=== PATIENT | male | born 1960 | race Caucasian/White ===

== ENCOUNTER → 2020-04-03 | Outpatient (CLI) | payer MEDICAID, MEDICARE ==
[~2020-04-03] MED LIST: CATHETER FLUSH 10 ML SYR IV PRN; HOLD METFORMIN - RECEIVED CONTRAST 20 ML VIAL IV SCH; IOHEXOL 350 MG/ML 100 ML (OMNIPAQUE 350) VIAL IV ONE; NS 100 ML (IVPB) BAG IV ONE
[2020-04-03 12:06] LABS: POTASSIUM 4.3 MMOL/L (3.6-5.0)
[2020-04-03 12:07] LABS: BUN/CREATININE RATIO 5; CARBON DIOXIDE 20 MMOL/L (21-32); CHLORIDE 91 MMOL/L (98-107); CREATININE SERUM 0.56 MG/DL (0.60-1.30); GFR ESTIMATED > 60; GLUCOSE 89 MG/DL (70-105)
[2020-04-03 12:09] LABS: ALANINE AMINOTRANSFERASE 25 U/L (0-55); ALBUMIN 4.1 GM/DL (3.2-4.5); ALKALINE PHOSPHATASE 63 U/L (40-136); BILIRUBIN,TOTAL 0.5 MG/DL (0.1-1.0); TOTAL PROTEIN 6.9 GM/DL (6.4-8.2)
[2020-04-03 12:45] LABS: SODIUM 125 MMOL/L (135-145)
--- NOTE | 2020-04-03 12:52 | Diagnostic Imaging Report ---
EXAMINATION: CT Abdomen with and without intravenous contrast. TECHNIQUE: Precontrast acquisitions were acquired through the abdomen . Multiple contiguous axial images were obtained through the abdomen after the administration of intravenous contrast. All CT scans use one or more of the following dose optimizing techniques: automated exposure control, MA and/or KvP adjustment based on a patient size and exam type, or iterative reconstruction. HISTORY: Liver mass. COMPARISON: None available. FINDINGS: Limited views of the lower thorax show coronary artery calcifications. The liver is normal without focal lesion. There is no biliary ductal dilation. Gallbladder is normal. Pancreas is normal. Spleen is normal. Adrenal glands are normal. The kidneys are normal. There is no hydronephrosis. Visualized bowel is normal in caliber without obstruction or inflammation. No free fluid or air. No abdominal lymphadenopathy. Aorta is normal in caliber without aneurysm. There are no suspicious osseus lesions. IMPRESSION: 1. No liver mass is identified. Dictated by: Dictated on workstation # [id number]
== END ==
LOC: RAD FS 10:54
PROVIDERS: ATTEND Nurse Practitioner
DX: R74.8 Abnormal levels of other serum enzymes (principal)
CPT/HCPCS: 36415; 74170; 80053

== ENCOUNTER 2022-01-04 16:37 | Inpatient (IN) | payer MEDICARE ==
[~2022-01-04] VITALS: Ht 185.5 cm; Wt 84.9 kg
[2022-01-04] MEDS ORDERED: RT-ALBUTEROL/IPRATROPIUM 3 ML (DUONEB) VIAL ONE (16:42)
[2022-01-04 16:54] LABS: BASOPHILS % (AUTO) 0 % (0-10); EOSINOPHILS % (AUTO) 0 % (0-10); HEMATOCRIT 45 % (40-54); LYMPHOCYTES # (AUTO) 1.6 10^3/uL (1.0-4.0); LYMPHOCYTES % (AUTO) 11 % (12-44); MEAN CORPUSCULAR HEMOGLOBIN 33 pg (25-34); MEAN CORPUSCULAR HGB CONC 33 g/dL (32-36); MEAN CORPUSCULAR VOLUME 100 fL (80-99); MEAN PLATELET VOLUME 9.7 fL (9.0-12.2); MONOCYTES # (AUTO) 0.9 10^3/uL (0.0-1.0); MONOCYTES % (AUTO) 7 % (0-12); NEUTROPHILS # (AUTO) 11.3 10^3/uL (1.8-7.8); NEUTROPHILS % (AUTO) 81 % (42-75); PLATELET COUNT 222 10^3/uL (130-400); WHITE BLOOD COUNT 13.9 10^3/uL (4.3-11.0)
[2022-01-04] MEDS ORDERED: RT-ALBUTEROL/IPRATROPIUM 3 ML (DUONEB) VIAL INH ONE (17:00)
[2022-01-04] MEDS ORDERED: methylPREDNISolone 125 MG (Solu-MEDROL) VIAL IVP ONE (17:00)
[2022-01-04] MEDS ORDERED: methylPREDNISolone 125 MG (Solu-MEDROL) VIAL IM ONE (17:00)
--- NOTE | 2022-01-04 17:03 | Diagnostic Imaging Report ---
CHEST 1 VIEW AP/PA ONLY Indication: Shortness of air Comparison: None available. Findings: Heart is normal in size. Bilateral interstitial opacities are present. No pleural effusion or pneumothorax. Normal cardiomediastinal silhouette. Impression: 1. Basilar interstitial opacities raise the possibility of noncardiogenic pulmonary edema. Underlying interstitial lung disease could be present. Dictated by: Dictated on workstation # [id number]
[2022-01-04 17:19] LABS: CREATININE SERUM 0.74 MG/DL (0.60-1.30); POTASSIUM 4.5 MMOL/L (3.6-5.0)
[2022-01-04 17:20] LABS: BILIRUBIN,TOTAL 0.5 MG/DL (0.1-1.0); CALCIUM 8.9 MG/DL (8.5-10.1); TOTAL PROTEIN 7.4 GM/DL (6.4-8.2)
[2022-01-04 17:29] LABS: ABG BASE EXCESS -8.5 MMOL/L (-2.5-2.5); ABG OXYGEN SATURATION 99 % (94-100); ABG PCO2 36 MMHG (35-45); ABG PH 7.29 (7.37-7.43); ABG PO2 132 MMHG (79-93); ABG TCO2 18.4 MMOL/L (21.0-31.0)
[2022-01-04 17:30] LABS: ALLENS TEST YES-POS; INSPIRED O2 100% BIPAP; PATIENT TEMP 35.7; VENTILATOR NO
[2022-01-04] MEDS ORDERED: FUROSEMIDE 40 MG/4 ML INJ (LASIX) IVP ONE (17:45)
--- NOTE | 2022-01-04 18:03 | ED Respiratory ---
General Chief Complaint: Respiratory Problems Stated Complaint: COPD Nursing Triage Note: Patient and family report patient has COPD. Family states patient became short of breath overnight, also states patient had diarrhea overnight. Source: patient Exam Limitations: no limitations History of Present Illness Date Seen by Provider: January 04, 2022 Time Seen by Provider: 16:30 Initial Comments Patient is a 61-year-old male with history of COPD who presents to the ED with fever, cough, shortness of breath and increased work of breathing. Patient has also had diarrhea for the past day and a half. EMS was contacted patient was found to have moderate respiratory distress with O2 saturation in the upper 60s. Placed patient on 4 L and transition to BiPAP on EMS arrival. Denies chest pain, nausea vomiting or sweats abdominal pain. Reports chest tightness no chest pain. History limited by the patient's respiratory status Timing/Duration: just prior to arrival Severity: moderate Prior Episodes/Possible Cause: other Modifying Factors: Improves With Oxygen Associated Symptoms: other Allergies and Home Medications Allergies Coded Allergies: No Known Drug Allergies (Unverified , 01/04/22) Patient Home Medication List Home Medication List Reviewed: Yes Review of Systems Review of Systems Constitutional: see HPI EENTM: see HPI Respiratory: see HPI Cardiovascular: see HPI Gastrointestinal: see HPI Genitourinary: see HPI Psychiatric/Neurological: See HPI Hematologic/Lymphatic: See HPI Immunological/Allergic: see HPI Past Jrwiwqg-Ikqlpv-Ceujxf Hx Patient Social History Tobacco Use?: Yes Tobacco type used: Cigarettes Substance use?: No Alcohol Use?: No Pt feels they are or have been: No Immunizations Up To Date First/Initial COVID19 Vaccinat: 03/03/21 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 oz. kg; 21.00 BMI Method: General Appearance: mild distress Eyes: Bilateral Eye Normal Inspection, Bilateral Eye PERRL HEENT: PERRL/EOMI, pharynx normal Neck: non-tender, supple Respiratory: normal breath sounds, decreased breath sounds Cardiovascular: regular rate, rhythm, no edema Gastrointestinal: non tender, soft Extremities: normal range of motion, non-tender Neurologic/Psychiatric: youth career specialist II-XII nml as tested, no motor/sensory deficits, alert, oriented x 3 Lymphatic: no adenopathy Focused Exam Sepsis Stage: Ruled Out Progress/Results/Core Measures Suspected Sepsis SIRS Temperature: Pulse: 113 Respiratory Rate: 37 Laboratory Tests 01/04/22 16:46: White Blood Count 13.9H Blood Pressure 121 /92 Mean: 102 Laboratory Tests 01/04/22 16:46: Creatinine 0.74, Platelet Count 222, Total Bilirubin 0.5 Results/Orders Lab Results Laboratory Tests Test 01/04/22 16:46 01/04/22 17:05 01/04/22 17:10 Range/Units White Blood Count 13.9 H 4.3-11.0 10^3/uL Red Blood Count 4.52 4.30-5.52 10^6/uL Hemoglobin 15.0 13.3-17.7 g/dL Hematocrit 45 40-54 % Mean Corpuscular Volume 100 H 80-99 fL Mean Corpuscular Hemoglobin 33 25-34 pg Mean Corpuscular Hemoglobin Concent 33 32-36 g/dL Red Cell Distribution Width 13.8 10.0-14.5 % Platelet Count 222 130-400 10^3/uL Mean Platelet Volume 9.7 9.0-12.2 fL Immature Granulocyte % (Auto) 1 % Neutrophils (%) (Auto) 81 H 42-75 % Lymphocytes (%) (Auto) 11 L 12-44 % Monocytes (%) (Auto) 7 0-12 % Eosinophils (%) (Auto) 0 0-10 % Basophils (%) (Auto) 0 0-10 % Neutrophils # (Auto) 11.3 H 1.8-7.8 10^3/uL Lymphocytes # (Auto) 1.6 1.0-4.0 10^3/uL Monocytes # (Auto) 0.9 0.0-1.0 10^3/uL Eosinophils # (Auto) 0.0 0.0-0.3 10^3/uL Basophils # (Auto) 0.0 0.0-0.1 10^3/uL Immature Granulocyte # (Auto) 0.1 0.0-0.1 10^3/uL Sodium Level 135 135-145 MMOL/L Potassium Level 4.5 3.6-5.0 MMOL/L Chloride Level 97 L 98-107 MMOL/L Carbon Dioxide Level 17 L 21-32 MMOL/L Anion Gap 21 H 5-14 MMOL/L Blood Urea Nitrogen 9 7-18 MG/DL Creatinine 0.74 0.60-1.30 MG/DL Estimat Glomerular Filtration Rate 103 BUN/Creatinine Ratio 12 Glucose Level 201 H 70-105 MG/DL Calcium Level 8.9 8.5-10.1 MG/DL Corrected Calcium 8.9 8.5-10.1 MG/DL Total Bilirubin 0.5 0.1-1.0 MG/DL Aspartate Amino Transf (AST/SGOT) 39 H 5-34 U/L Alanine Aminotransferase (ALT/SGPT) 21 0-55 U/L Alkaline Phosphatase 87 40-136 U/L Troponin I 0.53 *H <0.30 NG/ML Pro-B-Type Natriuretic Peptide 8897.0 H <75.0 PG/ML Total Protein 7.4 6.4-8.2 GM/DL Albumin 4.0 3.2-4.5 GM/DL Blood Gas Puncture Site LT RADIAL Blood Gas Patient Temperature 35.7 Arterial Blood pH 7.29 *L 7.37-7.43 Arterial Blood Partial Pressure CO2 36 35-45 MMHG Arterial Blood Partial Pressure O2 132 H 79-93 MMHG Arterial Blood HCO3 17 *L 23-27 MMOL/L Arterial Blood Total CO2 18.4 L 21.0-31.0 MMOL/L Arterial Blood Oxygen Saturation 99 94-100 % Arterial Blood Base Excess -8.5 L -2.5-2.5 MMOL/L Jm Test YES-POS Blood Gas Ventilator Setting NO Blood Gas Inspired Oxygen 100% BIPAP My Orders Orders - ALMA JIM DO Albuterol/Ipra Inhalation Soln (Duoneb I (01/04/22 16:42) Cbc With Automated Diff (01/04/22 16:49) Comprehensive Metabolic Panel (01/04/22 16:49) Troponin I Fs (01/04/22 16:49) Chest 1 View Ap/Pa Only (01/04/22 16:49) Ekg Tracing (01/04/22 16:49) Probnp Fs (01/04/22 16:49) Methylprednisolone Sod Succ (Solu-Medrol (01/04/22 17:00) Albuterol/Ipra Inhalation Soln (Duoneb I (01/04/22 17:00) Svn Small Volume Nebulizer (01/04/22 16:49) Bipap (Bilevel) Set Up (01/04/22 16:49) Methylprednisolone Sod Succ (Solu-Medrol (01/04/22 17:00) Covid 19 Inhouse Test (01/04/22 17:08) Influenza A And B By Pcr (01/04/22 17:08) Isolation Central Supply Req (01/04/22 17:08) Arterial Blood Gas (01/04/22 17:22) Furosemide Injection (Lasix Injection) (01/04/22 17:45) Piperacillin Sodium/Tazobactam (Zosyn Vi (01/04/22 18:15) Lactic Acid Analyzer (01/04/22 18:07) Medications Given in ED Current Medications Medications Dose Ordered Sig/Estrella Route Start Time Stop Time Status Last Admin Dose Admin Albuterol/ Ipratropium 6 ml ONCE ONCE INH 01/04/22 17:00 01/04/22 17:01 DC 01/04/22 16:59 6 ML Furosemide 40 mg ONCE ONCE IVP 01/04/22 17:45 01/04/22 17:47 DC 01/04/22 18:09 40 MG Methylprednisolone Sodium Succinate 125 mg ONCE ONCE IVP 01/04/22 17:00 01/04/22 17:01 DC 01/04/22 17:01 125 MG Vital Signs/I&O 01/04/22 16:42 Temp 35.7 Pulse 113 Resp 37 B/P (MAP) 121/92 (102) Pulse Ox 100 O2 Delivery NIV Bilevel Capillary Refill : Less Than 3 Seconds Blood Pressure Mean: 102 Departure Communication (Admissions) Chest x-ray: Bibasilar opacities. EKG: Sinus tach, rate 129, no acute ST-T wave changes. Patient maintained on BiPAP given DuoNeb, Solu-Medrol and Lasix with decreased work of breathing and improved oxygen saturations. Dr. Sandoval to admt. Impression Primary Impression: Acute exacerbation of chronic obstructive pulmonary disease (COPD) Additional Impressions: Acute congestive heart failure Acute respiratory failure with hypoxia Disposition: ADMITTED INPATIENT Condition: Improved Admissions Decision to Admit/Date: January 04, 2022 Time/Decision to Admit Time: 18:32 Departure-Patient Inst. Referrals: AUGUST VO MD, (DDU) (PCP/Family) Primary Care Physician ALMA JIM DO January 04, 2022 18:03
[2022-01-04] MEDS ORDERED: PIPERACILLIN SODIUM/TAZOBACTAM 4.5 GM in NS (IVPB) 100 ML IV ONE (18:15)
[2022-01-04 20:10] VITALS: BP 154/88
[2022-01-04] MEDS ORDERED: polyethylene glycoL POWDER 17 GM (MIRALAX) PACK PO PRN (20:15)
[2022-01-04] MEDS ORDERED: diphenhydrAMINE 50 MG/ML INJ (BENADRYL) IVP PRN (20:15)
[2022-01-04] MEDS ORDERED: BISACODYL 10 MG SUPP (DULCOLAX) PR PRN (20:15)
[2022-01-04] MEDS ORDERED: ONDANSETRON 4 MG/2 ML (SDV) Z0FRAN IV PRN (20:15)
[2022-01-04] MEDS ORDERED: ALPRAZolam 0.25 MG (XANAX) TAB PO PRN (20:15)
[2022-01-04] MEDS ORDERED: ANTACID SUSP 30 ML UDC (MYLANTA) PO PRN (20:15)
[2022-01-04] MEDS ORDERED: morphine INJ 4 MG/ML 1 ML (VIAL/SYRINGE) IV PRN (20:15)
[2022-01-04] MEDS ORDERED: diphenhydrAMINE 25 MG TAB (BENADRYL) PO PRN (20:15)
[2022-01-04] MEDS ORDERED: LORazepam INJ 2 MG/ML (ATIVAN) VIAL IVP PRN (20:15)
[2022-01-04] MEDS ORDERED: ONDANSETRON 4 MG (ZOFRAN) ORAL DISSOLVE TAB PO PRN (20:15)
[2022-01-04] MEDS ORDERED: ACETAMINOPHEN 325 MG TABLET PO PRN (20:15)
[2022-01-04] MEDS ORDERED: MELATONIN 3 MG TABLET PO PRN (20:15)
[2022-01-04] MEDS ORDERED: NS IV 1000 ML 1,000 ML IV SCH (20:15)
[2022-01-04] MEDS: inSUlin ASPART (NovoLOG) 1 UNIT/0.01 ML (CHARGE PER UNIT) SC SCH (21:02)
--- NOTE | 2022-01-04 21:15 | Tele-ICU Progress Note ---
Progress Note 61M with COPD, CVA presented with fever, cough, SOB, increased WOB, diarrhea x 1.5 days. On arrival, SpO2 in upper 60s. Placed on BiPap on arrival. - COPD: with exacerbation. Solumedrol, nebs, bipap. - CHF: unclear if CHF component. Received lasix in ER without much output. Overall, appears dry with the exception of the BNP 8K. Agree with gentle fluids, close observation for evidence of evolving fluid overload. - sepsis: presumed pulmonary source. Cultures pending. Empiric abx initiated. - DM: glucose decreased from 200 to 170 despite being given steroids. Sliding scale ordered. Monitor for steroid induced hyperglycemia, but appears low risk at this time. Focused Exam Lactate Level 01/04/22 19:00: Lactic Acid Level 5.74*H 01/04/22 21:00: Height, Weight, BMI Height: '" Weight: lbs. oz. kg; 19.99 BMI Method: Lactic Acid Level Laboratory Tests Test 01/04/22 19:00 01/04/22 21:00 Lactic Acid Level 5.74 MMOL/L (0.50-2.00) *H ELÍAS MEYERS MD January 04, 2022 21:15
[2022-01-04 21:17] LABS: ABG BASE EXCESS -4.1 MMOL/L (-2.5-2.5); ABG OXYGEN SATURATION 79 % (94-100); ABG PCO2 32 MMHG (35-45); ABG PO2 40 MMHG (79-93); ABG TCO2 21.2 MMOL/L (21.0-31.0)
[2022-01-04 21:18] LABS: INSPIRED O2 21%; PATIENT TEMP 35.4; VENTILATOR NO
[2022-01-04] MEDS: DOCUSATE SODIUM 100 MG (COLACE) CAP PO SCH (21:51)
[2022-01-04] MEDS: AZITHROMYCIN INJECTION 500 MG in NS (IVPB) 250 ML IV SCH (21:51)
[2022-01-04] MEDS: NS IV 1000 ML 1,000 ML IV SCH (21:51)
[2022-01-04] MEDS: FAMOTIDINE 20MG/2ML IV (PEPCID) IVP SCH (22:05)
[2022-01-04] MEDS: ENOXAPARIN 80 MG/0.8 ML (LOVENOX) SYR SC SCH (22:05)
[2022-01-04 22:08] VITALS: BP 160/93
[2022-01-04] MEDS: RT-ALBUTEROL/IPRATROPIUM 3 ML (DUONEB) VIAL INH SCH (22:08)
[2022-01-04] MEDS: methylPREDNISolone 40 MG/ML (Solu-MEDROL) VIAL IV SCH (23:20)
[2022-01-04] MEDS: PIPERACILLIN SODIUM/TAZOBACTAM 4.5 GM in NS (IVPB) 100 ML IV SCH (23:20)
[2022-01-05] VITALS (16 sets, daily range): BP systolic 63–172; BP diastolic 47–124
[2022-01-05] MEDS: RT-ALBUTEROL/IPRATROPIUM 3 ML (DUONEB) VIAL INH SCH ×6 (02:20→22:45)
[2022-01-05 03:08] LABS: BASOPHILS % (AUTO) 0 % (0-10); EOSINOPHILS % (AUTO) 0 % (0-10); HEMATOCRIT 42 % (40-54); HEMOGLOBIN 14.6 g/dL (13.3-17.7); LYMPHOCYTES # (AUTO) 0.9 10^3/uL (1.0-4.0); LYMPHOCYTES % (AUTO) 10 % (12-44); MEAN CORPUSCULAR HEMOGLOBIN 33 pg (25-34); MEAN CORPUSCULAR HGB CONC 35 g/dL (32-36); MEAN CORPUSCULAR VOLUME 96 fL (80-99); MONOCYTES # (AUTO) 0.3 10^3/uL (0.0-1.0); MONOCYTES % (AUTO) 3 % (0-12); NEUTROPHILS # (AUTO) 7.8 10^3/uL (1.8-7.8); NEUTROPHILS % (AUTO) 86 % (42-75); PLATELET COUNT 181 10^3/uL (130-400)
[2022-01-05 03:19] LABS: ALBUMIN 3.6 GM/DL (3.2-4.5); POTASSIUM 4.1 MMOL/L (3.6-5.0)
[2022-01-05 03:20] LABS: CALCIUM 8.6 MG/DL (8.5-10.1)
[2022-01-05 03:21] LABS: TOTAL PROTEIN 6.9 GM/DL (6.4-8.2)
[2022-01-05 03:23] LABS: BILIRUBIN,TOTAL 0.7 MG/DL (0.1-1.0)
[2022-01-05 03:25] LABS: CREATININE SERUM 0.91 MG/DL (0.60-1.30); PHOSPHORUS 2.9 MG/DL (2.3-4.7)
[2022-01-05 03:28] LABS: MAGNESIUM 1.3 MG/DL (1.6-2.4)
[2022-01-05] MEDS ORDERED: MAGNESIUM 1 GM/100 ML IVPB 400 ML IV ONE (03:35)
[2022-01-05] MEDS: MAGNESIUM 1 GM/100 ML IVPB 100 ML IV SCH ×4 (03:38→06:39)
[2022-01-05] MEDS: methylPREDNISolone 40 MG/ML (Solu-MEDROL) VIAL IV SCH ×4 (05:19→23:13)
[2022-01-05] MEDS: NS IV 1000 ML 1,000 ML IV SCH (05:21)
[2022-01-05] MEDS: inSUlin ASPART (NovoLOG) 1 UNIT/0.01 ML (CHARGE PER UNIT) SC SCH ×4 (05:24→23:12)
[2022-01-05] MEDS ORDERED: KCL 20 MEQ TAB (K-DUR) PO SCH (06:00)
[2022-01-05] MEDS ORDERED: MAGNESIUM 1 GM/100 ML IVPB 100 ML IV SCH (06:00)
[2022-01-05] MEDS ORDERED: POTASSIUM CL 10MEQ/50ML IVPB 50 ML IV SCH (06:00)
--- NOTE | 2022-01-05 06:19 | History & Physical-Hospitalist ---
History of Present Illness HPI/Chief Complaint CC: SOB HPI: This is a 61 yr old WM with a history of stroke with right sided hemiparesis. In addition to COPD. Pt continues to smoke. He presented to the ER in [place] with SOB. He was found to have exacerbation of COPD and acute on chronic respiratory failure. At this current time pt has remained stable and will be transferred to the 4th floor. IV steroids reviewed and pt will remain on oxygen. Source: patient Exam Limitations: no limitations Date Seen 01/05/22 Time Seen by a Provider: 09:00 Attending Physician Logan Flores MD,(DDU) PCP Admitting Physician: Nydia Sandoval DO Attending Physician: Nydia Sandoval DO Referring Physician Date of Admission January 04, 2022 at 20:08 Home Medications & Allergies Home Medications Reviewed patient Home Medication Reconciliation performed by pharmacy medication reconciliations histology technician and/or nursing. Patients Allergies have been reviewed. Allergies Allergies Coded Allergies No Known Drug Allergies (Unverified01/04/22) Past Pytxxwl-Qebvti-Epircd Hx Patient Social History Marrital Status: Employed/Student: unemployed Tobacco Use?: Yes Tobacco type used: Cigarettes Smoking Status: Current Everyday Smoker Use of E-Cig and/or Vaping dev: No Substance use?: Yes Substance type: Marijuana Alcohol Use?: Yes Alcohol type: Beer Alcohol Frequency: Daily Pt feels they are or have been: No Immunizations Up To Date First/Initial COVID19 Vaccinat: 03/03/21 Second COVID19 Vaccination [place]: 03/03/21 Tetanus Booster (TDap): Unknown Hepatitis A: No Hepatitis B: No Current Status Advance Directives: No Communicates: Verbally Primary Language: French Preferred Spoken Language: French Is interpretation needed?: No Implanted or Applied Medical D: None Past Medical History Pneumonia, COPD High Cholesterol, Hypertension Stroke Review of Systems Constitutional: see HPI, malaise, weakness EENTM: no symptoms reported Respiratory: cough, dyspnea on exertion Cardiovascular: no symptoms reported Gastrointestinal: no symptoms reported Genitourinary: no symptoms reported Musculoskeletal: no symptoms reported Skin: no symptoms reported Psychiatric/Neurological: No Symptoms Reported All Other Systems Reviewed Negative Unless Noted: Yes Physical Exam Physical Exam Vital Signs Vital Signs - First Documented 01/04/22 01/04/22 01/04/22 16:42 20:08 20:10 Temp 35.7 Pulse 113 Resp 37 B/P (MAP) 121/92 (102) Pulse Ox 100 O2 Delivery NIV Bilevel O2 Flow Rate 21.00 FiO2 60 Capillary Refill : Less Than 3 Seconds Height, Weight, BMI Height: '" Weight: lbs. oz. kg; 20.40 BMI Method: General Appearance: Anxious, Chronically ill, Mild Distress, Thin Neck: Full Range of Motion, Normal Inspection, Non Tender Respiratory: No Accessory Muscle Use, No Respiratory Distress, Crackles, Whe ezing Cardiovascular: Regular Rate, Rhythm Extremity: Normal Capillary Refill, Normal Inspection, Normal Range of Motion, Non Tender, No Calf Tenderness, No Pedal Edema Neurologic/Psychiatric: Alert Results Results/Procedures Labs Laboratory Tests 01/04/22 16:46 01/05/22 03:00 01/05/22 18:35 01/06/22 04:22 Patient resulted labs reviewed. Assessment/Plan Admission Diagnosis Assessment: Acute on chronic respiratory failure Exacerbation of COPD Alcohol withdrawal? NSTEMI Congestive heart failure? Smoker Marijuana use Poor reserve History of CVA with right-sided weakness Plan: BiPAP as needed O2 supplement Antibiotics Steroids Cardiology Admission Status: Inpatient Order (span 2 midnights) Reason for Inpatient Admission: Respiratory failure Diagnosis/Problems Diagnosis/Problems (1) Acute exacerbation of chronic obstructive pulmonary disease (COPD) Status: Acute (2) History of cerebrovascular accident (3) Nonrheumatic aortic valve stenosis with regurgitation (4) Primary hypertension (5) Mixed hyperlipidemia NYDIA SANDOVAL DO January 05, 2022 06:19
[2022-01-05] MEDS: FAMOTIDINE 20MG/2ML IV (PEPCID) IVP SCH ×2 (08:57→20:16)
[2022-01-05] MEDS: DOCUSATE SODIUM 100 MG (COLACE) CAP PO SCH ×3 (08:57→20:11)
[2022-01-05] MEDS: ENOXAPARIN 80 MG/0.8 ML (LOVENOX) SYR SC SCH ×2 (08:57→20:17)
[2022-01-05] MEDS: PIPERACILLIN SODIUM/TAZOBACTAM 4.5 GM in NS (IVPB) 100 ML IV SCH ×3 (08:58→23:13)
[2022-01-05] MEDS ORDERED: ASPIRIN 81 MG CHEW (CHILDREN'S ASA) PO SCH (09:00)
--- NOTE | 2022-01-05 10:38 | Occupational Therapy Eval ---
OT Evaluation-General/PLF Medical Diagnosis Admission Date January 04, 2022 at 20:08 Medical Diagnosis: COPD, CHF Onset Date: January 04, 2022 Therapy Diagnosis Therapy Diagnosis: reduced adl status Precautions Precautions/Isolations: Fall Prevention, Standard Precautions Referral Referral Reason: Evaluation/Treatment Medical History Pertinent Medical History: COPD, CVA Current History Pt presents to hospital with fever, cough, increased SOB and diarrhea. SpO2 in upper 60's. Placed on supplemental oxygen. Per patient, he lives with his in a multilevel home. He does not use any AD for mobility but his is always close by. He requires assistance with dressing and bathing secondary to residual effects (limited RUE functional use) from old CVA. Pt reports he was able to f eed self and toilet. Reviewed History: Yes Social History Home: Multilevel Current Living Status: Spouse ADL-Prior Level of Function SCALE: Activities may be completed with or without assistive devices. 1-Piwnkuvoef-geicsyz completes the activity by him/herself with no assistance from a helper. 5-Set-up or Clean-up Assistance-helper sets up or cleans up; patient completes activity. [place] assists only prior to or following the activity. 4-Supervision or Touching Assistance-helper provides verbal cues and/or touching/steadying and/or contact guard assistance as patient completes activity. Assistance may be provided throughout the activity or intermittently. 3-Partial/Moderate Assistance-helper does LESS THAN HALF the effort. [place] lifts, holds or supports trunk or limbs, but provides less than half the effort. 2-Substantial/Maximal Assistance-helper does MORE THAN HALF the effort. [place] lifts or holds trunk or limbs and provides more than half the effort. 1-Entigtsaz-nmrxph does ALL the effort. Patient does none of the effort to complete the activity. Or, the assistance of 2 or more helpers is required for the patient to complete the activity. If activity was not attempted, code reason: 7-Patient Refused. 9-Not Applicable-not attempted and the patient did not perform the activity before the current illness, exacerbation or injury. 10-Not Attempted due to Environmental Limitations-(lack of equipment, weather restraints, etc.). 88-Not Attempted due to Medical Conditions or Safety Concerns. Self Care: Needed Some Help Functional Cognition: Needed Some Help DME/Equipment: Bath Chair, Tub/Shower Drive Self: No OT Current Status Subjective Pt denies pain, agreeable to eval. Appearance Pt left sitting in recliner, RN notified. All needs within reach. Mental Status/Objective Patient Orientation: Person, Place Attachments: IV, Oxygen, Telemetry Current Hearing Aids: No Hand Dominance: Right Upper Extremity ROM flexed synergy pattern: RUE. Limited shoulder ROM, ~1/4 AROM. Pt reports pain in anterior shoulder with PROM. Spastic elbow/hand/wrist. Tremors notable in BUE's. LUE: WFL Upper Extremity Strength LUE: 3+/5 throughout ADL-Treatment Eating (QC): 4 On/Off Footwear (QC): 4 Bilateral socks donned while long sitting in bed. Extra time required but good one handed technique notable. SBA to sit EOB, good sitting balance. Pt on 4L O2, desats to low 80's post bed mobility. Recovers quickly with rest and cues for PLB. HR increases from 108-135 bpm with activity. Sit<>stand: impulsive, CGA for safety. Ataxic like movements when ambulating short distance; ~5 feet, towards chair. Pt exhibits SOB after minimal activity. BP: 206/125. After ~1 minute of rest, BP: 200/106. RN notified. Education OT Patient Education: Correct positioning, Modified ADL techniques, Purpose of tx/functional activities, Safety issues Teaching Recipient: Patient Teaching Methods: Demonstration, Discussion Response to Teaching: Verbalize Understanding, Return Demonstration, Reinforcement Needed OT Salesperson Surgical Appliances Goals Salesperson Surgical Appliances Goals Time Frame: Jan 15, 2022 Eating (QC): 5 Oral Hygiene (QC): 5 Toileting Hygiene (QC): 4 Shower/Bathe Self (QC): 3 Upper Body Dressing (QC): 3 Lower Body Dressing (QC): 3 1=Demonstrate adherence to instructed precautions during ADL tasks. 2=Patient will verbalize/demonstrate understanding of assistive devices/modifications for ADL. 3=Patient will improve strength/tolerance for activity to enable patient to perform ADL's. OT Education/Plan Problem List/Assessment Assessment: Decreased Activ Tolerance, Decreased Safety Aware, Decreased UE Strength, Impaired Cognition, Impaired Coordination, Impaired Funct Balance, Impaired Self-Care Skills, Restricted Funct UE ROM Discharge Recommendations Plan/Recommendations: Continue POC Target Placement ongoing assessment, Home vs Home health pending progress Treatment Plan/Plan of Care Treatment,Training & Education: Yes Patient would benefit from OT for education, treatment and training to promote independence in ADL's, mobility, safety and/or upper extremity function for ADL's. Plan of Care: ADL Retraining, Caregiver Training, Functional Mobility, Group Exercise/Act as Ind, UE Funct Exercise/Act, UE Neuromus Re-Ed/Coord Treatment Duration: Jan 15, 2022 Frequency: 3 times per week (3-5x/week) Estimated Hrs Per Day: .25 hour per day Rehab Potential: Fair Time/GCodes Start Time: 10:04 Stop Time: 10:27 Total Time Billed (hr/min): 23 Billed Treatment Time 1 visit EVM (10 min) FA (13 min) Tiara Herrera OT January 05, 2022 10:38
--- NOTE | 2022-01-05 10:48 | Physical Therapy Evaluation ---
PT Evaluation-General Medical Diagnosis Admission Date January 04, 2022 at 20:08 Medical Diagnosis: COPD exacerbation Onset Date: January 04, 2022 Therapy Diagnosis Therapy Diagnosis: debility/weakness Precautions Precautions/Isolations: Fall Prevention, Standard Precautions Referral Physician: Lori Reason for Referral: Evaluation/Treatment Medical History Pertinent Medical History: COPD, CVA Current History ER secondary to SOA with decreased SAO2 Reviewed History: Yes Social History Home: [facility] Current Living Status: Spouse Prior Prior Level of Function SCALE: Activities may be completed with or without assistive devices. 7-Yglbcegtun-qilhglb completes the activity by him/herself with no assistance from a helper. 5-Set-up or Clean-up Assistance-helper sets up or cleans up; patient completes activity. [place] assists only prior to or following the activity. 4-Supervision or Touching Assistance-helper provides verbal cues and/or touching/steadying and/or contact guard assistance as patient completes activity. Assistance may be provided throughout the activity or intermittently. 3-Partial/Moderate Assistance-helper does LESS THAN HALF the effort. [place] lifts, holds or supports trunk or limbs, but provides less than half the effort. 2-Substantial/Maximal Assistance-helper does MORE THAN HALF the effort. [place] lifts or holds trunk or limbs and provides more than half the effort. 2-Rkxfmelys-trivop does ALL the effort. Patient does none of the effort to complete the activity. Or, the assistance of 2 or more helpers is required for the patient to complete the activity. If activity was not attempted, code reason: 7-Patient Refused. 9-Not Applicable-not attempted and the patient did not perform the activity before the current illness, exacerbation or injury. 10-Not Attempted due to Environmental Limitations-(lack of equipment, weather restraints, etc.). 88-Not Attempted due to Medical Conditions or Safety Concerns. Bed Mobility: 4 Transfers (B,C,W/C): 3 Gait: 3 Stairs: 3 Indoor Mobility (Ambulation): Needed Some Help Stairs: Needed Some Help Prior Devices Use: None (spouse assist) PT Evaluation-Current Subjective Patient reports spouse assists with all mobility and ADL's Pain Numeric Pain Scale: 0-No Pain Location: No Pain Reported Objective Patient Orientation: Normal For Age Attachments: Oxygen (4L NC), IV ROM/Strength ROM Lower Extremities bilateral LE WFL Strength Lower Extremities 3+/5 grossly bilateral LE Integumentary/Posture Integumentary refer to nursing notes Bowel Incontinence: No Bladder Incontinence: No Posture kyphotic Neuromuscular (Tone, Coordination, Reflexes) ataxic with all gross motor mobility Sensory Vision: Functional Hearing: Functional Transfers Lying to Sitting/Side of Bed(Q: 4 Sit to Stand (QC): 3 Chair/Ckw-bp-Tdilg Xfer(QC): 3 Gait Mode of Locomotion: Walk Anticipated Mode of Locomotion: Walk Walk 10 feet (QC): 3 Gait Assistive Device: None Comments/Gait Description PT assist with noted ataxia with all mobility Balance Sitting Static: Fair Sitting Dynamic: Fair Standing Static: Poor Standing Dynamic: Poor Assessment/Needs Noted elevated BP 206/125 with RN being notified. Patient BP after resting for ~2 minutes 200/106. Patient's ataxia causes increase in fall risk. Rehab Potential: Fair PT Usp Goals Cisco Network Architect Goals PT Usp Goals Time Frame: Jan 16, 2022 Roll Left & Right (QC): 4 Sit to Lying (QC): 4 Lying-Sitting on Side/Bed(QC): 4 Sit to Stand (QC): 3 Chair/Iap-oc-Jkudf Xfer(QC): 3 Toilet Transfer (QC): 3 Walk 10 feet (QC): 3 Walk 50ft with 2 Turns (QC): 3 Walk 150 ft (QC): 3 PT Plan Problem List Problem List: Activity Tolerance, Functional Strength, Safety, Balance, Gait, Transfer Treatment/Plan Treatment Plan: Continue Plan of Care Treatment Plan: Education, Functional Activity Kisha, Functional Strength, Gait, Safety, Therapeutic Exercise, Transfers Treatment Duration: Jan 16, 2022 Frequency: 6 times per week Estimated Hrs Per Day: .25 hour per day Patient and/or Family Agrees t: Yes Time/GCodes Time In: 1015 Time Out: 1028 Total Billed Treatment Time: 13 Total Billed Treatment 1 visit EVMod 13 min IVAN CARBALLO PT January 05, 2022 10:48
--- NOTE | 2022-01-05 15:39 | Consultation-Cardiology ---
HPI-Cardiology Cardiology Consultation: Date of Consultation 01/05/22 Date of Admission 01/04/22 Attending Physician Logan Flores MD,(DDU) Admitting Physician Admitting Physician: Nydia Sandoval DO Attending Physician: Nydia Sandoval DO Consulting Physician FAIZA DURAHM JR, MD HPI: Time Seen by a Provider: 16:55 Chief Complaint: REASON FOR CONSULTATION: Possible NSTEMI. Had the pleasure of seeing Case on the medical floor at [facility] in [place], [place] today. He was wearing a BiPAP and it was somewhat difficult to communicate with MD because of this. On 01/04 he presented to [facility] emergency room with increasing dyspnea of unknown duration. He also reports a cough of unknown duration. He was felt to be having an exacerbation of chronic obstructive pulmonary disease but was also found to have an elevated troponin level as well as a BNP level. He was subsequently transferred to our hospital for further treatment and evaluation. He does not feel as though his breathing has made any improvement since being transferred here yesterday. He denies chest discomfort, paroxysmal nocturnal dyspnea, orthopnea, palpitations, lightheadedness, syncope, or ankle edema. Because of the heart failure and possible NSTEMI, a cardiology consultation was requested. He denies any previous history of cardiac disease. He does report that he takes medication for hypertension and cholesterol at home but denies using any pulmonary medication. Certain portions of this document may have been dictated utilizing voice recognition technology. Inherent to this technology, typographical and grammatical errors may exist. As much as I am diligent to identify and correct these mistakes, some errors may remain in the document. Review of Systems-Cardiology Review of Systems Other comments Not obtainable due to the patient's clinical status. HPT-Ujnvke-Gobyjg Hx Patient Social History Smoking Status: Current Everyday Smoker Have you traveled recently?: No Alcohol Use?: Yes Substance type: Marijuana Pt feels they are or have been: No Tobacco type used: Cigarettes Past Medical History PMH As described under Assessment. Family Medical History Family Medical History: The patient does not know of any family history of premature coronary artery disease in first-degree relatives. Allergies and Home Medications Allergies Coded Allergies: No Known Drug Allergies (Unverified , 01/04/22) Patient Home Medication List Home Medication List Reviewed: Yes Exam Vital Signs Vital Signs Date Time Temp Pulse Resp B/P (MAP) Pulse Ox O2 Delivery O2 Flow Rate FiO2 01/05/22 15:27 37.2 118 34 137/86 (103) 94 NIV Bilevel 60.00 01/04/22 23:25 24 Physical Exam General: Alert. Moderate respiratory distress on BiPAP. He appears malnourished and older than his stated age. Eye: Extraocular movements are intact. Conjunctivae are clear. There are no xanthelasma. HENT: Normocephalic. Atraumatic. Carotid pulsations 2/2 without bruits. Neck: Jugular venous pressure does not appear elevated. No thyromegaly appreciated. Respiratory: Lungs have diffuse coarse breath sounds from the BiPAP. Respirations are non-labored. Breath sounds are equal. Symmetrical chest wall expansion. Cardiovascular: Normal rate. Regular rhythm. Distant S1 and S2. 2/6 systolic ejection murmur. No gallop. Point of maximal impulse is not appear displaced. Good pulses equal in all extremities. No edema. Gastrointestinal: Soft. Normal bowel sounds. Skin: Skin turgor is normal. There is no pallor. Musculoskeletal: No kyphosis or scoliosis appreciated. Neurologic: Alert and oriented to person, place, time. Cranial nerves 3-12 appear grossly intact. Right arm partial paresis with contractures of the hand and wrist. Psychiatric: Cooperative. Appropriate mood & affect. Labs Laboratory Tests Test 01/04/22 17:05 01/04/22 17:10 01/04/22 19:00 01/04/22 21:00 Range/Units Blood Gas Puncture Site LT RADIAL LEFT AC Blood Gas Patient Temperature 35.7 35.4 Arterial Blood pH 7.29 *L 7.40 7.37-7.43 Arterial Blood Partial Pressure CO2 36 32 L 35-45 MMHG Arterial Blood Partial Pressure O2 132 H 40 L 79-93 MMHG Arterial Blood HCO3 17 *L 20 L 23-27 MMOL/L Arterial Blood Total CO2 18.4 L 21.2 21.0-31.0 MMOL/L Arterial Blood Oxygen Saturation 99 79 L 94-100 % Arterial Blood Base Excess -8.5 L -4.1 L -2.5-2.5 MMOL/L Mj Test YES-POS NA Blood Gas Ventilator Setting NO NO Blood Gas Inspired Oxygen 100% BIPAP 21% Influenza Type A (RT-PCR) Not Detected Not Detecte Influenza Type B (RT-PCR) Not Detected Not Detecte SARS-CoV-2 RNA (RT-PCR) Not Detected Not Detecte Lactic Acid Level 5.74 *H 5.34 *H 0.50-2.00 MMOL/L Test 01/04/22 21:01 01/04/22 22:57 01/05/22 03:00 01/05/22 05:18 Range/Units Glucometer 178 H 231 H 70-110 MG/DL Lactic Acid Level 6.35 *H 4.08 *H 0.50-2.00 MMOL/L Troponin I 0.602 *H 0.590 *H <0.028 NG/ML White Blood Count 9.0 4.3-11.0 10^3/uL Red Blood Count 4.40 4.30-5.52 10^6/uL Hemoglobin 14.6 13.3-17.7 g/dL Hematocrit 42 40-54 % Mean Corpuscular Volume 96 80-99 fL Mean Corpuscular Hemoglobin 33 25-34 pg Mean Corpuscular Hemoglobin Concent 35 32-36 g/dL Red Cell Distribution Width 13.5 10.0-14.5 % Platelet Count 181 130-400 10^3/uL Mean Platelet Volume 10.0 9.0-12.2 fL Immature Granulocyte % (Auto) 0 % Neutrophils (%) (Auto) 86 H 42-75 % Lymphocytes (%) (Auto) 10 L 12-44 % Monocytes (%) (Auto) 3 0-12 % Eosinophils (%) (Auto) 0 0-10 % Basophils (%) (Auto) 0 0-10 % Neutrophils # (Auto) 7.8 1.8-7.8 10^3/uL Lymphocytes # (Auto) 0.9 L 1.0-4.0 10^3/uL Monocytes # (Auto) 0.3 0.0-1.0 10^3/uL Eosinophils # (Auto) 0.0 0.0-0.3 10^3/uL Basophils # (Auto) 0.0 0.0-0.1 10^3/uL Immature Granulocyte # (Auto) 0.0 0.0-0.1 10^3/uL Sodium Level 136 135-145 MMOL/L Potassium Level 4.1 3.6-5.0 MMOL/L Chloride Level 102 98-107 MMOL/L Carbon Dioxide Level 15 L 21-32 MMOL/L Anion Gap 19 H 5-14 MMOL/L Blood Urea Nitrogen 15 7-18 MG/DL Creatinine 0.91 0.60-1.30 MG/DL Estimat Glomerular Filtration Rate 96 BUN/Creatinine Ratio 16 Glucose Level 192 H 70-105 MG/DL Calcium Level 8.6 8.5-10.1 MG/DL Corrected Calcium 8.9 8.5-10.1 MG/DL Phosphorus Level 2.9 2.3-4.7 MG/DL Magnesium Level 1.3 L 1.6-2.4 MG/DL Total Bilirubin 0.7 0.1-1.0 MG/DL Aspartate Amino Transf (AST/SGOT) 32 5-34 U/L Alanine Aminotransferase (ALT/SGPT) 22 0-55 U/L Alkaline Phosphatase 63 40-136 U/L Total Protein 6.9 6.4-8.2 GM/DL Albumin 3.6 3.2-4.5 GM/DL Triglycerides Level 73 <150 MG/DL VLDL Cholesterol 15 5-40 MG/DL Test 01/05/22 11:14 01/05/22 15:34 Range/Units Glucometer 236 H 144 H 70-110 MG/DL Radiology ECHOCARDIOGRAM (01/05/2022): 1. This is a technically difficult study due to the patient's underlying lung disease with poor acoustic windows. 2. Left ventricle: The cavity size is normal. Wall thickness is normal. Systolic function is normal. The estimated ejection fraction is 55-60%. Regional wall motion abnormalities cannot be excluded due to poor endocardial definition. Features are consistent with a pseudonormal left ventricular filling pattern, with concomitant abnormal relaxation and increased filling pressure (grade 2 diastolic dysfunction). 3. Aortic valve: The aortic valve structure is not well visualized but the leaflets appear to be thickened and calcified with restricted leaflet mobility. There is moderate aortic stenosis with a mean gradient of 30 mmHg, a peak gradient of 58 mmHg, a peak velocity of 3.8 m/s and a calculated aortic valve area of 1.1 cm. There is moderate aortic regurgitation with a pressure half- time of 207 ms. 4. Mitral valve: There is mild mitral regurgitation. 5. Inferior vena cava: The vessel is dilated. The respirophasic diameter changes are in the normal range (greater than or equal to 50%). These findings are consistent with mildly elevated right atrial pressure (8 mmHg). 6. Pulmonary arteries: The estimated pulmonary artery systolic pressure is 33 mmHg assuming a right atrial pressure of 8 mmHg. ECG Impression ECG Comment Electrocardiogram from 01/04 shows sinus tachycardia at 129 bpm with 1 isolated premature ventricular complexes, poor R wave progression and nonspecific T wave changes. Diagnosis/Problems Diagnosis/Problems (1) Non-ST elevation myocardial infarction (NSTEMI), initial care episode Assessment & Plan: His troponin levels are elevated although flat. The troponin elevation raises a concern about a non-ST elevation myocardial infarction although the patient is not complaining of chest pain and there are no ischemic changes on his electrocardiogram. This could be a type II non-ST elevation myocardial infarction due to his acute respiratory failure. However, I cannot completely exclude a type I non-ST elevation myocardial infarction. I recommend he continue on aspirin which he was taking at home. I will resume statin medication which she was also taking at home. Due to his acute respiratory failure most likely due to chronic obstructive pulmonary disease, I will hold off on giving him a beta-tommy at this time since this could cause worsening bronchospasm. Assuming he recovers from the acute respiratory illness, he will ultimately need to be considered for an ischemic evaluation. However, in his present state, he has not an ideal candidate for noninvasive or an invasive coronary ischemic evaluation. (2) Acute heart failure with preserved ejection fraction (HFpEF) Assessment & Plan: He does have an elevated BNP level and he is short of breath. However, this is in the setting of an acute exacerbation of his chronic obstructive pulmonary disease with acute respiratory failure. Some of the BNP elevation may also be due to aortic stenosis. He received a dose of IV Lasix at the outside emergency room. I will give him another dose today. I have ordered a chest x-ray for the morning. (3) Nonrheumatic aortic valve stenosis with regurgitation Assessment & Plan: His echocardiogram is consistent with significant aortic stenosis as well as regurgitation. Assuming he recovers from the pulmonary condition, we may need to consider whether or not to evaluate him for any sort of aortic valve intervention. This could most likely be done electively. (4) Primary hypertension Assessment & Plan: I will restart his lisinopril. As above, I do not think he is good candidate for beta-tommy at this time due to his acute respiratory failure. (5) Mixed hyperlipidemia Assessment & Plan: I have ordered statin medication which she appears to be taking at home (6) Acute respiratory failure with hypoxia Status: Acute Assessment & Plan: Most likely due to chronic obstructive pulmonary disease. (7) History of cerebrovascular accident Assessment & Plan: Resume aspirin and statin medication. He has not had any recent neurologic complaints. (8) Cigarette smoker Assessment & Plan: He needs to quit smoking. He was counseled in this regard. FAIZA DURHAM JR, MD January 05, 2022 15:39
[2022-01-05] MEDS ORDERED: LORazepam INJ 2 MG/ML (ATIVAN) VIAL IVP PRN (16:30)
[2022-01-05] MEDS ORDERED: RT-ALBUTEROL/IPRATROPIUM 3 ML (DUONEB) VIAL ONE (16:52)
[2022-01-05 16:53] LABS: TRIGLYCERIDES 73 MG/DL (<150); VLDL CHOLESTEROL 15 MG/DL (5-40)
[2022-01-05 16:59] LABS: CHOLESTEROL 136 MG/DL (< 200); HDL CHOLESTEROL 52 MG/DL (40-60)
[2022-01-05] MEDS ORDERED: ONDANSETRON 4 MG (ZOFRAN) ORAL DISSOLVE TAB SL PRN (17:00)
[2022-01-05] MEDS ORDERED: ANTACID SUSP 30 ML UDC (MYLANTA) PO PRN (17:00)
[2022-01-05] MEDS ORDERED: SENNA W/DOCUSATE (SENOKOT S) TABLET PO PRN (17:00)
[2022-01-05] MEDS ORDERED: ONDANSETRON 4 MG/2 ML (SDV) Z0FRAN IV PRN (17:00)
[2022-01-05] MEDS ORDERED: D5 1/2 NS 1000 ML IV SOLUTION 1,000 ML IV PRN (17:00)
[2022-01-05] MEDS ORDERED: 1/2 NS IV SOLUTION 1,000 ML IV PRN (17:00)
[2022-01-05] MEDS ORDERED: LORazepam INJ 2 MG/ML (ATIVAN) VIAL IM/IV PRN (17:00)
[2022-01-05] MEDS ORDERED: lisINopril 10 MG (PRINIVIL) TABLET PO ONE (17:15)
[2022-01-05] MEDS ORDERED: FUROSEMIDE 40 MG/4 ML INJ (LASIX) IVP ONE (17:15)
[2022-01-05] MEDS ORDERED: morphine INJ 10 MG/ML 1ML (SYR OR VIAL) IVP STA (17:38)
[2022-01-05 17:44] LABS: ABG BASE EXCESS -5.3 MMOL/L (-2.5-2.5); ABG OXYGEN SATURATION 92 % (94-100); ABG PCO2 42 MMHG (35-45); ABG PO2 72 MMHG (79-93); ABG TCO2 21.3 MMOL/L (21.0-31.0)
--- NOTE | 2022-01-05 17:45 | Tele-ICU Progress Note ---
Subjective Date Seen by a Provider: January 05, 2022 Time Seen by a Provider: 17:44 Subjective/Events-last exam (Tele-ICU Physician , Progress Note ) Available chart/ vitals / labs / Images reviewed Video assessment done using teleICU camera, rest of exam as per RN Discussed with RN , EXAM PER RN Events overnight : sent to medical floor this am Afebrile FiO2 - I/O = Drips: Pressors: , hemodynamically stable Consultants: shirlene Hospital course: (01/04) 61y M with SOB, vever, cough and diarrhea. Reports chest tightness w/o pain. ADMIT DX: Acute COPD, Acute CHF, Axute resp failure with hypoxia, CXR shows opacities. on bipap 01/05 - to medical floor on [place] , then back to ICU in severe resp distress after getting to bathroom A/P Acute resp failure - needed bipap 01/04 with improvemnrnt 01/05 - to medical floor on [place] , then back to ICU in severe resp distress after getting to bathroom ( PE is less likely with full dose lovenox 0 possible acute pulm edema - will give lasix , check abg and cxr -cont tx AECOPD - placed on BIPAP 100% 07/12 , RR 40 - will add precedex and re-assess NSTEMI, HFpEF ( EF 55% grII dst dsfnc, PRVC 33 mmHg ) moderate /AR - as per cards - duresis , follow AECOPD - nebs , steroids IV , empiric abx h/o CVA- confused now , but moves and fighting RN - seems no acute neuro deficit by RM exam periph Lines : (Central Line Necessity Reviewed) Collins: + OG: Nutrition: Analgesia: Anxiety/ delirium VTE Prophylaxis: francis 70 bid Stress Ulcer Prophylaxis: Plans in collaboration with bedside consultants and IM MDs. Discussed with RN to reach out if any questions or concerns A total of 33 minutes of critical care time was devoted to this patient today, required to treat and/or prevent further deterioration of critical care condition ( as above) . Sepsis Event Evaluation Height, Weight, BMI Height: '" Weight: lbs. oz. kg; 20.40 BMI Method: Focused Exam Lactate Level 01/04/22 21:00: Lactic Acid Level 5.34*H 01/04/22 22:57: Lactic Acid Level 6.35*H 01/05/22 03:00: Lactic Acid Level 4.08*H Exam Exam Patient acknowledged, consented, and participated in this virtual visit which was conducted using real time audio/video Vital Signs Date Time Temp Pulse Resp B/P (MAP) Pulse Ox O2 Delivery O2 Flow Rate FiO2 01/05/22 17:19 136 01/05/22 17:00 95 NIV Bilevel 90 01/05/22 15:27 37.2 118 34 137/86 (103) 94 NIV Bilevel 60.00 01/05/22 14:58 120 29 95 60.00 01/05/22 13:03 122 33 97 50.00 01/05/22 11:36 37.5 116 24 172/90 90 Nasal Cannula 6.00 01/05/22 09:58 92 Nasal Cannula 4.00 01/05/22 09:00 110 23 164/99 91 Nasal Cannula 2.00 01/05/22 08:00 102 23 161/97 93 Nasal Cannula 2.00 01/05/22 08:00 91 Nasal Cannula 2.00 01/05/22 07:42 92 Nasal Cannula 3.50 01/05/22 07:00 96 25 163/83 92 Nasal Cannula 2.00 01/05/22 07:00 96 01/05/22 06:00 96 23 163/92 90 Nasal Cannula 2.00 01/05/22 05:16 96 31 166/88 93 Nasal Cannula 2.00 01/05/22 04:03 36.2 01/05/22 04:00 96 16 156/83 93 Nasal Cannula 2.00 01/05/22 03:15 94 Nasal Cannula 2.00 01/05/22 03:00 93 28 155/80 94 Nasal Cannula 2.00 01/05/22 02:51 Nasal Cannula 2.00 01/05/22 02:40 96 Room Air 01/05/22 02:39 Room Air 01/05/22 02:20 87 21 98 24.00 01/05/22 02:00 94 25 172/88 97 NIV Bilevel 24.00 01/05/22 01:00 89 21 154/88 97 NIV Bilevel 24.00 01/05/22 01:00 89 01/05/22 00:01 36.4 01/05/22 00:00 87 25 135/102 97 NIV Bilevel 24.00 01/04/22 23:25 98 NIV Bilevel 24 01/04/22 23:00 96 23 130/86 99 NIV Bilevel 24.00 01/04/22 22:30 92 28 129/83 98 NIV Bilevel 24.00 01/04/22 22:11 NIV Bilevel 24.00 01/04/22 22:08 91 24 98 24.00 01/04/22 22:00 99 20 160/93 98 NIV Bilevel 28.00 01/04/22 21:40 NIV Bilevel 28.00 01/04/22 21:30 82 28 134/85 91 NIV Bilevel 21.00 01/04/22 21:06 86 25 145/84 92 NIV Bilevel 21.00 01/04/22 20:45 87 25 133/78 91 NIV Bilevel 21.00 01/04/22 20:30 92 28 155/88 93 NIV Bilevel 21.00 01/04/22 20:19 NIV Bilevel 21.00 01/04/22 20:15 90 01/04/22 20:15 90 25 154/88 100 NIV Bilevel 60.00 01/04/22 20:12 35.4 126 27 156/86 100 NIV Bilevel 60.00 01/04/22 20:10 92 28 93 21.00 01/04/22 20:08 NIV Bilevel 60 01/04/22 19:29 85 22 148/79 100 NIV Bilevel I & O 01/05/22 07:00 Intake Total 2405 ml Output Total 1625 ml Balance 780 ml Height & Weight Height: '" Weight: lbs. oz. kg; 20.40 BMI Method: General Appearance: Severe Distress Capillary Refill: Less Than 3 Seconds Gastrointestinal: non tender, soft Results Lab Laboratory Tests 01/04/22 16:46 01/05/22 03:00 Assessment/Plan Assessment/Plan ` ELIZABETH PETERSON MD January 05, 2022 17:45
[2022-01-05 17:46] LABS: INSPIRED O2 60% BIPAP; PATIENT TEMP 37.2; VENTILATOR NO
[2022-01-05] MEDS: THIAMINE INJECTION 100 MG, FOLIC ACID INJECTION 1 MG, VITAMIN MULTI INJECTION 10 ML, MA... IV SCH ×5 (17:47)
--- NOTE | 2022-01-05 17:48 | Diagnostic Imaging Report ---
Indication: Increasing shortness of air. Time of Exam: 5:33 PM Correlation is made with prior study 1 day earlier. Heart size stable. Since the prior study, the patient has developed significant bilateral interstitial and airspace pulmonary infiltrates. This is greatest in the right lung. No effusion or pneumothorax is seen. IMPRESSION: Worsening appearance of the chest where the patient has developed significant bilateral pulmonary infiltrates since exam one day earlier. Dictated by: Dictated on workstation # [id number]
[2022-01-05] MEDS ORDERED: morphine INJ 4 MG/ML 1 ML (VIAL/SYRINGE) ONE (17:52)
[2022-01-05] MEDS ORDERED: MIDAZOLAM 2 MG/2 ML (VERSED) VIAL ONE (17:53)
[2022-01-05] MEDS ORDERED: MIDAZOLAM 2 MG/2 ML (VERSED) VIAL IVP ONE (18:00)
[2022-01-05] MEDS ORDERED: PROPOFOL DRIP (ICU) 100 ML IV ONE (18:03)
--- NOTE | 2022-01-05 18:35 | Diagnostic Imaging Report ---
CHEST 1 VIEW, AP/PA ONLY Indication: Intubation Comparison: Earlier same day at 5:33 PM Findings: ET tube has tip approximately 8 cm above the gilda. Enteric tube has tip and side port terminating in the proximal stomach. No change in diffuse bilateral pulmonary opacities. Stable cardiac silhouette. Impression: 1. ET tube has tip approximately 8 cm above the gilda. Consider advancement of 3 cm. 2. Well-positioned enteric tube. 3. No change in bilateral pulmonary consolidations. Dictated by: Dictated on workstation # [id number]
[2022-01-05 18:45] LABS: HEMATOCRIT 45 % (40-54); HEMOGLOBIN 15.3 g/dL (13.3-17.7); MEAN CORPUSCULAR HEMOGLOBIN 33 pg (25-34); MEAN CORPUSCULAR HGB CONC 34 g/dL (32-36); MEAN CORPUSCULAR VOLUME 98 fL (80-99); MEAN PLATELET VOLUME 9.8 fL (9.0-12.2); PLATELET COUNT 186 10^3/uL (130-400); WHITE BLOOD COUNT 21.2 10^3/uL (4.3-11.0)
[2022-01-05 18:59] LABS: POTASSIUM 4.1 MMOL/L (3.6-5.0)
[2022-01-05 19:00] LABS: CALCIUM 8.3 MG/DL (8.5-10.1)
[2022-01-05 19:05] LABS: CREATININE SERUM 0.8 MG/DL (0.60-1.30)
[2022-01-05] MEDS: PROPOFOL DRIP (ICU) 100 ML IV SCH (19:41)
[2022-01-05] MEDS: DexMEDEtomidine 250 ML DRIP 250 ML IV SCH (19:42)
[2022-01-05 19:51] LABS: ABG BASE EXCESS -3.5 MMOL/L (-2.5-2.5); ABG OXYGEN SATURATION 96 % (94-100); ABG PCO2 39 MMHG (35-45); ABG PH 7.35 (7.37-7.43); ABG PO2 86 MMHG (79-93); ABG TCO2 22.5 MMOL/L (21.0-31.0)
[2022-01-05 19:53] LABS: ALLENS TEST YES-POS; INSPIRED O2 60%; PATIENT TEMP 36.5; VENTILATOR YES
--- NOTE | 2022-01-05 19:56 | Procedure/Intervention Note ---
Procedures/Interventions Reason for Intubation: acute hypoxic respiratory faillure Date of ETT Placement: January 05, 2022 Time of ETT Placement: 1813 Intubation Method: orotracheal Tube Size: 7.50 Medications: Succinylcholine (ketamine) Positive End Tide CO2: Yes Breath Sounds after Intubation: bilateral-equal Intubation Complications: no complications Post Intubation Xray: Yes ET tube slightly high, will advance Patient tolerated the procedure well with no complications Care turned over to: ICU nurse DALTON VELEZ MD January 05, 2022 19:56
[2022-01-05] MEDS: AZITHROMYCIN INJECTION 500 MG in NS (IVPB) 250 ML IV SCH (20:17)
--- NOTE | 2022-01-05 20:49 | Diagnostic Imaging Report ---
CHEST 1 VIEW, AP/PA ONLY Indication: ET tube placement. Comparison: Earlier same day at 6:18 PM Findings: The ET tube now has tip approximately 7 cm above the gilda. No change in bilateral pulmonary opacities. Stable enteric tubes. Stable cardiac silhouette. No pneumothorax. Impression: 1. ET tube now has tip approximately 7 cm above the gilda. Dictated by: Dictated on workstation # [id number]
[2022-01-06] VITALS (31 sets, daily range): BP systolic 113–153; BP diastolic 68–86
[2022-01-06] MEDS: DexMEDEtomidine 250 ML DRIP 250 ML IV SCH ×3 (02:35→22:46)
[2022-01-06] MEDS: RT-ALBUTEROL/IPRATROPIUM 3 ML (DUONEB) VIAL INH SCH ×2 (02:48→07:09)
[2022-01-06 04:31] LABS: BASOPHILS % (AUTO) 0 % (0-10); EOSINOPHILS % (AUTO) 0 % (0-10); HEMATOCRIT 41 % (40-54); HEMOGLOBIN 14.1 g/dL (13.3-17.7); LYMPHOCYTES # (AUTO) 0.5 10^3/uL (1.0-4.0); LYMPHOCYTES % (AUTO) 3 % (12-44); MEAN CORPUSCULAR HEMOGLOBIN 33 pg (25-34); MEAN CORPUSCULAR HGB CONC 35 g/dL (32-36); MEAN CORPUSCULAR VOLUME 95 fL (80-99); MEAN PLATELET VOLUME 10.1 fL (9.0-12.2); MONOCYTES # (AUTO) 0.7 10^3/uL (0.0-1.0); MONOCYTES % (AUTO) 5 % (0-12); NEUTROPHILS # (AUTO) 14.1 10^3/uL (1.8-7.8); NEUTROPHILS % (AUTO) 92 % (42-75); PLATELET COUNT 152 10^3/uL (130-400); WHITE BLOOD COUNT 15.4 10^3/uL (4.3-11.0)
[2022-01-06 04:47] LABS: ALBUMIN 3.4 GM/DL (3.2-4.5); POTASSIUM 3.8 MMOL/L (3.6-5.0)
[2022-01-06 04:49] LABS: CALCIUM 8.1 MG/DL (8.5-10.1)
[2022-01-06 04:50] LABS: TOTAL PROTEIN 6.4 GM/DL (6.4-8.2)
[2022-01-06 04:51] LABS: BILIRUBIN,TOTAL 0.6 MG/DL (0.1-1.0)
[2022-01-06 04:53] LABS: ABG BASE EXCESS -1.1 MMOL/L (-2.5-2.5); ABG OXYGEN SATURATION 97 % (94-100); ABG PCO2 35 MMHG (35-45); ABG PH 7.43 (7.37-7.43); ABG PO2 82 MMHG (79-93); ABG TCO2 23.6 MMOL/L (21.0-31.0); ALLENS TEST YES-POS
[2022-01-06 04:53] LABS: CREATININE SERUM 0.81 MG/DL (0.60-1.30)
[2022-01-06 04:54] LABS: INSPIRED O2 35%; PATIENT TEMP 37.4; VENTILATOR YES
[2022-01-06 04:56] LABS: MAGNESIUM 2.4 MG/DL (1.6-2.4)
[2022-01-06] MEDS: methylPREDNISolone 40 MG/ML (Solu-MEDROL) VIAL IV SCH ×4 (05:12→23:05)
[2022-01-06] MEDS: inSUlin ASPART (NovoLOG) 1 UNIT/0.01 ML (CHARGE PER UNIT) SC SCH ×4 (05:12→23:06)
--- NOTE | 2022-01-06 06:41 | Progress Note - Hospitalist ---
Subjective HPI/CC On Admission Date Seen by Provider: Jan 06, 2022 Time Seen by Provider: 10:00 CC: SOB HPI: This is a 61 yr old WM with a history of stroke with right sided hemiparesis. In addition to COPD. Pt continues to smoke. He presented to the ER in [place] with SOB. He was found to have exacerbation of COPD and acute on chronic respiratory failure. At this current time pt has remained stable and will be transferred to the 4th floor. IV steroids reviewed and pt will remain on oxygen. Subjective/Events-last exam Pt required intubation after transferring up to the ICU Could not tolerate the sedation vacation since tachypneic and tachycardic episode occurred Vent settings are 450/20/5/35 ABG is 7.43/35/82 Focused Exam Lactate Level 01/04/22 21:00: Lactic Acid Level 5.34*H 01/04/22 22:57: Lactic Acid Level 6.35*H 01/05/22 03:00: Lactic Acid Level 4.08*H Objective Exam Vital Signs Vital Signs Date Time Temp Pulse Resp B/P (MAP) Pulse Ox O2 Delivery O2 Flow Rate FiO2 01/07/22 03:35 96 Mechanical Ventilator 30 01/07/22 03:35 37.6 30.00 01/07/22 03:04 101 01/07/22 03:00 24 Capillary Refill : Less Than 3 Seconds General Appearance: No Apparent Distress, WD/WN, Chronically ill, Thin, Other (Sedated and intubated) Respiratory: No Accessory Muscle Use, No Respiratory Distress, Decreased Breath Sounds Cardiovascular: Regular Rate, Rhythm Results/Procedures Lab Laboratory Tests 01/07/22 04:37 Patient resulted labs reviewed. Assessment/Plan Assessment and Plan Assess & Plan/Chief Complaint Assessment: Acute on chronic respiratory failure Exacerbation of COPD Alcohol withdrawal? NSTEMI Congestive heart failure? Smoker Marijuana use Poor reserve History of CVA with right-sided weakness Plan: BiPAP as needed O2 supplement Antibiotics Steroids Cardiology 01/06/2022: Appreciate vent management Supportive care May need [place] considering he has end stage COPD Diagnosis/Problems Diagnosis/Problems (1) Acute exacerbation of chronic obstructive pulmonary disease (COPD) Status: Acute (2) History of cerebrovascular accident (3) Nonrheumatic aortic valve stenosis with regurgitation (4) Primary hypertension (5) Mixed hyperlipidemia ROSA ELENA WILL DO Jan 06, 2022 06:41
--- NOTE | 2022-01-06 06:57 | Occ Therapy Progress Note ---
Therapy Progress Note Pt has been moved from 4th floor to ICU due to decline in medical status, physician sent new orders. OT orders received. Pt is currently intubated and OT will continue to monitor pt's status. Will initiate treatment when pt is medically stable and able to actively participate in skilled therapy. LUCAS REAVES Jan 06, 2022 06:57
[2022-01-06] MEDS ORDERED: ALPRAZolam 0.25 MG (XANAX) TAB PO PRN (07:15)
[2022-01-06] MEDS: PROPOFOL DRIP (ICU) 100 ML IV SCH ×2 (07:25→18:25)
[2022-01-06] MEDS ORDERED: BISACODYL 10 MG SUPP (DULCOLAX) PR PRN (07:30)
[2022-01-06] MEDS ORDERED: diphenhydrAMINE 25 MG TAB (BENADRYL) PO PRN (07:30)
[2022-01-06] MEDS ORDERED: MELATONIN 3 MG TABLET PO PRN (07:30)
[2022-01-06] MEDS ORDERED: diphenhydrAMINE 50 MG/ML INJ (BENADRYL) IV PRN (07:30)
[2022-01-06] MEDS ORDERED: polyethylene glycoL POWDER 17 GM (MIRALAX) PACK PO PRN (07:30)
[2022-01-06] MEDS ORDERED: morphine INJ 4 MG/ML 1 ML (VIAL/SYRINGE) IV PRN (07:30)
--- NOTE | 2022-01-06 07:52 | Diagnostic Imaging Report ---
INDICATION: Respiratory failure AP view of the chest is obtained with comparison made to the study of one day earlier. Endotracheal tube is in place with tip below the thoracic inlet and nasogastric tube passes below the diaphragm. Extensive bilateral airspace disease has a similar overall appearance with probable slight improvement in aeration of the lungs. IMPRESSION: Mild overall improvement in aeration of lungs with persistent bilateral pulmonary opacities which may be due to edema or pneumonia. Dictated by: Dictated on workstation # [id number]
[2022-01-06] MEDS: ASPIRIN 81 MG CHEW (CHILDREN'S ASA) PO SCH (08:38)
[2022-01-06] MEDS: PIPERACILLIN SODIUM/TAZOBACTAM 4.5 GM in NS (IVPB) 100 ML IV SCH ×3 (08:38→23:05)
[2022-01-06] MEDS: lisINopril 10 MG (PRINIVIL) TABLET PO SCH (08:38)
[2022-01-06] MEDS: FAMOTIDINE 20MG/2ML IV (PEPCID) IV SCH ×2 (08:38→20:19)
[2022-01-06] MEDS: DOCUSATE SODIUM 100 MG (COLACE) CAP PO SCH ×2 (08:39→20:19)
[2022-01-06] MEDS: ENOXAPARIN 80 MG/0.8 ML (LOVENOX) SYR SC SCH ×2 (08:39→20:19)
[2022-01-06] MEDS ORDERED: SUCCINYLCHOLINE INJ 100 MG/5 ML SYR/VIAL INJ ONE (08:58)
[2022-01-06] MEDS ORDERED: KETAMINE HCL 100 MG/ML 5 ML VIAL IJ ONE (08:58)
--- NOTE | 2022-01-06 09:36 | Cardiology Progress Note ---
Progress Note-Cardiology Events since last exam Date Seen by Provider: Jan 06, 2022 Time Seen by Provider: 09:35 Events since last exam I am following him due to heart failure and possible NSTEMI. On 01/05 he was intubated due to worsening respiratory failure. He is now in the intensive care unit intubated and sedated. He has not required any vasoactive agents. I cannot obtain any history from the patient due to the sedation. I did speak with his nurse. His family wants full medical care for the time being. Certain portions of this document may have been dictated utilizing voice recognition technology. Inherent to this technology, typographical and grammatical errors may exist. As much as I am diligent to identify and correct these mistakes, some errors may remain in the document. Vitals Last set of Vitals Signs Vital Signs 01/06/22 01/06/22 01/06/22 12:00 14:00 14:12 Temp 37.2 Pulse 110 Resp 32 B/P (MAP) 141/81 (101) Pulse Ox 98 O2 Delivery Mechanical Ventilator O2 Flow Rate 35.00 FiO2 35 Labs Labs Laboratory Tests 01/05/22 18:35 01/06/22 04:22 Exam Vital Signs Vital Signs Date Time Temp Pulse Resp B/P (MAP) Pulse Ox O2 Delivery O2 Flow Rate FiO2 01/06/22 14:12 110 32 98 35 01/06/22 14:00 141/81 (101) Mechanical Ventilator 35.00 01/06/22 12:00 37.2 Physical Exam General: Intubated and sedated. He appears chronically ill and malnourished. Eye: Conjunctivae are clear. There are no xanthelasma. HENT: Normocephalic. Atraumatic. Carotid pulsations 2/2 without bruits. Neck: Jugular venous pressure does not appear elevated. No thyromegaly appreciated. Respiratory: Symmetrical expansion bilaterally. Coarse breath sounds due to the ventilator. Cardiovascular: Normal rate. Regular rhythm. Distant S1/S2. 3/6 systolic ejection murmur. No gallop. Point of maximal impulse is not appear displaced. Good pulses equal in all extremities. No edema. Gastrointestinal: Soft. Normal bowel sounds. Skin: Skin turgor is normal. There is no pallor. Musculoskeletal: No obvious deformities. Neurologic: Intubated and sedated. Psychiatric: Not obtainable due to clinical status. Labs Laboratory Tests Test 01/05/22 15:34 01/05/22 17:30 01/05/22 18:35 01/05/22 19:46 Range/Units Glucometer 144 H 70-110 MG/DL Blood Gas Puncture Site UNK LT RADIAL Blood Gas Patient Temperature 37.2 36.5 Arterial Blood pH 7.30 *L 7.35 L 7.37-7.43 Arterial Blood Partial Pressure CO2 42 39 35-45 MMHG Arterial Blood Partial Pressure O2 72 L 86 79-93 MMHG Arterial Blood HCO3 20 L 21 L 23-27 MMOL/L Arterial Blood Total CO2 21.3 22.5 21.0-31.0 MMOL/L Arterial Blood Oxygen Saturation 92 L 96 94-100 % Arterial Blood Base Excess -5.3 L -3.5 L -2.5-2.5 MMOL/L Jm Test UNK YES-POS Blood Gas Ventilator Setting NO YES Blood Gas Inspired Oxygen 60% BIPAP 60% White Blood Count 21.2 H 4.3-11.0 10^3/uL Red Blood Count 4.58 4.30-5.52 10^6/uL Hemoglobin 15.3 13.3-17.7 g/dL Hematocrit 45 40-54 % Mean Corpuscular Volume 98 80-99 fL Mean Corpuscular Hemoglobin 33 25-34 pg Mean Corpuscular Hemoglobin Concent 34 32-36 g/dL Red Cell Distribution Width 13.8 10.0-14.5 % Platelet Count 186 130-400 10^3/uL Mean Platelet Volume 9.8 9.0-12.2 fL Sodium Level 134 L 135-145 MMOL/L Potassium Level 4.1 3.6-5.0 MMOL/L Chloride Level 101 98-107 MMOL/L Carbon Dioxide Level 18 L 21-32 MMOL/L Anion Gap 15 H 5-14 MMOL/L Blood Urea Nitrogen 13 7-18 MG/DL Creatinine 0.80 0.60-1.30 MG/DL Estimat Glomerular Filtration Rate 101 BUN/Creatinine Ratio 16 Glucose Level 163 H 70-105 MG/DL Calcium Level 8.3 L 8.5-10.1 MG/DL Troponin I 0.380 *H <0.028 NG/ML B-Type Natriuretic Peptide 3233.8 H <100.0 PG/ML Test 01/05/22 23:06 01/06/22 04:22 01/06/22 04:46 01/06/22 05:06 Range/Units Glucometer 209 H 183 H 70-110 MG/DL White Blood Count 15.4 H 4.3-11.0 10^3/uL Red Blood Count 4.27 L 4.30-5.52 10^6/uL Hemoglobin 14.1 13.3-17.7 g/dL Hematocrit 41 40-54 % Mean Corpuscular Volume 95 80-99 fL Mean Corpuscular Hemoglobin 33 25-34 pg Mean Corpuscular Hemoglobin Concent 35 32-36 g/dL Red Cell Distribution Width 13.6 10.0-14.5 % Platelet Count 152 130-400 10^3/uL Mean Platelet Volume 10.1 9.0-12.2 fL Immature Granulocyte % (Auto) 1 % Neutrophils (%) (Auto) 92 H 42-75 % Lymphocytes (%) (Auto) 3 L 12-44 % Monocytes (%) (Auto) 5 0-12 % Eosinophils (%) (Auto) 0 0-10 % Basophils (%) (Auto) 0 0-10 % Neutrophils # (Auto) 14.1 H 1.8-7.8 10^3/uL Lymphocytes # (Auto) 0.5 L 1.0-4.0 10^3/uL Monocytes # (Auto) 0.7 0.0-1.0 10^3/uL Eosinophils # (Auto) 0.0 0.0-0.3 10^3/uL Basophils # (Auto) 0.0 0.0-0.1 10^3/uL Immature Granulocyte # (Auto) 0.1 0.0-0.1 10^3/uL Sodium Level 135 135-145 MMOL/L Potassium Level 3.8 3.6-5.0 MMOL/L Chloride Level 101 98-107 MMOL/L Carbon Dioxide Level 18 L 21-32 MMOL/L Anion Gap 16 H 5-14 MMOL/L Blood Urea Nitrogen 12 7-18 MG/DL Creatinine 0.81 0.60-1.30 MG/DL Estimat Glomerular Filtration Rate 100 BUN/Creatinine Ratio 15 Glucose Level 200 H 70-105 MG/DL Calcium Level 8.1 L 8.5-10.1 MG/DL Corrected Calcium 8.6 8.5-10.1 MG/DL Magnesium Level 2.4 1.6-2.4 MG/DL Total Bilirubin 0.6 0.1-1.0 MG/DL Aspartate Amino Transf (AST/SGOT) 34 5-34 U/L Alanine Aminotransferase (ALT/SGPT) 20 0-55 U/L Alkaline Phosphatase 53 40-136 U/L Total Protein 6.4 6.4-8.2 GM/DL Albumin 3.4 3.2-4.5 GM/DL Blood Gas Puncture Site LEFT RADIAL Blood Gas Patient Temperature 37.4 Arterial Blood pH 7.43 7.37-7.43 Arterial Blood Partial Pressure CO2 35 35-45 MMHG Arterial Blood Partial Pressure O2 82 79-93 MMHG Arterial Blood HCO3 23 23-27 MMOL/L Arterial Blood Total CO2 23.6 21.0-31.0 MMOL/L Arterial Blood Oxygen Saturation 97 94-100 % Arterial Blood Base Excess -1.1 -2.5-2.5 MMOL/L Jm Test YES-POS Blood Gas Ventilator Setting YES Blood Gas Inspired Oxygen 35% Test 01/06/22 11:51 Range/Units Glucometer 234 H 70-110 MG/DL Diagnosis/Problems Diagnosis/Problems (1) Non-ST elevation myocardial infarction (NSTEMI), initial care episode Assessment & Plan: His troponin levels are elevated although flat. The troponin elevation raises a concern about a non-ST elevation myocardial infarction although the patient was not complaining of chest pain and there are no ischemic changes on his electrocardiogram. This could be a type II non-ST elevation myocardial infarction due to his acute respiratory failure. However, I cannot completely exclude a type I non-ST elevation myocardial infarction. I recommend he continue on aspirin which he was taking at home. I ordered statin medication which she was also taking at home. Due to his acute respiratory failure most likely due to chronic obstructive pulmonary disease, I will hold off on giving him a beta-tommy at this time since this could cause worsening bronchospasm. Assuming he recovers from the acute respiratory illness, he will ultimately need to be considered for an ischemic evaluation. However, in his present state, he has not an ideal candidate for noninvasive or an invasive coronary ischemic evaluation. (2) Acute heart failure with preserved ejection fraction (HFpEF) Assessment & Plan: He does have an elevated BNP level and he is short of breath. However, this is in the setting of an acute exacerbation of his chronic obstructive pulmonary disease with acute respiratory failure. Some of the BNP elevation may also be due to aortic stenosis. He received a dose of IV Lasix at the outside emergency room. I gave him another dose of intravenous furosemide on 01/05. (3) Nonrheumatic aortic valve stenosis with regurgitation Assessment & Plan: His echocardiogram is consistent with significant aortic stenosis as well as regurgitation. Assuming he recovers from the pulmonary condition, we may need to consider whether or not to evaluate him for any sort of aortic valve intervention. This could most likely be done electively. (4) Primary hypertension Assessment & Plan: I restarted his lisinopril. As above, I do not think he is good candidate for beta-tommy at this time due to his acute respiratory failure likely due to his underlying pulmonary disease. (5) Mixed hyperlipidemia Assessment & Plan: I have ordered statin medication which she appears to be taking at home (6) Acute respiratory failure with hypoxia Status: Acute Assessment & Plan: Most likely due to chronic obstructive pulmonary disease with perhaps some degree of heart failure as noted above. The hospitalist and eICU are managing the ventilator (7) History of cerebrovascular accident Assessment & Plan: He has a remote history of a stroke. He should continue aspirin and statin medication. He has not had any recent neurologic complaints. (8) Cigarette smoker Assessment & Plan: He needs to quit smoking. He was previously counseled in this regard. FAIZA DURHAM JR, MD Jan 06, 2022 09:36
[2022-01-06] MEDS: THIAMINE INJECTION 100 MG, FOLIC ACID INJECTION 1 MG, VITAMIN MULTI INJECTION 10 ML, MA... IV SCH ×5 (09:42)
--- NOTE | 2022-01-06 10:16 | Physical Therapy Progress Note ---
Therapy Progress Note Patient was transferred to ICU and intubated. Will discharge from PT services at this time. Will need new orders for PT evaluation when appropriate and patient can participate in skilled PT intervention. MICHI HE PT Jan 06, 2022 10:16
[2022-01-06] MEDS: RT-ALBUTEROL/IPRATROPIUM 3 ML (DUONEB) VIAL IH SCH ×4 (10:32→22:36)
--- NOTE | 2022-01-06 12:02 | Tele-ICU Progress Note ---
Subjective Date Seen by a Provider: Jan 06, 2022 Time Seen by a Provider: 12:01 Subjective/Events-last exam (Tele-ICU Physician , Progress Note ) Available chart/ vitals / labs / Images reviewed Video assessment done using teleICU camera, rest of exam as per RN Discussed with RN , EXAM PER RN Events overnight : sent to medical floor this am Afebrile FiO2 - 35% I/O = Drips: Sedation gtt: propf 20 , precedex 1.5 ( RASS ) VENT SETTINGS and ABG reviewed Not candidate for SBT today REVIEWED Cardiovascular Stability / Sedation Score / FI02/PEEP / ABG / CXR Pressors: , hemodynamically stable Consultants: shirlene Hospital course: (01/04) 61y M with SOB, vever, cough and diarrhea. Reports chest tightness w/o pain. ADMIT DX: Acute COPD, Acute CHF, Axute resp failure with hypoxia, CXR shows opacities. on bipap 01/05 - to medical floor on [place] , then back to ICU in severe resp distress after getting to bathroom , faled BIPAP , INTUBATED A/P Acute resp failure- - 01/04 bipap with improvement 12/08-1 - to medical floor on [place] , then back to ICU in severe resp distress, faled BIPAP , INTUBATED with flush pulm edema - lasix given , ABX to cont 01/06 fio2 35 % , decrease rr to 16 - follow NSTEMI, HFpEF ( EF 55% grII dst dsfnc, PRVC 33 mmHg ) moderate /AR - as per cards - follow AECOPD - nebs , steroids IV , empiric abx ? ETOH - thiamine , folate h/o CVA periph Lines : (Central Line Necessity Reviewed) Collins: + OG: Nutrition: start TF Analgesia: Anxiety/ delirium VTE Prophylaxis: francis 70 bid Stress Ulcer Prophylaxis: ppi Plans in collaboration with bedside consultants and IM MDs. Discussed with RN to reach out if any questions or concerns A total of 33 minutes of critical care time was devoted to this patient today, required to treat and/or prevent further deterioration of critical care condition ( as above) . Sepsis Event Evaluation Height, Weight, BMI Height: '" Weight: lbs. oz. kg; 23.91 BMI Method: Focused Exam Lactate Level 01/04/22 21:00: Lactic Acid Level 5.34*H 01/04/22 22:57: Lactic Acid Level 6.35*H 01/05/22 03:00: Lactic Acid Level 4.08*H Exam Exam Patient acknowledged, consented, and participated in this virtual visit which was conducted using real time audio/video Vital Signs Date Time Temp Pulse Resp B/P (MAP) Pulse Ox O2 Delivery O2 Flow Rate FiO2 01/06/22 12:00 37.2 01/06/22 11:59 35 01/06/22 11:00 112 24 133/68 (89) 95 Mechanical Ventilator 35.00 01/06/22 10:32 105 30 99 35 01/06/22 10:00 107 23 144/79 (100) 98 Mechanical Ventilator 35.00 01/06/22 09:00 108 23 143/81 (101) 98 Mechanical Ventilator 35.00 01/06/22 08:00 96 Mechanical Ventilator 35 01/06/22 08:00 111 28 142/80 (100) 98 Mechanical Ventilator 35.00 01/06/22 08:00 37.1 01/06/22 07:25 105 138/76 01/06/22 07:10 105 22 98 35 01/06/22 07:00 104 01/06/22 07:00 35 01/06/22 07:00 105 24 138/76 (96) 98 Mechanical Ventilator 35.00 01/06/22 06:00 105 25 133/76 (95) 97 Mechanical Ventilator 35.00 01/06/22 05:00 101 25 127/79 (95) 98 Mechanical Ventilator 35.00 01/06/22 04:00 104 26 131/74 (93) 98 Mechanical Ventilator 35.00 01/06/22 03:30 96 Mechanical Ventilator 35 01/06/22 03:30 35 01/06/22 03:30 37.4 105 27 122/69 (86) 96 Mechanical Ventilator 35.00 01/06/22 03:00 100 25 122/69 (86) 95 Mechanical Ventilator 35.00 01/06/22 02:52 Mechanical Ventilator 35.00 01/06/22 02:49 98 30 94 35 01/06/22 02:35 98 124/80 01/06/22 02:00 99 24 122/78 (93) 98 Mechanical Ventilator 50.00 01/06/22 01:00 98 23 121/71 (88) 98 Mechanical Ventilator 50.00 01/06/22 01:00 98 01/06/22 00:00 97 25 113/74 (87) 97 Mechanical Ventilator 50.00 01/05/22 23:25 97 Mechanical Ventilator 50 01/05/22 23:05 50 01/05/22 23:05 37.1 93 20 111/73 (86) 97 Mechanical Ventilator 50.00 01/05/22 23:00 92 25 113/73 (86) 97 Mechanical Ventilator 50.00 01/05/22 22:45 89 25 97 50 01/05/22 22:45 37.2 01/05/22 22:00 Mechanical Ventilator 50.00 01/05/22 22:00 89 23 98/72 (81) 97 Mechanical Ventilator 50.00 01/05/22 21:00 92 22 100/71 (81) 97 Mechanical Ventilator 60.00 01/05/22 20:18 50 01/05/22 20:18 Mechanical Ventilator 60.00 01/05/22 20:00 90 24 102/71 (81) 97 Mechanical Ventilator 60.00 01/05/22 19:59 37.2 01/05/22 19:42 83 80/59 01/05/22 19:41 83 80/59 01/05/22 19:40 Mechanical Ventilator 60.00 01/05/22 19:30 60 01/05/22 19:27 83 25 95 60 01/05/22 19:15 95 Mechanical Ventilator 80 01/05/22 19:00 84 01/05/22 19:00 84 20 63/47 (52) 97 Mechanical Ventilator 80.00 01/05/22 18:30 92 17 81/57 (65) 94 Mechanical Ventilator 01/05/22 18:15 116 15 01/05/22 18:00 133 30 136/96 (109) 91 01/05/22 17:45 149 30 134/124 (127) 99 01/05/22 17:30 152 32 148/118 (128) 01/05/22 17:19 136 01/05/22 17:00 95 NIV Bilevel 90 01/05/22 15:27 37.2 118 34 137/86 (103) 94 NIV Bilevel 60.00 01/05/22 14:58 120 29 95 60.00 01/05/22 13:03 122 33 97 50.00 I & O 01/06/22 07:00 Intake Total 2410.2 ml Output Total 1100 ml Balance 1310.2 ml Height & Weight Height: '" Weight: lbs. oz. kg; 23.91 BMI Method: General Appearance: Anxious, Chronically ill, Mild Distress, Thin Neck: Full Range of Motion, Normal Inspection, Non Tender Respiratory: No Accessory Muscle Use, No Respiratory Distress, Crackles, Wheezing Cardiovascular: Regular Rate, Rhythm Capillary Refill: Less Than 3 Seconds Gastrointestinal: non tender, soft Extremity: Normal Capillary Refill, Normal Inspection, Normal Range of Motion, Non Tender, No Calf Tenderness, No Pedal Edema Neurologic/Psychiatric: Alert Results Lab Laboratory Tests 01/04/22 16:46 01/05/22 03:00 01/05/22 18:35 01/06/22 04:22 Assessment/Plan Assessment/Plan 1 ELIZABETH PETERSON MD Jan 06, 2022 12:02
[2022-01-06] MEDS: AZITHROMYCIN 500 MG/NS 250 ML IVPB IV SCH ×2 (20:19)
[2022-01-07] VITALS (30 sets, daily range): BP systolic 108–149; BP diastolic 67–87
[2022-01-07] MEDS: LORazepam INJ 2 MG/ML (ATIVAN) VIAL IV PRN (00:30)
[2022-01-07] MEDS: RT-ALBUTEROL/IPRATROPIUM 3 ML (DUONEB) VIAL IH SCH ×6 (02:53→22:26)
[2022-01-07] MEDS: PROPOFOL DRIP (ICU) 100 ML IV SCH ×4 (03:04→23:56)
[2022-01-07 04:52] LABS: BASOPHILS % (AUTO) 0 % (0-10); EOSINOPHILS % (AUTO) 0 % (0-10); HEMATOCRIT 39 % (40-54); HEMOGLOBIN 13.6 g/dL (13.3-17.7); LYMPHOCYTES # (AUTO) 0.6 10^3/uL (1.0-4.0); LYMPHOCYTES % (AUTO) 4 % (12-44); MEAN CORPUSCULAR HEMOGLOBIN 33 pg (25-34); MEAN CORPUSCULAR HGB CONC 35 g/dL (32-36); MEAN CORPUSCULAR VOLUME 96 fL (80-99); MEAN PLATELET VOLUME 10.3 fL (9.0-12.2); MONOCYTES # (AUTO) 0.6 10^3/uL (0.0-1.0); MONOCYTES % (AUTO) 4 % (0-12); NEUTROPHILS # (AUTO) 12.5 10^3/uL (1.8-7.8); NEUTROPHILS % (AUTO) 91 % (42-75); PLATELET COUNT 128 10^3/uL (130-400); WHITE BLOOD COUNT 13.7 10^3/uL (4.3-11.0)
[2022-01-07 04:52] LABS: ABG OXYGEN SATURATION 96 % (94-100); ABG PCO2 31 MMHG (35-45); ABG PH 7.45 (7.37-7.43); ABG PO2 76 MMHG (79-93); ABG TCO2 22.3 MMOL/L (21.0-31.0)
[2022-01-07 04:58] LABS: ALLENS TEST YES-POS; PATIENT TEMP 37.5; VENTILATOR YES
[2022-01-07 05:00] LABS: INSPIRED O2 30%
[2022-01-07 05:07] LABS: ALBUMIN 3.1 GM/DL (3.2-4.5); POTASSIUM 3.7 MMOL/L (3.6-5.0)
[2022-01-07 05:08] LABS: CALCIUM 7.9 MG/DL (8.5-10.1)
[2022-01-07 05:09] LABS: TOTAL PROTEIN 5.9 GM/DL (6.4-8.2)
[2022-01-07] MEDS: POTASSIUM CL 10MEQ/50ML IVPB 50 ML IV SCH (05:09)
[2022-01-07] MEDS: inSUlin ASPART (NovoLOG) 1 UNIT/0.01 ML (CHARGE PER UNIT) SC SCH ×3 (05:10→18:09)
[2022-01-07] MEDS: KCL 20 MEQ TAB (K-DUR) PO SCH (05:10)
[2022-01-07 05:11] LABS: BILIRUBIN,TOTAL 0.8 MG/DL (0.1-1.0)
[2022-01-07 05:13] LABS: CREATININE SERUM 0.71 MG/DL (0.60-1.30)
[2022-01-07 05:16] LABS: MAGNESIUM 2.3 MG/DL (1.6-2.4)
[2022-01-07 05:17] LABS: BAND NEUTROPHILS 0 %; BASOPHILS % (MANUAL) 0 %; EOSINOPHILS % (MANUAL) 0 %; LYMPHOCYTES % (MANUAL) 11 %; MONOCYTES % (MANUAL) 3 %; NEUTROPHILS % (MANUAL) 86 %; RBC MORPH NORMAL
[2022-01-07] MEDS: MAGNESIUM 1 GM/100 ML IVPB 100 ML IV SCH (05:17)
[2022-01-07] MEDS: methylPREDNISolone 40 MG/ML (Solu-MEDROL) VIAL IV SCH ×3 (05:26→17:50)
--- NOTE | 2022-01-07 06:34 | Progress Note - Hospitalist ---
Subjective HPI/CC On Admission Date Seen by Provider: Jan 07, 2022 Time Seen by Provider: 11:00 CC: SOB HPI: This is a 61 yr old WM with a history of stroke with right sided hemiparesis. In addition to COPD. Pt continues to smoke. He presented to the ER in [place] with SOB. He was found to have exacerbation of COPD and acute on chronic respiratory failure. At this current time pt has remained stable and will be transferred to the 4th floor. IV steroids reviewed and pt will remain on oxygen. Subjective/Events-last exam Pt is still intubated Vent settings are 450/16/5/30% Can not tolerate sedation vacation May be alcohol withdraw CT shows no stroke Focused Exam Lactate Level Objective Exam Vital Signs Vital Signs Date Time Temp Pulse Resp B/P (MAP) Pulse Ox O2 Delivery O2 Flow Rate FiO2 01/08/22 05:13 105 138/77 01/08/22 05:00 24 100 Mechanical Ventilator 30.00 01/08/22 04:00 30 01/08/22 01:53 37.7 Capillary Refill : Less Than 3 Seconds General Appearance: No Apparent Distress, WD/WN, Chronically ill, Thin, Other (Sedated and intubated) Respiratory: Lungs Clear, Normal Breath Sounds Results/Procedures Lab Laboratory Tests 01/08/22 05:10 Patient resulted labs reviewed. Assessment/Plan Assessment and Plan Assess & Plan/Chief Complaint Assessment: Acute on chronic respiratory failure Exacerbation of COPD Alcohol withdrawal? NSTEMI Congestive heart failure? Smoker Marijuana use Poor reserve History of CVA with right-sided weakness Plan: BiPAP as needed O2 supplement Antibiotics Steroids Cardiology 01/06/2022: Appreciate vent management Supportive care May need [employer] [place] considering he has end stage COPD 01/07/22: Supportive care Ventilator management appreciated Diagnosis/Problems Diagnosis/Problems (1) Acute exacerbation of chronic obstructive pulmonary disease (COPD) Status: Acute (2) History of cerebrovascular accident (3) Nonrheumatic aortic valve stenosis with regurgitation (4) Primary hypertension (5) Mixed hyperlipidemia ROSA ELENA WILL DO Jan 07, 2022 06:34
--- NOTE | 2022-01-07 06:59 | Occ Therapy Progress Note ---
Therapy Progress Note Pt is currently intubated and OT will continue to monitor pt's status. Will initiate treatment when pt is medically stable and able to actively participate in skilled therapy. LUCAS REAVES Jan 07, 2022 06:59
--- NOTE | 2022-01-07 09:08 | Cardiology Progress Note ---
Progress Note-Cardiology Events since last exam Date Seen by Provider: Jan 07, 2022 Time Seen by Provider: 09:06 Events since last exam I am following him due to heart failure and NSTEMI. He remains in the intensive care unit intubated and sedated. His oxygenation has improved. This morning the nurse had him on a sedation holiday but he became tachypneic and tachycardic. He was not following commands. He was placed back on full sedation. Yesterday, he had been following commands when sedation was weaned. Last evening he had a questionable seizure and was given 1 dose of Ativan. He is not on any vasoactive agents. I could not obtain any history from the patient due to his sedation. Certain portions of this document may have been dictated utilizing voice recognition technology. Inherent to this technology, typographical and grammatical errors may exist. As much as I am diligent to identify and correct these mistakes, some errors may remain in the document. Vitals Last set of Vitals Signs Vital Signs 01/07/22 01/07/22 01/07/22 01/07/22 07:33 10:27 11:00 11:17 Temp 36.0 Pulse 109 Resp 20 B/P (MAP) 141/83 Pulse Ox 98 O2 Delivery Mechanical Ventilator O2 Flow Rate 30.00 FiO2 30 Labs Labs Laboratory Tests 01/07/22 04:37 Exam Vital Signs Vital Signs Date Time Temp Pulse Resp B/P (MAP) Pulse Ox O2 Delivery O2 Flow Rate FiO2 01/07/22 11:17 109 141/83 01/07/22 11:00 20 98 Mechanical Ventilator 30.00 01/07/22 10:27 30 01/07/22 07:33 36.0 Physical Exam General: Intubated and sedated. He appears malnourished and older than his stated age. Eye: Conjunctivae are clear. There are no xanthelasma. HENT: Normocephalic. Atraumatic. Carotid pulsations 2/2 without bruits. Neck: Jugular venous pressure does not appear elevated. No thyromegaly appreciated. Respiratory: Symmetrical expansion bilaterally. Coarse breath sounds due to the ventilator. Cardiovascular: Normal rate. Regular rhythm. Distant S1/S2. 2/6 systolic ejection murmur. No gallop. Point of maximal impulse is not appear displaced. Good pulses equal in all extremities. No edema. Gastrointestinal: Soft. Normal bowel sounds. Skin: Skin turgor is normal. There is no pallor. Musculoskeletal: No obvious deformities. Neurologic: Intubated and sedated. Psychiatric: Not obtainable due to clinical status. Labs Laboratory Tests Test 01/06/22 11:51 01/06/22 17:51 01/06/22 22:53 01/07/22 04:37 Range/Units Glucometer 234 H 189 H 157 H 70-110 MG/DL White Blood Count 13.7 H 4.3-11.0 10^3/uL Red Blood Count 4.08 L 4.30-5.52 10^6/uL Hemoglobin 13.6 13.3-17.7 g/dL Hematocrit 39 L 40-54 % Mean Corpuscular Volume 96 80-99 fL Mean Corpuscular Hemoglobin 33 25-34 pg Mean Corpuscular Hemoglobin Concent 35 32-36 g/dL Red Cell Distribution Width 13.8 10.0-14.5 % Platelet Count 128 L 130-400 10^3/uL Mean Platelet Volume 10.3 9.0-12.2 fL Immature Granulocyte % (Auto) 0 % Neutrophils (%) (Auto) 91 H 42-75 % Lymphocytes (%) (Auto) 4 L 12-44 % Monocytes (%) (Auto) 4 0-12 % Eosinophils (%) (Auto) 0 0-10 % Basophils (%) (Auto) 0 0-10 % Neutrophils # (Auto) 12.5 H 1.8-7.8 10^3/uL Lymphocytes # (Auto) 0.6 L 1.0-4.0 10^3/uL Monocytes # (Auto) 0.6 0.0-1.0 10^3/uL Eosinophils # (Auto) 0.0 0.0-0.3 10^3/uL Basophils # (Auto) 0.0 0.0-0.1 10^3/uL Immature Granulocyte # (Auto) 0.1 0.0-0.1 10^3/uL Neutrophils % (Manual) 86 % Lymphocytes % (Manual) 11 % Monocytes % (Manual) 3 % Eosinophils % (Manual) 0 % Basophils % (Manual) 0 % Band Neutrophils 0 % Blood Morphology Comment NORMAL Sodium Level 134 L 135-145 MMOL/L Potassium Level 3.7 3.6-5.0 MMOL/L Chloride Level 101 98-107 MMOL/L Carbon Dioxide Level 19 L 21-32 MMOL/L Anion Gap 14 5-14 MMOL/L Blood Urea Nitrogen 11 7-18 MG/DL Creatinine 0.71 0.60-1.30 MG/DL Estimat Glomerular Filtration Rate 104 BUN/Creatinine Ratio 15 Glucose Level 175 H 70-105 MG/DL Calcium Level 7.9 L 8.5-10.1 MG/DL Corrected Calcium 8.6 8.5-10.1 MG/DL Magnesium Level 2.3 1.6-2.4 MG/DL Total Bilirubin 0.8 0.1-1.0 MG/DL Aspartate Amino Transf (AST/SGOT) 22 5-34 U/L Alanine Aminotransferase (ALT/SGPT) 22 0-55 U/L Alkaline Phosphatase 49 40-136 U/L Total Protein 5.9 L 6.4-8.2 GM/DL Albumin 3.1 L 3.2-4.5 GM/DL Test 01/07/22 04:39 Range/Units Blood Gas Puncture Site RRAD Blood Gas Patient Temperature 37.5 Arterial Blood pH 7.45 H 7.37-7.43 Arterial Blood Partial Pressure CO2 31 L 35-45 MMHG Arterial Blood Partial Pressure O2 76 L 79-93 MMHG Arterial Blood HCO3 21 L 23-27 MMOL/L Arterial Blood Total CO2 22.3 21.0-31.0 MMOL/L Arterial Blood Oxygen Saturation 96 94-100 % Arterial Blood Base Excess -2.0 -2.5-2.5 MMOL/L Jm Test YES-POS Blood Gas Ventilator Setting YES Blood Gas Inspired Oxygen 30% Diagnosis/Problems Diagnosis/Problems (1) Non-ST elevation myocardial infarction (NSTEMI), initial care episode Assessment & Plan: His troponin levels were elevated although flat. The troponin elevation raises a concern about a non-ST elevation myocardial infarction although the patient was not complaining of chest pain and there are no ischemic changes on his electrocardiogram. This could be a type II non-ST elevation myocardial infarction due to his acute respiratory failure. However, I cannot completely exclude a type I non-ST elevation myocardial infarction. I recommend he continue on aspirin which he was taking at home. I ordered statin medication which he was also taking at home. Since his pulmonary status now seems to be improving, low-dose beta-tommy. However, if this causes bronchospasm or increased oxygen requirements, we will need to stop this. He is also receiving therapeutic dosing of enoxaparin. Assuming he recovers from the acute respiratory illness, he will ultimately need to be considered for an ischemic evaluation. However, in his present state, he has not an ideal candidate for noninvasive or an invasive coronary ischemic evaluation. (2) Acute heart failure with preserved ejection fraction (HFpEF) Assessment & Plan: He does have an elevated BNP level and he was short of breat h. However, this is in the setting of an acute exacerbation of his chronic obstructive pulmonary disease with acute respiratory failure. Some of the BNP elevation may also be due to aortic stenosis. He underwent an echocardiogram during this admission that shows a normal ejection fraction. He received a dose of IV Lasix at the outside emergency room. I gave him another dose of intravenous furosemide on 01/05. (3) Nonrheumatic aortic valve stenosis with regurgitation Assessment & Plan: His echocardiogram is consistent with significant aortic stenosis as well as regurgitation. Assuming he recovers from the pulmonary condition, we may need to consider whether or not to evaluate him for any sort of aortic valve intervention. This could most likely be done electively. (4) Primary hypertension Assessment & Plan: I restarted his lisinopril. I will try him on low-dose beta-tommy due to the possible myocardial infarction. (5) Mixed hyperlipidemia Assessment & Plan: I have ordered statin medication which he appears to be taking at home (6) Tonic clonic convulsion Assessment & Plan: He does not have a history of seizures. He did have a baseline tremor prior to being intubated. This could be a sign of an underlying acute neurologic event. I recommend a head CT stroke protocol. (7) Acute respiratory failure with hypoxia Status: Acute Assessment & Plan: Most likely due to chronic obstructive pulmonary disease with perhaps some degree of heart failure as noted above. The hospitalist and eICU are managing the ventilator (8) History of cerebrovascular accident Assessment & Plan: He has a remote history of a stroke. He should continue aspirin and statin medication. He has not had any recent neurologic complaints but as above, given the possible tonic-clonic activity, I recommend a head CT. (9) Cigarette smoker Assessment & Plan: He needs to quit smoking. He was previously counseled in this regard. FAIZA DURHAM JR, MD Jan 07, 2022 09:08
[2022-01-07] MEDS: ASPIRIN 81 MG CHEW (CHILDREN'S ASA) PO SCH (09:26)
[2022-01-07] MEDS: ENOXAPARIN 80 MG/0.8 ML (LOVENOX) SYR SC SCH ×2 (09:26→21:50)
[2022-01-07] MEDS: FAMOTIDINE 20MG/2ML IV (PEPCID) IV SCH ×2 (09:26→21:50)
[2022-01-07] MEDS: lisINopril 10 MG (PRINIVIL) TABLET PO SCH (09:26)
[2022-01-07] MEDS: PIPERACILLIN SODIUM/TAZOBACTAM 4.5 GM in NS (IVPB) 100 ML IV SCH ×2 (09:27→16:06)
[2022-01-07] MEDS: DexMEDEtomidine 250 ML DRIP 250 ML IV SCH ×2 (09:29→17:50)
[2022-01-07] MEDS: THIAMINE INJECTION 100 MG, FOLIC ACID INJECTION 1 MG, VITAMIN MULTI INJECTION 10 ML, MA... IV SCH ×5 (09:30)
[2022-01-07] MEDS: DOCUSATE SODIUM 100 MG (COLACE) CAP PO SCH ×2 (09:41→22:29)
[2022-01-07] MEDS ORDERED: meTOprolol TARTRATE 25 MG (LOPRESSOR) TABLET PO ONE (09:45)
--- NOTE | 2022-01-07 10:11 | Tele-ICU Progress Note ---
Subjective Date Seen by a Provider: Jan 07, 2022 Time Seen by a Provider: 10:11 Subjective/Events-last exam (Tele-ICU Physician , Progress Note ) Available chart/ vitals / labs / Images reviewed Video assessment done using teleICU camera, rest of exam as per RN Discussed with RN , EXAM PER RN Events overnight : sent to medical floor this am Afebrile FiO2 - 35% I/O = Drips: Sedation gtt: propf 20 , precedex 1.5 ( RASS ) VENT SETTINGS and ABG reviewed Not candidate for SBT today REVIEWED Cardiovascular Stability / Sedation Score / FI02/PEEP / ABG / CXR Pressors: , hemodynamically stable Consultants: shirlene Hospital course: (01/04) 61y M with SOB, vever, cough and diarrhea. Reports chest tightness w/o pain. ADMIT DX: Acute COPD, Acute CHF, Axute resp failure with hypoxia, CXR shows opacities. on bipap 01/05 - to medical floor on CO , then back to ICU in severe resp distress after getting to bathroom , faled BIPAP , INTUBATED 01/07 AC 16-450-30 + 5 A/P Acute resp failure- - 01/04 bipap with improvement 01/05 - to medical floor on CO , then back to ICU in severe resp distress, faled BIPAP , INTUBATED with flush pulm edema - lasix given , CXR STILL WITH INFI LTRATES R>L - CONT ABX 01/06 - fio2 35 % , decrease rr to 16 ASTTEMPTS TO WEAN OFF SEDATION - VERY AGITATED , NOT FOLLOW COMMANDS - WILL TRUY ADD PRN FEMTANYL AND FOLLOW NSTEMI, HFpEF ( EF 55% grII dst dsfnc, PRVC 33 mmHg ) moderate /AR - as per cards - follow AECOPD - nebs , steroids IV , - empiric abx to cont - sputum cx - ususal duran Encephalopathy / agitation -= CT head 01/07 ? ETOH - thiamine , folate h/o CVA Lines : periph (Central Line Necessity Reviewed) Collins: + OG: Nutrition: start TF Analgesia: Anxiety/ delirium VTE Prophylaxis: francis 70 bid Stress Ulcer Prophylaxis: ppi Plans in collaboration with bedside consultants and IM MDs. Discussed with RN to reach out if any questions or concerns A total of 33 minutes of critical care time was devoted to this patient today, required to treat and/or prevent further deterioration of critical care condition ( as above) . Sepsis Event Evaluation Height, Weight, BMI Height: '" Weight: lbs. oz. kg; 24.46 BMI Method: Focused Exam Lactate Level 01/04/22 21:00: Lactic Acid Level 5.34*H 01/04/22 22:57: Lactic Acid Level 6.35*H 01/05/22 03:00: Lactic Acid Level 4.08*H Exam Exam Patient acknowledged, consented, and participated in this virtual visit which was conducted using real time audio/video Vital Signs Date Time Temp Pulse Resp B/P (MAP) Pulse Ox O2 Delivery O2 Flow Rate FiO2 01/07/22 09:29 107 143/79 01/07/22 09:00 108 18 144/83 (103) 98 Mechanical Ventilator 30.00 01/07/22 08:00 110 17 149/83 (105) 98 Mechanical Ventilator 30.00 01/07/22 07:40 25 01/07/22 07:33 36.0 01/07/22 07:13 107 23 99 30 01/07/22 07:00 107 24 145/82 (103) 98 Mechanical Ventilator 30.00 01/07/22 07:00 107 01/07/22 06:00 110 23 141/82 (101) 97 Mechanical Ventilator 30.00 01/07/22 05:00 112 20 149/86 (107) 96 Mechanical Ventilator 30.00 01/07/22 04:00 114 27 148/84 (105) 95 Mechanical Ventilator 30.00 01/07/22 03:35 96 Mechanical Ventilator 30 01/07/22 03:35 37.6 Mechanical Ventilator 30.00 01/07/22 03:04 101 138/78 01/07/22 03:00 105 24 146/81 (102) 96 Mechanical Ventilator 30.00 01/07/22 03:00 30 01/07/22 02:53 101 18 94 30 01/07/22 02:00 101 18 137/80 (99) 94 Mechanical Ventilator 30.00 01/07/22 01:00 102 01/07/22 01:00 102 16 137/79 (98) 93 Mechanical Ventilator 30.00 01/07/22 00:00 108 27 144/80 (101) 95 Mechanical Ventilator 30.00 01/06/22 23:10 94 Mechanical Ventilator 30 01/06/22 23:05 30 01/06/22 23:00 108 24 147/82 (103) 95 Mechanical Ventilator 30.00 01/06/22 23:00 36.3 Mechanical Ventilator 30.00 01/06/22 22:46 101 143/80 01/06/22 22:36 101 23 94 30 01/06/22 22:30 Mechanical Ventilator 30.00 01/06/22 22:00 101 22 143/81 (101) 93 Mechanical Ventilator 25.00 01/06/22 21:00 101 17 124/83 (97) 95 Mechanical Ventilator 25.00 01/06/22 20:00 104 18 153/85 (107) 94 Mechanical Ventilator 25.00 01/06/22 19:05 94 Mechanical Ventilator 25 01/06/22 19:00 37.0 107 24 141/86 (104) 96 Mechanical Ventilator 25.00 01/06/22 19:00 108 01/06/22 19:00 25 01/06/22 18:49 101 19 95 25 01/06/22 18:25 104 146/82 01/06/22 18:00 102 17 146/82 (103) 96 Mechanical Ventilator 25.00 01/06/22 17:00 104 18 148/83 (104) 96 Mechanical Ventilator 25.00 01/06/22 16:00 107 18 144/81 (102) Mechanical Ventilator 25.00 01/06/22 16:00 37.9 01/06/22 16:00 96 Mechanical Ventilator 25 01/06/22 15:40 Mechanical Ventilator 25.00 01/06/22 15:39 25 01/06/22 15:00 112 24 142/82 (102) 95 Mechanical Ventilator 35.00 01/06/22 14:12 110 32 98 35 01/06/22 14:00 112 33 141/81 (101) 96 Mechanical Ventilator 35.00 01/06/22 13:00 109 01/06/22 13:00 108 22 134/75 (94) 95 Mechanical Ventilator 35.00 01/06/22 12:41 107 135/77 01/06/22 12:00 96 Mechanical Ventilator 35 01/06/22 12:00 37.2 01/06/22 12:00 108 18 141/72 (95) 95 Mechanical Ventilator 35.00 01/06/22 11:59 35 01/06/22 11:00 112 24 133/68 (89) 95 Mechanical Ventilator 35.00 01/06/22 10:32 105 30 99 35 I & O 01/07/22 07:00 Intake Total 1660 ml Output Total 1100 ml Balance 560 ml Height & Weight Height: '" Weight: lbs. oz. kg; 24.46 BMI Method: General Appearance: No Apparent Distress, WD/WN, Chronically ill, Thin, Other (Sedated and intubated) Neck: Full Range of Motion, Normal Inspection, Non Tender Respiratory: No Accessory Muscle Use, No Respiratory Distress, Decreased Breath Sounds Cardiovascular: Regular Rate, Rhythm Capillary Refill: Less Than 3 Seconds Gastrointestinal: non tender, soft Extremity: Normal Capillary Refill, Normal Inspection, Normal Range of Motion, Non Tender, No Calf Tenderness, No Pedal Edema Neurologic/Psychiatric: Alert Results Lab Laboratory Tests 01/05/22 18:35 01/06/22 04:22 01/07/22 04:37 Assessment/Plan Assessment/Plan ` ELIZABETH PETESRON MD Jan 07, 2022 10:11
[2022-01-07] MEDS ORDERED: meTOprolol TARTRATE 25 MG (LOPRESSOR) TABLET PO NR (12:00)
--- NOTE | 2022-01-07 12:19 | Diagnostic Imaging Report ---
CLINICAL INDICATION: Patient with seizure-like activity. Patient on vent. Rule out stroke. EXAM: Axial CT scan of the brain without IV contrast with coronal and sagittal reformatted images. Auto Exposure Controls were utilized during the CT exam to meet ALARA standards for radiation dose reduction. COMPARISON: None FINDINGS: There is no evidence of acute cerebral infarct, intracranial hemorrhage, or gross mass effect. There is no dense vessel sign. There is moderate-sized chronic cerebral infarct involving left cerebral hemisphere in the left MCA distribution which involves the left frontal and parietal lobe regions. There is chronic infarct changes involving left basal ganglia region. There is ex-vacuo dilation of the left lateral ventricle. There are subtle patchy areas of low density involving white matter of both cerebral hemispheres, likely representing chronic small vessel ischemic disease. The brain parenchymal volume appears appropriate for patient's age. There is normal perry-white matter distinction. There is no significant midline shift or herniation. There is no evidence of hydrocephalus. The basal cisterns are unremarkable. The skull, extracranial soft tissue, and orbits are unremarkable. There is mild mucosal thickening involving the ethmoid sinus and left maxillary sinus. Temporal bones show no significant abnormality. IMPRESSION: 1: There is no definite evidence of acute intracranial process. There is no dense vessel sign. 2: There is chronic cerebral infarct involving the left cerebral hemisphere in the left MCA distribution. 3: Chronic small vessel ischemic disease. Results of this report were discussed with Dr. Nydia Sandoval via the telephone on 01/07/2022 at 1208 hours. Dictated by: Dictated on workstation # [id number]
[2022-01-07] MEDS: meTOprolol TARTRATE 25 MG (LOPRESSOR) TABLET PO SCH (21:50)
[2022-01-07] MEDS: AZITHROMYCIN 500 MG/NS 250 ML IVPB IV SCH ×2 (21:50)
[2022-01-08] VITALS (30 sets, daily range): BP systolic 111–141; BP diastolic 62–82
[2022-01-08] MEDS: methylPREDNISolone 40 MG/ML (Solu-MEDROL) VIAL IV SCH ×2 (00:36→06:37)
[2022-01-08] MEDS: PIPERACILLIN SODIUM/TAZOBACTAM 4.5 GM in NS (IVPB) 100 ML IV SCH ×3 (00:36→17:00)
[2022-01-08] MEDS: inSUlin ASPART (NovoLOG) 1 UNIT/0.01 ML (CHARGE PER UNIT) SC SCH ×4 (00:43→18:00)
[2022-01-08] MEDS: fentaNYL INJ 100 MCG/2 ML AMP IVP PRN ×3 (01:51→17:49)
[2022-01-08] MEDS: DexMEDEtomidine 250 ML DRIP 250 ML IV SCH ×3 (01:54→17:36)
[2022-01-08] MEDS: RT-ALBUTEROL/IPRATROPIUM 3 ML (DUONEB) VIAL IH SCH ×6 (02:41→21:01)
[2022-01-08] MEDS: PROPOFOL DRIP (ICU) 100 ML IV SCH ×2 (05:13→10:50)
[2022-01-08 05:46] LABS: BASOPHILS % (AUTO) 0 % (0-10); EOSINOPHILS % (AUTO) 0 % (0-10); HEMATOCRIT 32 % (40-54); HEMOGLOBIN 12.1 g/dL (13.3-17.7); LYMPHOCYTES # (AUTO) 0.5 10^3/uL (1.0-4.0); LYMPHOCYTES % (AUTO) 5 % (12-44); MEAN CORPUSCULAR HEMOGLOBIN 38 pg (25-34); MEAN CORPUSCULAR HGB CONC 38 g/dL (32-36); MEAN CORPUSCULAR VOLUME 99 fL (80-99); MEAN PLATELET VOLUME 12.4 fL (9.0-12.2); MONOCYTES # (AUTO) 0.3 10^3/uL (0.0-1.0); MONOCYTES % (AUTO) 4 % (0-12); NEUTROPHILS # (AUTO) 8.4 10^3/uL (1.8-7.8); NEUTROPHILS % (AUTO) 90 % (42-75); PLATELET COUNT 132 10^3/uL (130-400); WHITE BLOOD COUNT 9.3 10^3/uL (4.3-11.0)
[2022-01-08] MEDS: POTASSIUM CL 10MEQ/50ML IVPB 50 ML IV SCH (06:00)
[2022-01-08] MEDS: MAGNESIUM 1 GM/100 ML IVPB 100 ML IV SCH (06:00)
[2022-01-08] MEDS: KCL 20 MEQ TAB (K-DUR) PO SCH (06:00)
[2022-01-08 06:01] LABS: ABG BASE EXCESS -3.4 MMOL/L (-2.5-2.5); ABG OXYGEN SATURATION 96 % (94-100); ABG PCO2 29 MMHG (35-45); ABG PH 7.45 (7.37-7.43); ABG PO2 72 MMHG (79-93); ABG TCO2 20.8 MMOL/L (21.0-31.0)
[2022-01-08 06:02] LABS: ALLENS TEST POSITIVE
[2022-01-08 06:03] LABS: INSPIRED O2 30%; PATIENT TEMP 37.3; VENTILATOR YES
--- NOTE | 2022-01-08 06:17 | Progress Note - Hospitalist ---
Subjective HPI/CC On Admission Date Seen by Provider: Jan 08, 2022 Time Seen by Provider: 10:30 CC: SOB HPI: This is a 61 yr old WM with a history of stroke with right sided hemiparesis. In addition to COPD. Pt continues to smoke. He presented to the ER in [place] with SOB. He was found to have exacerbation of COPD and acute on chronic respiratory failure. At this current time pt has remained stable and will be transferred to the 4th floor. IV steroids reviewed and pt will remain on oxygen. Subjective/Events-last exam Pt is still intubated Vent setting are 450/21/12/29 Updated family in depth about TRACH and PEG Objective Exam Vital Signs Vital Signs Date Time Temp Pulse Resp B/P (MAP) Pulse Ox O2 Delivery O2 Flow Rate FiO2 01/08/22 19:56 36.5 01/08/22 19:39 30 01/08/22 19:27 97 20 97 01/08/22 18:00 134/66 (88) Mechanical Ventilator 30.00 Capillary Refill : Less Than 3 Seconds General Appearance: Chronically ill, Thin, Other (sedated) Respiratory: No Accessory Muscle Use, No Respiratory Distress, Decreased Breath Sounds Cardiovascular: Regular Rate, Rhythm Results/Procedures Lab Laboratory Tests 01/08/22 05:10 01/08/22 06:30 Patient resulted labs reviewed. Assessment/Plan Assessment and Plan Assess & Plan/Chief Complaint Assessment: Acute on chronic respiratory failure Exacerbation of COPD Alcohol withdrawal? NSTEMI Congestive heart failure? Smoker Marijuana use Poor reserve History of CVA with right-sided weakness Plan: BiPAP as needed O2 supplement Antibiotics Steroids Cardiology 01/06/2022: Appreciate vent management Supportive care May need [place] considering he has end stage COPD 01/07/22: Supportive care Ventilator management appreciated 01/08/22: Updated family on trach and PEG in order to get approval for [place] Diagnosis/Problems Diagnosis/Problems (1) Acute exacerbation of chronic obstructive pulmonary disease (COPD) Status: Acute (2) History of cerebrovascular accident (3) Nonrheumatic aortic valve stenosis with regurgitation (4) Primary hypertension (5) Mixed hyperlipidemia ROSA ELENA WILL DO Jan 08, 2022 06:17
--- NOTE | 2022-01-08 06:35 | Occ Therapy Progress Note ---
Therapy Progress Note Pt is currently intubated and OT will continue to monitor pt's status. Will initiate treatment when pt is medically stable and able to actively participate in skilled therapy. LUCAS REAVES Jan 08, 2022 06:35
[2022-01-08 06:46] LABS: ALBUMIN 3.1 GM/DL (3.2-4.5)
[2022-01-08 06:48] LABS: CALCIUM 7.7 MG/DL (8.5-10.1)
[2022-01-08 06:49] LABS: TOTAL PROTEIN 5.7 GM/DL (6.4-8.2)
[2022-01-08 06:51] LABS: BILIRUBIN,TOTAL 0.8 MG/DL (0.1-1.0)
[2022-01-08 06:53] LABS: CREATININE SERUM 0.83 MG/DL (0.60-1.30)
[2022-01-08 06:55] LABS: MAGNESIUM 2.5 MG/DL (1.6-2.4)
--- NOTE | 2022-01-08 07:44 | Diagnostic Imaging Report ---
INDICATION: Intubated, dyspnea COMPARISON: 01/06/2022. TECHNIQUE: Single radiograph of the chest dated 01/07/2022. FINDINGS: Endotracheal tube and enteric catheter are again identified. The cardiac silhouette is stable. Extensive mixed interstitial and airspace opacities are again identified, right greater than left. This has slightly improved within the left lung though is relatively stable on the right. No large volume pleural effusions. No pneumothorax. No acute osseous abnormality. IMPRESSION: Persistent right greater than left pulmonary opacities are again identified, minimally improved on the left. Unchanged lines and tubes. Dictated by: Dictated on workstation # [id number]
--- NOTE | 2022-01-08 08:05 | Diagnostic Imaging Report ---
INDICATION: Intubated, ICU care. COMPARISON: 01/07/2022. TECHNIQUE: Single radiograph of the chest dated 01/08/2022. FINDINGS: Endotracheal tube and enteric catheter are again identified. The cardiac silhouette is stable. Significant mixed interstitial and airspace opacities are again identified, right greater than left. These opacities have slightly improved since the prior examination. Low lung volumes. No large-volume layering pleural effusion. No pneumothorax. Osseous structures appear stable. IMPRESSION: Slightly improved though significant persisting right greater than left pulmonary opacities with associated low lung volumes. Unchanged lines and tubes. Dictated by: Dictated on workstation # [id number]
--- NOTE | 2022-01-08 08:34 | Cardiology Progress Note ---
Progress Note-Cardiology Events since last exam Date Seen by Provider: Jan 08, 2022 Time Seen by Provider: 08:32 Events since last exam I am following him due to heart failure and NSTEMI. He remains in the intensive care unit intubated and sedated. The nurses had to increase his propofol due to some agitation when they turned him. I cannot obtain any history from the patient due to his sedation and intubated status. Certain portions of this document may have been dictated utilizing voice recognition technology. Inherent to this technology, typographical and grammatical errors may exist. As much as I am diligent to identify and correct these mistakes, some errors may remain in the document. Vitals Last set of Vitals Signs Vital Signs 01/08/22 01/08/22 01/08/22 10:51 11:00 11:27 Temp 38.3 Pulse 101 Resp 22 B/P (MAP) 124/68 (86) Pulse Ox 100 O2 Delivery Mechanical Ventilator O2 Flow Rate 30.00 FiO2 30 Labs Labs Laboratory Tests 01/08/22 05:10 01/08/22 06:30 Exam Vital Signs Vital Signs Date Time Temp Pulse Resp B/P (MAP) Pulse Ox O2 Delivery O2 Flow Rate FiO2 01/08/22 11:27 38.3 01/08/22 11:00 101 22 124/68 (86) 100 Mechanical Ventilator 30.00 01/08/22 10:51 30 Physical Exam General: Intubated and sedated. Well nourished and appears stated age. Eye: Conjunctivae are clear. There are no xanthelasma. HENT: Normocephalic. Atraumatic. Carotid pulsations 2/2 without bruits. Neck: Jugular venous pressure does not appear elevated. No thyromegaly appreciated. Respiratory: Symmetrical expansion bilaterally. Coarse breath sounds due to the ventilator. Cardiovascular: Normal rate. Regular rhythm. No murmur. No gallop. Point of maximal impulse is not appear displaced. Good pulses equal in all extremities. No edema. Gastrointestinal: Soft. Normal bowel sounds. Skin: Skin turgor is normal. There is no pallor. Musculoskeletal: No obvious deformities. Neurologic: Intubated and sedated. Psychiatric: Not obtainable due to clinical status. Labs Laboratory Tests Test 01/07/22 12:13 01/07/22 15:12 01/07/22 18:01 01/08/22 00:43 Range/Units Glucometer 171 H 202 H 223 H 173 H 70-110 MG/DL Test 01/08/22 05:10 01/08/22 05:55 01/08/22 06:30 01/08/22 11:21 Range/Units White Blood Count 9.3 4.3-11.0 10^3/uL Red Blood Count 3.18 L 4.30-5.52 10^6/uL Hemoglobin 12.1 L 13.3-17.7 g/dL Hematocrit 32 L 40-54 % Mean Corpuscular Volume 99 80-99 fL Mean Corpuscular Hemoglobin 38 H 25-34 pg Mean Corpuscular Hemoglobin Concent 38 H 32-36 g/dL Red Cell Distribution Width 14.0 10.0-14.5 % Platelet Count 132 130-400 10^3/uL Mean Platelet Volume 12.4 H 9.0-12.2 fL Immature Granulocyte % (Auto) 0 % Neutrophils (%) (Auto) 90 H 42-75 % Lymphocytes (%) (Auto) 5 L 12-44 % Monocytes (%) (Auto) 4 0-12 % Eosinophils (%) (Auto) 0 0-10 % Basophils (%) (Auto) 0 0-10 % Neutrophils # (Auto) 8.4 H 1.8-7.8 10^3/uL Lymphocytes # (Auto) 0.5 L 1.0-4.0 10^3/uL Monocytes # (Auto) 0.3 0.0-1.0 10^3/uL Eosinophils # (Auto) 0.0 0.0-0.3 10^3/uL Basophils # (Auto) 0.0 0.0-0.1 10^3/uL Immature Granulocyte # (Auto) 0.0 0.0-0.1 10^3/uL Blood Gas Puncture Site LEFT RADIAL Blood Gas Patient Temperature 37.3 Arterial Blood pH 7.45 H 7.37-7.43 Arterial Blood Partial Pressure CO2 29 L 35-45 MMHG Arterial Blood Partial Pressure O2 72 L 79-93 MMHG Arterial Blood HCO3 20 L 23-27 MMOL/L Arterial Blood Total CO2 20.8 L 21.0-31.0 MMOL/L Arterial Blood Oxygen Saturation 96 94-100 % Arterial Blood Base Excess -3.4 L -2.5-2.5 MMOL/L Jm Test POSITIVE Blood Gas Ventilator Setting YES Blood Gas Inspired Oxygen 30% Sodium Level 134 L 135-145 MMOL/L Potassium Level 4.0 3.6-5.0 MMOL/L Chloride Level 102 98-107 MMOL/L Carbon Dioxide Level 21 21-32 MMOL/L Anion Gap 11 5-14 MMOL/L Blood Urea Nitrogen 15 7-18 MG/DL Creatinine 0.83 0.60-1.30 MG/DL Estimat Glomerular Filtration Rate 100 BUN/Creatinine Ratio 18 Glucose Level 190 H 70-105 MG/DL Calcium Level 7.7 L 8.5-10.1 MG/DL Corrected Calcium 8.4 L 8.5-10.1 MG/DL Magnesium Level 2.5 H 1.6-2.4 MG/DL Total Bilirubin 0.8 0.1-1.0 MG/DL Aspartate Amino Transf (AST/SGOT) 22 5-34 U/L Alanine Aminotransferase (ALT/SGPT) 26 0-55 U/L Alkaline Phosphatase 37 L 40-136 U/L Total Protein 5.7 L 6.4-8.2 GM/DL Albumin 3.1 L 3.2-4.5 GM/DL Triglycerides Level 109 <150 MG/DL Glucometer 174 H 70-110 MG/DL Radiology Electrocardiogram continues to show sinus tachycardia with diffuse ST-T wave changes, concerning for global ischemia or possibly an intracerebral event. Diagnosis/Problems Diagnosis/Problems (1) Non-ST elevation myocardial infarction (NSTEMI), initial care episode Assessment & Plan: His troponin levels were elevated although flat. The troponin elevation raises a concern about a non-ST elevation myocardial infarction although the patient was not complaining of chest pain at the time of admission. Now his electrocardiogram shows diffuse ST-T wave changes which could be consistent with coronary ischemia although sometimes we see this abnormality with significant intracerebral processes. The troponin elevation could be a type II non-ST elevation myocardial infarction due to his acute respiratory failure. However, I cannot completely exclude a type I non-ST elevation myocardial infarction. I recommend he continue on aspirin which he was taking at home. I ordered statin medication which he was also taking at home. Since his pulmonary status now seems to be improving, I ordered low-dose beta-tommy. However, if this causes bronchospasm or increased oxygen requirements, we will need to stop this. He is also receiving therapeutic dosing of enoxaparin. This can be changed over to prophylactic dosing of enoxaparin on 01/09. This would mean he will have received 5 days of therapeutic dosing of enoxaparin. Assuming he recovers from the acute respiratory illness, he will ultimately need to be considered for an ischemic evaluation. However, in his present state, he is not an ideal candidate for noninvasive or an invasive coronary ischemic evaluation. (2) Acute heart failure with preserved ejection fraction (HFpEF) Assessment & Plan: He does have an elevated BNP level and he was short of breath. However, this is in the setting of an acute exacerbation of his chronic obstructive pulmonary disease with acute respiratory failure. Some of the BNP elevation may also be due to aortic stenosis. He underwent an echocardiogram during this admission that shows a normal ejection fraction. He received a dose of IV Lasix at the outside emergency room. I gave him another dose of intravenous furosemide on 01/05. He still has some persistent infiltrates on his chest x-ray from 01/08 which could be atypical pulmonary edema. I will give him another dose of intravenous furosemide today. (3) Nonrheumatic aortic valve stenosis with regurgitation Assessment & Plan: His echocardiogram is consistent with significant aortic stenosis as well as regurgitation. Assuming he recovers from the pulmonary condition, we may need to consider whether or not to evaluate him for any sort of aortic valve intervention. This could most likely be done electively. (4) Primary hypertension Assessment & Plan: Continue lisinopril and metoprolol. (5) Mixed hyperlipidemia Assessment & Plan: I have ordered statin medication which he appears to be taking at home (6) Tonic clonic convulsion Assessment & Plan: He does not have a history of seizures. He did have a b aseline tremor prior to being intubated. This could be a sign of an underlying acute neurologic event. He underwent head CT on 01/07 that showed his old stroke but no new findings. (7) Acute respiratory failure with hypoxia Status: Acute Assessment & Plan: Most likely due to chronic obstructive pulmonary disease with perhaps some degree of heart failure as noted above. The hospitalist and eICU are managing the ventilator (8) History of cerebrovascular accident Assessment & Plan: He has a remote history of a stroke. He should continue aspirin and statin medication. He has not had any recent neurologic complaints. (9) Cigarette smoker Assessment & Plan: He needs to quit smoking. He was previously counseled in this regard. FAIZA DURHAM JR, MD Jun 3, 2022 08:34
[2022-01-08] MEDS ORDERED: FUROSEMIDE 40 MG/4 ML INJ (LASIX) IVP ONE (09:00)
[2022-01-08] MEDS: ASPIRIN 81 MG CHEW (CHILDREN'S ASA) PO SCH (09:19)
[2022-01-08] MEDS: FAMOTIDINE 20MG/2ML IV (PEPCID) IV SCH ×2 (09:19→22:05)
[2022-01-08] MEDS: meTOprolol TARTRATE 25 MG (LOPRESSOR) TABLET PO SCH ×2 (09:19→22:06)
[2022-01-08] MEDS: ENOXAPARIN 80 MG/0.8 ML (LOVENOX) SYR SC SCH ×2 (09:19→22:06)
[2022-01-08] MEDS: lisINopril 10 MG (PRINIVIL) TABLET PO SCH (09:19)
[2022-01-08] MEDS: DOCUSATE SODIUM 100 MG (COLACE) CAP PO SCH ×2 (09:22→22:06)
--- NOTE | 2022-01-08 09:52 | Tele-ICU Progress Note ---
Subjective Date Seen by a Provider: Jan 08, 2022 Time Seen by a Provider: 09:52 Subjective/Events-last exam (Tele-ICU Physician , Progress Note ) Available chart/ vitals / labs / Images reviewed Video assessment done using teleICU camera, rest of exam as per RN Discussed with RN , EXAM PER RN Events overnight : sent to medical floor this am Afebrile FiO2 - 35% I/O = Drips: BANANA BAG Sedation gtt: propf 35 , precedex 1.5 ( RASS -2 ) VENT SETTINGS and ABG reviewed Not candidate for SBT today REVIEWED Cardiovascular Stability / Sedation Score / FI02/PEEP / ABG / CXR Pressors: , hemodynamically stable Consultants: shirlene Hospital course: (01/04) 61y M with SOB, vever, cough and diarrhea. Reports chest tightness w/o pain. ADMIT DX: Acute COPD, Acute CHF, Axute resp failure with hypoxia, CXR shows opacities. on bipap 01/05 - to medical floor on [place] , then back to ICU in severe resp distress after getting to bathroom , faled BIPAP , INTUBATED 01/07 AC 16-450-30 + 5 A/P Acute resp failure- - 01/04 bipap with improvement 01/05 - to medical floor on [place] , then back to ICU in severe resp distress, faled BIPAP , INTUBATED with flush pulm edema - lasix given , CXR STILL WITH INFILTRATES R>L - CONT ABX 01/06 - fio2 35 % , decrease rr to 16 ASTTEMPTS TO WEAN OFF SEDATION - VERY AGITATED , NOT FOLLOW COMMANDS - WILL TRY PRN FENTANYL AND ATIVAN AND FOLLOW NSTEMI, HFpEF ( EF 55% grII dst dsfnc, PRVC 33 mmHg ) moderate /AR - as per cards - follow AECOPD - nebs , steroids IV - DECREASE DOSE - empiric abx to cont - sputum cx - ususal duran sUSPECTEED pna - CXR STILL WITH INFILTRATES R>L - CONT ABX Encephalopathy / agitation -= CT head 01/07 ? ETOH - thiamine , folate h/o CVA Lines : periph (Central Line Necessity Reviewed) Collins: + OG: Nutrition: TF - TOLERATES Analgesia: Anxiety/ delirium VTE Prophylaxis: francis 70 bid Stress Ulcer Prophylaxis: ppi Plans in collaboration with bedside consultants and IM MDs. Discussed with RN to reach out if any questions or concerns A total of 33 minutes of critical care time was devoted to this patient today, required to treat and/or prevent further deterioration of critical care condition ( as above) . Sepsis Event Evaluation Height, Weight, BMI Height: '" Weight: lbs. oz. kg; 24.46 BMI Method: Exam Exam Patient acknowledged, consented, and participated in this virtual visit which was conducted using real time audio/video Vital Signs Date Time Temp Pulse Resp B/P (MAP) Pulse Ox O2 Delivery O2 Flow Rate FiO2 01/08/22 09:00 100 24 129/76 (93) 100 Mechanical Ventilator 30.00 01/08/22 08:00 101 23 125/82 (96) 100 Mechanical Ventilator 30.00 01/08/22 07:39 30 01/08/22 07:15 101 22 100 30 01/08/22 07:00 102 26 123/78 (93) 100 Mechanical Ventilator 30.00 01/08/22 07:00 101 01/08/22 06:00 103 24 129/72 (91) 100 Mechanical Ventilator 30.00 01/08/22 05:13 105 138/77 01/08/22 05:00 104 24 131/76 (94) 100 Mechanical Ventilator 30.00 01/08/22 04:00 96 Mechanical Ventilator 30 01/08/22 04:00 105 24 138/77 (97) 100 Mechanical Ventilator 30.00 01/08/22 03:39 30 01/08/22 03:00 106 22 135/78 (97) 100 Mechanical Ventilator 30.00 01/08/22 02:41 107 26 100 30 01/08/22 02:00 106 26 131/75 (100) 100 Mechanical Ventilator 30.00 01/08/22 01:54 103 125/74 01/08/22 01:53 37.7 01/08/22 01:00 105 01/08/22 01:00 105 26 127/72 (102) 100 Mechanical Ventilator 30.00 01/08/22 00:00 37.3 01/08/22 00:00 103 26 125/74 (91) 99 Mechanical Ventilator 30.00 01/07/22 23:59 97 Mechanical Ventilator 30 01/07/22 23:56 100 108/72 01/07/22 23:39 30 01/07/22 23:00 100 26 108/72 (84) 100 Mechanical Ventilator 30.00 01/07/22 22:26 99 24 95 30 01/07/22 22:00 102 18 118/74 (86) 99 Mechanical Ventilator 30.00 01/07/22 21:00 104 17 135/76 (99) 97 Mechanical Ventilator 30.00 01/07/22 20:12 37.0 01/07/22 20:00 97 Mechanical Ventilator 30 01/07/22 20:00 105 19 137/67 (102) 98 Mechanical Ventilator 30.00 01/07/22 19:39 30 01/07/22 19:27 101 23 98 30 01/07/22 19:00 101 17 131/78 (98) 97 Mechanical Ventilator 30.00 01/07/22 19:00 101 01/07/22 18:00 101 24 131/76 (94) 97 Mechanical Ventilator 30.00 01/07/22 17:50 101 137/74 01/07/22 17:49 101 137/74 01/07/22 17:00 101 22 135/79 (97) 98 Mechanical Ventilator 30.00 01/07/22 16:00 98 Mechanical Ventilator 30 01/07/22 16:00 104 24 137/79 (98) 98 Mechanical Ventilator 30.00 01/07/22 15:32 25 01/07/22 15:24 37.2 01/07/22 15:21 98 22 98 30 01/07/22 15:00 99 22 132/78 (96) 98 Mechanical Ventilator 30.00 01/07/22 14:00 101 23 135/81 (99) 99 Mechanical Ventilator 30.00 01/07/22 13:00 101 22 136/75 (95) 98 Mechanical Ventilator 30.00 01/07/22 13:00 102 01/07/22 12:00 99 Mechanical Ventilator 30 01/07/22 12:00 36.2 01/07/22 12:00 105 20 142/79 (100) 98 Mechanical Ventilator 30.00 01/07/22 11:40 25 01/07/22 11:17 109 141/83 01/07/22 11:00 108 20 138/87 (104) 98 Mechanical Ventilator 30.00 01/07/22 10:27 105 20 98 30 01/07/22 10:00 105 17 146/80 (102) 98 Mechanical Ventilator 30.00 I & O 01/08/22 07:00 Intake Total 2160 ml Output Total 1075 ml Balance 1085 ml Height & Weight Height: '" Weight: lbs. oz. kg; 24.46 BMI Method: General Appearance: No Apparent Distress, WD/WN, Chronically ill, Thin, Other (Sedated and intubated) Neck: Full Range of Motion, Normal Inspection, Non Tender Respiratory: Lungs Clear, Normal Breath Sounds Cardiovascular: Regular Rate, Rhythm Capillary Refill: Less Than 3 Seconds Gastrointestinal: non tender, soft Extremity: Normal Capillary Refill, Normal Inspection, Normal Range of Motion, Non Tender, No Calf Tenderness, No Pedal Edema Neurologic/Psychiatric: Alert Results Lab Laboratory Tests 01/07/22 04:37 01/08/22 05:10 01/08/22 06:30 Assessment/Plan Assessment/Plan ` ELIZABETH PETERSON MD Jan 08, 2022 09:52
[2022-01-08] MEDS: LORazepam INJ 2 MG/ML (ATIVAN) VIAL IVP PRN ×3 (10:13→20:23)
[2022-01-08] MEDS: ACETAMINOPHEN 325 MG TABLET PO PRN (11:27)
[2022-01-08] MEDS: methylPREDNISolone 125 MG (Solu-MEDROL) VIAL IV SCH ×2 (14:16→22:05)
[2022-01-08] MEDS ORDERED: IOHEXOL 350 MG/ML 100 ML (OMNIPAQUE 350) VIAL IV ONE (19:45)
[2022-01-08] MEDS ORDERED: NS 100 ML (IVPB) BAG IV ONE (19:45)
--- NOTE | 2022-01-08 21:07 | Diagnostic Imaging Report ---
PROCEDURE: CT head without contrast. TECHNIQUE: Multiple contiguous axial images were obtained through the brain without the use of intravenous contrast. Auto Exposure Controls were utilized during the CT exam to meet ALARA standards for radiation dose reduction. INDICATION: Altered mental status. FINDINGS: There is encephalomalacic change in the left cerebral hemisphere consistent with old vascular injury. There are no masses or hemorrhages. There are no extra-axial fluid collections. There is no lacunar infarct in the left caudate nucleus. IMPRESSION: Old ischemic changes in left cerebral hemisphere. No acute abnormality is seen. Dictated by: Dictated on workstation # [id number]
[2022-01-08] MEDS: AZITHROMYCIN 500 MG/NS 250 ML IVPB IV SCH ×2 (22:05)
[2022-01-09] VITALS (23 sets, daily range): BP systolic 113–141; BP diastolic 26–79
[2022-01-09] MEDS: PIPERACILLIN SODIUM/TAZOBACTAM 4.5 GM in NS (IVPB) 100 ML IV SCH ×3 (00:13→16:16)
[2022-01-09] MEDS: inSUlin ASPART (NovoLOG) 1 UNIT/0.01 ML (CHARGE PER UNIT) SC SCH ×4 (00:15→18:00)
[2022-01-09] MEDS: PROPOFOL DRIP (ICU) 100 ML IV SCH ×2 (01:10→14:25)
[2022-01-09] MEDS: RT-ALBUTEROL/IPRATROPIUM 3 ML (DUONEB) VIAL IH SCH ×5 (03:03→19:36)
[2022-01-09] MEDS: DexMEDEtomidine 250 ML DRIP 250 ML IV SCH ×2 (03:23→14:25)
[2022-01-09 04:06] LABS: EOSINOPHILS % (AUTO) 0 % (0-10); MEAN PLATELET VOLUME 10.7 fL (9.0-12.2)
[2022-01-09 04:09] LABS: BASOPHILS % (AUTO) 0 % (0-10); HEMATOCRIT 42 % (40-54); HEMOGLOBIN 14.3 g/dL (13.3-17.7); LYMPHOCYTES # (AUTO) 0.5 10^3/uL (1.0-4.0); LYMPHOCYTES % (AUTO) 5 % (12-44); MEAN CORPUSCULAR HEMOGLOBIN 33 pg (25-34); MEAN CORPUSCULAR HGB CONC 34 g/dL (32-36); MEAN CORPUSCULAR VOLUME 96 fL (80-99); MONOCYTES # (AUTO) 0.7 10^3/uL (0.0-1.0); MONOCYTES % (AUTO) 7 % (0-12); NEUTROPHILS # (AUTO) 8.5 10^3/uL (1.8-7.8); NEUTROPHILS % (AUTO) 87 % (42-75); PLATELET COUNT 128 10^3/uL (130-400); WHITE BLOOD COUNT 9.8 10^3/uL (4.3-11.0)
[2022-01-09 04:25] LABS: ALBUMIN 3.1 GM/DL (3.2-4.5)
[2022-01-09 04:26] LABS: POTASSIUM 3.1 MMOL/L (3.6-5.0)
[2022-01-09 04:27] LABS: CALCIUM 7.3 MG/DL (8.5-10.1)
[2022-01-09 04:28] LABS: TOTAL PROTEIN 5.6 GM/DL (6.4-8.2)
[2022-01-09 04:30] LABS: BILIRUBIN,TOTAL 0.9 MG/DL (0.1-1.0)
[2022-01-09 04:32] LABS: CREATININE SERUM 0.69 MG/DL (0.60-1.30)
[2022-01-09 04:34] LABS: MAGNESIUM 2.2 MG/DL (1.6-2.4)
[2022-01-09] MEDS: POTASSIUM CL 10MEQ/50ML IVPB 50 ML IV SCH ×5 (04:44→07:46)
[2022-01-09] MEDS: MAGNESIUM 1 GM/100 ML IVPB 100 ML IV SCH (04:44)
[2022-01-09] MEDS: KCL 20 MEQ TAB (K-DUR) PO SCH (04:45)
[2022-01-09] MEDS: methylPREDNISolone 125 MG (Solu-MEDROL) VIAL IV SCH ×2 (05:46→20:15)
[2022-01-09] MEDS: NS IV 500 ML 500 ML IV SCH ×4 (05:46→20:14)
[2022-01-09] MEDS: THIAMINE 100 MG (VITAMIN B-1) TAB PO SCH (05:47)
[2022-01-09 06:27] LABS: ABG BASE EXCESS 2.3 MMOL/L (-2.5-2.5); ABG OXYGEN SATURATION 71 % (94-100); ABG PCO2 36 MMHG (35-45); ABG PH 7.47 (7.37-7.43); ABG TCO2 27.1 MMOL/L (21.0-31.0)
[2022-01-09 06:30] LABS: ALLENS TEST POSITIVE
[2022-01-09 06:31] LABS: INSPIRED O2 25%; PATIENT TEMP 36; VENTILATOR YES
--- NOTE | 2022-01-09 07:35 | Diagnostic Imaging Report ---
EXAMINATION: Chest 1 view HISTORY: Respiratory failure COMPARISON: 01/08/2022 FINDINGS: Endotracheal tube tip terminates 5 cm above the gilda. Gastric tube tip is in the body the stomach. Bilateral airspace opacities have improved compared to prior exam. No pneumothorax. No pleural effusion. Heart size is normal. IMPRESSION: 1. Improved now mild bilateral airspace opacities. Dictated by: Dictated on workstation # [id number]
--- NOTE | 2022-01-09 08:36 | Progress Note - Hospitalist ---
Subjective HPI/CC On Admission Date Seen by Provider: Jan 09, 2022 Time Seen by Provider: 07:00 CC: SOB HPI: This is a 61 yr old WM with a history of stroke with right sided hemiparesis. In addition to COPD. Pt continues to smoke. He presented to the ER in [place] with SOB. He was found to have exacerbation of COPD and acute on chronic respiratory failure. At this current time pt has remained stable and will be transferred to the 4th floor. IV steroids reviewed and pt will remain on oxygen. Subjective/Events-last exam Patient sedated on vent attempts at decreasing propofol led to agitation and bucking per nurse yesterday. Patient appears to be in no acute distress currently not assisting the vent but appearing chronically ill with diffuse sarcopenia. Objective Exam Vital Signs Vital Signs Date Time Temp Pulse Resp B/P (MAP) Pulse Ox O2 Delivery O2 Flow Rate FiO2 01/09/22 07:40 Mechanical Ventilator 30.00 01/09/22 07:39 30 01/09/22 07:17 89 21 100 01/09/22 07:00 127/72 (90) 01/09/22 00:39 35.9 Capillary Refill : Less Than 3 Seconds General Appearance: No Apparent Distress Respiratory: Other (Coarse bilateral breath sounds without wheezing currently ventilating easily) Cardiovascular: Regular Rate, Rhythm, No Gallop, Other ( 2/6 systolic ejection murmur) Gastrointestinal: Other ( bowel sounds hypoactive but no distention no reaction to palpation abdomen soft no bruits noted no organomegaly appreciated) Extremity: Other ( trace edema of upper and lower extremities without cyanosis or clubbing) Results/Procedures Lab Laboratory Tests 01/09/22 03:51 Patient resulted labs reviewed. Assessment/Plan Assessment and Plan Assess & Plan/Chief Complaint (1) Acute exacerbation of chronic obstructive pulmonary disease (COPD) Status: AcuteWith patchy infiltrates suspicious for pneumonia continue current broad-spectrum antibiotics since cultures are negative of blood in sputum thus far. As there is minimal wheezing will decrease Solu-Medrol. Patient known alcoholic severe sarcopenia and evidence for malnutrition as this is the first time that I have seen this patient I am going to defer today to eICU in regards to sedation and steps toward Ventilator weaning. There is also the potential for alcohol withdrawal complicating management overall very poor prognosis. (2) History of cerebrovascular accident (3) Nonrheumatic aortic valve stenosis with regurgitation (4) Primary hypertension (5) Mixed hyperlipidemia Critical Care Ventilator Management JESSICA RUIZ MD Jan 09, 2022 08:36
[2022-01-09] MEDS: DOCUSATE SODIUM 100 MG (COLACE) CAP PO SCH ×2 (09:03→20:15)
[2022-01-09] MEDS: lisINopril 10 MG (PRINIVIL) TABLET PO SCH (09:28)
[2022-01-09] MEDS: FAMOTIDINE 20MG/2ML IV (PEPCID) IV SCH ×2 (09:28→20:15)
[2022-01-09] MEDS: ASPIRIN 81 MG CHEW (CHILDREN'S ASA) PO SCH (09:28)
[2022-01-09] MEDS: meTOprolol TARTRATE 25 MG (LOPRESSOR) TABLET PO SCH ×2 (09:28→20:15)
[2022-01-09] MEDS: ENOXAPARIN 80 MG/0.8 ML (LOVENOX) SYR SC SCH ×2 (09:29→20:16)
--- NOTE | 2022-01-09 10:04 | Tele-ICU Progress Note ---
Subjective Date Seen by a Provider: Jan 09, 2022 Time Seen by a Provider: 08:05 Subjective/Events-last exam This virtual visit was conducted using real time audio/video. Thank you for asking us to see this patient for respiratory insufficiency due to AECOPD, CHF, NSTEMI. Intubated 01/05/22. Recent events: Agitated w decreased sedation. PRN sedatives added. PE: VSS. O2 sat 100% on AC 16/450/35%/+5. HEENT: No obvious masses, adenopathy or JVD. Chest: clear to auscultation. Diminished. CV: RRR S1 S2 No murmur or added sounds. Abd: Non-tender. Bowel sounds Y. : Unremarkable. Collins Y. [employer]/psychiatric: Grossly intact. No obvious focal findings. Extremities: No edema. Capillary refill < 3 seconds. Skin: unremarkable. Results: Elevated BG 170. Decreased K 3.1. B.47/36/72. CXR: Hyperinflated, RLL infilt. Available chart/ vitals / labs / images reviewed. Video assessment done using teleICU camera, rest of exam as per RN. A/P: Respiratory insufficiency: Continue present management with vent., prop., prec., duonebs, medrol. Wean sedation as elier. Minute ventilation decreased. ABG in 2-3 hours. Monitor for increasing oxygenation needs. Critical Care: critically ill patient. Cont. ASA, statin, Bbl., francis., abx, pepcid, lisin., SSI. Replace K. Discussed with RN Angela and RT. Asked RN to reach out to eICU if any questions or concerns later. Time spent with patient/coordination of care with other health professionals (mins): 25. Sepsis Event Evaluation Height, Weight, BMI Height: '" Weight: lbs. oz. kg; 24.46 BMI Method: Exam Exam Patient acknowledged, consented, and participated in this virtual visit which was conducted using real time audio/video Vital Signs Date Time Temp Pulse Resp B/P (MAP) Pulse Ox O2 Delivery O2 Flow Rate FiO2 01/09/22 09:00 93 20 99 Mechanical Ventilator 30.00 01/09/22 08:00 100 Mechanical Ventilator 30 01/09/22 08:00 77 21 127/67 (87) 97 Mechanical Ventilator 30.00 01/09/22 07:40 Mechanical Ventilator 30.00 01/09/22 07:39 30 01/09/22 07:17 89 21 100 25 01/09/22 07:00 88 20 127/72 (90) 99 Mechanical Ventilator 25.00 01/09/22 07:00 88 01/09/22 06:00 87 18 99 Mechanical Ventilator 25.00 01/09/22 05:00 90 19 96 Mechanical Ventilator 25.00 01/09/22 04:00 100 Mechanical Ventilator 25 01/09/22 04:00 91 16 97 Mechanical Ventilator 25.00 01/09/22 03:39 25 01/09/22 03:23 92 141/79 01/09/22 03:00 89 20 98 Mechanical Ventilator 25.00 01/09/22 02:00 89 18 141/79 (99) 100 Mechanical Ventilator 25.00 01/09/22 01:10 92 129/76 01/09/22 01:00 90 01/09/22 00:39 35.9 92 20 129/76 (93) 100 Mechanical Ventilator 25.00 01/09/22 00:00 90 21 137/77 (97) 100 Mechanical Ventilator 30.00 01/08/22 23:49 100 Mechanical Ventilator 25 01/08/22 23:39 25 01/08/22 23:00 91 19 121/71 (88) 100 Mechanical Ventilator 30.00 01/08/22 22:00 90 20 125/63 (83) 100 Mechanical Ventilator 30.00 01/08/22 21:01 89 16 97 25 01/08/22 21:00 96 14 122/65 (84) 100 Mechanical Ventilator 30.00 01/08/22 20:00 100 Mechanical Ventilator 25 01/08/22 20:00 98 20 128/72 (90) 98 Mechanical Ventilator 30.00 01/08/22 19:56 36.5 01/08/22 19:39 30 01/08/22 19:27 97 20 97 25 01/08/22 19:00 97 24 123/68 (86) 96 Mechanical Ventilator 30.00 01/08/22 19:00 100 01/08/22 18:00 97 19 134/66 (88) 100 Mechanical Ventilator 30.00 01/08/22 17:36 99 120/61 01/08/22 17:00 100 21 131/64 (86) 100 Mechanical Ventilator 30.00 01/08/22 16:00 100 22 138/72 (94) 100 Mechanical Ventilator 30.00 01/08/22 16:00 100 Mechanical Ventilator 25 01/08/22 15:39 30 01/08/22 15:00 101 27 129/74 (92) 100 Mechanical Ventilator 30.00 01/08/22 14:53 96 21 100 30 01/08/22 14:00 99 20 139/64 (89) 100 Mechanical Ventilator 30.00 01/08/22 13:00 101 21 129/67 (87) 100 Mechanical Ventilator 30.00 01/08/22 12:34 102 01/08/22 12:00 38.2 01/08/22 12:00 102 23 111/62 (78) 100 Mechanical Ventilator 30.00 01/08/22 12:00 100 Mechanical Ventilator 30 01/08/22 11:57 37.7 01/08/22 11:39 30 01/08/22 11:27 38.3 01/08/22 11:00 101 22 124/68 (86) 100 Mechanical Ventilator 30.00 01/08/22 10:51 98 26 100 30 01/08/22 10:50 98 126/72 01/08/22 10:00 99 22 130/74 (92) 100 Mechanical Ventilator 30.00 I & O 01/09/22 06:59 Intake Total 790 ml Output Total 4125 ml Balance -3335 ml Height & Weight Height: '" Weight: lbs. oz. kg; 24.46 BMI Method: General Appearance: No Apparent Distress Neck: Full Range of Motion, Normal Inspection, Non Tender Respiratory: Other (Coarse bilateral breath sounds without wheezing currently ventilating easily) Cardiovascular: Regular Rate, Rhythm, No Gallop, Other ( 2/6 systolic ejection murmur) Capillary Refill: Less Than 3 Seconds Gastrointestinal: non tender, soft Extremity: Other ( trace edema of upper and lower extremities without cyanosis or clubbing) Neurologic/Psychiatric: Alert Results Lab Laboratory Tests 01/08/22 05:10 01/08/22 06:30 01/09/22 03:51 Assessment/Plan Assessment/Plan See free text. Critical Care: Ventilator Management RIKY PARIS MD Jan 09, 2022 10:04
--- NOTE | 2022-01-09 10:29 | Cardiology Progress Note ---
Subjective Date Seen by Provider: Jan 09, 2022 Time Seen by Provider: 10:24 Subjective/Events-last exam Patient is intubated and sedated. Unable to provide any history Review of Systems General: Other (Unable to provide review of system) Objective-Cardiology Exam Last Set of Vital Signs Vital Signs 01/09/22 01/09/22 01/09/22 00:39 08:00 10:00 Temp 35.9 Pulse 92 Resp 22 B/P (MAP) 127/67 (87) Pulse Ox 100 O2 Delivery Mechanical Ventilator O2 Flow Rate 30.00 FiO2 30 I&O Intake and Output 01/09/22 00:00 Intake Total 1090 ml Output Total 3950 ml Balance -2860 ml IV Total 450 ml Other 640 ml Output Urine Total 3950 ml General: Other (Sedated and intubated) HEENT: Atraumatic Neck: Supple Lungs: Normal Air Movement, Other (Bilateral rhonchi) Heart: Regular Rate, Normal S1, Normal S2 Abdomen: Normal Bowel Sounds Extremities: No Clubbing Skin: No Rashes, No Breakdown Neuro: Other (Sedated and intubated) Psych/Mental Status: Other (Sedated and intubated) Results Lab Laboratory Tests 01/09/22 03:51 A/P-Cardiology Admission Diagnosis Acute respiratory failure Acute exacerbation of COPD Non-ST elevation myocardial infarction, type II NM Aortic valve stenosis Assessment/Plan Acute respiratory failure, ventilator dependent. Acute exacerbation of COPD with pneumonia. Receiving antibiotics. Managed by medical team. Coronary artery disease, non-ST elevation myocardial infarction, probably type II myocardial infarction secondary to severe hypoxemia and respiratory failure. Underlying coronary artery disease cannot be entirely excluded. We will continue monitoring and proceed with conservative management for now. Congestive heart failure, acute left ventricular diastolic dysfunction, preserved systolic function. Continue to monitor Aortic valve stenosis, aortic regurgitation. 2D echo was reported by Dr. Clark as ejection fraction 55%, grade 2 diastolic dysfunction, moderate aortic valve stenosis with peak gradient 58 mmHg, mean gradient 30 mmHg, valve area 1.1 cm, moderate aortic regurgitation, moderate tricuspid regurgitation, estimated pulmonary artery pressure around 40 mmHg. Hypertension, continue to monitor blood pressure Hyperlipidemia, monitor lipids. History of CVA with right hemiparesis. Has been maintained on aspirin as an outpatient Tobaccoism, still an active smoker. GISELE GRIMM MD Jan 09, 2022 10:29
[2022-01-09 11:58] LABS: ABG BASE EXCESS 1.3 MMOL/L (-2.5-2.5); ABG OXYGEN SATURATION 96 % (94-100); ABG PCO2 35 MMHG (35-45); ABG PH 7.47 (7.37-7.43); ABG PO2 69 MMHG (79-93); ABG TCO2 25.9 MMOL/L (21.0-31.0)
[2022-01-09 12:00] LABS: ALLENS TEST YES-POS
[2022-01-09 12:01] LABS: INSPIRED O2 30%; PATIENT TEMP 36.3; VENTILATOR YES
[2022-01-09] MEDS: LORazepam INJ 2 MG/ML (ATIVAN) VIAL IVP PRN (18:27)
[2022-01-10] VITALS (26 sets, daily range): BP systolic 102–139; BP diastolic 56–94
[2022-01-10] MEDS: PROPOFOL DRIP (ICU) 100 ML IV SCH ×2 (00:09→09:07)
[2022-01-10] MEDS: PIPERACILLIN SODIUM/TAZOBACTAM 4.5 GM in NS (IVPB) 100 ML IV SCH ×3 (00:12→16:37)
[2022-01-10] MEDS: inSUlin ASPART (NovoLOG) 1 UNIT/0.01 ML (CHARGE PER UNIT) SC SCH ×4 (00:21→20:33)
[2022-01-10] MEDS: RT-ALBUTEROL/IPRATROPIUM 3 ML (DUONEB) VIAL IH SCH ×7 (00:43→23:03)
[2022-01-10] MEDS: NS IV 500 ML 500 ML IV SCH ×5 (01:10→20:54)
[2022-01-10] MEDS: DexMEDEtomidine 250 ML DRIP 250 ML IV SCH ×2 (01:45→12:24)
[2022-01-10 04:58] LABS: POTASSIUM 3.6 MMOL/L (3.6-5.0)
[2022-01-10 04:59] LABS: CALCIUM 7.4 MG/DL (8.5-10.1)
[2022-01-10 05:00] LABS: TOTAL PROTEIN 5.4 GM/DL (6.4-8.2)
[2022-01-10 05:02] LABS: BASOPHILS % (AUTO) 0 % (0-10); BILIRUBIN,TOTAL 0.7 MG/DL (0.1-1.0); EOSINOPHILS % (AUTO) 0 % (0-10); HEMATOCRIT 40 % (40-54)
[2022-01-10 05:04] LABS: CREATININE SERUM 0.65 MG/DL (0.60-1.30)
[2022-01-10 05:05] LABS: HEMOGLOBIN 13.5 g/dL (13.3-17.7); LYMPHOCYTES # (AUTO) 0.4 10^3/uL (1.0-4.0); LYMPHOCYTES % (AUTO) 4 % (12-44); MEAN CORPUSCULAR HEMOGLOBIN 33 pg (25-34); MEAN CORPUSCULAR HGB CONC 34 g/dL (32-36); MEAN CORPUSCULAR VOLUME 98 fL (80-99); MONOCYTES # (AUTO) 0.7 10^3/uL (0.0-1.0); MONOCYTES % (AUTO) 7 % (0-12); NEUTROPHILS # (AUTO) 8.5 10^3/uL (1.8-7.8); NEUTROPHILS % (AUTO) 89 % (42-75); PLATELET COUNT 134 10^3/uL (130-400); WHITE BLOOD COUNT 9.6 10^3/uL (4.3-11.0)
[2022-01-10 05:07] LABS: MAGNESIUM 2.5 MG/DL (1.6-2.4)
[2022-01-10] MEDS: POTASSIUM CL 10MEQ/50ML IVPB 50 ML IV SCH ×3 (05:11→06:20)
[2022-01-10] MEDS: MAGNESIUM 1 GM/100 ML IVPB 100 ML IV SCH (05:12)
[2022-01-10] MEDS: KCL 20 MEQ TAB (K-DUR) PO SCH (05:12)
[2022-01-10 05:25] LABS: ABG BASE EXCESS 1.6 MMOL/L (-2.5-2.5); ABG OXYGEN SATURATION 96 % (94-100); ABG PCO2 38 MMHG (35-45); ABG PH 7.44 (7.37-7.43); ABG PO2 74 MMHG (79-93); ABG TCO2 26.6 MMOL/L (21.0-31.0)
[2022-01-10] MEDS: THIAMINE 100 MG (VITAMIN B-1) TAB PO SCH (05:44)
[2022-01-10 05:46] LABS: ALLENS TEST POSITIVE; INSPIRED O2 60%; PATIENT TEMP 36.9; VENTILATOR YES
--- NOTE | 2022-01-10 08:02 | Diagnostic Imaging Report ---
EXAMINATION: Chest 1 view HISTORY: Respiratory failure COMPARISON: 01/09/2022 FINDINGS: Endotracheal tube tip terminates 4 cm above the gilda. Gastric tube tip terminates below the field of view. There is increasing opacification in the right lung base. No pneumothorax. Heart size normal. IMPRESSION: 1. Increasing opacification of the right lung base may represent worsening atelectasis or pneumonia. Dictated by: Dictated on workstation # [id number]
--- NOTE | 2022-01-10 09:42 | Tele-ICU Progress Note ---
Progress Note video rounds completed 61 y/o with severe COPD and vent dependent Plan for trach and PEG this week Onsedation with propfol and precedex and intermittent ativan Vent: 12/450/30%/5 Focused Exam Height, Weight, BMI Height: '" Weight: lbs. oz. kg; 24.46 BMI Method: Laboratory Tests 01/10/22 00:43 Results Results/Procedures Labs Laboratory Tests 01/09/22 03:51 01/10/22 00:43 Patient resulted labs reviewed. Results Labs Labs Laboratory Tests 01/09/22 11:50: Blood Gas Puncture Site LT RAD, Blood Gas Patient Temperature 36.3, Arterial Blood pH 7.47H, Arterial Blood Partial Pressure CO2 35, Arterial Blood Partial Pressure O2 69L, Arterial Blood HCO3 25, Arterial Blood Total CO2 25.9, Arterial Blood Oxygen Saturation 96, Arterial Blood Base Excess 1.3, Jm Test YES-POS, Blood Gas Ventilator Setting YES, Blood Gas Inspired Oxygen 30% 01/09/22 11:56: Glucometer 158H 01/09/22 17:58: Glucometer 148H 01/10/22 00:20: Glucometer 177H 01/10/22 00:43: White Blood Count 9.6, Red Blood Count 4.09L, Hemoglobin 13.5, Hematocrit 40, Mean Corpuscular Volume 98, Mean Corpuscular Hemoglobin 33, Mean Corpuscular Hemoglobin Concent 34, Red Cell Distribution Width 14.0, Platelet Count 134, Mean Platelet Volume 11.0, Immature Granulocyte % (Auto) 1, Neutrophils (%) (Auto) 89H, Lymphocytes (%) (Auto) 4L, Monocytes (%) (Auto) 7, Eosinophils (%) (Auto) 0, Basophils (%) (Auto) 0, Neutrophils # (Auto) 8.5H, Lymphocytes # (Auto) 0.4L, Monocytes # (Auto) 0.7, Eosinophils # (Auto) 0.0, Basophils # (Auto) 0.0, Immature Granulocyte # (Auto) 0.1, Percent Immature Platelet Fr action 6.5, Sodium Level 141, Potassium Level 3.6, Chloride Level 106, Carbon Dioxide Level 22, Anion Gap 13, Blood Urea Nitrogen 18, Creatinine 0.65, Estimat Glomerular Filtration Rate 107, BUN/Creatinine Ratio 28, Glucose Level 172H, Calcium Level 7.4L, Corrected Calcium 8.2L, Magnesium Level 2.5H, Total Bilirubi n 0.7, Aspartate Amino Transf (AST/SGOT) 28, Alanine Aminotransferase (ALT/SGPT) 43, Alkaline Phosphatase 38L, Total Protein 5.4L, Albumin 3.0L 01/10/22 05:00: Blood Gas Puncture Site RIGHT WRIST, Blood Gas Patient Temperature 36.9, Arterial Blood pH 7.44H, Arterial Blood Partial Pressure CO2 38, Arterial Blood Partial Pressure O2 74L, Arterial Blood HCO3 25, Arterial Blood Total CO2 26.6, Arterial Blood Oxygen Saturation 96, Arterial Blood Base Excess 1.6, Jm Test POSITIVE, Blood Gas Ventilator Setting YES, Blood Gas Inspired Oxygen 60% Microbiology 01/05/22 Gram Stain - Final, Complete 01/05/22 Sputum Culture - Final, Complete Usual upper respiratory duran 01/04/22 Blood Culture - Preliminary, Resulted No growth MICKEY DURANT MD Jan 10, 2022 09:42
[2022-01-10] MEDS: methylPREDNISolone 125 MG (Solu-MEDROL) VIAL IV SCH ×2 (09:48→20:33)
[2022-01-10] MEDS: ENOXAPARIN 80 MG/0.8 ML (LOVENOX) SYR SC SCH ×2 (09:48→20:33)
[2022-01-10] MEDS: ASPIRIN 81 MG CHEW (CHILDREN'S ASA) PO SCH (09:48)
[2022-01-10] MEDS: meTOprolol TARTRATE 25 MG (LOPRESSOR) TABLET PO SCH ×2 (09:48→22:59)
[2022-01-10] MEDS: FAMOTIDINE 20MG/2ML IV (PEPCID) IV SCH ×2 (09:48→20:33)
[2022-01-10] MEDS: lisINopril 10 MG (PRINIVIL) TABLET PO SCH (09:48)
[2022-01-10] MEDS: DOCUSATE SODIUM 100 MG (COLACE) CAP PO SCH ×2 (09:48→20:54)
--- NOTE | 2022-01-10 10:08 | Progress Note - Hospitalist ---
Subjective HPI/CC On Admission Date Seen by Provider: Jan 10, 2022 Time Seen by Provider: 08:00 CC: SOB HPI: This is a 61 yr old WM with a history of stroke with right sided hemiparesis. In addition to COPD. Pt continues to smoke. He presented to the ER in [employer] with SOB. He was found to have exacerbation of COPD and acute on chronic respiratory failure. At this current time pt has remained stable and will be transferred to the 4th floor. IV steroids reviewed and pt will remain on oxygen. Subjective/Events-last exam Patient sedated on ventilation no reported problems with care. When they do lessen propofol he opens his eyes does tend to want a bite the tube but no attempts at actually trying to pull the tube out per staff report. No problems with care otherwise. Objective Exam Vital Signs Vital Signs Date Time Temp Pulse Resp B/P (MAP) Pulse Ox O2 Delivery O2 Flow Rate FiO2 01/10/22 09:07 81 129/72 01/10/22 09:00 14 100 Mechanical Ventilator 30.00 01/10/22 08:00 35.8 01/10/22 08:00 30 Capillary Refill : Less Than 3 Seconds General Appearance: No Apparent Distress Cardiovascular: Regular Rate, Rhythm, No Edema, No Gallop, No JVD, Normal Peripheral Pulses, Systolic Murmur (2/6 heard best at second intercostal space.) Gastrointestinal: Non Tender, Soft, Other ( Bowel sounds present but hypoactive unchanged from yesterday no mass noted.) Results/Procedures Lab Laboratory Tests 01/10/22 00:43 Patient resulted labs reviewed. Assessment/Plan Assessment and Plan Assess & Plan/Chief Complaint (1) Acute exacerbation of chronic obstructive pulmonary disease (COPD) Status: Likely due to right lower lobe pneumonia. While chest x-ray shows littl e more consolidation in the right lower lobe the patient is clinically responding he is afebrile white count is normalized and he is not wheezing today with dose reduction of Solu-Medrol yesterday from 60 every 8 to 60 every 12. We will give a dose of fentanyl decrease propofol and initiate pressure support trial today. If the patient tolerates this well there may be consideration for extubation later today. Patient is BUN to creatinine is increasing only getting about 1200 cc of fluid IV we will give another 1200 in the form of lactated Ringer's 50 cc/h. (3) Nonrheumatic aortic valve stenosis with regurgitation (4) Primary hypertension (5) Mixed hyperlipidemia Critical Care Ventilator Management JESSICA RUIZ MD Jan 10, 2022 10:08
[2022-01-10] MEDS ORDERED: fentaNYL INJ 100 MCG/2 ML AMP IVP ONE (10:30)
[2022-01-10 11:42] LABS: ABG BASE EXCESS 0.9 MMOL/L (-2.5-2.5); ABG OXYGEN SATURATION 98 % (94-100); ABG PCO2 37 MMHG (35-45); ABG PH 7.44 (7.37-7.43); ABG PO2 90 MMHG (79-93); ABG TCO2 25.9 MMOL/L (21.0-31.0)
[2022-01-10 11:45] LABS: ALLENS TEST YES-POS; INSPIRED O2 40%; PATIENT TEMP 36.5; VENTILATOR YES
[2022-01-10] MEDS: LACTATED RINGERS 1,000 ML IV SCH (12:24)
--- NOTE | 2022-01-10 12:51 | Cardiology Progress Note ---
Subjective Date Seen by Provider: Jan 10, 2022 Time Seen by Provider: 10:00 Subjective/Events-last exam Patient was seen and evaluated this morning He was off sedation and being weaned off the ventilator Review of Systems General: Other (Unable to provide review of system) Objective-Cardiology Exam Last Set of Vital Signs Vital Signs 01/10/22 01/10/22 01/10/22 01/10/22 01/10/22 01/10/22 08:00 11:11 12:00 12:23 12:24 12:49 Temp 35.8 Pulse 91 Resp 18 B/P (MAP) 123/61 Pulse Ox 100 O2 Delivery Nasal Cannula O2 Flow Rate 5.00 FiO2 30 I&O Intake and Output 01/10/22 00:00 Intake Total 880 ml Output Total 1225 ml Balance -345 ml IV Total 400 ml Other 480 ml Output Urine Total 1225 ml # Bowel Movements 1 General: Other (Sedated and intubated) HEENT: Atraumatic Neck: Supple Lungs: Normal Air Movement, Other (Bilateral rhonchi) Heart: Regular Rate, Normal S1, Normal S2 Abdomen: Normal Bowel Sounds Extremities: No Clubbing Skin: No Rashes, No Breakdown Neuro: Other (Sedated and intubated) Psych/Mental Status: Other (Sedated and intubated) Results Lab Laboratory Tests 01/10/22 00:43 A/P-Cardiology Admission Diagnosis Acute respiratory failure Acute exacerbation of COPD Non-ST elevation myocardial infarction, type II [place] Aortic valve stenosis Assessment/Plan Acute respiratory failure, ventilator dependent. Acute exacerbation of COPD with pneumonia. Receiving antibiotics. Being weaned off the ventilator, managed by medical team Coronary artery disease, non-ST elevation myocardial infarction, probably type II myocardial infarction secondary to severe hypoxemia and respiratory failure. Underlying coronary artery disease cannot be entirely excluded. We will continue monitoring and proceed with conservative management for now. Managed by Dr. Clark Congestive heart failure, acute left ventricular diastolic dysfunction, preserved systolic function. Continue to monitor Aortic valve stenosis, aortic regurgitation. 2D echo was reported by Dr. Clark as ejection fraction 55%, grade 2 diastolic dysfunction, moderate aortic valve stenosis with peak gradient 58 mmHg, mean gr adient 30 mmHg, valve area 1.1 cm, moderate aortic regurgitation, moderate tricuspid regurgitation, estimated pulmonary artery pressure around 40 mmHg. Hypertension, continue to monitor blood pressure Hyperlipidemia, monitor lipids. History of CVA with right hemiparesis. Has been maintained on aspirin as an outpatient Tobaccoism, still an active smoker. GISELE GRIMM MD Jan 10, 2022 12:51
[2022-01-10 18:52] LABS: ABG PO2 36 MMHG (79-93)
[2022-01-11] VITALS (25 sets, daily range): BP systolic 106–161; BP diastolic 60–111
[2022-01-11] MEDS: inSUlin ASPART (NovoLOG) 1 UNIT/0.01 ML (CHARGE PER UNIT) SC SCH ×5 (00:53→22:13)
[2022-01-11] MEDS: LACTATED RINGERS 1,000 ML IV SCH ×3 (00:59→18:24)
[2022-01-11] MEDS: PIPERACILLIN SODIUM/TAZOBACTAM 4.5 GM in NS (IVPB) 100 ML IV SCH (00:59)
[2022-01-11] MEDS: NS IV 500 ML 500 ML IV SCH (01:03)
[2022-01-11] MEDS: RT-ALBUTEROL/IPRATROPIUM 3 ML (DUONEB) VIAL IH SCH ×4 (01:37→20:57)
[2022-01-11 04:56] LABS: BASOPHILS % (AUTO) 0 % (0-10); EOSINOPHILS % (AUTO) 0 % (0-10); HEMATOCRIT 41 % (40-54); HEMOGLOBIN 13.7 g/dL (13.3-17.7); LYMPHOCYTES # (AUTO) 0.7 10^3/uL (1.0-4.0); LYMPHOCYTES % (AUTO) 7 % (12-44); MEAN CORPUSCULAR HEMOGLOBIN 33 pg (25-34); MEAN CORPUSCULAR HGB CONC 33 g/dL (32-36); MEAN CORPUSCULAR VOLUME 99 fL (80-99); MEAN PLATELET VOLUME 10.9 fL (9.0-12.2); MONOCYTES # (AUTO) 0.7 10^3/uL (0.0-1.0); MONOCYTES % (AUTO) 7 % (0-12); NEUTROPHILS % (AUTO) 86 % (42-75); PLATELET COUNT 149 10^3/uL (130-400); WHITE BLOOD COUNT 10.5 10^3/uL (4.3-11.0)
[2022-01-11 05:13] LABS: POTASSIUM 4.4 MMOL/L (3.6-5.0)
[2022-01-11 05:14] LABS: CALCIUM 7.6 MG/DL (8.5-10.1)
[2022-01-11 05:15] LABS: TOTAL PROTEIN 5.4 GM/DL (6.4-8.2)
[2022-01-11 05:17] LABS: BILIRUBIN,TOTAL 0.9 MG/DL (0.1-1.0)
[2022-01-11 05:19] LABS: CREATININE SERUM 0.59 MG/DL (0.60-1.30)
[2022-01-11 05:21] LABS: MAGNESIUM 2.4 MG/DL (1.6-2.4)
[2022-01-11] MEDS: POTASSIUM CL 10MEQ/50ML IVPB 50 ML IV SCH (05:23)
[2022-01-11] MEDS: KCL 20 MEQ TAB (K-DUR) PO SCH (05:23)
[2022-01-11] MEDS: MAGNESIUM 1 GM/100 ML IVPB 100 ML IV SCH (05:23)
--- NOTE | 2022-01-11 06:06 | Diagnostic Imaging Report ---
INDICATION: Respiratory failure. AP view of the chest is obtained with comparison made study one day earlier. Pulmonary venous congestion with mixed interstitial and alveolar densities, greater on the right are not appreciably changed. There may also be mild right pleural fluid. Endotracheal tube has been discontinued without evidence of pneumothorax. IMPRESSION: Persistent bilateral pulmonary opacity which may be due to pulmonary edema or pneumonitis. May be small amount right pleural fluid, however no other change is seen post extubation. Dictated by: Dictated on workstation # [id number]
[2022-01-11] MEDS: THIAMINE 100 MG (VITAMIN B-1) TAB PO SCH (06:13)
[2022-01-11] MEDS ORDERED: RT-ALBUTEROL SULF 2.5 MG/3 ML PRE-MIX VIAL INH PRN (06:45)
--- NOTE | 2022-01-11 09:11 | Tele-ICU Progress Note ---
Subjective Date Seen by a Provider: Jan 11, 2022 Subjective/Events-last exam (Tele-ICU Physician , Progress Note ) Available chart/ vitals / labs / Images reviewed Video assessment done using teleICU camera, rest of exam as per RN Discussed with RN , EXAM PER RN Events overnight : Afebrile FiO2 - 3 l I/O = Drips: LR 100 , PRECEDEX Consultants: shirlene Hospital course: (01/04) 61y M with SOB, vever, cough and diarrhea. Reports chest tightness w/o pain. ADMIT DX: Acute COPD, Acute CHF, Axute resp failure with hypoxia, CXR shows opacities. on bipap 01/05 - to medical floor on NC , then back to ICU in severe resp distress after getting to bathroom , faled BIPAP , INTUBATED 01/07 AC 16-450-30 + 5 01/10 - EXTUBATED A/P Acute resp failure- - 01/04 bipap with improvement 01/05- INTUBATED , 01/10 - EXTUBATED , on 3 L NSTEMI, HFpEF ( EF 55% grII dst dsfnc, PRVC 33 mmHg ) moderate /AR - as per cards - follow AECOPD - nebs , steroids IV - DECREASE DOSE today - empiric abx complited - sputum cx - ususal duran sUSPECTEED pna - CXR STILL WITH INFILTRATES R>L - complited abx ABX Encephalopathy / agitation - RESOLVED , AAO x2 - still on Precedex , try to wean -= CT head 01/07 = ETOH - thiamine , folate h/o CVA Lines : periph (Central Line Necessity Reviewed) Collins: + OG: Nutrition: start PO today id can swallow Analgesia: Anxiety/ delirium VTE Prophylaxis: francis 70 bid Stress Ulcer Prophylaxis: ppi Plans in collaboration with bedside consultants and IM MDs. Discussed with RN to reach out if any questions or concerns A total of 33 minutes of critical care time was devoted to this patient today, required to treat and/or prevent further deterioration of critical care c ondition ( as above) . Sepsis Event Evaluation Height, Weight, BMI Height: '" Weight: lbs. oz. kg; 24.46 BMI Method: Exam Exam Patient acknowledged, consented, and participated in this virtual visit which was conducted using real time audio/video Vital Signs Date Time Temp Pulse Resp B/P (MAP) Pulse Ox O2 Delivery O2 Flow Rate FiO2 01/11/22 08:03 100 Nasal Cannula 1.00 01/11/22 08:02 100 Nasal Cannula 2.00 01/11/22 08:00 74 19 133/70 (91) 100 Nasal Cannula 2.00 01/11/22 07:58 74 01/11/22 07:00 73 18 129/70 (89) 100 Nasal Cannula 2.00 01/11/22 06:33 36.3 73 100 01/11/22 06:00 73 20 127/69 (88) 100 Nasal Cannula 2.00 01/11/22 05:00 75 19 132/73 (92) 100 Nasal Cannula 2.00 01/11/22 04:00 100 Nasal Cannula 2.00 01/11/22 04:00 75 19 131/72 (90) 100 Nasal Cannula 2.00 01/11/22 03:00 80 18 138/74 (88) 100 Nasal Cannula 2.00 01/11/22 02:00 78 19 135/69 (81) 100 Nasal Cannula 2.00 01/11/22 01:38 100 Nasal Cannula 2.00 01/11/22 01:36 36.3 01/11/22 01:00 76 20 139/72 (94) 100 Nasal Cannula 2.00 01/11/22 01:00 76 01/11/22 00:00 100 Nasal Cannula 2.00 01/11/22 00:00 80 19 142/69 (93) 100 Nasal Cannula 2.00 01/10/22 23:04 100 Nasal Cannula 2.00 01/10/22 23:00 78 18 137/74 (95) 100 Nasal Cannula 2.00 01/10/22 22:00 83 22 139/72 (99) 100 Nasal Cannula 5.00 01/10/22 21:00 86 21 133/83 (108) 100 Nasal Cannula 5.00 01/10/22 20:00 92 17 130/94 (101) 100 Nasal Cannula 5.00 01/10/22 20:00 100 Nasal Cannula 3.00 01/10/22 20:00 35.9 01/10/22 19:30 100 Nasal Cannula 5.00 01/10/22 19:00 90 01/10/22 19:00 90 24 128/72 (81) 100 Nasal Cannula 5.00 01/10/22 18:00 90 18 117/65 (82) 100 Nasal Cannula 5.00 01/10/22 17:00 92 24 129/68 (88) 100 Nasal Cannula 5.00 01/10/22 16:00 37.2 01/10/22 16:00 93 15 130/68 (88) 100 Nasal Cannula 5.00 01/10/22 16:00 100 Nasal Cannula 5.00 01/10/22 15:12 100 Nasal Cannula 5.00 01/10/22 14:00 90 18 127/76 (93) 100 Nasal Cannula 5.00 01/10/22 13:00 89 21 124/61 (82) 100 Nasal Cannula 5.00 01/10/22 12:49 91 01/10/22 12:24 91 123/61 01/10/22 12:23 Nasal Cannula 5.00 01/10/22 12:00 91 18 123/67 (85) 100 Mechanical Ventilator 30.00 01/10/22 12:00 100 Nasal Cannula 5.00 01/10/22 11:11 98 19 100 30 01/10/22 11:00 93 16 102/56 (71) 96 Mechanical Ventilator 30.00 01/10/22 10:00 88 19 116/71 (86) 100 Mechanical Ventilator 30.00 I & O 01/11/22 07:00 Intake Total 1985 ml Output Total 875 ml Balance 1110 ml Height & Weight Height: '" Weight: lbs. oz. kg; 24.46 BMI Method: General Appearance: No Apparent Distress Neck: Full Range of Motion, Normal Inspection, Non Tender Respiratory: Other (Coarse bilateral breath sounds without wheezing currently ventilating easily) Cardiovascular: Regular Rate, Rhythm, No Edema, No Gallop, No JVD, Normal Peripheral Pulses, Systolic Murmur (2/6 heard best at second intercostal space.) Capillary Refill: Less Than 3 Seconds Gastrointestinal: non tender, soft Extremity: Other ( trace edema of upper and lower extremities without cyanosis or clubbing) Neurologic/Psychiatric: Alert Results Lab Laboratory Tests 01/10/22 00:43 01/11/22 04:45 Assessment/Plan Assessment/Plan ELIZABETH OBANDO MD Jan 11, 2022 09:11
[2022-01-11] MEDS: ASPIRIN 81 MG CHEW (CHILDREN'S ASA) PO SCH (09:30)
[2022-01-11] MEDS: DOCUSATE SODIUM 100 MG (COLACE) CAP PO SCH ×2 (09:30→21:54)
[2022-01-11] MEDS: lisINopril 10 MG (PRINIVIL) TABLET PO SCH ×2 (09:30→13:46)
[2022-01-11] MEDS: meTOprolol TARTRATE 25 MG (LOPRESSOR) TABLET PO SCH ×3 (09:30→21:41)
[2022-01-11] MEDS: ENOXAPARIN 80 MG/0.8 ML (LOVENOX) SYR SC SCH ×2 (09:30→21:42)
[2022-01-11] MEDS ORDERED: VERAPAMIL 5 MG/2 ML (CALAN) VIAL IV ONE (09:38)
[2022-01-11] MEDS ORDERED: MIDAZOLAM 5 MG/5 ML (VERSED) VIAL ONE (09:38)
[2022-01-11] MEDS ORDERED: fentaNYL INJ 100 MCG/2 ML AMP ONE (09:38)
[2022-01-11] MEDS ORDERED: NS IV 1000 ML 1,000 ML ONE (09:39)
[2022-01-11] MEDS ORDERED: HEParin (CATH LAB) 1,000 ML IV ONE (09:39)
[2022-01-11] MEDS ORDERED: LIDOCAINE 1% INJ 20 ML VIAL ONE (09:39)
[2022-01-11] MEDS ORDERED: NITRO DRIP 25000 MCG/D5W 0 ML IV ONE (09:39)
[2022-01-11] MEDS ORDERED: HEParin 1000 UNIT/ML (10ML VIAL) FOR BOLUS ONE (09:39)
[2022-01-11] MEDS: methylPREDNISolone 125 MG (Solu-MEDROL) VIAL IV SCH ×2 (09:50→21:42)
[2022-01-11] MEDS: FAMOTIDINE 20MG/2ML IV (PEPCID) IV SCH ×2 (09:51→21:42)
--- NOTE | 2022-01-11 09:53 | Cardiology Progress Note ---
Subjective Date Seen by Provider: Jan 11, 2022 Time Seen by Provider: 09:51 Subjective/Events-last exam Patient was seen at bedside, laying down comfortably Denied any chest pain or shortness of breath. Still slightly confused, answering questions by yes or no Review of Systems General: No Chills, No Night Sweats; Fatigue, Malaise; No Appetite, No Other HEENT: No Head Aches, No Visual Changes, No Eye Pain, No Ear Pain, No Dysphasia, No Sinus Congestion, No Post Nasal Drip, No Sore Throat, No Other Pulmonary: No Dyspnea, No Cough, No Pleuritic Chest Pain, No Other Cardiovascular: No: Chest Pain, Palpitations, Orthopnea, Paroxysmal Noc. Dyspnea, Edema, Lt Headedness, Other Objective-Cardiology Exam Last Set of Vital Signs Vital Signs 01/10/22 01/11/22 01/11/22 01/11/22 11:11 06:33 09:00 10:40 Temp 36.3 Pulse 79 Resp 17 B/P (MAP) 124/67 (86) Pulse Ox 99 O2 Delivery Nasal Cannula O2 Flow Rate 1.00 FiO2 30 I&O Intake and Output 01/11/22 00:00 Intake Total 860 ml Output Total 900 ml Balance -40 ml Intake Oral 260 ml IV Total 400 ml Other 200 ml Output Urine Total 900 ml # Bowel Movements 3 General: Alert, Cooperative, No Acute Distress HEENT: Atraumatic Neck: Supple Lungs: Clear to Auscultation, Normal Air Movement Heart: Regular Rate, Normal S1, Normal S2 Abdomen: Normal Bowel Sounds Extremities: No Clubbing Skin: No Rashes, No Breakdown Neuro: Normal Speech, Sensation Intact Psych/Mental Status: Mood NL Results Lab Laboratory Tests 01/11/22 04:45 A/P-Cardiology Admission Diagnosis Acute respiratory failure Acute exacerbation of COPD Non-ST elevation myocardial infarction, type II [place] Aortic valve stenosis Assessment/Plan Status post acute respiratory failure, ventilator dependent. Acute exacerbation of COPD with pneumonia. Extubated on January 10, 2022. Feeling better and reporting improvement. Coronary artery disease, non-ST elevation myocardial infarction, probably type II myocardial infarction secondary to severe hypoxemia and respiratory failure. Underlying coronary artery disease cannot be entirely excluded. There is a history of coronary artery disease and stenting in the remote past. I will proceed with cardiac catheterization today. Discussed with the patient and we obtained a consent from his daughter who is a nurse Congestive heart failure, acute left ventricular diastolic dysfunction, pre served systolic function. Continue to monitor Aortic valve stenosis, aortic regurgitation. 2D echo was reported by Dr. Clark as ejection fraction 55%, grade 2 diastolic dysfunction, moderate aortic valve stenosis with peak gradient 58 mmHg, mean gradient 30 mmHg, valve area 1.1 cm, moderate aortic regurgitation, moderate tricuspid regurgitation, estimated pulmonary artery pressure around 40 mmHg. Hypertension, continue to monitor blood pressure Hyperlipidemia, monitor lipids. History of CVA with right hemiparesis. Has been maintained on aspirin as an outpatient Tobaccoism, still an active smoker. GISELE GRIMM MD Jan 11, 2022 09:53
--- NOTE | 2022-01-11 09:53 | Conscious Sedation/ASA ---
Conscious Sedation Pre-Proced Time 09:53 ASA Score 3 For ASA 3 and 4: Consider anesthesia and medical clearance. Also, for patients with a history of failed moderate sedation consider anesthesia. Airway Lungs Heart ASA score ASA 1: a normal healthy patient ASA 2: a patient with a mild systemic disease (mid diabetes, controlled hypertension, obesity x ASA 3: a patient with a severe systemic disease that limits activity (angina, COPD, prior Myocardial infarction) ASA 4: a patient with an incapacitating disease that is a constant threat to life (CHF, renal failure) ASA 5: a moribund patient not expected to survive 24 hrs. (ruptured aneurysm) ASA 6: a declared brain- patient whose organs are being harvested. For emergent operations, add the letter E after the classification Mallampati Classification Grade 3 Sedation Plan Analgesia, Amnesia, Plan communicated to team members, Discussed options with patient/fam, Discussed risks with patient/fam The patient is an appropriate candidate to undergo the planned procedure, sedation, and anesthesia. The patient immediately re-assessed prior to indication. GISELE GRIMM MD Jan 11, 2022 09:53
[2022-01-11] MEDS ORDERED: CLOPIDOGREL 300 MG (PLAVIX) TABLET PO ONE (10:59)
[2022-01-11] MEDS ORDERED: ASPIRIN 325 MG (5 GR) TABLET ONE (10:59)
--- NOTE | 2022-01-11 10:59 | Cardiac Cath Report ---
Cardiac Cath Report Physician (s)/Saw Filer (s) Physician GISELE GRIMM MD Pre-Procedure Diagnosis Pre-Procedure Diagnosis: Non-ST elevation myocardial infarction Post-Procedure Note Procedure Start Date: Jan 11, 2022 Name of Procedure: Coronary angiogram Stenting to the LAD Findings/Procedure Note PROCEDURE NOTE: 61-year-old gentleman with history of CVA, coronary artery disease, admitted with acute respiratory failure, had EKG changes and elevation in troponin level. Intubated on January 10, 2022, I visited with him and we discussed proceeding with cardiac catheterization. After explaining the procedure to the patient, all pros and cons were explained, all questions were answered. The patient signed the consent and then he was placed on the cardiac catheterization laboratory. Groin was prepped SL fashion local anesthesia was used. Sheath placed in the right femoral artery. Nighat right and left catheter were used to access the coronary system. Pigtail was used in an attempt to cross the aortic valve to the left ventricular cavity without success. Patient has severe stenosis, 80% lesion in the mid LAD heavily calcified lesion. He was given 5000 units of heparin, EBU 4 guide was advanced and selectively engaged the left anterior descending artery, BMW wire was advanced and parked distally. I proceeded with predilatation with 3 x 20 balloon then I deployed kathya point stent 3 x 23 mm under 15 jono up to 3.1 mm with excellent results. At the end of the procedure the sheath was removed. Closure device was used FINDINGS: Hemodynamics LV was not measured, did not cross the aortic valve Aorta 127/51 mean of 80 ANATOMY: Left Main is almost absent, separate ostium to the LAD and circumflex artery Left Anterior Descending ostial calcification with mild disease, mid LAD has 80% calcified stenosis with successful balloon angioplasty then stenting using kathya point stent 3 x 23 mm expanded to 3.1 mm. Left Circumflex is calcified artery with mild disease nonobstructive disease Right Coronary Artery is calcified artery, dominant artery with mild disease nonobstructive disease CONCLUSION: 1. Heavily calcified coronary system with 80% stenosis in the mid LAD successful balloon angioplasty then deployment of kathya point stent 3 x 23 mm expanded to 3.1 mm with excellent results 2. Separate ostium of the LAD and circumflex artery, calcification at the ostium with mild to moderate disease nonobstructive disease 3. Calcified coronary system with mild disease in the mid circumflex artery and the dominant right coronary artery, nonobstructive disease DISCUSSION AND RECOMMENDATION: Patient was loaded with aspirin and Plavix. We will continue maximizing medical therapy Anesthesia Type: Conscious Sedation Estimated blood loss (mL): 25 ml Contrast Amount: 94 ml Total Radiation Dose: 984 mGy Post-Procedure Diagnosis Post-operative diagnosis: Non-ST elevation myocardial infarction Coronary artery disease Hypertension Aortic valve stenosis GISELE GRIMM MD Jan 11, 2022 10:59
[2022-01-11] MEDS ORDERED: PATIENT MAY USE OWN MEDS, ALL PO SCH (11:00)
--- NOTE | 2022-01-11 11:30 | Occ Therapy Progress Note ---
Therapy Progress Note OT attempted to see patient for evaluation. Pt currently out of room for cardiac catheterization. Pt will be on bed rest post procedure. OT to try again 01/12/22 if pt is medically appropriate. Tiara Herrera OT Jan 11, 2022 11:30
[2022-01-11] MEDS: ACETAMINOPHEN 325 MG TABLET PO PRN (13:19)
[2022-01-11] MEDS: LORazepam INJ 2 MG/ML (ATIVAN) VIAL IV PRN (13:19)
[2022-01-11] MEDS: NS IV 1000 ML 1,000 ML IV SCH ×2 (13:45→22:13)
[2022-01-11] MEDS: LORazepam 1 MG (ATIVAN) TAB PO PRN (16:39)
--- NOTE | 2022-01-11 22:31 | Progress Note ---
Subjective Subjective/Events-last exam Patient feeling much better this AM. He is nervous about going to the test lab technician this AM. Denies any pain at this time. NPO for procedure Review of Systems General: Fatigue Pulmonary: Dyspnea Neurological: Weakness, Incoordination Objective Exam Last Set of Vital Signs Vital Signs Date Time Temp Pulse Resp B/P (MAP) Pulse Ox O2 Delivery O2 Flow Rate FiO2 01/11/22 20:57 100 Nasal Cannula 2.00 01/11/22 19:36 36.8 01/11/22 18:00 92 7 140/72 (94) 01/10/22 11:11 30 Capillary Refill : Greater Than 3 Seconds I&O Intake and Output 01/10/22 23:59 Intake Total 860 ml Output Total 900 ml Balance -40 ml Intake Oral 260 ml IV Total 400 ml Other 200 ml Output Urine Total 900 ml # Bowel Movements 3 General: Alert, Oriented X3, No Acute Distress Lungs: Clear to Auscultation, Normal Air Movement Heart: Regular Rate, Other (systolic murmur present) Abdomen: Normal Bowel Sounds, Soft, No Tenderness, No Masses Extremities: No Tenderness/Swelling Neuro: Normal Speech Results/Procedures Lab Laboratory Tests 01/11/22 01:31: Glucometer 141H 01/11/22 04:30: Glucometer 120H 01/11/22 04:45: White Blood Count 10.5, Red Blood Count 4.18L, Hemoglobin 13.7, Hematocrit 41, Mean Corpuscular Volume 99, Mean Corpuscular Hemoglobin 33, Mean Corpuscular Hemoglobin Concent 33, Red Cell Distribution Width 13.8, Platelet Count 149, Mean Platelet Volume 10.9, Immature Granulocyte % (Auto) 1, Neutrophils (%) (Auto) 86H, Lymphocytes (%) (Auto) 7L, Monocytes (%) (Auto) 7, Eosinophils (%) (Auto) 0, Basophils (%) (Auto) 0, Neutrophils # (Auto) 9.0H, Lymphocytes # (Auto) 0.7L, Monocytes # (Auto) 0.7, Eosinophils # (Auto) 0.0, Basophils # (Auto) 0.0, Immature Granulocyte # (Auto) 0.1, Sodium Level 139, Potassium Level 4.4, Chloride Level 108H, Carbon Dioxide Level 21, Anion Gap 10, Blood Urea Nitrogen 16, Creatinine 0.59L, Estimat Glomerular Filtration Rate 110, BUN/Creatinine Ratio 27, Glucose Level 125H, Calcium Level 7.6L, Corrected Calcium 8.4L, Magnesium Level 2.4, Total Bilirubin 0.9, Aspartate Amino Transf (AST/SGOT) 28, Alanine Aminotransferase (ALT/SGPT) 45, Alkaline Phosphatase 33L, Total Protein 5.4L, Albumin 3.0L 01/11/22 11:49: Glucometer 99 01/11/22 16:18: Glucometer 128H 01/11/22 22:00: Glucometer 130H Microbiology 01/05/22 Gram Stain - Final, Complete 01/05/22 Sputum Culture - Final, Complete Usual upper respiratory duran 01/04/22 Blood Culture - Final, Complete No growth Assessment/Plan Assessment/Plan (1) Acute respiratory failure with hypoxia Status: Acute Assessment & Plan: 01/11: Extubated over the weekend, doing well on NC, MAT protocol (2) Acute exacerbation of chronic obstructive pulmonary disease (COPD) Status: Acute (3) Non-ST elevation myocardial infarction (NSTEMI), initial care episode Status: Acute Assessment & Plan: 01/11: Patient to test lab technician today by Dr Catherine (4) Mixed hyperlipidemia Status: Chronic (5) Primary hypertension Status: Chronic (6) History of cerebrovascular accident Status: Chronic Assessment & Plan: - With Right hemiparesis (7) Nonrheumatic aortic valve stenosis with regurgitation Status: Chronic CRISTHIAN BOYD MD Jan 11, 2022 22:31
[2022-01-12] VITALS (14 sets, daily range): BP systolic 115–162; BP diastolic 60–113
[2022-01-12] MEDS: LORazepam 1 MG (ATIVAN) TAB PO PRN (02:06)
[2022-01-12] MEDS: RT-ALBUTEROL/IPRATROPIUM 3 ML (DUONEB) VIAL IH SCH ×4 (03:03→21:08)
[2022-01-12] MEDS: LACTATED RINGERS 1,000 ML IV SCH (04:50)
[2022-01-12 04:54] LABS: ABG BASE EXCESS 0.5 MMOL/L (-2.5-2.5); ABG OXYGEN SATURATION 94 % (94-100); ABG PCO2 34 MMHG (35-45); ABG PH 7.46 (7.37-7.43); ABG PO2 68 MMHG (79-93)
[2022-01-12 04:56] LABS: INSPIRED O2 2L NC; PATIENT TEMP 36.9; VENTILATOR NO
[2022-01-12 05:20] LABS: BASOPHILS % (AUTO) 0 % (0-10); EOSINOPHILS % (AUTO) 0 % (0-10); HEMATOCRIT 40 % (40-54); HEMOGLOBIN 13.6 g/dL (13.3-17.7); LYMPHOCYTES # (AUTO) 0.7 10^3/uL (1.0-4.0); LYMPHOCYTES % (AUTO) 5 % (12-44); MEAN CORPUSCULAR HEMOGLOBIN 33 pg (25-34); MEAN CORPUSCULAR HGB CONC 34 g/dL (32-36); MEAN CORPUSCULAR VOLUME 98 fL (80-99); MEAN PLATELET VOLUME 10.7 fL (9.0-12.2); MONOCYTES # (AUTO) 1.1 10^3/uL (0.0-1.0); MONOCYTES % (AUTO) 8 % (0-12); NEUTROPHILS % (AUTO) 85 % (42-75); PLATELET COUNT 185 10^3/uL (130-400); WHITE BLOOD COUNT 14.1 10^3/uL (4.3-11.0)
[2022-01-12 05:30] LABS: POTASSIUM 3.9 MMOL/L (3.6-5.0)
[2022-01-12 05:31] LABS: CALCIUM 7.9 MG/DL (8.5-10.1)
[2022-01-12 05:32] LABS: TOTAL PROTEIN 5.3 GM/DL (6.4-8.2)
[2022-01-12 05:34] LABS: BILIRUBIN,TOTAL 0.9 MG/DL (0.1-1.0)
[2022-01-12 05:36] LABS: CREATININE SERUM 0.55 MG/DL (0.60-1.30)
[2022-01-12 05:39] LABS: MAGNESIUM 2.1 MG/DL (1.6-2.4)
[2022-01-12] MEDS: inSUlin ASPART (NovoLOG) 1 UNIT/0.01 ML (CHARGE PER UNIT) SC SCH ×4 (06:04→20:25)
[2022-01-12] MEDS: POTASSIUM CL 10MEQ/50ML IVPB 50 ML IV SCH (06:04)
[2022-01-12] MEDS: MAGNESIUM 1 GM/100 ML IVPB 100 ML IV SCH (06:04)
[2022-01-12] MEDS: KCL 20 MEQ TAB (K-DUR) PO SCH (06:04)
[2022-01-12] MEDS: NS IV 1000 ML 1,000 ML IV SCH ×2 (06:05→17:39)
[2022-01-12] MEDS: THIAMINE 100 MG (VITAMIN B-1) TAB PO SCH (06:39)
[2022-01-12] MEDS: ASPIRIN 81 MG CHEW (CHILDREN'S ASA) PO SCH (07:55)
[2022-01-12] MEDS: meTOproloL SUCCINATE 50 MG (TOPROL XL) TAB PO SCH (07:55)
[2022-01-12] MEDS: CLOPIDOGREL 75 MG (PLAVIX) TABLET PO SCH (07:55)
[2022-01-12] MEDS: DOCUSATE SODIUM 100 MG (COLACE) CAP PO SCH ×2 (07:55→20:28)
[2022-01-12] MEDS: lisINopril 10 MG (PRINIVIL) TABLET PO SCH (07:56)
[2022-01-12] MEDS: FAMOTIDINE 20MG/2ML IV (PEPCID) IV SCH (07:56)
[2022-01-12] MEDS: ENOXAPARIN 80 MG/0.8 ML (LOVENOX) SYR SC SCH ×2 (07:56→20:28)
[2022-01-12] MEDS: methylPREDNISolone 125 MG (Solu-MEDROL) VIAL IV SCH ×2 (07:56→20:28)
--- NOTE | 2022-01-12 08:28 | Cardiology Progress Note ---
Subjective Date Seen by Provider: Jan 12, 2022 Time Seen by Provider: 08:27 Subjective/Events-last exam Patient was seen at bedside, laying down comfortably, complaining of pain in his left thigh. No chest pain. Review of Systems General: No Chills, No Night Sweats; Fatigue; No Malaise, No Appetite, No Other HEENT: No Head Aches, No Visual Changes, No Eye Pain, No Ear Pain, No Dysphasia, No Sinus Congestion, No Post Nasal Drip, No Sore Throat, No Other Pulmonary: No Dyspnea, No Cough, No Pleuritic Chest Pain, No Other Cardiovascular: No: Chest Pain, Palpitations, Orthopnea, Paroxysmal Noc. Dyspnea, Edema, Lt Headedness, Other Objective-Cardiology Exam Last Set of Vital Signs Vital Signs 01/10/22 01/12/22 01/12/22 11:11 03:52 08:14 Temp 36.9 Pulse Ox 97 O2 Delivery Nasal Cannula O2 Flow Rate 2.00 FiO2 30 I&O Intake and Output 01/12/22 00:00 Intake Total 2400 ml Output Total 1625 ml Balance 775 ml Intake Oral 1300 ml IV Total 1100 ml Output Urine Total 1625 ml General: Alert, Oriented X3, No Acute Distress HEENT: Atraumatic Neck: Supple Lungs: Clear to Auscultation, Normal Air Movement Heart: Regular Rate, Other (systolic murmur present) Abdomen: Normal Bowel Sounds, Soft, No Tenderness, No Masses Extremities: No Tenderness/Swelling Skin: No Rashes, No Breakdown Neuro: Normal Speech Psych/Mental Status: Mental Status NL, Mood NL Results Lab Laboratory Tests 01/12/22 05:00 A/P-Cardiology Admission Diagnosis Acute respiratory failure Acute exacerbation of COPD Non-ST elevation myocardial infarction, type II [place] Aortic valve stenosis Assessment/Plan Status post acute respiratory failure, ventilator dependent. Acute exacerbation of COPD with pneumonia. Extubated on January 10, 2022. Feeling better and reporting improvement. Coronary artery disease, non-ST elevation myocardial infarction, probably type II myocardial infarction secondary to severe hypoxemia and respiratory failure. Underlying coronary artery disease cannot be entirely excluded. Cardiac catheterization was done on January 12, 2022, calcified coronary system with severe stenosis in the mid LAD, status post stenting using kathya point stent 3 x 23 mm expanded to 3.1 mm with excellent results, started on aspirin and Plavix. Left thigh pain, has been complaining of left leg pain, appears to have diminished pulse on the left leg. No cyanosis was noted, I will evaluate a rterial Doppler study Congestive heart failure, acute left ventricular diastolic dysfunction, prese rved systolic function. Continue to monitor Aortic valve stenosis, aortic regurgitation. 2D echo was reported by Dr. Clark as ejection fraction 55%, grade 2 diastolic dysfunction, moderate aortic valve stenosis with peak gradient 58 mmHg, mean gradient 30 mmHg, valve area 1.1 cm, moderate aortic regurgitation, moderate tricuspid regurgitation, estimated pulmonary artery pressure around 40 mmHg. Hypertension, continue to monitor blood pressure Hyperlipidemia, monitor lipids. History of CVA with right hemiparesis. Has been maintained on aspirin as an outpatient Tobaccoism, still an active smoker. GISELE GRIMM MD Jan 12, 2022 08:28
[2022-01-12] MEDS ORDERED: ASPIRIN E.C. 81 MG (ECOTRIN) TAB PO SCH (09:00)
--- NOTE | 2022-01-12 10:37 | Diagnostic Imaging Report ---
PROCEDURE: US Bilateral lower extremity arterial. TECHNIQUE: Multiple real-time grayscale images are obtained through both lower extremity arterial systems with color Doppler imaging and color Doppler spectral analysis. INDICATION: Bilateral leg pain with diminished pulsatility. Right leg: There is mildly diminished resistance with a biphasic waveform throughout the right lower extremity femoropopliteal system. There was however abrupt velocity acceleration and deceleration at the level of the mid to distal right popliteal artery. The velocities transition from 88 up to 251 cm/s and then down to 71 cm/s in the proximal anterior tibial. This is associated with a decreased resistance in a monophasic waveform throughout the remaining right lower extremity arterial system through the dorsalis pedis and posterior tibials. Left leg: Calcified plaque results in hemodynamic significant stenosis in the left common femoral artery where there is a resultant monophasic waveform, turbulent blood flow and abrupt velocity acceleration and deceleration which transition from 320 cm/s down to 48 cm/s at the proximal SFA and profunda. This is presumed greater than 70% stenosis and hemo-dynamically significant. Beyond that level there is no focal velocity acceleration or deceleration within the femoral vein in the thigh. The popliteal or the major calf arteries. No segmental occlusion. A monophasic waveform beyond that level persisted with diffusely slow velocities. Impression: Findings suggest bilateral hemodynamic significant stenoses on the left at the level of the common femoral and on the right at the level of the popliteal artery. No segmental occlusion. Dictated by: Dictated on workstation # [id number]
--- NOTE | 2022-01-12 10:53 | Occupational Therapy Eval ---
OT Evaluation-General/PLF Medical Diagnosis Admission Date January 04, 2022 at 20:08 Medical Diagnosis: COPD exacerbation Onset Date: January 04, 2022 Therapy Diagnosis Therapy Diagnosis: reduced adl status Precautions Precautions/Isolations: Seizure, Fall Prevention, Standard Precautions, Pressure Ulcer Referral Physician: Lori Bray Reason: Evaluation/Treatment Medical History Pertinent Medical History: COPD, CVA Current History Pt presents to hospital with fever, cough, increased SOB and diarrhea. SpO2 in upper 60's. Placed on supplemental oxygen. Per patient, he lives with his in a multilevel home. He does not use any AD for mobility but his is always close by. He requires assistance with dressing and bathing secondary to residual effects (RUE contractures and hemiparesis) from old CVA. Pt reports he was able to feed self and toilet. OT Re-evaluation after decline in medical status and transfer up to ICU. Reviewed History: Yes Social History Home: Multilevel Current Living Status: Spouse ADL-Prior Level of Function SCALE: Activities may be completed with or without assistive devices. 3-Hshqhpmlct-fwjtppo completes the activity by him/herself with no assistance from a helper. 5-Set-up or Clean-up Assistance-helper sets up or cleans up; patient completes a ctivity. [place] assists only prior to or following the activity. 4-Supervision or Touching Assistance-helper provides verbal cues and/or touching/steadying and/or contact guard assistance as patient completes activity. Assistance may be provided throughout the activity or intermittently. 3-Partial/Moderate Assistance-helper does LESS THAN HALF the effort. [place] lifts, holds or supports trunk or limbs, but provides less than half the effort. 2-Substantial/Maximal Assistance-helper does MORE THAN HALF the effort. [place] lifts or holds trunk or limbs and provides more than half the effort. 7-Vfuwggler-evkgwa does ALL the effort. Patient does none of the effort to complete the activity. Or, the assistance of 2 or more helpers is required for the patient to complete the activity. If activity was not attempted, code reason: 7-Patient Refused. 9-Not Applicable-not attempted and the patient did not perform the activity before the current illness, exacerbation or injury. 10-Not Attempted due to Environmental Limitations-(lack of equipment, weather restraints, etc.). 88-Not Attempted due to Medical Conditions or Safety Concerns. Self Care: Needed Some Help Functional Cognition: Needed Some Help DME/Equipment: Bath Chair, Tub/Shower Drive Self: No OT Current Status Subjective Limited conversation. Appears more confused than when evaluated on 01/05 Appearance Pt returned to supine in bed, all needs within reach, RN notified Mental Status/Objective Patient Orientation: Person, Confused Attachments: Collins Catheter, IV, Oxygen, Telemetry Current Hearing Aids: No Hand Dominance: Right Upper Extremity ROM R shoulder: AAROM ~120 degrees, Full elbow extension/flexion with extra time, increased tone notable with elbow extension. Contracted hand/wrist. Tremors notable in BUE's. Pt had full range with LUE on 01/05. Currently, pt only able to actively flex shoulder to ~60 degrees. Upper Extremity Strength debilitated, LUE: 2/ ADL-Treatment On/Off Footwear (QC): 1 Toileting Hygiene (QC): 1 Significant decline notable from last eval on 01/05/22. Max a to sit EOB as pt required assist with transitioning feet off side of bed and elevating torso. Initially, pt needs mod a to maintain sitting balance, improves to SBA with time and cues. Pt's skin damp/moist, asymptomatic. RN notified to check vitals/tem perature. Max a to lift and scoot hips towards HOB. At this time, pt would be dependent to don bilateral socks secondary to poor dynamic sitting balance. Mod a to return to supine. Dependent x2 to supine scoot towards HOB. While supine, OT opened and washed R hand due to flexed contracture and foul smell coming from hand. OT placed dry rolled towel in hand. Pt could benefit from resting hand splint. Education OT Patient Education: Correct positioning, Purpose of tx/functional activities, Safety issues, Transfer techniques Teaching Recipient: Patient Teaching Methods: Demonstration, Discussion Response to Teaching: Reinforcement Needed OT Skilled Nursing Goals Skilled Nursing Goals Time Frame: Jan 15, 2022 Eating (QC): 5 Oral Hygiene (QC): 5 Toileting Hygiene (QC): 3 Shower/Bathe Self (QC): 3 Upper Body Dressing (QC): 2 Lower Body Dressing (QC): 3 On/Off Footwear (QC): 4 1=Demonstrate adherence to instructed precautions during ADL tasks. 2=Patient will verbalize/demonstrate understanding of assistive devices/modifications for ADL. 3=Patient will improve strength/tolerance for activity to enable patient to perform ADL's. OT Education/Plan Problem List/Assessment Assessment: Decreased Activ Tolerance, Decreased Safety Aware, Decreased UE Strength, Dependent Transfers, Edema (BUE's, Left worse than Right), Impaired Bed Mobility, Impaired Cognition, Impaired Coordination, Impaired Funct Balance, Impaired Self-Care Skills, Restricted Funct UE ROM Discharge Recommendations Plan/Recommendations: Continue POC Therapy Discharge Recommendati: Post Acute OT Treatment Plan/Plan of Care Treatment,Training & Education: Yes Patient would benefit from OT for education, treatment and training to promote independence in ADL's, mobility, safety and/or upper extremity function for ADL's. Plan of Care: ADL Retraining, Caregiver Training, Functional Mobility, Group Exercise/Act as Ind, UE Funct Exercise/Act, UE Neuromus Re-Ed/Coord Treatment Duration: Feb 02, 2022 Frequency: 3 times per week (3-5x/week) Estimated Hrs Per Day: .25 hour per day Rehab Potential: Poor Time/GCodes Start Time: 10:10 Stop Time: 10:36 Total Time Billed (hr/min): 26 Billed Treatment Time 1 visit EVH (10 min) FA (16 min) Tiara Herrera OT Jan 12, 2022 10:53
[2022-01-12] MEDS: PANTOPRAZOLE 40 MG (PROTONIX) TAB PO SCH (12:10)
[2022-01-12] MEDS: ACETAMINOPHEN 325 MG TABLET PO PRN (12:11)
--- NOTE | 2022-01-12 16:51 | Progress Note ---
Subjective Subjective/Events-last exam Patient states that he is feeling better this AM. Denies any chest pain or shortness of breath. Tolerating PO diet. Review of Systems Pulmonary: No Dyspnea, No Cough Cardiovascular: Edema; No: Chest Pain, Palpitations Neurological: Weakness, Incoordination Objective Exam Last Set of Vital Signs Vital Signs Date Time Temp Pulse Resp B/P (MAP) Pulse Ox O2 Delivery O2 Flow Rate FiO2 01/12/22 15:37 36.2 94 20 159/84 (109) 96 Nasal Cannula 3.00 01/10/22 11:11 30 Capillary Refill : Greater Than 3 Seconds I&O Intake and Output 01/12/22 00:00 Intake Total 2400 ml Output Total 1625 ml Balance 775 ml Intake Oral 1300 ml IV Total 1100 ml Output Urine Total 1625 ml General: Alert, Oriented X3, No Acute Distress Lungs: Clear to Auscultation, Normal Air Movement Heart: Regular Rate, No Murmurs Abdomen: Normal Bowel Sounds, Soft, No Tenderness, No Masses Extremities: Other (2+ pitting edema equal bilaterally) Neuro: Normal Speech, Other (Right hemiparesis) Results/Procedures Lab Laboratory Tests 01/11/22 22:00: Glucometer 130H 01/12/22 04:43: Blood Gas Puncture Site LEFT RADIAL, Blood Gas Patient Temperature 36.9, Arterial Blood pH 7.46H, Arterial Blood Partial Pressure CO2 34L, Arterial Blood Partial Pressure O2 68L, Arterial Blood HCO3 24, Arterial Blood Total CO2 25.0, Arterial Blood Oxygen Saturation 94, Arterial Blood Base Excess 0.5, Jm Test UNKNOWN, Blood Gas Ventilator Setting NO, Blood Gas Inspired Oxygen 2L NC 01/12/22 05:00: White Blood Count 14.1H, Red Blood Count 4.10L, Hemoglobin 13.6, Hematocrit 40, Mean Corpuscular Volume 98, Mean Corpuscular Hemoglobin 33, Mean Corpuscular Hemoglobin Concent 34, Red Cell Distribution Width 13.3, Platelet Count 185, Mean Platelet Volume 10.7, Immature Granulocyte % (Auto) 1, Neutrophils (%) (Auto) 85H, Lymphocytes (%) (Auto) 5L, Monocytes (%) (Auto) 8, Eosinophils (%) (Auto) 0, Basophils (%) (Auto) 0, Neutrophils # (Auto) 12.0H, Lymphocytes # (Auto) 0.7L, Monocytes # (Auto) 1.1H, Eosinophils # (Auto) 0.0, Basophils # (Auto) 0.0, Immature Granulocyte # (Auto) 0.2H, Sodium Level 140, Potassium Level 3.9, Chloride Level 109H, Carbon Dioxide Level 21, Anion Gap 10, Blood Urea Nitrogen 15, Creatinine 0.55L, Estimat Glomerular Filtration Rate 113, BUN/Creatinine Ratio 27, Glucose Level 109H, Calcium Level 7.9L, Corrected Calcium 8.7, Magnesium Level 2.1, Total Bilirubin 0.9, Aspartate Amino Transf (AST/SGOT) 28, Alanine Aminotransferase (ALT/SGPT) 39, Alkaline Phosphatase 37L, Total Protein 5.3L, Albumin 3.0L 01/12/22 10:07: Glucometer 108 01/12/22 16:06: Glucometer 110 Microbiology 01/05/22 Gram Stain - Final, Complete 01/05/22 Sputum Culture - Final, Complete Usual upper respiratory duran 01/04/22 Blood Culture - Final, Complete No growth Assessment/Plan Assessment/Plan (1) Acute respiratory failure with hypoxia Status: Acute Assessment & Plan: 01/11: Extubated over the weekend, doing well on NC, MAT protocol 01/12: NC 1-2, will continue to titrate as tolerated, no home oxygen requirement prior to admission (2) Acute exacerbation of chronic obstructive pulmonary disease (COPD) Status: Acute (3) Non-ST elevation myocardial infarction (NSTEMI), initial care episode Status: Acute Assessment & Plan: 01/11: Patient to labor/excavator today by Dr Catherine 01/12: S/p 2 stents, DAP therapy (4) Mixed hyperlipidemia Status: Chronic (5) Primary hypertension Status: Chronic (6) History of cerebrovascular accident Status: Chronic Assessment & Plan: - With Right hemiparesis (7) Nonrheumatic aortic valve stenosis with regurgitation Status: Chronic (8) Physical debility Status: Acute Assessment & Plan: 01/12: PT/IRF CRISTHIAN Mccartney MD Jan 12, 2022 16:51
[2022-01-13] MEDS: RT-ALBUTEROL/IPRATROPIUM 3 ML (DUONEB) VIAL IH SCH ×4 (01:56→21:41)
[2022-01-13] MEDS: NS IV 1000 ML 1,000 ML IV SCH ×3 (03:39→23:03)
[2022-01-13 03:59] VITALS: BP 139/71
[2022-01-13 06:06] LABS: BASOPHILS % (AUTO) 0 % (0-10); EOSINOPHILS % (AUTO) 0 % (0-10); HEMATOCRIT 38 % (40-54); HEMOGLOBIN 12.7 g/dL (13.3-17.7); LYMPHOCYTES # (AUTO) 1.1 10^3/uL (1.0-4.0); LYMPHOCYTES % (AUTO) 8 % (12-44); MEAN CORPUSCULAR HEMOGLOBIN 33 pg (25-34); MEAN CORPUSCULAR HGB CONC 34 g/dL (32-36); MEAN CORPUSCULAR VOLUME 97 fL (80-99); MEAN PLATELET VOLUME 10.8 fL (9.0-12.2); MONOCYTES # (AUTO) 1.3 10^3/uL (0.0-1.0); MONOCYTES % (AUTO) 9 % (0-12); NEUTROPHILS # (AUTO) 10.8 10^3/uL (1.8-7.8); NEUTROPHILS % (AUTO) 81 % (42-75); PLATELET COUNT 183 10^3/uL (130-400); WHITE BLOOD COUNT 13.3 10^3/uL (4.3-11.0)
[2022-01-13] MEDS: inSUlin ASPART (NovoLOG) 1 UNIT/0.01 ML (CHARGE PER UNIT) SC SCH ×4 (06:11→20:17)
[2022-01-13 06:15] LABS: POTASSIUM 3.5 MMOL/L (3.6-5.0)
[2022-01-13 06:16] LABS: CALCIUM 7.7 MG/DL (8.5-10.1)
[2022-01-13 06:18] LABS: TOTAL PROTEIN 5.2 GM/DL (6.4-8.2)
[2022-01-13 06:19] LABS: BILIRUBIN,TOTAL 0.9 MG/DL (0.1-1.0)
[2022-01-13 06:21] LABS: CREATININE SERUM 0.6 MG/DL (0.60-1.30)
[2022-01-13] MEDS: MAGNESIUM 1 GM/100 ML IVPB 100 ML IV SCH (06:35)
[2022-01-13] MEDS: THIAMINE 100 MG (VITAMIN B-1) TAB PO SCH (06:40)
[2022-01-13 07:34] VITALS: BP 167/77
[2022-01-13] MEDS: ENOXAPARIN 80 MG/0.8 ML (LOVENOX) SYR SC SCH (09:28)
[2022-01-13] MEDS: PANTOPRAZOLE 40 MG (PROTONIX) TAB PO SCH (09:28)
[2022-01-13] MEDS: CLOPIDOGREL 75 MG (PLAVIX) TABLET PO SCH (09:28)
[2022-01-13] MEDS: ASPIRIN 81 MG CHEW (CHILDREN'S ASA) PO SCH (09:29)
[2022-01-13] MEDS: meTOproloL SUCCINATE 50 MG (TOPROL XL) TAB PO SCH (09:29)
[2022-01-13] MEDS: lisINopril 10 MG (PRINIVIL) TABLET PO SCH (09:29)
[2022-01-13] MEDS: DOCUSATE SODIUM 100 MG (COLACE) CAP PO SCH ×2 (09:29→20:31)
[2022-01-13] MEDS: methylPREDNISolone 125 MG (Solu-MEDROL) VIAL IV SCH ×2 (09:29→20:31)
--- NOTE | 2022-01-13 09:39 | Cardiology Progress Note ---
Subjective Date Seen by Provider: Jan 13, 2022 Time Seen by Provider: 08:50 Subjective/Events-last exam Patient sitting up in bed, denies any chest pain. Denies leg pain Objective-Cardiology Exam Last Set of Vital Signs Vital Signs 01/10/22 01/13/22 01/13/22 11:11 14:45 16:08 Temp 36.8 Pulse 83 Resp 16 B/P (MAP) 153/81 (105) Pulse Ox 96 O2 Delivery Room Air O2 Flow Rate 2.00 FiO2 30 I&O Intake and Output 01/13/22 00:00 Intake Total 1900 ml Output Total 1650 ml Balance 250 ml Intake Oral 900 ml IV Total 1000 ml Output Urine Total 1650 ml # Bowel Movements 1 General: Alert, Oriented X3, No Acute Distress HEENT: Atraumatic Neck: Supple Lungs: Clear to Auscultation, Normal Air Movement Heart: Regular Rate, No Murmurs Abdomen: Normal Bowel Sounds, Soft, No Tenderness, No Masses Extremities: Other (2+ pitting edema equal bilaterally) Skin: No Rashes, No Breakdown Neuro: Normal Speech, Other (Right hemiparesis) Psych/Mental Status: Mental Status NL, Mood NL Results Lab Laboratory Tests 01/13/22 05:00 01/13/22 05:50 A/P-Cardiology Admission Diagnosis Acute respiratory failure Acute exacerbation of COPD Non-ST elevation myocardial infarction, type II [place] Aortic valve stenosis Assessment/Plan Status post acute respiratory failure, ventilator dependent. Acute exacerbation of COPD with pneumonia. Extubated on January 10, 2022. Feeling better and reporting improvement. Coronary artery disease, non-ST elevation myocardial infarction, probably type II myocardial infarction secondary to severe hypoxemia and respiratory failure. Underlying coronary artery disease cannot be entirely excluded. Cardiac catheterization was done on January 11, 2022, calcified coronary system with severe stenosis in the mid LAD, status post stenting using kathya point stent 3 x 23 mm expanded to 3.1 mm with excellent results, started on aspirin and Plavix. Left thigh pain, has been complaining of left leg pain. BLE arterial duplex done 01/12/22 showing bilateral hemodynamic significant stenoses on the left at the level of the common femoral and on the right at the level of the popliteal artery. Has +1 DP to left leg, denies any pain at this time. Will c ontinue with ASA and Plavix and continue to monitor. Congestive heart failure, acute left ventricular diastolic dysfunction, preserved systolic function. Continue to monitor Aortic valve stenosis, aortic regurgitation. 2D echo was reported by Dr. Clark as ejection fraction 55%, grade 2 diastolic dysfunction, moderate aortic valve stenosis with peak gradient 58 mmHg, mean gradient 30 mmHg, valve area 1.1 cm, moderate aortic regurgitation, moderate tricuspid regurgitation, estimated pulmonary artery pressure around 40 mmHg. Hypertension, continue to monitor blood pressure Hyperlipidemia, monitor lipids. History of CVA with right hemiparesis. Has been maintained on aspirin as an outpatient Tobaccoism, still an active smoker. Supervisory-Addendum Brief Supervisory Addendum Participated in pt care: history, MDM, physical Personally performed: exam, history, MDM Care discussed with: CRESCENCIO Results interpretation: Verified all documentation Notes: Patient was seen and evaluated with Aminata, examination performed, management plan was discussed, agree with the current scribed note, I made few changes to the note using Italic font Patient was seen at bedside, feeling better His leg pain is better. He had palpable dorsalis pedis pulse, stronger on the right Ultrasound of the lower extremities was discussed Patient will need angiogram and possible intervention in the future on the lower extremities AMINATA AROAR Jan 13, 2022 09:39 GISELE GRIMM MD Jan 13, 2022 16:56
--- NOTE | 2022-01-13 10:26 | Occupational Ther Daily Note ---
OT Current Status-Daily Note Subjective Pt denies pain, very slow processing speed. Appearance Pt left sitting upright in bed, all needs within reach, RN notified at end of treatment. Mental Status/Objective Patient Orientation: Person Attachments: Collins Catheter, IV, Telemetry ADL-Treatment Therapy Code Descriptions/Definitions Functional [place] Measure: 0=Not Assessed/NA 4=Minimal Assistance 1=Total Assistance 5=Supervision or Setup 2=Maximal Assistance 6=Modified [place] 3=Moderate Assistance 7=Complete IndependenceSCALE: Activities may be completed with or without assistive devices. 1-Jrwrsgyizf-tvakxxl completes the activity by him/herself with no assistance from a helper. 5-Set-up or Clean-up Assistance-helper sets up or cleans up; patient completes activity. [place] assists only prior to or following the activity. 4-Supervision or Touching Assistance-helper provides verbal cues and/or touching /steadying and/or contact guard assistance as patient completes activity. Assistance may be provided throughout the activity or intermittently. 3-Partial/Moderate Assistance-helper does LESS THAN HALF the effort. [place] lifts, holds or supports trunk or limbs, but provides less than half the effort. 2-Substantial/Maximal Assistance-helper does MORE THAN HALF the effort. [place] lifts or holds trunk or limbs and provides more than half the effort. 0-Mprowzwxc-vprbth does ALL the effort. Patient does none of the effort to complete the activity. Or, the assistance of 2 or more helpers is required for the patient to complete the activity. If activity was not attempted, code reason: 7-Patient Refused. 9-Not Applicable-not attempted and the patient did not perform the activity before the current illness, exacerbation or injury. 10-Not Attempted due to Environmental Limitations-(lack of equipment, weather restraints, etc.). 88-Not Attempted due to Medical Conditions or Safety Concerns. Other Treatment Pt sitting upright in bed, continues to have rolled washcloth in R hand that OT left previous date. Very slow processing speed, appears to be confused. Requires simplification with commands. UE A/AAROM exercises performed at bed level. R shoulder AAROM ~120 degrees, full elbow extension/flexion with extra time, increased tone notable with elbow extension. Contracted hand/wrist, PROM within available range. Tremors notable in L wrist extension only this date. L shoulder: AAROM ~100 degrees. AROM L elbow-distally. 1 set, 10 reps all joints. Less swelling notable in BUE's this date. Education to position on pillows. Education OT Patient Education: Correct positioning, Exercise program, Purpose of tx/functional activities, Safety issues Teaching Recipient: Patient Teaching Methods: Demonstration, Discussion Response to Teaching: Return Demonstration, Reinforcement Needed OT Alf Goals Alf Goals Time Frame: Jan 15, 2022 Eating (QC): 5 Oral Hygiene (QC): 5 Toileting Hygiene (QC): 3 Shower/Bathe Self (QC): 3 Upper Body Dressing (QC): 2 Lower Body Dressing (QC): 3 On/Off Footwear (QC): 4 1=Demonstrate adherence to instructed precautions during ADL tasks. 2=Patient will verbalize/demonstrate understanding of assistive devices/modifications for ADL. 3=Patient will improve strength/tolerance for activity to enable patient to perform ADL's. OT Education/Plan Problem List/Assessment Assessment: Decreased Activ Tolerance, Decreased Safety Aware, Decreased UE Strength, Dependent Transfers, Edema, Impaired Cognition, Impaired Coordination, Impaired Funct Balance, Impaired Self-Care Skills, Restricted Funct UE ROM Discharge Recommendations Plan/Recommendations: Continue POC Therapy Discharge Recommendati: Post Acute OT (long distance billing operator care ) Treatment Plan/Plan of Care Treatment,Training & Education: Yes Patient would benefit from OT for education, treatment and training to promote independence in ADL's, mobility, safety and/or upper extremity function for ADL's. Plan of Care: ADL Retraining, Caregiver Training, Functional Mobility, Group Exercise/Act as Ind, UE Funct Exercise/Act, UE Neuromus Re-Ed/Coord Treatment Duration: Feb 02, 2022 Frequency: 3 times per week (3-5x/week) Estimated Hrs Per Day: .25 hour per day Rehab Potential: Poor Time/GCodes Start Time: 09:48 Stop Time: 09:58 Total Time Billed (hr/min): 10 Billed Treatment Time 1 visit EX Tiara Herrera OT Jan 13, 2022 10:26
--- NOTE | 2022-01-13 11:33 | Physical Therapy Evaluation ---
PT Evaluation-General Medical Diagnosis Admission Date January 04, 2022 at 20:08 Medical Diagnosis: acute resp failure with hypoxia Onset Date: January 04, 2022 Therapy Diagnosis Therapy Diagnosis: impaired mobility Precautions Precautions/Isolations: Seizure, Fall Prevention, Standard Precautions, Pressure Ulcer Referral Physician: Deana Reason for Referral: Evaluation/Treatment Medical History Pertinent Medical History: COPD, CVA Additional Medical History Past Medical History Pneumonia, COPD High Cholesterol, Hypertension Stroke Reviewed History: Yes Social History Home: [facility] Current Living Status: Spouse patient states he has several stairs to enter his home with a handrail Prior Prior Level of Function SCALE: Activities may be completed with or without assistive devices. 1-Qipmkltejx-oruhsnj completes the activity by him/herself with no assistance from a helper. 5-Set-up or Clean-up Assistance-helper sets up or cleans up; patient completes activity. [place] assists only prior to or following the activity. 4-Supervision or Touching Assistance-helper provides verbal cues and/or touching/steadying and/or contact guard assistance as patient completes activity. Assistance may be provided throughout the activity or intermittently. 3-Partial/Moderate Assistance-helper does LESS THAN HALF the effort. [place] lifts, holds or supports trunk or limbs, but provides less than half the effort. 2-Substantial/Maximal Assistance-helper does MORE THAN HALF the effort. [place] lifts or holds trunk or limbs and provides more than half the effort. 0-Szhvoauci-zmlrsl does ALL the effort. Patient does none of the effort to compl ete the activity. Or, the assistance of 2 or more helpers is required for the patient to complete the activity. If activity was not attempted, code reason: 7-Patient Refused. 9-Not Applicable-not attempted and the patient did not perform the activity before the current illness, exacerbation or injury. 10-Not Attempted due to Environmental Limitations-(lack of equipment, weather restraints, etc.). 88-Not Attempted due to Medical Conditions or Safety Concerns. Bed Mobility: 4 Transfers (B,C,W/C): 3 Gait: 3 Stairs: 3 Indoor Mobility (Ambulation): Needed Some Help Stairs: Needed Some Help Prior Devices Use: None (spouse assist) PT Evaluation-Current Subjective Patient in bed pre tx, agrees to PT, has no complaints of pain. Pt/Family Goals none stated Objective Patient Orientation: Person (slow processing), Place Attachments: Oxygen, IV ROM/Strength ROM Lower Extremities WNL Strength Lower Extremities grossly 3/5 BLE Integumentary/Posture Bowel Incontinence: No Bladder Incontinence: No Sensory Vision: Functional Hearing: Functional Hand Dominance: Right Transfers Roll Left to Right (QC): 2 Lying to Sitting/Side of Bed(Q: 2 Sit to Stand (QC): 2 Chair/Mbi-lx-Wnebs Xfer(QC): 2 Max assist for supine to sit and sit to stand, patient can assist a little with transfer to recliner. Tried to use a walker and assist patient with the right side (due to right arm impairments from CVA) but patient was too retropulsive and was unable to take any steps and eventually had to sit back down. Balance Sitting Static: Poor Sitting Dynamic: Poor Standing Static: Poor Standing Dynamic: Poor Treatment BLE seated exercises x20 (AP, LAQ) Assessment/Needs Patient in recliner post tx with nurse call, phone, tray, all needs met. Patient instructed to call nurse if he needs to get back to bed. Patient has declined in functional mobility since PT was seeing him last. Rehab Potential: Fair PT Banquet Steward Goals Banquet Steward Goals PT Banquet Steward Goals Time Frame: Jan 20, 2022 Roll Left & Right (QC): 4 Sit to Lying (QC): 3 (Wil) Lying-Sitting on Side/Bed(QC): 3 (Wil) Sit to Stand (QC): 3 (Wil) Chair/Qav-xz-Laupv Xfer(QC): 3 (Wil) Walk 10 feet (QC): 3 (Wil) PT Plan Problem List Problem List: Activity Tolerance, Functional Strength, Safety, Balance, Gait, Transfer, Bed Mobility, ROM Treatment/Plan Treatment Plan: Continue Plan of Care Treatment Plan: Bed Mobility, Education, Functional Activity Kisha, Functional Strength, Gait, Safety, Therapeutic Exercise, Transfers Treatment Duration: Jan 20, 2022 Frequency: 6 times per week Estimated Hrs Per Day: .25 hour per day Patient and/or Family Agrees t: Yes Safety Risks/Education Patient Education: Transfer Techniques, Correct Positioning, Safety Issues Teaching Recipient: Patient Teaching Methods: Demonstration, Discussion Response to Teaching: Reinforcement Needed Discharge Recommendations Plan Patient will perform bed mobility and transfer training, balance and endurance training, functional strengthening, stair training, gait training, and education, to improve functional mobility and independence at home. Therapy Discharge Recommendati: 24 Hour Supervision, Post Acute PT Time/GCodes Time In: 1043 Time Out: 1104 Total Billed Treatment Time: 21 Total Billed Treatment 1 visit YG 21' MICHI HE PT Jan 13, 2022 11:33
[2022-01-13 11:43] VITALS: BP 165/77
[2022-01-13 16:08] VITALS: BP 153/81
[2022-01-13 19:22] VITALS: BP 138/76
--- NOTE | 2022-01-13 21:08 | Progress Note ---
Subjective Subjective/Events-last exam Patient w/o complaints this AM. Tolerating PO diet. PT to work with him today. Review of Systems Pulmonary: Cough Genitourinary: Incontinence Neurological: Weakness, Incoordination, Confusion Objective Exam Last Set of Vital Signs Vital Signs Date Time Temp Pulse Resp B/P (MAP) Pulse Ox O2 Delivery O2 Flow Rate FiO2 01/13/22 19:22 36.2 88 18 138/76 (96) 96 Room Air 01/13/22 14:45 2.00 01/10/22 11:11 30 Capillary Refill : Greater Than 3 Seconds I&O Intake and Output 01/13/22 00:00 Intake Total 1900 ml Output Total 1650 ml Balance 250 ml Intake Oral 900 ml IV Total 1000 ml Output Urine Total 1650 ml # Bowel Movements 1 General: Alert, Oriented X3, No Acute Distress Lungs: Clear to Auscultation, Normal Air Movement Heart: Regular Rate, No Murmurs Abdomen: Normal Bowel Sounds, Soft, No Tenderness Extremities: Other (R hemiparasis) Neuro: Normal Speech Results/Procedures Lab Laboratory Tests 01/13/22 05:00: Sodium Level 138, Potassium Level 3.5L, Chloride Level 107, Carbon Dioxide Level 21, Anion Gap 10, Blood Urea Nitrogen 13, Creatinine 0.60, Estimat Glomerular Filtration Rate 110, BUN/Creatinine Ratio 22, Glucose Level 99, Calcium Level 7.7L, Corrected Calcium 8.5, Magnesium Level 2.0, Total Bilirubin 0.9, Aspartate Amino Transf (AST/SGOT) 33, Alanine Aminotransferase (ALT/SGPT) 44, Alkaline Phosphatase 37L, Total Protein 5.2L, Albumin 3.0L 01/13/22 05:43: Glucometer 95 01/13/22 05:50: White Blood Count 13.3H, Red Blood Count 3.86L, Hemoglobin 12.7L, Hematocrit 38L , Mean Corpuscular Volume 97, Mean Corpuscular Hemoglobin 33, Mean Corpuscular Hemoglobin Concent 34, Red Cell Distribution Width 13.2, Platelet Count 183, Mean Platelet Volume 10.8, Immature Granulocyte % (Auto) 1, Neutrophils (%) (Auto) 81H, Lymphocytes (%) (Auto) 8L, Monocytes (%) (Auto) 9, Eosinophils (%) (Auto) 0, Basophils (%) (Auto) 0, Neutrophils # (Auto) 10.8H, Lymphocytes # (Auto) 1.1, Monocytes # (Auto) 1.3H, Eosinophils # (Auto) 0.0, Basophils # (Au to) 0.0, Immature Granulocyte # (Auto) 0.2H 01/13/22 11:28: Glucometer 98 01/13/22 16:11: Glucometer 93 01/13/22 20:10: Glucometer 131H Microbiology 01/05/22 Gram Stain - Final, Complete 01/05/22 Sputum Culture - Final, Complete Usual upper respiratory duran 01/04/22 Blood Culture - Final, Complete No growth Assessment/Plan Assessment/Plan (1) Acute respiratory failure with hypoxia Status: Acute Assessment & Plan: 01/11: Extubated over the weekend, doing well on NC, MAT protocol 01/12: NC 1-2, will continue to titrate as tolerated, no home oxygen requirement prior to admission 01/13: Much improved today, 1-2 NC (2) Acute exacerbation of chronic obstructive pulmonary disease (COPD) Status: Acute (3) Non-ST elevation myocardial infarction (NSTEMI), initial care episode Status: Acute Assessment & Plan: 01/11: Patient to geoscience laboratory technician today by Dr Catherine 01/12: S/p 2 stents, DAP therapy (4) Mixed hyperlipidemia Status: Chronic (5) Primary hypertension Status: Chronic (6) History of cerebrovascular accident Status: Chronic Assessment & Plan: - With Right hemiparesis (7) Nonrheumatic aortic valve stenosis with regurgitation Status: Chronic (8) Physical debility Status: Acute Assessment & Plan: 01/12: PT/IRF eval ordered 01/13: patient will need SNF or IRF at discharge CRISTHIAN BOYD MD Jan 13, 2022 21:08
[2022-01-14] VITALS (8 sets, daily range): BP systolic 144–196; BP diastolic 72–87
[2022-01-14] MEDS ORDERED: lisINopril 10 MG (PRINIVIL) TABLET PO ONE
[2022-01-14] MEDS: NS IV 1000 ML 1,000 ML IV SCH ×2 (00:22→21:44)
[2022-01-14] MEDS: RT-ALBUTEROL/IPRATROPIUM 3 ML (DUONEB) VIAL IH SCH ×3 (02:50→21:41)
[2022-01-14] MEDS: inSUlin ASPART (NovoLOG) 1 UNIT/0.01 ML (CHARGE PER UNIT) SC SCH ×4 (05:34→22:46)
[2022-01-14] MEDS: predniSONE 20 MG TAB PO SCH (06:06)
[2022-01-14] MEDS: THIAMINE 100 MG (VITAMIN B-1) TAB PO SCH (06:06)
[2022-01-14 06:23] LABS: BASOPHILS % (AUTO) 0 % (0-10); EOSINOPHILS % (AUTO) 0 % (0-10); HEMATOCRIT 39 % (40-54); HEMOGLOBIN 13.2 g/dL (13.3-17.7); LYMPHOCYTES # (AUTO) 1.1 10^3/uL (1.0-4.0); LYMPHOCYTES % (AUTO) 8 % (12-44); MEAN CORPUSCULAR HEMOGLOBIN 33 pg (25-34); MEAN CORPUSCULAR HGB CONC 34 g/dL (32-36); MEAN CORPUSCULAR VOLUME 98 fL (80-99); MEAN PLATELET VOLUME 10.7 fL (9.0-12.2); MONOCYTES # (AUTO) 1.3 10^3/uL (0.0-1.0); MONOCYTES % (AUTO) 9 % (0-12); NEUTROPHILS # (AUTO) 11.7 10^3/uL (1.8-7.8); NEUTROPHILS % (AUTO) 82 % (42-75); PLATELET COUNT 182 10^3/uL (130-400); WHITE BLOOD COUNT 14.2 10^3/uL (4.3-11.0)
[2022-01-14 06:36] LABS: ALBUMIN 2.8 GM/DL (3.2-4.5); POTASSIUM 3.6 MMOL/L (3.6-5.0)
[2022-01-14 06:37] LABS: CALCIUM 7.7 MG/DL (8.5-10.1)
[2022-01-14 06:38] LABS: TOTAL PROTEIN 5.2 GM/DL (6.4-8.2)
[2022-01-14 06:40] LABS: BILIRUBIN,TOTAL 0.6 MG/DL (0.1-1.0)
[2022-01-14 06:42] LABS: CREATININE SERUM 0.58 MG/DL (0.60-1.30)
[2022-01-14 06:48] LABS: LYMPHOCYTES % (MANUAL) 6 %; MONOCYTES % (MANUAL) 11 %; NEUTROPHILS % (MANUAL) 83 %; RBC MORPH NORMAL
--- NOTE | 2022-01-14 09:15 | Cardiology Progress Note ---
Subjective Date Seen by Provider: Jan 14, 2022 Time Seen by Provider: 09:13 Subjective/Events-last exam Patient was seen at bedside, laying down comfortably Feeling better. No chest pain, no neck pain. Review of Systems General: No Chills, No Night Sweats; Fatigue; No Malaise, No Appetite, No Other HEENT: No Head Aches, No Visual Changes, No Eye Pain, No Ear Pain, No Dysphasia, No Sinus Congestion, No Post Nasal Drip, No Sore Throat, No Other Pulmonary: No Dyspnea, No Cough, No Pleuritic Chest Pain, No Other Cardiovascular: No: Chest Pain, Palpitations, Orthopnea, Paroxysmal Noc. Dyspnea, Edema, Lt Headedness, Other Objective-Cardiology Exam Last Set of Vital Signs Vital Signs 01/10/22 01/13/22 01/14/22 11:11 20:00 08:08 Temp 36.7 Pulse 90 Resp 18 B/P (MAP) 181/84 (116) Pulse Ox 98 O2 Delivery Room Air O2 Flow Rate 3.00 FiO2 30 I&O Intake and Output 01/14/22 00:00 Intake Total 1400 ml Output Total 1600 ml Balance -200 ml Intake Oral 1400 ml Output Urine Total 1600 ml General: Alert, Oriented X3, No Acute Distress HEENT: Atraumatic Neck: Supple Lungs: Clear to Auscultation, Normal Air Movement Heart: Regular Rate, Normal S1, Normal S2, No Murmurs Abdomen: Normal Bowel Sounds, Soft, No Tenderness Extremities: Other (R hemiparasis) Skin: No Rashes, No Breakdown Neuro: Normal Speech Psych/Mental Status: Mental Status NL, Mood NL Results Lab Laboratory Tests 01/14/22 06:15 A/P-Cardiology Admission Diagnosis Acute respiratory failure Acute exacerbation of COPD Non-ST elevation myocardial infarction, type II [place] Aortic valve stenosis Assessment/Plan Status post acute respiratory failure, ventilator dependent. Acute exacerbation of COPD with pneumonia. Extubated on January 10, 2022. Feeling better and reporting improvement. Coronary artery disease, non-ST elevation myocardial infarction, probably type II myocardial infarction secondary to severe hypoxemia and respiratory failure. Cardiac catheterization was done on January 11, 2022, calcified coronary system with severe stenosis in the mid LAD, status post stenting using kathya point stent 3 x 23 mm expanded to 3.1 mm with excellent results, Patient was started on aspirin and Plavix. Continue on dual antiplatelet therapy Left thigh pain, has been complaining of left leg pain. Reporting improvement at this time, no active pain was reported. BLE arterial duplex done 01/12/22 showing bilateral hemodynamic significant stenoses on the left at the level of the common femoral and on the right at the level of the popliteal artery. Has +1 DP to left leg, denies any pain at this time. Will continue with ASA and Plavix and continue to monitor. Will consider peripheral intervention if patient starts to have symptoms Congestive heart failure, acute left ventricular diastolic dysfunction, preserved systolic function. Continue to monitor Aortic valve stenosis, aortic regurgitation. 2D echo was reported by Dr. Clark as ejection fraction 55%, grade 2 diastolic dysfunction, moderate aortic valve stenosis with peak gradient 58 mmHg, mean gradient 30 mmHg, valve area 1.1 cm, moderate aortic regurgitation, moderate tricuspid regurgitation, estimated pulmonary artery pressure around 40 mmHg. Hypertension, poor control, I added amlodipine 5 mg daily and will evaluate t olerance and response Hyperlipidemia, monitor lipids. History of CVA with right hemiparesis. Has been maintained on aspirin as an outpatient Tobaccoism, still an active smoker. GISELE GRIMM MD Jan 14, 2022 09:15
--- NOTE | 2022-01-14 09:43 | Physical Therapy Daily Note ---
PT Daily Note-Current Subjective Patient is in bed. Agrees to PT. Mental Status Patient Orientation: Confused Attachments: IV Transfers SCALE: Activities may be completed with or without assistive devices. 0-Pbilktcrnx-zcdvyzt completes the activity by him/herself with no assistance from a helper. 5-Set-up or Clean-up Assistance-helper sets up or cleans up; patient completes activity. [place] assists only prior to or following the activity. 4-Supervision or Touching Assistance-helper provides verbal cues and/or touching/steadying and/or contact guard assistance as patient completes activity. Assistance may be provided throughout the activity or intermittently. 3-Partial/Moderate Assistance-helper does LESS THAN HALF the effort. [place] lifts, holds or supports trunk or limbs, but provides less than half the effort. 2-Substantial/Maximal Assistance-helper does MORE THAN HALF the effort. [place] lifts or holds trunk or limbs and provides more than half the effort. 9-Jezilpaep-nlrlbb does ALL the effort. Patient does none of the effort to complete the activity. Or, the assistance of 2 or more helpers is required for the patient to complete the activity. If activity was not attempted, code reason: 7-Patient Refused. 9-Not Applicable-not attempted and the patient did not perform the activity before the current illness, exacerbation or injury. 10-Not Attempted due to Environmental Limitations-(lack of equipment, weather restraints, etc.). 88-Not Attempted due to Medical Conditions or Safety Concerns. Lying to Sitting/Side of Bed(Q: 2 Sit to Stand (QC): 2 (severely retropulsive) Chair/Mfv-pe-Ytxed Xfer(QC): 2 (severely retropulsive) very ataxic with all mobility Exercises Seated Therapy Exercises: Ankle pumps, Long arc quads, Hip flexion Seated Reps: 10 (3 sets) Assessment Patient remains up in recliner with OT present. Patient continues to be retropulsive with all mobility requiring max assist. Unable to safely take multiple steps due to this. Increase activity as tolerated by patient. PT Longterm Goals Longterm Goals PT Stock Controller Goals Time Frame: Jan 20, 2022 Roll Left & Right (QC): 4 Sit to Lying (QC): 3 (Wil) Lying-Sitting on Side/Bed(QC): 3 (Wil) Sit to Stand (QC): 3 (Wil) Chair/Tyq-nl-Iswqr Xfer(QC): 3 (Wil) Walk 10 feet (QC): 3 (Wil) PT Plan Treatment/Plan Treatment Plan: Continue Plan of Care Treatment Plan: Bed Mobility, Education, Functional Activity Kisha, Functional Strength, Gait, Safety, Therapeutic Exercise, Transfers Treatment Duration: Jan 20, 2022 Frequency: 6 times per week Estimated Hrs Per Day: .25 hour per day Patient and/or Family Agrees t: Yes Time/GCodes Time In: 916 Time Out: 926 Total Billed Treatment Time: 10 Total Billed Treatment 1 visit EX 10 min IVAN CARBALLO PT Jan 14, 2022 09:43
[2022-01-14] MEDS: DOCUSATE SODIUM 100 MG (COLACE) CAP PO SCH ×2 (09:50→20:14)
[2022-01-14] MEDS: ASPIRIN 81 MG CHEW (CHILDREN'S ASA) PO SCH (09:50)
[2022-01-14] MEDS: amLODIPine 5 MG (NORVASC) TAB PO SCH (09:50)
[2022-01-14] MEDS: CLOPIDOGREL 75 MG (PLAVIX) TABLET PO SCH (09:50)
[2022-01-14] MEDS: ENOXAPARIN 40 MG/0.4 ML (LOVENOX) SYR SC SCH (09:50)
[2022-01-14] MEDS: PANTOPRAZOLE 40 MG (PROTONIX) TAB PO SCH (09:50)
[2022-01-14] MEDS: meTOproloL SUCCINATE 50 MG (TOPROL XL) TAB PO SCH (09:50)
[2022-01-14] MEDS: lisINopril 20 MG (PRINIVIL) TABLET PO SCH (09:50)
--- NOTE | 2022-01-14 10:02 | Occupational Ther Daily Note ---
OT Current Status-Daily Note Subjective Pt with very garbled speech this date, difficult to understand. Appearance Pt left sitting in recliner, all needs within reach. Mental Status/Objective Patient Orientation: Person, Confused Attachments: IV, Telemetry ADL-Treatment Therapy Code Descriptions/Definitions Functional [place] Measure: 0=Not Assessed/NA 4=Minimal Assistance 1=Total Assistance 5=Supervision or Setup 2=Maximal Assistance 6=Modified [place] 3=Moderate Assistance 7=Complete IndependenceSCALE: Activities may be completed with or without assistive devices. 8-Baipapbmmk-amoohpd completes the activity by him/herself with no assistance from a helper. 5-Set-up or Clean-up Assistance-helper sets up or cleans up; patient completes activity. [place] assists only prior to or following the activity. 4-Supervision or Touching Assistance-helper provides verbal cues and/or touching/steadying and/or contact guard assistance as patient completes activity. Assistance may be provided throughout the activity or intermittently. 3-Partial/Moderate Assistance-helper does LESS THAN HALF the effort. [place] lifts, holds or supports trunk or limbs, but provides less than half the effort. 2-Substantial/Maximal Assistance-helper does MORE THAN HALF the effort. [place] lifts or holds trunk or limbs and provides more than half the effort. 3-Ulbhhbflf-nfpisa does ALL the effort. Patient does none of the effort to co mplete the activity. Or, the assistance of 2 or more helpers is required for the patient to complete the activity. If activity was not attempted, code reason: 7-Patient Refused. 9-Not Applicable-not attempted and the patient did not perform the activity before the current illness, exacerbation or injury. 10-Not Attempted due to Environmental Limitations-(lack of equipment, weather restraints, etc.). 88-Not Attempted due to Medical Conditions or Safety Concerns. Shower/Bathe Self (QC): 1 Supine>sit: Max a, poor motor planning observed, difficulty following directions. Initial min a needed for sitting balance, improves to SBA post cues. Stand pivot from bed to chair: dependent. Pt is very retropulsive and is unable to adjust posture with cues or physical assistance. Sponge bath (with wet wipes) performed seated in chair. With visual cues, Pt was able to wash chest, upper thighs, front mary area, down to ankles and, under R arm with LUE. Assist needed to wash LUE and feet. Buttocks not performed, however pt would require assist x2 to complete task as he would need max a to stand/maintain balance as second pers on washed buttocks. New gown donned. After placement of shower cap, assist needed to comb hair secondary to multiple tangles. Education OT Patient Education: Correct positioning, Modified ADL techniques, Progress toward Goal/Update tx plan, Purpose of tx/functional activities, Reviewed precautions, Rehab process, Safety issues, Transfer techniques Teaching Recipient: Patient Teaching Methods: Demonstration, Discussion Response to Teaching: Return Demonstration, Reinforcement Needed OT [place] Automatic Goals Fdc Goals Time Frame: Jan 15, 2022 Eating (QC): 5 Oral Hygiene (QC): 5 Toileting Hygiene (QC): 3 Shower/Bathe Self (QC): 3 Upper Body Dressing (QC): 2 Lower Body Dressing (QC): 3 On/Off Footwear (QC): 4 1=Demonstrate adherence to instructed precautions during ADL tasks. 2=Patient will verbalize/demonstrate understanding of assistive devic es/modifications for ADL. 3=Patient will improve strength/tolerance for activity to enable patient to perform ADL's. OT Education/Plan Problem List/Assessment Assessment: Decreased Activ Tolerance, Decreased Safety Aware, Decreased UE Strength, Dependent Transfers, Impaired Bed Mobility, Impaired Cognition, Impaired Coordination, Impaired Funct Balance, Impaired I ADL's, Impaired Self- Care Skills, Restricted Funct UE ROM Discharge Recommendations Plan/Recommendations: Continue POC Therapy Discharge Recommendati: Post Acute OT Treatment Plan/Plan of Care Treatment,Training & Education: Yes Patient would benefit from OT for education, treatment and training to promote independence in ADL's, mobility, safety and/or upper extremity function for ADL's. Plan of Care: ADL Retraining, Caregiver Training, Functional Mobility, Group Exercise/Act as Ind, UE Funct Exercise/Act, UE Neuromus Re-Ed/Coord Treatment Duration: Feb 02, 2022 Frequency: 3 times per week (3-5x/week) Estimated Hrs Per Day: .25 hour per day Rehab Potential: Fair Time/GCodes Start Time: 09:13 Stop Time: 09:36 Total Time Billed (hr/min): 23 Billed Treatment Time 1 visit ADL x2 Tiara Herrera OT Jan 14, 2022 10:02
--- NOTE | 2022-01-14 18:55 | Progress Note ---
Subjective Subjective/Events-last exam Patient doing well this AM. Sitting in chair this AM. Tolerating PO diet. Working with PT. Review of Systems General: Fatigue Pulmonary: Dyspnea Neurological: Weakness, Numbness, Incoordination Objective Exam Last Set of Vital Signs Vital Signs Date Time Temp Pulse Resp B/P (MAP) Pulse Ox O2 Delivery O2 Flow Rate FiO2 01/14/22 16:35 37.6 88 20 145/83 (103) 97 Room Air 01/14/22 10:09 21 01/14/22 10:06 0.00 Capillary Refill : Greater Than 3 Seconds I&O Intake and Output 01/14/22 00:00 Intake Total 1400 ml Output Total 1600 ml Balance -200 ml Intake Oral 1400 ml Output Urine Total 1600 ml General: Alert, No Acute Distress Lungs: Clear to Auscultation, Normal Air Movement Heart: Regular Rate, No Murmurs Abdomen: Soft, No Tenderness, No Masses Extremities: Other (mild swelling in arm with hemiparesis) Skin: No Rashes Neuro: Normal Speech Results/Procedures Lab Laboratory Tests 01/13/22 20:10: Glucometer 131H 01/14/22 05:25: Glucometer 132H 01/14/22 06:15: White Blood Count 14.2H, Red Blood Count 3.96L, Hemoglobin 13.2L, Hematocrit 39L , Mean Corpuscular Volume 98, Mean Corpuscular Hemoglobin 33, Mean Corpuscular Hemoglobin Concent 34, Red Cell Distribution Width 12.8, Platelet Count 182, Mean Platelet Volume 10.7, Immature Granulocyte % (Auto) 1, Neutrophils (%) (Auto) 82H, Lymphocytes (%) (Auto) 8L, Monocytes (%) (Auto) 9, Eosinophils (%) (Auto) 0, Basophils (%) (Auto) 0, Neutrophils # (Auto) 11.7H, Lymphocytes # (Auto) 1.1, Monocytes # (Auto) 1.3H, Eosinophils # (Auto) 0.0, Basophils # (Auto) 0.0, Immature Granulocyte # (Auto) 0.1, Neutrophils % (Manual) 83, Lymphocytes % (Manual) 6, Monocytes % (Manual) 11, Blood Morphology Comment NORMAL, Sodium Level 138, Potassium Level 3.6, Chloride Level 108H, Carbon Dioxide Level 19L, Anion Gap 11, Blood Urea Nitrogen 14, Creatinine 0.58L, Estimat Glomerular Filtration Rate 111, BUN/Creatinine Ratio 24, Glucose Level 113H, Calcium Level 7.7L, Corrected Calcium 8.7, Magnesium Level 2.0, Total Bilirubin 0.6, Aspartate Amino Transf (AST/SGOT) 37H, Alanine Aminotransferase (ALT/SGPT) 44, Alkaline Phosphatase 38L, Total Protein 5.2L, Albumin 2.8L 01/14/22 10:40: Glucometer 114H 01/14/22 16:35: Glucometer 116H Microbiology 01/05/22 Gram Stain - Final, Complete 01/05/22 Sputum Culture - Final, Complete Usual upper respiratory duran 01/04/22 Blood Culture - Final, Complete No growth Assessment/Plan Assessment/Plan (1) Acute respiratory failure with hypoxia Status: Resolved Assessment & Plan: 01/11: Extubated over the weekend, doing well on NC, MAT protocol 01/12: NC 1-2, will continue to titrate as tolerated, no home oxygen requirement prior to admission 01/13: Much improved today, 1-2 NC 01/14: Plan to go to SNF tomorrow, accepted in [facility] (2) Acute exacerbation of chronic obstructive pulmonary disease (COPD) Status: Acute (3) Non-ST elevation myocardial infarction (NSTEMI), initial care episode Status: Acute Assessment & Plan: 01/11: 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
--- NOTE | 2022-01-14 21:37 | Discharge Summary ---
Discharge Summary Reconcile Patient Problems Problems Reviewed?: Yes Hospital Course Hospital Course Date of Admission: January 04, 2022 at 20:08 Admission Diagnosis : Family Physician/Provider: Logan Flores MD,(DDU) Date of Discharge: 01/15/22 Discharge Diagnosis: Acute Respiratory Failure with hypoxia AECOPD NSTEMI HTN HLD H/o CVA Debility Labs and Pending Lab Test: Laboratory Tests 01/14/22 05:25: Glucometer 132H 01/14/22 06:15: White Blood Count 14.2H, Red Blood Count 3.96L, Hemoglobin 13.2L, Hematocrit 39L , Mean Corpuscular Volume 98, Mean Corpuscular Hemoglobin 33, Mean Corpuscular Hemoglobin Concent 34, Red Cell Distribution Width 12.8, Platelet Count 182, Arielle n Platelet Volume 10.7, Immature Granulocyte % (Auto) 1, Neutrophils (%) (Auto) 82H, Lymphocytes (%) (Auto) 8L, Monocytes (%) (Auto) 9, Eosinophils (%) (Auto) 0, Basophils (%) (Auto) 0, Neutrophils # (Auto) 11.7H, Lymphocytes # (Auto) 1.1, Monocytes # (Auto) 1.3H, Eosinophils # (Auto) 0.0, Basophils # (Auto) 0.0, Immature Granulocyte # (Auto) 0.1, Neutrophils % (Manual) 83, Lymphocytes % (Manual) 6, Monocytes % (Manual) 11, Blood Morphology Comment NORMAL, Sodium Level 138, Potassium Level 3.6, Chloride Level 108H, Carbon Dioxide Level 19L, Anion Gap 11, Blood Urea Nitrogen 14, Creatinine 0.58L, Estimat Glomerular Filtration Rate 111, BUN/Creatinine Ratio 24, Glucose Level 113H, Calcium Level 7.7L, Corrected Calcium 8.7, Magnesium Level 2.0, Total Bilirubin 0.6, Aspartate Amino Transf (AST/SGOT) 37H, Alanine Aminotransferase (ALT/SGPT) 44, Alkaline Phosphatase 38L, Total Protein 5.2L, Albumin 2.8L 01/14/22 10:40: Glucometer 114H 01/14/22 16:35: Glucometer 116H 01/14/22 20:22: Glucometer 93 Microbiology 01/05/22 Gram Stain - Final, Complete 01/05/22 Sputum Culture - Final, Complete Usual upper respiratory duran 01/04/22 Blood Culture - Final, Complete No growth Skilled NF Admit to: Certification (SNF) I certify that SNF services are required to be given on an inpatient basis because of the above named patient's need for long-term care on a continuing basis for the conditions(s) for which he/she was receiving inpatient hospital services prior to his/her transfer to the SNF. Longterm Facility Order: Nursing Services, Pharmacist Per Diem-Evaluate & Treat, Physical Therapy-Evaluate & Treat, Speech Language-Evaluate & Treat Oxygen Delivery Method: Room Air Discharge Diet: Cardiac Diet Daily Activity as Tolerated: Yes Resuscitation Status: Full Code Cristhian Leblanc Jan 14, 2022 21:31 Discharge Physical Exam General: Alert, No Acute Distress Lungs: Clear to Auscultation, Normal Air Movement Heart: Regular Rate Abdomen: Normal Bowel Sounds, Soft, No Tenderness, No Masses Extremities: No Edema Neuro: Normal Speech Psych/Mental Status: Mental Status NL, Mood NL CRISTHIAN LEBLANC MD Jan 14, 2022 21:37
[2022-01-15 04:06] VITALS: BP 173/80
[2022-01-15] MEDS: inSUlin ASPART (NovoLOG) 1 UNIT/0.01 ML (CHARGE PER UNIT) SC SCH (06:28)
[2022-01-15] MEDS: NS IV 1000 ML 1,000 ML IV SCH (06:37)
[2022-01-15] MEDS: predniSONE 20 MG TAB PO SCH (06:37)
[2022-01-15] MEDS: THIAMINE 100 MG (VITAMIN B-1) TAB PO SCH (06:37)
[2022-01-15 07:11] LABS: BASOPHILS % (AUTO) 0 % (0-10); EOSINOPHILS % (AUTO) 0 % (0-10); HEMATOCRIT 42 % (40-54); HEMOGLOBIN 14.2 g/dL (13.3-17.7); LYMPHOCYTES % (AUTO) 11 % (12-44); MEAN CORPUSCULAR HEMOGLOBIN 33 pg (25-34); MEAN CORPUSCULAR HGB CONC 34 g/dL (32-36); MEAN CORPUSCULAR VOLUME 98 fL (80-99); MEAN PLATELET VOLUME 10.4 fL (9.0-12.2); MONOCYTES # (AUTO) 1.5 10^3/uL (0.0-1.0); MONOCYTES % (AUTO) 8 % (0-12); NEUTROPHILS # (AUTO) 14.2 10^3/uL (1.8-7.8); NEUTROPHILS % (AUTO) 80 % (42-75); PLATELET COUNT 213 10^3/uL (130-400); WHITE BLOOD COUNT 17.9 10^3/uL (4.3-11.0)
[2022-01-15 07:25] LABS: ALBUMIN 3.2 GM/DL (3.2-4.5)
[2022-01-15 07:26] LABS: POTASSIUM 3.4 MMOL/L (3.6-5.0)
[2022-01-15 07:28] LABS: TOTAL PROTEIN 5.6 GM/DL (6.4-8.2)
[2022-01-15] MEDS: RT-ALBUTEROL/IPRATROPIUM 3 ML (DUONEB) VIAL IH SCH (07:28)
[2022-01-15 07:30] LABS: BILIRUBIN,TOTAL 0.8 MG/DL (0.1-1.0)
[2022-01-15 07:32] LABS: CREATININE SERUM 0.66 MG/DL (0.60-1.30)
[2022-01-15 07:34] LABS: MAGNESIUM 1.7 MG/DL (1.6-2.4)
[2022-01-15 08:15] VITALS: BP 151/74
[2022-01-15] MEDS: DOCUSATE SODIUM 100 MG (COLACE) CAP PO SCH (09:13)
[2022-01-15] MEDS: ENOXAPARIN 40 MG/0.4 ML (LOVENOX) SYR SC SCH (09:13)
[2022-01-15] MEDS: CLOPIDOGREL 75 MG (PLAVIX) TABLET PO SCH (09:13)
[2022-01-15] MEDS: meTOproloL SUCCINATE 50 MG (TOPROL XL) TAB PO SCH (09:13)
[2022-01-15] MEDS: PANTOPRAZOLE 40 MG (PROTONIX) TAB PO SCH (09:13)
[2022-01-15] MEDS: lisINopril 20 MG (PRINIVIL) TABLET PO SCH (09:13)
[2022-01-15] MEDS: ASPIRIN 81 MG CHEW (CHILDREN'S ASA) PO SCH (09:13)
[2022-01-15] MEDS: amLODIPine 5 MG (NORVASC) TAB PO SCH (09:13)
[2022-01-15] MEDS ORDERED: LISI20TA26 PO (09:17)
[2022-01-15] MEDS ORDERED: ASPI81TA64 PO (09:17)
[2022-01-15] MEDS ORDERED: ATOR20TA66 PO (09:17)
[2022-01-15] MEDS ORDERED: THIA100T80 PO (09:17)
[2022-01-15] MEDS ORDERED: IPRA3AMP31 IH (09:17)
[2022-01-15] MEDS ORDERED: METO50TA7 PO (09:17)
[2022-01-15] MEDS ORDERED: AMLO-250 PO (09:17)
[2022-01-15] MEDS ORDERED: PRD20T PO (09:17)
[2022-01-15] MEDS ORDERED: CLOP75TA28 PO (09:17)
[2022-01-15] MEDS ORDERED: PANT40TA52 PO (09:17)
--- NOTE | 2022-01-15 09:34 | Occupational Ther Daily Note ---
OT Current Status-Daily Note Subjective Pt Denies pain. Mostly smiles, limited communication, can respond to simple questions. Appearance Pt left sitting in recliner, all needs within reach Mental Status/Objective Patient Orientation: Person Attachments: IV, Telemetry ADL-Treatment Therapy Code Descriptions/Definitions Functional [place] Measure: 0=Not Assessed/NA 4=Minimal Assistance 1=Total Assistance 5=Supervision or Setup 2=Maximal Assistance 6=Modified [place] 3=Moderate Assistance 7=Complete IndependenceSCALE: Activities may be completed with or without assistive devices. 2-Lpahgvaxbn-bbthkwm completes the activity by him/herself with no assistance from a helper. 5-Set-up or Clean-up Assistance-helper sets up or cleans up; patient completes activity. [place] assists only prior to or following the activity. 4-Supervision or Touching Assistance-helper provides verbal cues and/or touching/steadying and/or contact guard assistance as patient completes activity. Assistance may be provided throughout the activity or intermittently. 3-Partial/Moderate Assistance-helper does LESS THAN HALF the effort. [place] lifts, holds or supports trunk or limbs, but provides less than half the effort. 2-Substantial/Maximal Assistance-helper does MORE THAN HALF the effort. [place] lifts or holds trunk or limbs and provides more than half the effort. 4-Pphgftaqn-vgofkj does ALL the effort. Patient does none of the effort to complete the activity. Or, the assistance of 2 or more helpers is required for the patient to complete the activity. If activity was not attempted, code reason: 7-Patient Refused. 9-Not Applicable-not attempted and the patient did not perform the activity before the current illness, exacerbation or injury. 10-Not Attempted due to Environmental Limitations-(lack of equipment, weather restraints, etc.). 88-Not Attempted due to Medical Conditions or Safety Concerns. Other Treatment UE A/AAROM exercises performed seated in recliner. R shoulder AAROM ~100 degrees, full elbow extension/flexion with extra time, tone kicks in with elbow extension. Contracted hand/wrist, PROM within available range. Tremors notable in L wrist extension only. L shoulder: AAROM ~120 degrees. AROM L elbow- distally. 1 set, 10 reps all joints. Fatigues quickly at bilateral shoulders, needing AAROM after ~6 reps. Education on continuing exercises post discharge. Unsure of pt's comprehension to education. Education OT Patient Education: Correct positioning, Exercise program, Purpose of tx/func tional activities, Reviewed precautions, Rehab process, Safety issues Teaching Recipient: Patient Teaching Methods: Demonstration, Discussion Response to Teaching: Return Demonstration, Reinforcement Needed OT Consumer Marketing Analyst Goals Consumer Marketing Analyst Goals Time Frame: Jan 15, 2022 Eating (QC): 5 Oral Hygiene (QC): 5 Toileting Hygiene (QC): 3 Shower/Bathe Self (QC): 3 Upper Body Dressing (QC): 2 Lower Body Dressing (QC): 3 On/Off Footwear (QC): 4 1=Demonstrate adherence to instructed precautions during ADL tasks. 2=Patient will verbalize/demonstrate understanding of assistive devices/modifications for ADL. 3=Patient will improve strength/tolerance for activity to enable patient to perform ADL's. OT Education/Plan Problem List/Assessment Assessment: Decreased Activ Tolerance, Decreased Safety Aware, Decreased UE Strength, Dependent Transfers, Impaired Cognition, Impaired Coordination, Impaired Funct Balance, Impaired Self-Care Skills, Restricted Funct UE ROM Discharge Recommendations Plan/Recommendations: Continue POC Therapy Discharge Recommendati: Post Acute OT Treatment Plan/Plan of Care Treatment,Training & Education: Yes Patient would benefit from OT for education, treatment and training to promote independence in ADL's, mobility, safety and/or upper extremity function for ADL's. Plan of Care: ADL Retraining, Caregiver Training, Functional Mobility, Group Ex ercise/Act as Ind, UE Funct Exercise/Act, UE Neuromus Re-Ed/Coord Treatment Duration: Feb 02, 2022 Frequency: 3 times per week (3-5x/week) Estimated Hrs Per Day: .25 hour per day Agreement: Yes Rehab Potential: Fair Time/GCodes Start Time: 09:16 Stop Time: 09:26 Total Time Billed (hr/min): 10 Billed Treatment Time 1 visit Ex Tiara Herrera OT Jan 15, 2022 09:34
--- NOTE | 2022-01-15 10:30 | Progress Note - Cardiology ---
Cardiology SOAP Progress Note Subjective: Sitting up in recliner Going home today No c/o CP or SOB Objective: I&O/Vital Signs 01/14/22 01/15/22 01/15/22 01/15/22 23:59 01:00 04:06 07:00 Temp 36.6 36.5 Pulse 96 76 89 112 Resp 18 18 B/P (MAP) 155/73 (100) 173/80 (111) Pulse Ox 95 97 O2 Delivery Room Air Room Air 01/15/22 01/15/22 01/15/22 01/15/22 07:28 08:00 08:15 10:02 Temp 37.1 Pulse 51 Resp 18 B/P (MAP) 151/74 (99) Pulse Ox 95 95 O2 Delivery Room Air Nasal Cannula Room Air O2 Flow Rate 3.00 01/15/22 00:00 Intake Total 1490 ml Output Total 600 ml Balance 890 ml Neurologic/Psychiatric: other (R heimparesis) Results/Procedures: Labs Laboratory Tests 01/14/22 10:40: Glucometer 114H 01/14/22 16:35: Glucometer 116H 01/14/22 20:22: Glucometer 93 01/15/22 05:25: Glucometer 83 01/15/22 06:40: White Blood Count 17.9H, Red Blood Count 4.26L, Hemoglobin 14.2, Hematocrit 42, Mean Corpuscular Volume 98, Mean Corpuscular Hemoglobin 33, Mean Corpuscular Hemoglobin Concent 34, Red Cell Distribution Width 13.0, Platelet Count 213, Mean Platelet Volume 10.4, Immature Granulocyte % (Auto) 1, Neutrophils (%) (Auto) 80H, Lymphocytes (%) (Auto) 11L, Monocytes (%) (Auto) 8, Eosinophils (%) (Auto) 0, Basophils (%) (Auto) 0, Neutrophils # (Auto) 14.2H, Lymphocytes # (Auto) 2.0, Monocytes # (Auto) 1.5H, Eosinophils # (Auto) 0.0, Basophils # (Auto) 0.0, Immature Granulocyte # (Auto) 0.1, Sodium Level 139, Potassium Level 3.4L, Chloride Level 106, Carbon Dioxide Level 23, Anion Gap 10, Blood Urea Nitrogen 11, Creatinine 0.66, Estimat Glomerular Filtration Rate 107, BUN/Creatinine Ratio 17, Glucose Level 107H, Calcium Level 8.0L, Corrected Calcium 8.6, Magnesium Level 1.7, Total Bilirubin 0.8, Aspartate Amino Transf (AST/SGOT) 43H, Alanine Aminotransferase (ALT/SGPT) 46, Alkaline Phosphatase 48, Total Protein 5.6L, Albumin 3.2 Microbiology 01/05/22 Gram Stain - Final, Complete 01/05/22 Sputum Culture - Final, Complete Usual upper respiratory duran 01/04/22 Blood Culture - Final, Complete No growth Laboratory Tests 01/14/22 06:15 01/15/22 06:40 A/P: Assessment: Status post acute respiratory failure - Acute exacerbation of COPD with pneumonia. - Extubated on January 10, 2022. Coronary artery disease - non-ST elevation myocardial infarction, probably type II myocardial infarction secondary to severe hypoxemia and respiratory failure. - Cardiac catheterization was done on January 11, 2022, calcified coronary system with severe stenosis in the mid LAD, status post stenting using kathya point stent 3 x 23 mm expanded to 3.1 mm with excellent results, - Continue on dual antiplatelet therapy Left thigh pain, has been complaining of left leg pain. Reporting improvement at this time, no active pain was reported. - BLE arterial duplex done 01/12/[address] Catherine showing bilateral hemodynamic significant stenoses on the left at the level of the common femoral and on the right at the level of the popliteal artery. Has +1 DP to left leg, denies any pain at this time. - Will continue with ASA and Plavix and continue to monitor as out pt by Dr. Catherine - Will consider peripheral intervention if patient starts to have symptoms as out pt - Diastolic Congestive heart failure, acute left ventricular diastolic dysfunction, preserved systolic function Aortic valve stenosis, aortic regurgitation - 2D echo was reported by Dr. Clark as ejection fraction 55%, grade 2 diastolic dysfunction, moderate aortic valve stenosis with peak gradient 58 mmHg, mean gradient 30 mmHg, valve area 1.1 cm, moderate aortic regurgitation, moderate tricuspid regurgitation, estimated pulmonary artery pressure around 40 mmHg. Hypertension Hyperlipidemia History of CVA with right hemiparesis Tobaccoism - still an active smoker - cessation advised Plan: Dr. Catherine's notes reviewed in detail Continue current medication regimen Discharging home today per medical services Out pt f/u with SANG [facility] Jan 15, 2022 10:30
== END 2022-01-15 11:03 | DRG 981 ==
LOC: EDUNIT# 16:37 → ER FS 16:39 → ICU 20:08 → UNDOADMIN 20:08 → 4TH 01-05 10:45 → ICU 01-05 17:15 → 4TH 01-12 08:37
PROVIDERS: ADMIT Internal Medicine; ATTEND Family Medicine
PROC: 5A09357 Assistance with Respiratory Ventilation, Less than 24 Consecutive Hours, Continuous Positive Airway Pressure (ICD-10-PCS; 2022-01-04)
PROC: 5A1955Z Respiratory Ventilation, Greater than 96 Consecutive Hours (ICD-10-PCS; principal; 2022-01-05)
PROC: 0BH17EZ Insertion of Endotracheal Airway into Trachea, Via Natural or Artificial Opening (ICD-10-PCS; 2022-01-05)
PROC: 027034Z Dilation of Coronary Artery, One Artery with Drug-eluting Intraluminal Device, Percutaneous Approach (ICD-10-PCS; 2022-01-11)
PROC: 4A023N7 Measurement of Cardiac Sampling and Pressure, Left Heart, Percutaneous Approach (ICD-10-PCS; 2022-01-11)
PROC: B2111ZZ Fluoroscopy of Multiple Coronary Arteries using Low Osmolar Contrast (ICD-10-PCS; 2022-01-11)
DX: J96.21 Acute and chronic respiratory failure with hypoxia (principal); I50.31 Acute diastolic (congestive) heart failure; J18.9 Pneumonia, unspecified organism; I21.A1 Myocardial infarction type 2; J44.1 Chronic obstructive pulmonary disease with (acute) exacerbation; I69.351 Hemiplegia and hemiparesis following cerebral infarction affecting right dominant side; F17.210 Nicotine dependence, cigarettes, uncomplicated; F12.90 Cannabis use, unspecified, uncomplicated; E78.2 Mixed hyperlipidemia; I35.0 Nonrheumatic aortic (valve) stenosis; R53.81 Other malaise; I25.10 Atherosclerotic heart disease of native coronary artery without angina pectoris; M79.652 Pain in left thigh; I11.0 Hypertensive heart disease with heart failure; Z20.822 Contact with and (suspected) exposure to COVID-19
CPT/HCPCS: 36415; 36600; 70450; 71045; 80048; 80053; 80061; 82805; 82947; 83036; 83605; 83735; 83880; 84100; 84478; 84484; 85007; 85025; 85027; 87040; 87070; 87081; 87205; 87636; 93005; 93306; 93454; 93925; 94002; 94003; 94640; 94760; 94799; 96374; 96375; 99291

== ENCOUNTER → 2022-03-17 | Outpatient (CLI) | payer MEDICARE ==
[~2022-03-17] MED LIST changes: +AMLO-250 PO; +ASPI81TA64 PO; +ATOR20TA66 PO; -CATHETER FLUSH 10 ML SYR IV PRN; +CLOP75TA28 PO; -IOHEXOL 350 MG/ML 100 ML (OMNIPAQUE 350) VIAL IV ONE; +IPRA3AMP31 IH; +LISI20TA26 PO; +METO50TA7 PO; -NS 100 ML (IVPB) BAG IV ONE; +PANT40TA52 PO; +PRD20T PO; +THIA100T80 PO
[2022-03-17 09:56] LABS: CREATININE SERUM 0.49 MG/DL (0.60-1.30)
[2022-03-17] MEDS: CATHETER FLUSH 10 ML SYR IV PRN (10:12)
[2022-03-17] MEDS: NS 100 ML (IVPB) BAG IV ONE (10:12)
[2022-03-17] MEDS: IOHEXOL 350 MG/ML 100 ML (OMNIPAQUE 350) VIAL IV ONE (10:12)
--- NOTE | 2022-03-17 11:23 | Diagnostic Imaging Report ---
INDICATION: Carotid stenosis CTA of the neck is performed after bolus intravenous administration of iodinated contrast. 3-D reformatted images are produced. Low-dose technique was utilized for radiation reduction. Imaging through the upper thorax reveals extensive centrilobular emphysema. There is coarse calcification in the right apex suggesting chronic scarring. There is atherosclerotic calcification at the origins of great vessels. Normal three-vessel branching pattern is present. There is also dense atherosclerosis in the proximal right subclavian artery and at the origin of right subclavian artery. Dense atherosclerotic calcification in the distal right common carotid artery results in narrowing of approximately 50% with marked atherosclerotic calcification at the right carotid bulb resulting in probable 80-90% stenosis. There is moderate atherosclerotic calcification within distal left common carotid artery and carotid bulb resulting in probable 20% narrowing. Internal carotid arteries are widely patent with mild atherosclerotic disease elsewhere in the neck. Both vertebral arteries demonstrate mild distal atherosclerotic calcification but reveal no high-grade stenosis or occlusion. There is moderately severe cervical spondylosis. IMPRESSION: Atherosclerotic disease results in high-grade, 80-90% stenosis at the right carotid bulb and origin of right internal carotid artery with atherosclerotic plaque into the left carotid bifurcation resulting in 20% narrowing. Otherwise, mild atherosclerotic disease also involves right common carotid and right subclavian arteries without high-grade stenosis or occlusion. Dictated by: Dictated on workstation # [id number]
== END ==
LOC: RAD FS 09:14
PROVIDERS: ATTEND Internal Medicine Cardiovascular Disease
DX: I65.23 Occlusion and stenosis of bilateral carotid arteries (principal)
CPT/HCPCS: 36415; 70498; 82565; 84520; Q9967

== ENCOUNTER 2022-08-24 14:37 | Inpatient (IN) | payer MEDICARE ==
[~2022-08-24] VITALS: Ht 177.8 cm; Wt 65.1 kg
[~2022-08-24 14:37] MED LIST changes: -HOLD METFORMIN - RECEIVED CONTRAST 20 ML VIAL IV SCH
[2022-08-24] MEDS ORDERED: methylPREDNISolone 125 MG (Solu-MEDROL) VIAL IVP STA (14:43)
[2022-08-24] MEDS ORDERED: RT-ALBUTEROL/IPRATROPIUM 3 ML (DUONEB) VIAL INH STA (14:43)
--- NOTE | 2022-08-24 14:50 | ED Dyspnea ---
General Stated Complaint: SOB Source of Information: Patient, EMS (Independent historians as patient unable to answer questions due to his respiratory distress), Spouse (Independent Historian as patient on BiPAP and not answering questions wih his respiratory distress) Exam Limitations: Other (respiratory distress) History of Present Illness Date Seen by Provider: Aug 24, 2022 Time Seen by Provider: 14:37 Initial Comments 61-year-old male presenting by EMS from home. EMS acting as an independent historian for the patient as he was not answering questions due to being so short of breath. He had not been feeling well throughout the day according to both his and EMS report. In the last few hours he started having difficulty breathing and when EMS arrived they found him to have oxygen saturation in the 70s on room air. He was started on supplemental O2 by fire and then EMS changed him over to CPAP. They were able to get his O2 sats up to low 90s with CPAP and O2 at 10 Lpm. He had diaphoresis and was tripoding for EMS. He has a complicated medical history including coronary artery disease with prior stents, peripheral vascular disease with stents in his carotids and legs, hypertension, COPD, CHF, prior stroke with right-sided hemiparesis. His reports that he was not on home O2. They felt that he had not looked well and tried to get him to come to be seen or go to the hospital earlier in the day but he had refused. Finally he was feeling so bad and working so hard to breathe that he was not refusing to be seen and EMS was called to transport him. Patient denied having fever or chest pain. He was working hard to breathe and on CPAP and then BiPAP so it was difficult for him to speak. He has been diaphoretic from working hard to breathe but rectal temperature was finally obtained and was 97.2. His reports he had a stent to right leg within the l ast month at [facility]. Timing/Duration: 4-6 Hours Severity: Severe Activities at Onset: None Prior Episodes/Possible Cause: Occasional Episodes Modifying Factors: Worse With Activity; Improves With Oxygen Associated Symptoms: Anxiety, Cough, Loss of Appetite, Weakness Allergies and Home Medications Allergies Coded Allergies: No Known Drug Allergies (Unverified , 01/04/22) Patient Home Medication List Home Medication List Reviewed: Yes Amlodipine Besylate (Amlodipine Besylate) 5 Mg Tablet, 5 MG PO DAILY Prescribed by: CRISTHIAN BOYD on 01/15/22916 Aspirin (Children's Aspirin) 81 Mg Tab.chew, 81 MG PO DAILY@0900 Prescribed by: CRISTHIAN BOYD on 01/15/22916 Atorvastatin Calcium (Atorvastatin Calcium) 20 Mg Tablet, 20 MG PO HS Prescribed by: CRISTHIAN BOYD on 01/15/22916 Clopidogrel Bisulfate (Clopidogrel) 75 Mg Tablet, 75 MG PO DAILY Prescribed by: CRISTHIAN BOYD on 01/15/22916 Ipratropium/Albuterol Sulfate (Iprat-Albut 0.5-3(2.5) mg/3 ml) 0.5 Mg-3 Mg (2.5 Mg Base)/3 Ml Ampul.neb, 3 ML IH Q6H PRN for SHORTNESS OF BREATH Prescribed by: CRISTHIAN BOYD on 01/15/22916 Lisinopril (Lisinopril) 20 Mg Tablet, 20 MG PO DAILY@0900 Prescribed by: CRISTHIAN BOYD on 01/15/22916 Metoprolol Succinate (Metoprolol Succinate) 50 Mg Tab.er.24h, 50 MG PO DAILY Prescribed by: CRISTHIAN BOYD on 01/15/22916 Pantoprazole Sodium (Pantoprazole Sodium) 40 Mg Tablet.dr, 40 MG PO DAILY Prescribed by: CRISTHIAN BOYD on 01/15/22916 Prednisone (Prednisone) 20 Mg Tab, 20 MG PO DAILY@0700 Prescribed by: CRISTHIAN BOYD on 01/15/22916 Thiamine HCl (Vitamin B-1) 100 Mg Tablet, 100 MG PO DAILY@0700 Prescribed by: CRISTHIAN BOYD on 01/15/22916 Review of Systems Review of Systems Constitutional: No chills; diaphoresis; No fever; malaise (not felt well today), weakness EENTM: No nose congestion Respiratory: cough; No hemoptysis; short of breath, wheezing Cardiovascular: No chest pain Gastrointestinal: No nausea, No vomiting Genitourinary: No dysuria Musculoskeletal: see HPI (healing from recent stent placement for his legs) Skin: change in color (bruising to groin from recent stent procedure) Psychiatric/Neurological: Anxiety, Weakness Endocrine: Excessive Sweating Hematologic/Lymphatic: Denies Blood Clots Past Sqgzkps-Ffylgo-Ayouub Hx Patient Social History Tobacco Use?: Yes Tobacco type used: Cigarettes Immunizations Up To Date First/Initial COVID19 Vaccinat: 03/03/21 Second COVID19 Vaccination [place]: 03/03/21 Third COVID19 Vaccination Date: 03/03/21 Past Medical History Surgery/Hospitalization HX: COPD, Stroke, CAD, Peripheral vascular disease with stents, Carotid stenosis with stenting, CHF, hypertension, hyperlipidemia, tobacco abuse Surgeries: Yes Coronary Stent, Vascular Surgery Pneumonia, COPD High Cholesterol, Hypertension Stroke Physical Exam Vital Signs Vital Signs - First Documented 08/24/22 08/24/22 14:40 17:00 Temp 36.2 Pulse 106 Resp 35 B/P (MAP) 175/76 (109) Pulse Ox 100 O2 Delivery NIV Bilevel O2 Flow Rate 100.00 Capillary Refill : Height, Weight, BMI Height: '" Weight: lbs. oz. kg; 24.67 BMI Method: General Appearance: Anxious, Chronically ill, Severe Distress (Increased work of breathing and difficulty answering questions due to respiratory distress and being on BiPAP) HEENT: PERRL/EOMI, Moist Mucous Membranes Neck: Full Range of Motion, Normal Inspection, Non Tender, Supple Respiratory: Chest Non Tender, Accessory Muscle Use, Decreased Breath Sounds, Respiratory Distress, Wheezing (Expiratory wheezing throughout) Cardiovascular: Normal Peripheral Pulses, Tachycardia Peripheral Pulses: 2+ Dorsalis Pedis (R), 2+ Left Dors-Pedis (L), 2+ Radial Pulses (R), 2+ Radial Pulses (L) Gastrointestinal: Normal Bowel Sounds, No Pulsatile Mass, Non Tender, Soft Extremity: No Calf Tenderness, Pedal Edema (Trace pedal edema to right lower extremity from recent stenting procedure) Neurologic/Psychiatric: Alert; No Oriented x3 (Unable to assess orientation as he was having difficulty answering questions between his respiratory distress and being placed on BiPAP) Skin: Cool, Diaphoresis, Pallor Focused Exam Sepsis Stage: Severe Sepsis Possible Source: Pulmonary Lactate Level 08/24/22 15:00: Lactic Acid Level 9.57*H Time of Focused Exam: 16:06 Respiratory: Chest Non Tender, No Accessory Muscle Use, No Respiratory Distress (Appeared more comfortable on the BiPAP and was breathing easier), Decreased Breath Sounds (Improved air movement from when he first arrived) Cardiovascular: Normal Peripheral Pulses, Tachycardia (Sinus tachycardia with heart rate 100 bpm) Capillary Refill: Less Than 3 Seconds Peripheral Pulses: 2+ Femoral (R), 2+ Femoral (L), 2+ Radial Pulses (R), 2+ Radial Pulses (L) Skin: warm/dry Lactic Acid Level Laboratory Tests Test 08/24/22 15:00 Lactic Acid Level 9.57 MMOL/L (0.50-2.00) *H Within 3hrs of presentation: Admin fluids, Admin 30ml/kg IBW due to BMI>30, Admin ABX, Blood cultures prior to ABX's, Focus exam, Lactate level, Other (Admit to ICU at [facility]) Procedures/Interventions Date of ETT Placement: January 05, 2022 Time of ETT Placement: 1813 Progress/Results/Core Measures Results/Orders Lab Results Laboratory Tests Test 08/24/22 15:00 08/24/22 15:08 08/24/22 15:45 Range/Units White Blood Count 13.9 H 4.3-11.0 10^3/uL Red Blood Count 5.22 4.30-5.52 10^6/uL Hemoglobin 17.4 13.3-17.7 g/dL Hematocrit 52 40-54 % Mean Corpuscular Volume 99 80-99 fL Mean Corpuscular Hemoglobin 33 25-34 pg Mean Corpuscular Hemoglobin Concent 34 32-36 g/dL Red Cell Distribution Width 12.5 10.0-14.5 % Platelet Count 201 130-400 10^3/uL Mean Platelet Volume 9.8 9.0-12.2 fL Immature Granulocyte % (Auto) 1 % Neutrophils (%) (Auto) 71 42-75 % Lymphocytes (%) (Auto) 23 12-44 % Monocytes (%) (Auto) 5 0-12 % Eosinophils (%) (Auto) 0 0-10 % Basophils (%) (Auto) 1 0-10 % Neutrophils # (Auto) 9.8 H 1.8-7.8 10^3/uL Lymphocytes # (Auto) 3.1 1.0-4.0 10^3/uL Monocytes # (Auto) 0.8 0.0-1.0 10^3/uL Eosinophils # (Auto) 0.0 0.0-0.3 10^3/uL Basophils # (Auto) 0.1 0.0-0.1 10^3/uL Immature Granulocyte # (Auto) 0.1 0.0-0.1 10^3/uL Prothrombin Time 14.1 12.2-14.7 SEC INR Comment 1.0 0.8-1.4 Activated Partial Thromboplast Time 30 24-35 SEC Sodium Level 132 L 135-145 MMOL/L Potassium Level 3.5 L 3.6-5.0 MMOL/L Chloride Level 91 L 98-107 MMOL/L Carbon Dioxide Level 16 L 21-32 MMOL/L Anion Gap 25 H 5-14 MMOL/L Blood Urea Nitrogen 3 L 7-18 MG/DL Creatinine 0.61 0.60-1.30 MG/DL Estimat Glomerular Filtration Rate 109 BUN/Creatinine Ratio 5 Glucose Level 175 H 70-105 MG/DL Lactic Acid Level 9.57 *H 0.50-2.00 MMOL/L Calcium Level 9.2 8.5-10.1 MG/DL Corrected Calcium 8.9 8.5-10.1 MG/DL Magnesium Level 1.7 1.6-2.4 MG/DL Total Bilirubin 0.7 0.1-1.0 MG/DL Aspartate Amino Transf (AST/SGOT) 66 H 5-34 U/L Alanine Aminotransferase (ALT/SGPT) 47 0-55 U/L Alkaline Phosphatase 135 40-136 U/L Troponin I < 0.30 <0.30 NG/ML Pro-B-Type Natriuretic Peptide 8934.0 H <125.0 PG/ML Total Protein 8.3 H 6.4-8.2 GM/DL Albumin 4.4 3.2-4.5 GM/DL Influenza Type A (RT-PCR) Not Detected Not Detecte Influenza Type B (RT-PCR) Not Detected Not Detecte SARS-CoV-2 RNA (RT-PCR) Not Detected Not Detecte Blood Gas Puncture Site RT WRIST Blood Gas Patient Temperature UNABLE Arterial Blood pH 7.05 *L 7.37-7.43 Arterial Blood Partial Pressure CO2 54 H 35-45 MMHG Arterial Blood Partial Pressure O2 88 79-93 MMHG Arterial Blood HCO3 15 *L 23-27 MMOL/L Arterial Blood Total CO2 16.6 L 21.0-31.0 MMOL/L Arterial Blood Oxygen Saturation 91 L 94-100 % Arterial Blood Base Excess -15.5 L -2.5-2.5 MMOL/L Jm Test UNABLE Blood Gas Ventilator Setting NO Blood Gas Inspired Oxygen 6 L Urine Color YELLOW Urine Clarity CLEAR Urine pH 7.0 5-9 Urine Specific Powers 1.025 H 1.016-1.022 Urine Protein 2+ H NEGATIVE Urine Glucose (UA) NEGATIVE NEGATIVE Urine Ketones TRACE H NEGATIVE Urine Nitrite NEGATIVE NEGATIVE Urine Bilirubin NEGATIVE NEGATIVE Urine Urobilinogen 0.2 < = 1.0 MG/DL Urine Leukocyte Esterase NEGATIVE NEGATIVE Urine RBC (Auto) 1+ H NEGATIVE Urine RBC RARE /HPF Urine WBC 5-10 H /HPF Urine Squamous Epithelial Cells 0-2 /HPF Urine Crystals NONE /LPF Urine Bacteria TRACE /HPF Urine Casts PRESENT /LPF Urine Hyaline Casts RARE /LPF Urine Mucus N /LPF Urine Culture Indicated NO My Orders Orders - KIM MORGAN MD Cbc With Automated Diff (08/24/22 14:42) Magnesium (08/24/22 14:42) Chest 1 View Ap/Pa Only (08/24/22 14:42) Ekg Tracing (08/24/22 14:42) Comprehensive Metabolic Panel (08/24/22 14:42) Protime With Inr (08/24/22 14:42) Partial Thromboplastin Time (08/24/22 14:42) O2 (08/24/22 14:42) Monitor-Rhythm Ecg Trace Only (08/24/22 14:42) Ed Iv/Invasive Line Start (08/24/22 14:42) Troponin I Fs (08/24/22 14:42) Probnp Fs (08/24/22 14:42) Arterial Blood Gas (08/24/22 14:43) Covid 19 Inhouse Test (08/24/22 14:43) Blood Culture (08/24/22 14:43) Influenza A And B By Pcr (08/24/22 14:43) Isolation Central Supply Req (08/24/22 14:43) Lactic Acid Analyzer (08/24/22 14:43) Albuterol/Ipra Inhalation Soln (Duoneb I (08/24/22 14:43) Methylprednisolone Sod Succ (Solu-Medrol (08/24/22 14:43) Svn Small Volume Nebulizer (08/24/22 14:43) Bipap (Bilevel) Set Up (08/24/22 15:04) Ns Iv 1000 Ml (Sodium Chloride 0.9%) (08/24/22 15:06) Ceftriaxone 1 Gm Pre-Mix (Rocephin 1 Gm (08/24/22 15:06) Azithromycin Injection (Zithromax Inject (08/24/22 15:06) Ns Iv 1000 Ml (Sodium Chloride 0.9%) (08/24/22 15:45) Ns Iv 500 Ml (Sodium Chloride 0.9%) (08/24/22 15:45) Collins Cath (08/24/22 15:46) Ua Culture If Indicated (08/24/22 16:13) Vital Signs/I&O 08/24/22 08/24/22 08/24/22 14:40 16:32 17:00 Temp 36.2 36.2 Pulse 106 110 111 Resp 35 34 22 B/P (MAP) 175/76 (109) 130/72 136/84 (101) Pulse Ox 100 100 78 O2 Delivery NIV Bilevel NIV Bilevel NIV Bilevel O2 Flow Rate 100.00 Admisison Planning May Need Admission (Planning): 14:40 Progress Progress Note #1: Progress Note Potential life-threatening conditions of pneumonia, acute on chronic respiratory failure, COVID, influenza, myocardial infarction, CHF exacerbation, COPD exacerbation, sepsis, pulmonary embolism, pulmonary mass. Evaluate by ordering electrocardiogram, placed on cardiac flume ride operator, chest x-ray, ABG, CBC, chemistry, cardiac enzymes, coags, blood cultures with lactic acid. Continue on BiPap for shortness of breath and increased work of breathing. On initial cardiac flume ride operator his heart rate was 105 and sinus tachycardia. He had an oxygen saturation of 100% on the BiPAP with settings of 12/5 with FiO2 of 40%. Ordered a dose of steroids 125 mg IV x1 as well as a DuoNeb breathing treatment in line with his BiPAP. Progress Note #2: Time: 15:24 Progress Note On my personal review and interpretation of his 1 view chest x-ray he has pul monary infiltrate on the right perihilar area. He has diffuse interstitial disease consistent with COPD. On my personal review and interpretation of his electrocardiogram shows sinus tachycardia with occasional PVCs. He had some nonspecific T wave abnormalities but the flipped T waves he had in January 2022 were resolved. His white blood cell count was slightly elevated to 13.9 with a mild left shift. As he was slightly improved with his BiPAP will continue this and plan on rechecking an ABG but his initial ABG acidosis with a pH of 7.05, mild elevation of CO2 PCO2 of 50, PO2 88 on the 40% FiO2. I checked with nursing caddie supervisor to ensure that there was no ICU bed available at [place] before calling Dr. Boyd for [facility] service as patient follows with BRE Rubin here at [facility]. Dr. Boyd was in with a patient at clinic so I left a message with her staff to call me as soon as she got out of the room. [address] Boyd and reviewed with her the presentation of the patient and briefly reviewed his past medical history. As he was having findings for pneumonia with acidosis and respiratory distress for acute on chronic respiratory failure will continue BiPAP for now but may require intubation if his not improved by the time of his next ABG. Continue with IV fluid for his sinus tachycardia and awaiting lactic acid as well as cardiac enzymes. Swab to check for COVID and influenza was also still pending. She requested I speak with cardiology if his enzymes were elevated. Based on his findings for pneumonia on the chest x-ray and increased work of breathing will administer Rocephin 1 g IV as well as Zithromax 500 mg IV. She was agreeable with ICU admission and request that I place bridge orders as she was seeing patients in the clinic. She would check on him when he arrived in [place]. I reviewed radiologist report on his CXR showing Right middle lobe infiltrate with chronic COPD changes. 1542 Lab called and advised the Lactic acid was elevated to 9.57 so I ordered additional IVF to get him up to 30 ml/kg IV fluid bolus with normal saline. Collins catheter will be placed to monitor I and Os. For the admit bridge orders will use sepsis order set as well. Order ABG on arrival to ICU. Continue fluids at 150 mls/hr after the initial 30 ml/kg bolus and IV antibiotics. 1602 Chemistry panel showed elevated proBNP of 8942 which is almost identical to his level from January 2022. Troponin I is less than 0.3. Renal function was ok. As he did not have acute elevation of his cardiac enzymes I did not discuss his case with cardiology. 1620 EMS here to take patient to [facility]. His IVF 30 ml/kg bolus was still infusing but his antibiotics were almost all in with only a small amount of Azithromycin left to infuse. Advised EMS they could give additional IVF of LR at 150 ml/hr after the bolus had infused. He had to be changed to CPAP from BiPap for EMS transport. His blood pressure was 136/78 prior to leaving with EMS. His Covid and Influenza swabs were negative. He continues to show sinus tachycardia on his cardiac flume ride operator but his heart rate had improved to about 100 or upper 90s sinus rhythm 1637 EMS linux network engineer called to say the patient had developed hypotension with systolic blood pressure of 60 and felt that he was having trouble keeping O2 up with the CPAP. He was checking to see what else might be helpful for patient. I advised him to start whatever vasopressor he had and give additional IVF bolus. He had Dopamine so will start this and continue IVF bolus beyond his initial 30 ml/kg. 1649 I spoke with the E-ICU attending to let her know of the patient coming to ICU 12 in [place]. With his sepsis and COPD as well as acute on chronic respiratory failure if he continues to demarco he would need intubation. I updated her of what he presented with here in [place] and what we did with IV antibiotics and IV fluid support in addition to BiPap. She will watch for him to arrive in [facility] and see what else can be done to assist with his care and treatment[address] Boyd with [facility] about the patient having more difficulty in EMS transport and she plans on seeing him when he gets to the ICU. E-ICU will be helping manage his care as well. Initial ECG Impression Date: Aug 24, 2022 Initial ECG Impression Time: 14:51 Initial ECG Rate: 102 Initial ECG Rhythm: S.Tach Initial ECG Comparisson: Changed (resolved flipped t waves from January 2022) Comment On my personal review and interpretation of his electrocardiogram is sinus tachycardia with a heart rate of 102 bpm. He has occasional premature complex es. NV interval [address] elevation. T wave flattening. QT interval 327 ms with a QTc interval 386 ms. Compared to prior tracing from January 2022 his flipped T waves have improved. Diagnostic Imaging Diagonstic Imaging: Xray Plain Films/CT/US/NM/MRI: chest Comments [facility] [place], [place] NAME: ANGELA RAI MED REC#: [id number] PT STATUS: REG ER : 1960 PHYSICIAN: KIM MORGAN MD ADMIT DATE: 08/24/22/ER FS Draft Date of Exam:08/24/22 CHEST 1 VIEW AP/PA ONLY INDICATION: Shortness breath. TIME OF EXAM: 2:43 p.m. Correlation is made with prior chest 01/11/2022. FINDINGS: Heart size is normal. There is some patchy infiltrate in the right mid lung field. Lungs are hyperinflated. There are some generalized interstitial changes. No effusion is seen. There is no pneumothorax. IMPRESSION: COPD and interstitial changes. There is a patchy infiltrate in the right mid lung field. Dictated on workstation # [id number] Dict: 08/24/22 1500 Trans: 08/24/22 1502 [id number] Interpreted by: TRICIA PHILLIPS MD Electronically signed by: Reviewed: Reviewed by Me Critical Care Note Critical Care Total Time (minutes) 60 minutes Progress 60 minutes of critical care time was spent with the patient. Time excludes separately billable procedures. Time was spent obtaining history from review of his hospital admission in January 2022, discussion with EMS and his , ordering tests and reviewing results, ordering interventions and reviewing response, discussion with consultants, documentation in the chart. Patient was at risk of cardiorespiratory compromise and failure. He required constant direct intervention and monitoring to manage his care and was at risk of cardiac arrest, further respiratory failure, . Departure Communication (Admissions) Time/Spoke to Admitting Phy: 15:33 d/w Dr. Boyd for [facility] service. Reviewed initial presentation and inital exam and vital signs with findings for pneumonia and likely sepsis with acute on chronic respiratory failure. started on Rocephin and zithromax by IV. Have patient on BiPAP and his oxygen saturation has come up to 100%. Since he is hypoxic and having acidosis we will plan on rechecking ABG after he has been on the BiPAP. Cardiac enzymes are also ordered and if he has a bump in his enzymes will contact cardiology for consult. Placed in the ICU for closer monitoring and management of his airway. Giving 1 L NS IVF bolus initially and may add additional fluids depending on his blood pressure and lactic acid. Will write bridge orders for her since she is actively seeing patients in clinic currently. Impression Primary Impression: Sepsis Qualified Codes: A41.9 - Sepsis, unspecified organism; R65.20 - Severe sepsis without septic shock; J96.01 - Acute respiratory failure with hypoxia Additional Impressions: Acute and chronic respiratory failure with hypoxia Acute exacerbation of COPD with asthma Pneumonia of right lung due to infectious organism Qualified Codes: J18.9 - Pneumonia, unspecified organism Disposition: 30 STILL A PATIENT Condition: Critical Admissions Decision to Admit Reason: Admit from ER (General) Decision to Admit/Date: Aug 24, 2022 Time/Decision to Admit Time: 15:33 Departure-Patient Inst. Referrals: TYLOR ROSALES APRN (PCP) Primary Care Physician [facility] (Family) Primary Care Physician KIM MORGAN MD Aug 24, 2022 14:50
--- NOTE | 2022-08-24 15:03 | Diagnostic Imaging Report ---
INDICATION: Shortness breath. TIME OF EXAM: 2:43 p.m. Correlation is made with prior chest 01/11/2022. FINDINGS: Heart size is normal. There is some patchy infiltrate in the right mid lung field. Lungs are hyperinflated. There are some generalized interstitial changes. No effusion is seen. There is no pneumothorax. IMPRESSION: COPD and interstitial changes. There is a patchy infiltrate in the right mid lung field. Dictated by: Dictated on workstation # [id number]
[2022-08-24] MEDS ORDERED: cefTRIAXone 1 GM PRE-MIX 50 ML IV STA (15:06)
[2022-08-24] MEDS ORDERED: NS IV 1000 ML 1,000 ML IV STA ×2 (15:06→15:45)
[2022-08-24] MEDS ORDERED: AZITHROMYCIN INJECTION 500 MG in NS (IVPB) 250 ML IV STA (15:06)
[2022-08-24 15:16] LABS: BASOPHILS # (AUTO) 0.1 10^3/uL (0.0-0.1); BASOPHILS % (AUTO) 1 % (0-10); EOSINOPHILS % (AUTO) 0 % (0-10); HEMATOCRIT 52 % (40-54); HEMOGLOBIN 17.4 g/dL (13.3-17.7); LYMPHOCYTES # (AUTO) 3.1 10^3/uL (1.0-4.0); LYMPHOCYTES % (AUTO) 23 % (12-44); MEAN CORPUSCULAR HEMOGLOBIN 33 pg (25-34); MEAN CORPUSCULAR HGB CONC 34 g/dL (32-36); MEAN CORPUSCULAR VOLUME 99 fL (80-99); MEAN PLATELET VOLUME 9.8 fL (9.0-12.2); MONOCYTES # (AUTO) 0.8 10^3/uL (0.0-1.0); MONOCYTES % (AUTO) 5 % (0-12); NEUTROPHILS # (AUTO) 9.8 10^3/uL (1.8-7.8); NEUTROPHILS % (AUTO) 71 % (42-75); PLATELET COUNT 201 10^3/uL (130-400); WHITE BLOOD COUNT 13.9 10^3/uL (4.3-11.0)
[2022-08-24 15:20] LABS: ABG PCO2 54 MMHG (35-45); ABG PH 7.05 (7.37-7.43)
[2022-08-24 15:21] LABS: ABG PO2 88 MMHG (79-93); ABG TCO2 16.6 MMOL/L (21.0-31.0)
[2022-08-24 15:22] LABS: ABG BASE EXCESS -15.5 MMOL/L (-2.5-2.5); ABG OXYGEN SATURATION 91 % (94-100); ALLENS TEST UNABLE; INSPIRED O2 6 L; PATIENT TEMP UNABLE; VENTILATOR NO
[2022-08-24 15:38] LABS: PROTHROMBIN TIME PATIENT 14.1 SEC (12.2-14.7)
[2022-08-24] MEDS ORDERED: NS IV 500 ML 500 ML IV STA (15:45)
[2022-08-24 15:48] LABS: POTASSIUM 3.5 MMOL/L (3.6-5.0)
[2022-08-24 15:49] LABS: ALBUMIN 4.4 GM/DL (3.2-4.5); BILIRUBIN,TOTAL 0.7 MG/DL (0.1-1.0); CALCIUM 9.2 MG/DL (8.5-10.1); CREATININE SERUM 0.61 MG/DL (0.60-1.30); MAGNESIUM 1.7 MG/DL (1.6-2.4); TOTAL PROTEIN 8.3 GM/DL (6.4-8.2)
[2022-08-24 16:23] LABS: BILIRUBIN,URINE NEGATIVE (NEGATIVE); CLARITY,URINE CLEAR; COLOR,URINE YELLOW; GLUCOSE, URINE (UA) NEGATIVE (NEGATIVE); KETONES,URINE TRACE (NEGATIVE); LEUKOCYTE ESTERASE ,URINE NEGATIVE (NEGATIVE); NITRITE,URINE NEGATIVE (NEGATIVE); PROTEIN,URINE 2+ (NEGATIVE)
[2022-08-24 16:36] LABS: RBC,URINE RARE /HPF
[2022-08-24 16:37] LABS: BACTERIA,URINE TRACE /HPF; HYALINE CASTS, URINE RARE /LPF; SQUAMOUS EPITHELIAL CELL,UR 0-2 /HPF
[2022-08-24] MEDS: RT-ALBUTEROL/IPRATROPIUM 3 ML (DUONEB) VIAL INH SCH ×2 (17:25→22:25)
[2022-08-24] MEDS ORDERED: EPINEPHrine 1 MG INJECTION 4 MG in NS (IVPB) 248 ML IV SCH (17:30)
[2022-08-24] MEDS ORDERED: NS IV ONE (17:30)
[2022-08-24] MEDS ORDERED: NOREPINEPHRINE 8 MG/250 ML 250 ML IV SCH (17:30)
--- NOTE | 2022-08-24 17:30 | Tele-ICU Consult ---
History of Present Illness History of Present Illness Date Seen by Provider: Aug 24, 2022 Time Seen by Provider: 17:27 History of Present Illness (Tele-ICU Physician , consultation as per request of PCP Service provided via interactive audio and video telecommunications E-CARE system to a patient admitted to ICU bed in [facility]. Available chart/ vitals / labs / Images reviewed H&P is from ER notes Patient's information available about PMH, Shx, Fhx allergy reviewed inEMR. ROS as per chart and RN report Now in IC Video assessment done using teleICU camera, rest of exam as per RN Discussed with RN. A/P Acute resp failure , hypoxic , hypercarbic ( AECOPD, CAP , ? CHF - in resp distress despite NIPPV - intubated on arrival to ICU without complications by ER MD ( as per discussion with ER MD in [place] - full code as per ) Shock - started on dopa in ambulance - will change to levo , reassess PNA suspected , CAP , RML - abx initiated , to cont ( NEG flu , covid) Met acidosis with lactate > 9 - cont fluid resuscitation CAD - s/p stenting in past -EF reported 55% 2021 Lines : , (Central Line Necessity Reviewed) Collins: OG: Nutrition: Analgesia: Anxiety/ delirium VTE Prophylaxis: Stress Ulcer Prophylaxis: Plans in collaboration with bedside consultants and IM MDs. Discussed with RN to reach out if any questions or concerns A total of33 minutes of critical care time was devoted to this patient today, required to treat and/or prevent further deterioration of critical care condition ( as above ) . I am remotely monitoring this patient from another state. I am unable to do the bedside exam, and history/physical and pertinent information is taken from other notes in the computer and bedside staff. . Allergies and Home Medications Allergies Coded Allergies: No Known Drug Allergies (Unverified , 01/04/22) Home Medications Amlodipine Besylate 5 Mg Tablet, 5 MG PO DAILY Prescribed by: CRISTHIAN BOYD on 01/15/22916 Aspirin 81 Mg Tab.chew, 81 MG PO DAILY@0900 Prescribed by: CRISTHIAN BOYD on 01/15/22916 Atorvastatin Calcium 20 Mg Tablet, 20 MG PO HS Prescribed by: CRISTHIAN BOYD on 01/15/22916 Clopidogrel Bisulfate 75 Mg Tablet, 75 MG PO DAILY Prescribed by: CRISTHIAN BOYD on 01/15/22916 Ipratropium/Albuterol Sulfate 0.5 Mg-3 Mg (2.5 Mg Base)/3 Ml Ampul.neb, 3 ML IH Q6H PRN for SHORTNESS OF BREATH Prescribed by: CRISTHIAN BOYD on 01/15/22916 Lisinopril 20 Mg Tablet, 20 MG PO DAILY@0900 Prescribed by: CRISTHIAN BOYD on 01/15/22916 Metoprolol Succinate 50 Mg Tab.er.24h, 50 MG PO DAILY Prescribed by: CRISTHIAN BOYD on 01/15/22916 Pantoprazole Sodium 40 Mg Tablet.dr, 40 MG PO DAILY Prescribed by: CRISTHIAN BOYD on 01/15/22916 Prednisone 20 Mg Tab, 20 MG PO DAILY@0700 1 tab x 3 days then 1/2 tab x4 days then stop Prescribed by: CRISTHIAN BOYD on 01/15/22916 Thiamine HCl 100 Mg Tablet, 100 MG PO DAILY@0700 Prescribed by: CRISTHIAN BOYD on 01/15/22916 Past Medical/Social/Family Hx Patient Social History Smoking Status: Unknown if Ever Smoked Substance use?: Unable to obtain Alcohol Use?: Unable to obtain Immunizations Up To Date First/Initial COVID19 Vaccinat: 03/03/21 Second COVID19 Vaccination [place]: 03/03/21 Tetanus Booster (TDap): Unknown Hepatitis A: No Hepatitis B: No TB Skin Test: None Current Status Advance Directives: No Primary Language: Venezuelan Preferred Spoken Language: Venezuelan Review of Systems Constitutional: see HPI Focused Exam Lactate Level 08/24/22 15:00: Lactic Acid Level 9.57*H Height, Weight, BMI Height: '" Weight: lbs. oz. kg; 24.67 BMI Method: Lactic Acid Level Laboratory Tests Test 08/24/22 15:00 Lactic Acid Level 9.57 MMOL/L (0.50-2.00) *H Exam Exam Patient acknowledged, consented, and participated in this virtual visit which was conducted using real time audio/video Vital Signs Date Time Temp Pulse Resp B/P (MAP) Pulse Ox O2 Delivery O2 Flow Rate FiO2 08/24/22 16:32 36.2 110 34 130/72 100 NIV Bilevel 08/24/22 14:40 36.2 106 35 175/76 (109) 100 NIV Bilevel Height & Weight Height: '" Weight: lbs. oz. kg; 24.67 BMI Method: General Appearance: Moderate Distress Capillary Refill: Less Than 3 Seconds Results Lab Laboratory Tests 08/24/22 15:00 Assessment/Plan Assessment/Plan 1 ELIZABETH PETERSON MD Aug 24, 2022 17:30
[2022-08-24] MEDS: methylPREDNISolone 40 MG/ML (Solu-MEDROL) VIAL IV SCH (17:33)
[2022-08-24] MEDS: PROPOFOL DRIP (ICU) 100 ML IV SCH ×2 (17:34→21:22)
[2022-08-24] MEDS: CEFEPIME 1,000 MG/NS 50 ML IVPB IV SCH ×2 (17:34)
[2022-08-24] MEDS ORDERED: fentaNYL INJ 100 MCG/2 ML AMP ONE (17:45)
--- NOTE | 2022-08-24 17:49 | Progress Note ---
Standard Progress Note Progress Notes/Assess & Plan Date Seen by a Provider: Aug 24, 2022 Time Seen by a Provider: 17:00 Progress/Assessment & Plan Patient was seen in the [place] emergency department and transferred to the [place] ICU for acute respiratory failure requiring BiPAP. The patient went through the ER on the way to the ICU in [place], and his oxygen saturation was 82% despite being on 100% CPAP. His pressure had decompensated en route as well requiring EMS to start dopamine. I accompanied the patient to the intensive care unit. He was bagged for preoxygenation with 100% oxygen. The highest his oxygen saturation would get was 84%. He was then intubated with 150 mg of ketamine and 150 mg of succinylcholine. A 7.5 ET tube was placed and was 23 at the lip using video laryngoscopy on a single attempt with no further complication. There were bilateral breath sounds with color change noted. Breath sounds were absent over the epigastrium. Oxygen saturation remained around 84%. He was given a DuoNeb treatment through the ventilator and his oxygen saturation went up to the high 90s. A central line was then placed because he was on vasopressors. It was a 16 cm triple-lumen placed in his right IJ with ultrasound guidance and real-time with sterile field throughout the process. It was secured with suture with a sterile dressing applied afterwards. X-ray was then ordered to confirm placement. The ET tube, central line, and NG tube were all in good place. Care was turned over to the intensive care physician. Final Diagnosis Acute hypoxic respiratory failure COPD exacerbation Undifferentiated shock DALTON VELEZ MD Aug 24, 2022 17:49
--- NOTE | 2022-08-24 17:49 | Diagnostic Imaging Report ---
INDICATION: Line placement. TIME OF EXAM: 5:30 p.m. COMPARISON: Correlation is made to prior study earlier same day. FINDINGS: ET tube has been placed with its tip in good position above the gilda. NG tube passes into the stomach. The proximal side-port is at the GE junction. A right IJ line has tip overlying the SVC. There is no pneumothorax. There appears to be some patchy infiltrates at the lung bases bilaterally. No effusion is seen. IMPRESSION: 1. Lines and catheters, as described. Note is made of patchy bibasilar infiltrates. Dictated by: Dictated on workstation # [id number]
[2022-08-24 17:53] LABS: ABG BASE EXCESS -10.7 MMOL/L (-2.5-2.5); ABG OXYGEN SATURATION 98 % (94-100); ABG PCO2 61 MMHG (35-45); ABG PO2 174 MMHG (79-93); ABG TCO2 19.8 MMOL/L (21.0-31.0)
[2022-08-24 17:57] LABS: ABG PH 7.08 (7.37-7.43); ALLENS TEST YES-POS; PATIENT TEMP 36
[2022-08-24] MEDS: NOREPINEPHRINE 8 MG/250 ML 250 ML IV SCH (17:57)
[2022-08-24] MEDS: NS IV 1000 ML 1,000 ML IV SCH (17:57)
[2022-08-24] MEDS ORDERED: VANCOMYCIN 1500 MG/NS 500 ML IVPB IV NR ×2 (18:00)
[2022-08-24] MEDS ORDERED: fentaNYL INJ 100 MCG/2 ML AMP IVP NR (18:15)
[2022-08-24] MEDS: fentaNYL DRIP PRE-MIX 250 ML IV SCH (18:30)
[2022-08-24] MEDS ORDERED: SUCCINYLCHOLINE INJ 20 MG/1 ML 10 ML VIAL INJ ONE (18:52)
[2022-08-24] MEDS ORDERED: KETAMINE HCL 100 MG/ML 5 ML VIAL INJ ONE (18:52)
[2022-08-24] MEDS ORDERED: ROCURONIUM 10 MG/ML 5 ML SYRINGE IV ONE (18:52)
[2022-08-24] MEDS: VASOPRESSIN INJECTION 20 UNIT in NS (IVPB) 100 ML IV SCH (19:31)
[2022-08-24 20:17] LABS: ABG BASE EXCESS -6.4 MMOL/L (-2.5-2.5); ABG OXYGEN SATURATION 40 % (94-100); ABG PCO2 51 MMHG (35-45); ABG TCO2 21.8 MMOL/L (21.0-31.0)
[2022-08-24 20:22] LABS: ABG PH 7.22 (7.37-7.43); ABG PO2 33 MMHG (79-93); ALLENS TEST YES-POS; INSPIRED O2 60%; VENTILATOR NO
[2022-08-24 20:23] LABS: PATIENT TEMP 36.4
[2022-08-24] MEDS ORDERED: methylPREDNISolone 40 MG/ML (Solu-MEDROL) VIAL IV SCH (22:00)
--- NOTE | 2022-08-24 22:32 | Progress Note ---
Standard Progress Note Progress Notes/Assess & Plan Date Seen by a Provider: Aug 24, 2022 Time Seen by a Provider: 21:45 Progress/Assessment & Plan Called by dry house worker to start A-Line on pt sedated on vent who was on low dose pressors. Multiple attempts on b/l radials as well as left brachial were unsuccessful using the U/S. Very faint left radial was palpable but was only able to obtain a couple very small flashes in Arrow catheter that did not look arterial and was unable to advance catheter. I advised RN another provider would attempt in am. Focused Exam Lactate Level 08/24/22 17:52: Lactic Acid Level 4.37*H 08/24/22 19:40: Lactic Acid Level 3.19*H 08/24/22 22:10: Lactic Acid Level 1.93 Time of Focused Exam: 16:06 Lactic Acid Level Laboratory Tests Test 08/24/22 19:40 08/24/22 22:10 Lactic Acid Level 3.19 MMOL/L (0.50-2.00) *H 1.93 MMOL/L (0.50-2.00) LULA HARRINGTON CRNA Aug 24, 2022 22:32
[2022-08-24 23:50] LABS: ABG BASE EXCESS -6.5 MMOL/L (-2.5-2.5); ABG OXYGEN SATURATION 100 % (94-100); ABG PCO2 26 MMHG (35-45); ABG PH 7.43 (7.37-7.43); ABG PO2 146 MMHG (79-93)
[2022-08-24 23:51] LABS: ALLENS TEST YES-POS; INSPIRED O2 100%; VENTILATOR NO
[2022-08-24 23:52] LABS: PATIENT TEMP 36.3
[2022-08-25] MEDS: methylPREDNISolone 40 MG/ML (Solu-MEDROL) VIAL IV SCH ×5 (00:09→23:55)
[2022-08-25] MEDS: CEFEPIME 1,000 MG/NS 50 ML IVPB IV SCH ×4 (00:09→05:12)
[2022-08-25] MEDS: RT-ALBUTEROL/IPRATROPIUM 3 ML (DUONEB) VIAL INH SCH ×6 (02:46→22:17)
[2022-08-25] MEDS: NS IV 1000 ML 1,000 ML IV SCH ×3 (03:24→23:55)
[2022-08-25] MEDS: PROPOFOL DRIP (ICU) 100 ML IV SCH ×5 (03:24→23:54)
[2022-08-25 04:06] LABS: MEAN CORPUSCULAR HGB CONC 35 g/dL (32-36)
[2022-08-25 04:08] LABS: BASOPHILS % (AUTO) 0 % (0-10); EOSINOPHILS % (AUTO) 0 % (0-10); HEMATOCRIT 37 % (40-54); HEMOGLOBIN 12.7 g/dL (13.3-17.7); LYMPHOCYTES # (AUTO) 0.5 10^3/uL (1.0-4.0); LYMPHOCYTES % (AUTO) 5 % (12-44); MEAN CORPUSCULAR HEMOGLOBIN 33 pg (25-34); MEAN CORPUSCULAR VOLUME 94 fL (80-99); MEAN PLATELET VOLUME 10.2 fL (9.0-12.2); MONOCYTES # (AUTO) 0.3 10^3/uL (0.0-1.0); MONOCYTES % (AUTO) 4 % (0-12); NEUTROPHILS # (AUTO) 7.8 10^3/uL (1.8-7.8); NEUTROPHILS % (AUTO) 90 % (42-75); PLATELET COUNT 139 10^3/uL (130-400); WHITE BLOOD COUNT 8.6 10^3/uL (4.3-11.0)
[2022-08-25 04:17] LABS: ABG BASE EXCESS -5.1 MMOL/L (-2.5-2.5); ABG OXYGEN SATURATION 100 % (94-100); ABG PCO2 25 MMHG (35-45); ABG PH 7.47 (7.37-7.43); ABG PO2 163 MMHG (79-93); ABG TCO2 18.8 MMOL/L (21.0-31.0)
[2022-08-25 04:18] LABS: INSPIRED O2 40%; PATIENT TEMP 36.8; VENTILATOR YES
[2022-08-25] MEDS: VASOPRESSIN INJECTION 20 UNIT in NS (IVPB) 100 ML IV SCH ×2 (04:20→16:00)
[2022-08-25 04:23] LABS: ALBUMIN 3.2 GM/DL (3.2-4.5); POTASSIUM 4.1 MMOL/L (3.6-5.0)
[2022-08-25 04:24] LABS: CALCIUM 7.6 MG/DL (8.5-10.1)
[2022-08-25 04:28] LABS: BILIRUBIN,TOTAL 0.5 MG/DL (0.1-1.0)
[2022-08-25 04:29] LABS: CREATININE SERUM 0.68 MG/DL (0.60-1.30); PHOSPHORUS 2.9 MG/DL (2.3-4.7)
[2022-08-25] MEDS ORDERED: NS IV 500 ML 500 ML IV PRN (04:30)
[2022-08-25 04:32] LABS: MAGNESIUM 1.3 MG/DL (1.6-2.4)
[2022-08-25 04:48] LABS: LYMPHOCYTES % (MANUAL) 5 %; NEUTROPHILS % (MANUAL) 93 %
[2022-08-25 04:49] LABS: MONOCYTES % (MANUAL) 2 %
[2022-08-25] MEDS: KCL 20 MEQ TAB (K-DUR) PO SCH (05:06)
[2022-08-25] MEDS: POTASSIUM CL 10MEQ/50ML IVPB 50 ML IV SCH (05:06)
[2022-08-25] MEDS: MAGNESIUM 1 GM/100 ML IVPB 100 ML IV SCH ×3 (05:06→06:59)
[2022-08-25] MEDS: VANCOMYCIN 1250 MG/NS 250 ML IVPB IV SCH ×4 (05:13→17:40)
[2022-08-25 07:40] VITALS: BP 106/56
[2022-08-25] MEDS ORDERED: LIDOCAINE 1% INJ 20 ML VIAL ONE (07:55)
--- NOTE | 2022-08-25 08:00 | Tele-ICU Progress Note ---
Subjective Date Seen by a Provider: Aug 25, 2022 Time Seen by a Provider: 07:54 Subjective/Events-last exam (Tele-ICU Physician , consultation as per request of PCP Service provided via interactive audio and video telecommunications E-CARE system to a patient admitted to ICU bed in [facility]. Available chart/ vitals / labs / Images reviewed H&P is from ER notes Patient's information available about PMH, Shx, Fhx allergy reviewed inEMR. ROS as per chart and RN report Now in IC Video assessment done using teleICU camera, rest of exam as per RN Discussed with RN. 61 yo M admitted for AECOPD, also CAP was intubated for resp failure, current vent settings AC 26, Vt 550, FiO2 30% On IV propofol @ 40 and IV Fentnyl @ 75, RASS at -2 to -3 Will lower sedation and try on SBT, has to be suctioned infrequently, has good cough Started on IV azithromycin, Rocephin, no + sputum cultures CXR from yesterday shows ET and NG in good position, patchy infiltrates at bases, mild hyperinflation Sepsis Event Evaluation Height, Weight, BMI Height: '" Weight: lbs. oz. kg; 25.24 BMI Method: Focused Exam Lactate Level 08/24/22 17:52: Lactic Acid Level 4.37*H 08/24/22 19:40: Lactic Acid Level 3.19*H 08/24/22 22:10: Lactic Acid Level 1.93 Time of Focused Exam: 16:06 Exam Exam Patient acknowledged, consented, and participated in this virtual visit which was conducted using real time audio/video Vital Signs Date Time Temp Pulse Resp B/P (MAP) Pulse Ox O2 Delivery O2 Flow Rate FiO2 08/25/22 07:44 37.1 08/25/22 07:40 78 26 100 30 08/25/22 07:19 78 08/25/22 06:01 77 26 112/54 (73) 100 Mechanical Ventilator 30.00 08/25/22 05:28 26 Mechanical Ventilator 30.00 08/25/22 05:01 82 26 120/60 (80) 100 Mechanical Ventilator 40.00 08/25/22 04:20 80 119/57 08/25/22 04:01 82 26 127/59 (81) 100 Mechanical Ventilator 40.00 08/25/22 04:00 40 08/25/22 04:00 100 Mechanical Ventilator 40 08/25/22 03:24 80 119/57 08/25/22 03:22 36.7 08/25/22 03:11 36.8 26 Mechanical Ventilator 40.00 08/25/22 03:09 80 26 119/57 (77) 100 Mechanical Ventilator 40.00 08/25/22 02:46 77 26 100 40 08/25/22 02:09 77 26 95/55 (68) 100 Mechanical Ventilator 40.00 08/25/22 01:30 80 114/65 08/25/22 01:09 79 26 105/55 (72) 100 Mechanical Ventilator 40.00 08/25/22 01:00 77 08/25/22 00:25 26 Mechanical Ventilator 40.00 08/25/22 00:09 80 28 114/65 (81) 100 Mechanical Ventilator 50.00 08/25/22 00:00 50 08/25/22 00:00 100 Mechanical Ventilator 50 08/24/22 23:56 36.6 08/24/22 23:18 36.4 28 Mechanical Ventilator 50.00 08/24/22 23:09 80 28 123/59 (80) 100 Mechanical Ventilator 50.00 08/24/22 22:30 76 99/51 08/24/22 22:25 76 28 100 50 08/24/22 22:09 78 28 99/51 (67) 100 Mechanical Ventilator 50.00 08/24/22 22:00 50 08/24/22 21:54 82 28 116/69 (85) 100 Mechanical Ventilator 50.00 08/24/22 21:35 76 99/51 08/24/22 21:22 90 113/87 08/24/22 21:09 79 28 95/56 (69) 100 Mechanical Ventilator 50.00 08/24/22 20:36 28 Mechanical Ventilator 50.00 08/24/22 20:09 91 25 113/73 (86) 100 Mechanical Ventilator 60.00 08/24/22 20:05 25 Mechanical Ventilator 60.00 08/24/22 20:00 60 08/24/22 20:00 100 Mechanical Ventilator 60 08/24/22 19:31 36.1 08/24/22 19:25 90 26 100 70 08/24/22 19:06 91 25 120/87 (98) 100 Mechanical Ventilator 70.00 08/24/22 19:00 92 08/24/22 19:00 36.4 25 Mechanical Ventilator 70.00 08/24/22 18:30 90 113/87 08/24/22 18:19 90 08/24/22 18:00 85 16 87/63 (71) 94 Mechanical Ventilator 100.00 08/24/22 17:57 85 80/54 08/24/22 17:51 Mechanical Ventilator 90.00 08/24/22 17:45 94 29 80/54 (63) 98 Mechanical Ventilator 100.00 08/24/22 17:34 86 135/80 08/24/22 17:30 90 22 138/69 (92) 91 Mechanical Ventilator 100.00 08/24/22 17:19 96 22 85 100 08/24/22 17:19 101 08/24/22 17:15 117 22 135/79 (97) 81 Mechanical Ventilator 100.00 08/24/22 17:15 Mechanical Ventilator 100 08/24/22 17:00 111 22 136/84 (101) 78 NIV Bilevel 100.00 08/24/22 16:32 36.2 110 34 130/72 100 NIV Bilevel 08/24/22 14:40 36.2 106 35 175/76 (109) 100 NIV Bilevel I & O 08/25/22 07:00 Intake Total 5155 ml Output Total 1420 ml Balance 3735 ml Height & Weight Height: '" Weight: lbs. oz. kg; 25.24 BMI Method: General Appearance: Anxious, Chronically ill, Severe Distress (Increased work of breathing and difficulty answering questions due to respiratory distress and being on BiPAP) HEENT: PERRL/EOMI, Moist Mucous Membranes Neck: Full Range of Motion, Normal Inspection, Non Tender, Supple Respiratory: Chest Non Tender, Lungs Clear, No Accessory Muscle Use, No Respiratory Distress (Appeared more comfortable on the BiPAP and was breathing easier), Decreased Breath Sounds (Improved air movement from when he first arrived) Cardiovascular: Regular Rate, Rhythm, Normal Peripheral Pulses, Tachycardia (Sinus tachycardia with heart rate 100 bpm) Capillary Refill: Greater Than 3 Seconds Peripheral Pulses: 2+ Femoral (R), 2+ Femoral (L), 2+ Dorsalis Pedis (R), 2+ Left Dors-Pedis (L), 2+ Radial Pulses (R), 2+ Radial Pulses (L) Gastrointestinal: normal bowel sounds, soft Extremity: No Calf Tenderness, Pedal Edema (trace edmea ) Neurologic/Psychiatric: Alert; No Oriented x3 (Unable to assess orientation as he was having difficulty answering questions between his respiratory distress and being placed on BiPAP) Skin: Cool, Diaphoresis, Pallor Results Lab Laboratory Tests 08/24/22 15:00 08/25/22 04:00 Assessment/Plan Assessment/Plan A/P Acute resp failure , hypoxic , hypercarbic ( AECOPD, CAP , ? CHF - in resp distress despite NIPPV - intubated on arrival to ICU without complications by ER MD ( as per discussion with ER MD in [place] - full code as per ) will lower vent rate to 14, lower sedation and if looks ready try SBT-tried but became very agitated Shock - was on IV levo, no off since 5 30am PNA suspected , CAP , RML - abx will continue await sputum cultures ( NEG flu , covid) Met acidosis LA has dropped to 1.93, ABG has improved to 7.47/26/163, will decrease vent rate to 15 CAD - s/p stenting in past -EF reported 55% 2021 Critical Care: Ventilator Management Time spent with patient (mins): 25 MICKEY ULRICH MD Aug 25, 2022 07:59
[2022-08-25] MEDS: PANTOPRAZOLE 40 MG (PROTONIX) VIAL IV SCH (08:43)
[2022-08-25] MEDS: NOREPINEPHRINE 8 MG/250 ML 250 ML IV SCH (09:00)
--- NOTE | 2022-08-25 09:55 | Anesthesia-Procedure Note ---
Procedures/Interventions Procedure Start/Stop/Diagnosis Date of Procedure: Aug 25, 2022 Start Time: 07:55 Brief History x1 attempt to right radial, unable to get patients upper extremity positioned appropriately possibly contractured, but would not extend fully. Sedation increased per nursing staff at my request, patient eyes open and coughing with RT suctioning of ETT. x1 attempt to left radial artery, ultra sound guided access and good waveform obtained. Stop Time: 08:25 Arterial Line Arterial Line Catheter: 22G Type: Radial Location: Left Procedure: 1% lidocaine used to numb region, good wave-form was obtained, patient tolerated procedure well, no immediate complications, post procedure area cleaned, post procedure dressing applied STEVEN GILLIAM CRNA Aug 25, 2022 09:55
[2022-08-25 10:00] VITALS: BP 109/49
[2022-08-25 10:12] VITALS: BP 118/51
--- NOTE | 2022-08-25 13:25 | History & Physical ---
AB QUINTANA 08/25/22 1325: History of Present Illness History of Present Illness Reason for visit/HPI Mr. Wray is a 61 y/o male with a PMHx of CAD with stents, PVD with stents, HTN, COPD, CHF, stroke with R-sided hemiparesis, and HLD who presented to the [facility] with SOA on 08/24, onset earlier that day. Patient was exhibiting signs of acute respiratory failure with hypoxia. Patient was transported via EMS to [facility], [place], operated by [facility]. Due to continued decline in respiratory status despite CPAP therapy, the patient was admitted to the ICU and intubated shortly after arrival. 08/25: The patient is intubated and sedated. Vent settings: 500/26/6 with FiO2 of 30% AB.47/25/163, HCO3 [address] in left nare, confirmed in stomach with XRAY ET in place, confirmed with CXR Urinary catheter in place, urine output closely monitored SCDs and boots in place for LE off-loading Date of Admission Aug 24, 2022 at 17:06 Date Seen by a Provider: Aug 25, 2022 Time Seen by a Provider: 08:00 I consulted on this patient on 08/25/22 13:16 Attending Physician Irene Brown Aprn Admitting Physician Admitting Physician: Cristhian Boyd MD Attending Physician: Cristhian Boyd MD Consult Allergies and Home Medications Allergies Coded Allergies: No Known Drug Allergies (Unverified , 01/04/22) Patient Home Medication List Home Medication List Reviewed: Yes Amlodipine Besylate (Amlodipine Besylate) 5 Mg Tablet, 5 MG PO DAILY Prescribed by: CRISTHIAN BOYD on 01/15/22916 Aspirin (Children's Aspirin) 81 Mg Tab.chew, 81 MG PO DAILY@0900 Prescribed by: CRISTHIAN BOYD on 01/15/22916 Atorvastatin Calcium (Atorvastatin Calcium) 20 Mg Tablet, 20 MG PO HS Prescribed by: CRISTHIAN BOYD on 01/15/22916 Clopidogrel Bisulfate (Clopidogrel) 75 Mg Tablet, 75 MG PO DAILY Prescribed by: CRISTHIAN BOYD on 01/15/22916 Ipratropium/Albuterol Sulfate (Iprat-Albut 0.5-3(2.5) mg/3 ml) 0.5 Mg-3 Mg (2.5 Mg Base)/3 Ml Ampul.neb, 3 ML IH Q6H PRN for SHORTNESS OF BREATH Prescribed by: CRISTHIAN BOYD on 01/15/22916 Lisinopril (Lisinopril) 20 Mg Tablet, 20 MG PO DAILY@0900 Prescribed by: CRISTHIAN BOYD on 01/15/22916 Metoprolol Succinate (Metoprolol Succinate) 50 Mg Tab.er.24h, 50 MG PO DAILY Prescribed by: CRISTHIAN BOYD on 01/15/22916 Pantoprazole Sodium (Pantoprazole Sodium) 40 Mg Tablet.dr, 40 MG PO DAILY Prescribed by: CRISTHIAN BOYD on 01/15/22916 Prednisone (Prednisone) 20 Mg Tab, 20 MG PO DAILY@0700 Prescribed by: CRISTHIAN BOYD on 01/15/22916 Thiamine HCl (Vitamin B-1) 100 Mg Tablet, 100 MG PO DAILY@0700 Prescribed by: CRISTHIAN BOYD on 01/15/22916 Past Pkvzwlc-Trlycm-Yuiwdw Hx Patient Social History Tobacco Use?: Yes Tobacco type used: Cigarettes Smoking Status: Current Everyday Smoker Substance use?: No Alcohol Use?: Yes Alcohol type: Beer Alcohol Frequency: Daily Pt feels they are or have been: No Immunizations Up To Date First/Initial COVID19 Vaccinat: 03/03/21 Second COVID19 Vaccination [place]: 03/03/21 Tetanus Booster (TDap): Unknown Hepatitis A: No Hepatitis B: No Current Status Advance Directives: No Communicates: Unable To Communicate Primary Language: Liberian Preferred Spoken Language: Liberian Past Medical History Surgeries: Coronary Stent, Vascular Surgery Pneumonia, COPD High Cholesterol, Hypertension Stroke Review of Systems ROS-Unable to Obtain: Unable to obtain Physical Exam Vital Signs Vital Signs - First Documented 08/24/22 08/24/22 08/24/22 14:40 17:00 17:15 Temp 36.2 Pulse 106 Resp 35 B/P (MAP) 175/76 (109) Pulse Ox 100 O2 Delivery NIV Bilevel O2 Flow Rate 100.00 FiO2 100 Capillary Refill : Greater Than 3 Seconds Height, Weight, BMI Height: '" Weight: lbs. oz. kg; 25.24 BMI Method: General Appearance: Other (intubated and sedated) Respiratory: Other (mildly coarse breath sounds bilaterally, no wheezing or crackles. Good air movement bilaterally) Cardiovascular: Regular Rate, Rhythm, Other (trace bilateral LE edema) Gastrointestinal: Normal Bowel Sounds, Soft Skin: Normal Color, Warm/Dry Assessment/Plan Assessment and Plan Problems: (1) Stroke with right hemiparesis Status: Chronic Assessment & Plan: -Resume home medications: ASA 81mg qd, atorvastatin 20mg qd -PT/OT services for rehabilitation (2) Hyperlipidemia Status: Chronic Assessment & Plan: -Resume home medication atorvastatin 20mg qd (3) Hypertension Status: Chronic Assessment & Plan: Monitor BP Consider resuming home medications amlodipine 5mg qd, lisinopril 20mg qd, metoprolol 50mg qd if BP >140/90 (4) Coronary artery disease Status: Chronic Assessment & Plan: Resume home medications: ASA 81mg qd, atorvastatin 20mg qd, and metoprolol 50mg if BP and HR will tolerate (5) Peripheral vascular disease Status: Chronic Assessment & Plan: -Stent place in R LE in the past month at [facility] per patient report. Continue home medications: Plavix 75mg qd (6) Acute respiratory failure with hypoxia Status: Acute Assessment & Plan: 08/24: Acute respiratory failure with hypoxia likely secondary to AECOPD. Patient is intubated and sedated. Appreciate plan per Critical Care. Spontaneous breathing trial this evening. Potential extubation on 08/26. -Antibiotic therapy: vancomycin 1250mg x3days with trough, Rocephin 1gm x5days, azithromycin 250mg x5days -Systemic steroids: solumedrol 40mg IV qd -Duoneb 3ml RTQ4H INH -PT/OT -Protonix 40mg IV qd for stress ulcer prophylaxis (7) Acute exacerbation of chronic obstructive pulmonary disease (COPD) Status: Acute Assessment & Plan: 08/24: Acute respiratory failure with hypoxia likely secondary to AECOPD. Patient is intubated and sedated. Appreciate plan per Critical Care. Spontaneous breathing trial this evening. Potential extubation on 08/26. -Antibiotic therapy: vancomycin 1250mg x3days with trough, Rocephin 1gm x5days, azithromycin 250mg x5days -Systemic steroids: solumedrol 40mg IV qd -Duoneb 3ml RTQ4H INH -PT/OT (8) Hypomagnesemia Status: Acute Assessment & Plan: 08/24: Mg 1.3. Replace with Magnesium sulfate 2gm. Monitor with AM Mg. Continue to replace if Mg <1.7 Admission Diagnosis Admission Status: Inpatient Order (span 2 midnights) Reason for Inpatient Admission: Acute respiratory failure with hypoxia secondary to AECOPD CRISTHIAN BOYD MD 08/25/22 1424: Allergies and Home Medications Allergies Coded Allergies: No Known Drug Allergies (Unverified , 01/04/22) Patient Home Medication List Home Medication List Reviewed: Yes Amlodipine Besylate (Amlodipine Besylate) 5 Mg Tablet, 5 MG PO DAILY Prescribed by: CRISTHIAN BOYD on 01/15/22916 Aspirin (Children's Aspirin) 81 Mg Tab.chew, 81 MG PO DAILY@0900 Prescribed by: CRISTHIAN BOYD on 01/15/22916 Atorvastatin Calcium (Atorvastatin Calcium) 20 Mg Tablet, 20 MG PO HS Prescribed by: CRISTHIAN BOYD on 01/15/22916 Clopidogrel Bisulfate (Clopidogrel) 75 Mg Tablet, 75 MG PO DAILY Prescribed by: CRISTHIAN BOYD on 01/15/22916 Ipratropium/Albuterol Sulfate (Iprat-Albut 0.5-3(2.5) mg/3 ml) 0.5 Mg-3 Mg (2.5 Mg Base)/3 Ml Ampul.neb, 3 ML IH Q6H PRN for SHORTNESS OF BREATH Prescribed by: CRISTHIAN BOYD on 01/15/22916 Lisinopril (Lisinopril) 20 Mg Tablet, 20 MG PO DAILY@0900 Prescribed by: CRISTHIAN BOYD on 01/15/22916 Metoprolol Succinate (Metoprolol Succinate) 50 Mg Tab.er.24h, 50 MG PO DAILY Prescribed by: CRISTHIAN BOYD on 01/15/22916 Pantoprazole Sodium (Pantoprazole Sodium) 40 Mg Tablet.dr, 40 MG PO DAILY Prescribed by: CRISTHIAN BOYD on 01/15/22916 Prednisone (Prednisone) 20 Mg Tab, 20 MG PO DAILY@0700 Prescribed by: CRISTHIAN BOYD on 01/15/22916 Thiamine HCl (Vitamin B-1) 100 Mg Tablet, 100 MG PO DAILY@0700 Prescribed by: CRISTHIAN BOYD on 01/15/22916 Review of Systems Constitutional: other (Intubated and Sedated) Physical Exam General Appearance: Other (intubated and sedated) Respiratory: Chest Non Tender; No Wheezing; Other (mildly coarse breath sounds bilaterally, no wheezing or crackles. Good air movement bilaterally) Cardiovascular: Regular Rate, Rhythm, No Edema, No Murmur Gastrointestinal: Normal Bowel Sounds, Soft; No Distended Extremity: No Pedal Edema Skin: Normal Color, Warm/Dry Assessment/Plan Assessment and Plan Problems: (1) Acute respiratory failure with hypoxia Status: Acute Assessment & Plan: 08/24: Acute respiratory failure with hypoxia likely secondary to AECOPD. Patient is intubated and sedated. Appreciate plan per Critical Care. Spontaneous breathing trial this evening. Potential extubation on 08/26. -Antibiotic therapy: vancomycin 1250mg x3days with trough, Rocephin 1gm x5days, azithromycin 250mg x5days -Systemic steroids: solumedrol 40mg IV qd -Duoneb 3ml RTQ4H INH -PT/OT -Protonix 40mg IV qd for stress ulcer prophylaxis (2) Acute exacerbation of chronic obstructive pulmonary disease (COPD) Status: Acute Assessment & Plan: 08/24: Acute respiratory failure with hypoxia likely secondary to AECOPD. Patient is intubated and sedated. Appreciate plan per Critical Care. Spontaneous breathing trial this evening. Potential extubation on 08/26. -Antibiotic therapy: vancomycin 1250mg x3days with trough, Rocephin 1gm x5days, azithromycin 250mg x5days -Systemic steroids: solumedrol 40mg IV qd -Duoneb 3ml RTQ4H INH -PT/OT (3) Hypertension Status: Chronic Assessment & Plan: Monitor BP Consider resuming home medications amlodipine 5mg qd, lisinopril 20mg qd, metoprolol 50mg qd if BP >140/90 (4) Coronary artery disease Status: Chronic Assessment & Plan: Resume home medications: ASA 81mg qd, atorvastatin 20mg qd, and metoprolol 50mg if BP and HR will tolerate (5) Hyperlipidemia Status: Chronic Assessment & Plan: -Resume home medication atorvastatin 20mg qd (6) Stroke with right hemiparesis Status: Chronic Assessment & Plan: -Resume home medications: ASA 81mg qd, atorvastatin 20mg qd -PT/OT services for rehabilitation (7) Peripheral vascular disease Status: Chronic Assessment & Plan: -Stent place in R LE in the past month at [facility] per patient report. Continue home medications: Plavix 75mg qd (8) Hypomagnesemia Status: Acute Assessment & Plan: 08/24: Mg 1.3. Replace with Magnesium sulfate 2gm. Monitor with AM Mg. Continue to replace if Mg <1.7 Admission Diagnosis Admission Status: Inpatient Order (span 2 midnights) Reason for Inpatient Admission: Intubated and requiring ICU care Supervisory-Addendum Brief Verification & Attestation Participated in pt care: history, physical Personally performed: exam, history Care discussed with: Medical Student Procedures: n/a Verification and Attestation of Medical Student E/M Service A medical student performed and documented this service in my presence. I reviewed and verified all information documented by the medical student and made modifications to such information, when appropriate. I personally performed the physical exam and medical decision making. Cristhian Boyd, Aug 25, 2022,14:21 61 yo M that presented with shortness of breath that was placed on bipap in [facility], patient was then transferred down and had worsening and decompensation in ambulance that lead him to be intubated upon arrival in [place]. Acute on Chronic Respiratory failure with hypoxia Septic Shock AECOPD PNA Metabolic Acidosis Lactic Acidosis CAD - Patient intubated and sedated, eICU managing, SBT today - IV antibiotics and steroids - IVFs with good UOP - Off pressers this AM, will continue to monitor - Labs improving - Continue ICU care AB QUINTANA Aug 25, 2022 13:25 CRISTHIAN BOYD MD Aug 25, 2022 14:24
[2022-08-25] MEDS: fentaNYL DRIP PRE-MIX 250 ML IV SCH (13:28)
[2022-08-25] MEDS: cefTRIAXone 1 GM PRE-MIX 50 ML IV SCH (14:50)
[2022-08-25 14:54] VITALS: BP 105/53
[2022-08-25] MEDS: AZITHROMYCIN INJECTION 250 MG in NS (IVPB) 250 ML IV SCH (15:23)
[2022-08-25 18:36] VITALS: BP 107/58
[2022-08-25 22:17] VITALS: BP 122/50
[2022-08-26] MEDS: NOREPINEPHRINE 8 MG/250 ML 250 ML IV SCH ×2 (02:12→16:30)
[2022-08-26] MEDS: VASOPRESSIN INJECTION 20 UNIT in NS (IVPB) 100 ML IV SCH ×2 (02:12→14:00)
[2022-08-26 02:30] VITALS: BP 132/56
[2022-08-26] MEDS: RT-ALBUTEROL/IPRATROPIUM 3 ML (DUONEB) VIAL INH SCH ×5 (02:30→21:52)
[2022-08-26 04:27] LABS: BASOPHILS % (AUTO) 0 % (0-10); EOSINOPHILS % (AUTO) 0 % (0-10); HEMATOCRIT 33 % (40-54); HEMOGLOBIN 10.9 g/dL (13.3-17.7); LYMPHOCYTES # (AUTO) 0.2 10^3/uL (1.0-4.0); LYMPHOCYTES % (AUTO) 2 % (12-44); MEAN CORPUSCULAR HEMOGLOBIN 33 pg (25-34); MEAN CORPUSCULAR HGB CONC 33 g/dL (32-36); MEAN CORPUSCULAR VOLUME 98 fL (80-99); MEAN PLATELET VOLUME 10.1 fL (9.0-12.2); MONOCYTES # (AUTO) 0.5 10^3/uL (0.0-1.0); MONOCYTES % (AUTO) 5 % (0-12); NEUTROPHILS # (AUTO) 9.1 10^3/uL (1.8-7.8); NEUTROPHILS % (AUTO) 92 % (42-75); PLATELET COUNT 103 10^3/uL (130-400); WHITE BLOOD COUNT 9.8 10^3/uL (4.3-11.0)
[2022-08-26 04:28] LABS: ABG BASE EXCESS -0.9 MMOL/L (-2.5-2.5); ABG OXYGEN SATURATION 97 % (94-100); ABG PCO2 41 MMHG (35-45); ABG PH 7.38 (7.37-7.43); ABG PO2 78 MMHG (79-93); ABG TCO2 24.8 MMOL/L (21.0-31.0); ALLENS TEST ART LINE
[2022-08-26 04:29] LABS: INSPIRED O2 30%; PATIENT TEMP 36.8; VENTILATOR YES
[2022-08-26 04:52] LABS: POTASSIUM 3.6 MMOL/L (3.6-5.0)
[2022-08-26] MEDS: methylPREDNISolone 40 MG/ML (Solu-MEDROL) VIAL IV SCH ×3 (04:52→21:40)
[2022-08-26] MEDS: VANCOMYCIN 1250 MG/NS 250 ML IVPB IV SCH ×2 (04:52)
[2022-08-26] MEDS: PROPOFOL DRIP (ICU) 100 ML IV SCH ×2 (04:52→09:51)
[2022-08-26] MEDS: fentaNYL DRIP PRE-MIX 250 ML IV SCH (04:52)
[2022-08-26 04:53] LABS: CALCIUM 7.5 MG/DL (8.5-10.1)
[2022-08-26 04:54] LABS: TOTAL PROTEIN 5.3 GM/DL (6.4-8.2)
[2022-08-26 04:56] LABS: BILIRUBIN,TOTAL 0.3 MG/DL (0.1-1.0)
[2022-08-26 04:58] LABS: CREATININE SERUM 0.6 MG/DL (0.60-1.30); PHOSPHORUS 2.4 MG/DL (2.3-4.7)
[2022-08-26 05:01] LABS: MAGNESIUM 2.2 MG/DL (1.6-2.4)
[2022-08-26] MEDS: KCL 20 MEQ TAB (K-DUR) PO SCH (05:05)
[2022-08-26] MEDS: MAGNESIUM 1 GM/100 ML IVPB 100 ML IV SCH (05:05)
[2022-08-26] MEDS: POTASSIUM CL 10MEQ/50ML IVPB 50 ML IV SCH ×2 (05:06→05:33)
[2022-08-26 07:06] VITALS: BP 125/50
[2022-08-26] MEDS: PANTOPRAZOLE 40 MG (PROTONIX) VIAL IV SCH ×2 (08:04→21:40)
[2022-08-26] MEDS ORDERED: FOLIC ACID INJECTION 1 MG in NS (IVPB) 50 ML IV SCH (09:30)
[2022-08-26] MEDS ORDERED: FOLIC ACID INJECTION 1 MG in NS (IVPB) 50 ML IV ONE (10:00)
[2022-08-26] MEDS ORDERED: THIAMINE 100 MG/ML 2 ML (VITAMIN B-1) VIAL IV ONE (10:00)
--- NOTE | 2022-08-26 10:12 | Tele-ICU Progress Note ---
Subjective Date Seen by a Provider: Aug 26, 2022 Time Seen by a Provider: 10:11 Subjective/Events-last exam (Tele-ICU Physician , Progress Note ) Service provided via interactive audio and video telecommunications E-CARE system to a patient admitted to ICU bed in [facility]. Patient is seen today due to persistent need of ICU care Available chart/ vitals / labs / Images reviewed Video assessment done using teleICU camera, rest of exam as per RN Discussed with RN Events overnight : Afebrile hemodynamically stable Respiratory - I/O = even Drips: NS 100 Pressors- no VENT SETTINGS and ABG reviewed NOT CANDIDATE for SBTreviewed possible contraindications including Cardiova scular Stability /Sedation Score / FI02/PEEP / ABG / CXR/ secretions Sedation, discussed with RN, RASS on fent propof Consultants: Hospital course: (08/24) 61y/o M admitted with sepsis pneumonia vs COPD. Respiratory failure. Intubated on arrival to ICU. 08/25 - very agitated off sedation 08/26- OFF pressors ,AC 14, Vt 550, FiO2 30% +6 A/P Acute resp failure , hypoxic , hypercarbic ( AECOPD, CAP , ? CHF - in resp distress despite NIPPV - intubated on arrival to ICU -intubated 08/24 - AC 14, Vt 550, FiO2 30% +6 -SAT 08/25 - very agitated , not attempted SBT WILL TRY TODAY SAT AND POOSIBLY SBT Shock - off all pressors today PNA suspected , CAP , RML - abx initiated , to cont ( NEG flu , covid) CAD - s/p stenting in past -EF reported 55% 2021 thrombocytopenia - asummed delutional - monitor for now , was not on any heparins sine admisssion Anemia - mimimal blood on NG - will cont PPI bid Nutrition - start TF if not extubated H/o ETOHuse / ? abuse - as per family report - starting on thiamine , folate S/p CVA Lines : R IJ 08/24 , (Central Line Necessity Reviewed) Collins: + OG: Nutrition: Analgesia: Anxiety/ delirium VTE Prophylaxis: SCD Stress Ulcer Prophylaxis: PPI bid Plans in collaboration with bedside consultants and IM MDs. Discussed with RN to reach out if any questions or concerns A total of33 minutes of critical care time was devoted to this patient today, required to treat and/or prevent further deterioration of critical care condition ( as above ) . I am remotely monitoring this patient from another state. I am unable to do the bedside exam, and history/physical and pertinent information is taken from other notes in the computer and bedside staff. . Sepsis Event Evaluation Height, Weight, BMI Height: '" Weight: lbs. oz. kg; 25.68 BMI Method: Focused Exam Lactate Level 08/24/22 17:52: Lactic Acid Level 4.37*H 08/24/22 19:40: Lactic Acid Level 3.19*H 08/24/22 22:10: Lactic Acid Level 1.93 Time of Focused Exam: 16:06 Exam Exam Patient acknowledged, consented, and participated in this virtual visit which was conducted using real time audio/video Vital Signs Date Time Temp Pulse Resp B/P (MAP) Pulse Ox O2 Delivery O2 Flow Rate FiO2 08/26/22 09:51 79 133/53 08/26/22 08:00 81 14 100 Mechanical Ventilator 30.00 08/26/22 08:00 36.7 08/26/22 07:06 77 14 100 30 08/26/22 07:00 80 13 100 Mechanical Ventilator 30.00 08/26/22 07:00 75 08/26/22 06:00 81 13 99 Mechanical Ventilator 30.00 08/26/22 05:00 90 13 98 Mechanical Ventilator 30.00 08/26/22 04:52 81 132/56 08/26/22 04:52 81 132/56 08/26/22 04:09 99 Mechanical Ventilator 30 08/26/22 04:08 36.8 Mechanical Ventilator 30.00 08/26/22 04:00 81 14 98 Mechanical Ventilator 30.00 08/26/22 04:00 30 08/26/22 03:58 81 132/56 08/26/22 03:00 81 16 99 Mechanical Ventilator 30.00 08/26/22 02:30 87 14 99 30 08/26/22 02:00 82 14 99 Mechanical Ventilator 30.00 08/26/22 01:00 86 14 98 Mechanical Ventilator 30.00 08/26/22 01:00 81 08/26/22 00:00 30 08/26/22 00:00 87 13 99 Mechanical Ventilator 30.00 08/26/22 00:00 99 Mechanical Ventilator 30 08/25/22 23:58 37.0 Mechanical Ventilator 30.00 08/25/22 23:54 89 122/50 08/25/22 23:00 90 14 98 Mechanical Ventilator 30.00 08/25/22 23:00 89 122/50 08/25/22 22:17 89 14 98 30 08/25/22 22:00 90 14 97 Mechanical Ventilator 30.00 08/25/22 21:00 96 29 94 Mechanical Ventilator 30.00 08/25/22 20:00 85 14 97 Mechanical Ventilator 30.00 08/25/22 19:56 97 Mechanical Ventilator 30 08/25/22 19:53 14 Mechanical Ventilator 30.00 08/25/22 19:50 30 08/25/22 19:03 36.9 08/25/22 19:00 85 08/25/22 19:00 84 13 97 Mechanical Ventilator 30.00 08/25/22 19:00 82 118/52 08/25/22 18:36 84 14 97 30 08/25/22 18:00 88 20 97 Mechanical Ventilator 30.00 08/25/22 17:30 85 109/50 08/25/22 17:30 85 109/50 08/25/22 17:20 Mechanical Ventilator 30.00 08/25/22 17:00 87 18 98 Mechanical Ventilator 30.00 08/25/22 16:00 97 Mechanical Ventilator 30 08/25/22 16:00 94 42 96 Mechanical Ventilator 30.00 08/25/22 16:00 30 08/25/22 15:42 36.9 08/25/22 15:00 94 14 95 Mechanical Ventilator 30.00 08/25/22 14:54 93 15 95 30 08/25/22 14:00 78 13 98 Mechanical Ventilator 30.00 08/25/22 13:28 81 117/66 08/25/22 13:28 81 117/66 08/25/22 13:14 79 08/25/22 13:05 80 118/66 08/25/22 13:00 79 13 96 Mechanical Ventilator 30.00 08/25/22 12:14 83 89/46 08/25/22 12:00 85 13 80/47 (58) 96 Mechanical Ventilator 30.00 08/25/22 12:00 98 Mechanical Ventilator 30 08/25/22 12:00 30 08/25/22 11:56 36.8 08/25/22 11:00 93 12 111/64 (80) 99 Mechanical Ventilator 30.00 08/25/22 10:12 75 14 99 30 I & O 08/26/22 07:00 Intake Total 3115.0 ml Output Total 3450 ml Balance -335.0 ml Height & Weight Height: '" Weight: lbs. oz. kg; 25.68 BMI Method: General Appearance: Anxious, Chronically ill, Severe Distress (Increased work of breathing and difficulty answering questions due to respiratory distress and being on BiPAP) HEENT: PERRL/EOMI, Moist Mucous Membranes Neck: Full Range of Motion, Normal Inspection, Non Tender, Supple Respiratory: Chest Non Tender, Lungs Clear, No Accessory Muscle Use, No Respiratory Distress (Appeared more comfortable on the BiPAP and was breathing easier), Decreased Breath Sounds (Improved air movement from when he first arrived) Cardiovascular: Regular Rate, Rhythm, Normal Peripheral Pulses, Tachycardia (Sinus tachycardia with heart rate 100 bpm) Capillary Refill: Greater Than 3 Seconds Peripheral Pulses: 2+ Femoral (R), 2+ Femoral (L), 2+ Dorsalis Pedis (R), 2+ Le ft Dors-Pedis (L), 2+ Radial Pulses (R), 2+ Radial Pulses (L) Gastrointestinal: normal bowel sounds, soft Extremity: No Calf Tenderness, Pedal Edema (trace edmea ) Neurologic/Psychiatric: Alert; No Oriented x3 (Unable to assess orientation as he was having difficulty answering questions between his respiratory distress and being placed on BiPAP) Skin: Cool, Diaphoresis, Pallor Results Lab Laboratory Tests 08/24/22 15:00 08/25/22 04:00 08/26/22 04:15 Assessment/Plan Assessment/Plan 1 ELIZABETH PETERSON MD Aug 26, 2022 10:12
[2022-08-26 10:42] VITALS: BP 135/54
[2022-08-26] MEDS: LORazepam 1 MG (ATIVAN) TAB PO PRN ×2 (11:34→23:45)
[2022-08-26 11:39] LABS: ABG BASE EXCESS -1.3 MMOL/L (-2.5-2.5); ABG OXYGEN SATURATION 97 % (94-100); ABG PCO2 43 MMHG (35-45); ABG PH 7.36 (7.37-7.43); ABG PO2 86 MMHG (79-93); ABG TCO2 24.4 MMOL/L (21.0-31.0)
[2022-08-26 11:46] LABS: ALLENS TEST ART LINE; INSPIRED O2 30%; PATIENT TEMP 37.9; VENTILATOR YES
[2022-08-26] MEDS ORDERED: THIAMINE 100 MG/ML 2 ML (VITAMIN B-1) VIAL IV NR (12:30)
[2022-08-26] MEDS: meTOprolol 5 MG/5 ML (LOPRESSOR) VIAL IV SCH ×3 (12:46→23:15)
[2022-08-26] MEDS ORDERED: PANT40TA52 PO (12:57)
[2022-08-26] MEDS ORDERED: METO50TA7 PO (12:57)
[2022-08-26] MEDS ORDERED: ATOR20TA66 PO (12:57)
[2022-08-26] MEDS ORDERED: NAPR220C11 PO (12:57)
[2022-08-26] MEDS ORDERED: CLOP75TA28 PO (12:57)
[2022-08-26] MEDS ORDERED: SERT-413 PO (12:57)
[2022-08-26] MEDS ORDERED: IPRA3AMP31 IH (12:57)
[2022-08-26] MEDS ORDERED: ASPI-1238 PO (12:57)
--- NOTE | 2022-08-26 13:44 | Progress Note ---
AB QUINTANA 08/26/22 1344: Subjective Date Seen by a Provider: Aug 26, 2022 Time Seen by a Provider: 09:50 Subjective/Events-last exam Mr. Wray is a 61 y/o male with a PMHx of CAD with stents, PVD with stents, HTN, COPD, CHF, stroke with R-sided hemiparesis, and HLD who presented to the [place] ED with SOA on 08/24, onset earlier that day. Patient was exhibiting signs of acute respiratory failure with hypoxia. Patient was transported via EMS to [facility], [place]. Due to continued decline in respiratory status despite CPAP therapy, the patient was admitted to the ICU and intubated shortly after arrival. 08/25: The patient is intubated and sedated. Vent settings: 500/26/6 with FiO2 of 30% AB.47/25/163, HCO3 [address] in left nare, confirmed in stomach with XRAY ET in place, confirmed with CXR Urinary catheter in place, urine output closely monitored SCDs and boots in place for LE off-loading 08/26: The patient is intubated and sedated. The patient is agitated during physical exam. Left-sided UE tremor is noted. The patient's family reports that this tremor has been present for 2 years. The patient was too agitated to attempt SBT yesterday. Continue to appreciate plan per Critical Care. Vent settings: 550/14/6.0, 30% AB.38/41/78, HCO3 24 SBT today if patient tolerates Review of Systems Unable to obtain Focused Exam Lactate Level 08/24/22 17:52: Lactic Acid Level 4.37*H 08/24/22 19:40: Lactic Acid Level 3.19*H 08/24/22 22:10: Lactic Acid Level 1.93 Time of Focused Exam: 16:06 Objective Exam Last Set of Vital Signs Vital Signs Date Time Temp Pulse Resp B/P (MAP) Pulse Ox O2 Delivery O2 Flow Rate FiO2 08/26/22 12:43 122 08/26/22 12:00 21 93 Nasal Cannula 5.00 08/26/22 10:42 30 08/26/22 08:00 36.7 Capillary Refill : Greater Than 3 Seconds I&O Intake and Output 08/26/22 00:00 Intake Total 4165.0 ml Output Total 3525 ml Balance 640.0 ml Intake Oral 0 ml IV Total 4075.0 ml Other 90 ml Output Urine Total 3175 ml Gastric Drainage Total 350 ml General: Other (intubated and sedated. Easily agitated during physical exam) Lungs: Clear to Auscultation, Normal Air Movement Heart: Regular Rate Abdomen: Normal Bowel Sounds, Soft Extremities: Other (trace edema of bilateral LE, redness of bilateral LE) Results Lab Laboratory Tests 08/25/22 16:30: 08/25/22 17:43: Glucometer 184H 08/25/22 23:53: Glucometer 162H 08/26/22 04:15: White Blood Count 9.8, Red Blood Count 3.32L, Hemoglobin 10.9L, Hematocrit 33L, Mean Corpuscular Volume 98, Mean Corpuscular Hemoglobin 33, Mean Corpuscular Hemoglobin Concent 33, Red Cell Distribution Width 13.1, Platelet Count 103L, Mean Platelet Volume 10.1, Immature Granulocyte % (Auto) 1, Neutrophils (%) (Auto) 92H, Lymphocytes (%) (Auto) 2L, Monocytes (%) (Auto) 5, Eosinophils (%) (Auto) 0, Basophils (%) (Auto) 0, Neutrophils # (Auto) 9.1H, Lymphocytes # (Auto) 0.2L, Monocytes # (Auto) 0.5, Eosinophils # (Auto) 0.0, Basophils # (Auto) 0.0, Immature Granulocyte # (Auto) 0.1, Blood Gas Puncture Site VERA, Blood Gas Patient Temperature 36.8, Arterial Blood pH 7.38, Arterial Blood Parti al Pressure CO2 41, Arterial Blood Partial Pressure O2 78L, Arterial Blood HCO3 24, Arterial Blood Total CO2 24.8, Arterial Blood Oxygen Saturation 97, Arterial Blood Base Excess -0.9, Jm Test ART LINE, Blood Gas Ventilator Setting YES, Blood Gas Inspired Oxygen 30%, Sodium Level 141, Potassium Level 3.6, Chloride Level 111H, Carbon Dioxide Level 21, Anion Gap 9, Blood Urea Nitrogen 6L, Creatinine 0.60, Estimat Glomerular Filtration Rate 110, BUN/Creatinine Ratio 10, Glucose Level 167H, Calcium Level 7.5L, Corrected Calcium 8.3L, Phosphorus Level 2.4, Magnesium Level 2.2, Total Bilirubin 0.3, Aspartate Amino Transf (AST/SGOT) 38H, Alanine Aminotransferase (ALT/SGPT) 42, Alkaline Phosphatase 58, Total Protein 5.3L, Albumin 3.0L, Triglycerides Level 49 08/26/22 11:25: Blood Gas Puncture Site ART, Blood Gas Patient Temperature 37.9, Arterial Blood pH 7.36L, Arterial Blood Partial Pressure CO2 43, Arterial Blood Partial Pressure O2 86, Arterial Blood HCO3 23, Arterial Blood Total CO2 24.4, Arterial Blood Oxygen Saturation 97, Arterial Blood Base Excess -1.3, Jm Test ART LINE, Blood Gas Ventilator Setting YES, Blood Gas Inspired Oxygen 30% 08/26/22 11:49: Glucometer 121H Microbiology 08/24/22 MRSA Screen - Final, Complete MRSA not isolated 08/24/22 Blood Culture - Preliminary, Resulted No growth Assessment/Plan Assessment/Plan Assess & Plan/Chief Complaint Acute respiratory failure with hypoxia likely secondary to AECOPD Diagnosis/Problems Diagnosis/Problems (1) Stroke with right hemiparesis Status: Chronic Assessment & Plan: -Resume home medications: ASA 81mg qd, atorvastatin 20mg qd -PT/OT services for rehabilitation (2) Hyperlipidemia Status: Chronic Assessment & Plan: -Resume home medication atorvastatin 20mg qd (3) Hypertension Status: Chronic Assessment & Plan: Monitor BP Consider resuming home medications amlodipine 5mg qd, lisinopril 20mg qd, metoprolol 50mg qd if BP >140/90 (4) Coronary artery disease Status: Chronic Assessment & Plan: Resume home medications: ASA 81mg qd, atorvastatin 20mg qd, and metoprolol 50mg if BP and HR will tolerate (5) Peripheral vascular disease Status: Chronic Assessment & Plan: -Stent place in R LE in the past month at [facility] per patient report. Continue home medications: Plavix 75mg qd (6) Acute respiratory failure with hypoxia Status: Acute Assessment & Plan: 08/25: Acute respiratory failure with hypoxia likely secondary to AECOPD. Patient is intubated and sedated. Appreciate plan per Critical Care. Spontaneous breathing trial this evening. Potential extubation on 08/26. -Antibiotic therapy: vancomycin 1250mg x3days with trough, Rocephin 1gm x5days, azithromycin 250mg x5days -Systemic steroids: solumedrol 40mg IV qd -Duoneb 3ml RTQ4H INH -PT/OT -Protonix 40mg IV qd for stress ulcer prophylaxis 1/19: -Continue medication management and appreciate plan per Critical Care -Ativan 1-2mg PO Q3H PRN for anxiety management to help decrease agitation -MRSA not isolated, consider discontinuing vancomycin (7) Acute exacerbation of chronic obstructive pulmonary disease (COPD) Status: Acute Assessment & Plan: 08/25: Acute respiratory failure with hypoxia likely secondary to AECOPD. Patient is intubated and sedated. Appreciate plan per Critical Care. Spontaneous breathing trial this evening. Potential extubation on 08/26. -Antibiotic therapy: vancomycin 1250mg x3days with trough, Rocephin 1gm x5days, azithromycin 250mg x5days -Systemic steroids: solumedrol 40mg IV qd -Duoneb 3ml RTQ4H INH -PT/OT (8) Hypomagnesemia Status: Acute Assessment & Plan: 08/25: Mg 1.3. Replace with Magnesium sulfate 2gm. Monitor with AM Mg. Continue to replace if Mg <1.7 CRISTHIAN LEBLANC MD 08/26/22 1520: Objective Exam General: Other (Intubated, opens eyes and follows commands) Lungs: Clear to Auscultation, Normal Air Movement Heart: Regular Rate, No Murmurs Abdomen: Normal Bowel Sounds, Soft Extremities: Other (trace edema of bilateral LE, redness of bilateral LE) Supervisory-Addendum Brief Verification & Attestation Participated in pt care: history, physical Personally performed: exam, history Care discussed with: Medical Student Procedures: n/a Verification and Attestation of Medical Student E/M Service A medical student performed and documented this service in my presence. I reviewed and verified all information documented by the medical student and made modifications to such information, when appropriate. I personally performed the physical exam and medical decision making. Cristhian Leblanc, Aug 26, 2022,15:19 Acute on Chronic Respiratory failure with hypoxia Septic Shock AECOPD PNA Metabolic Acidosis Lactic Acidosis CAD - Patient intubated and sedated, eICU managing, SBT today - IV antibiotics and steroids - IVFs with good UOP - Off pressers this AM, will continue to monitor - Labs improving - Continue ICU care 08/26: - SBT today, possible extubation - Continue IV antibiotics and steroids - Acidosis improving AB QIUNTANA Aug 26, 2022 13:44 CRISTHIAN LEBLANC MD Aug 26, 2022 15:20
[2022-08-26] MEDS ORDERED: NS IV 1000 ML 1,000 ML ONE (14:52)
[2022-08-26] MEDS: NS IV 1000 ML 1,000 ML IV SCH (15:01)
[2022-08-26] MEDS: AZITHROMYCIN INJECTION 250 MG in NS (IVPB) 250 ML IV SCH (15:01)
[2022-08-26] MEDS: cefTRIAXone 1 GM PRE-MIX 50 ML IV SCH (15:01)
[2022-08-26] MEDS ORDERED: RT-ALBUTEROL/IPRATROPIUM 3 ML (DUONEB) VIAL INH PRN (18:30)
[2022-08-26] MEDS: LABETALOL HCL 20 MG/4 ML VIAL IV PRN ×2 (22:14→23:55)
[2022-08-26] MEDS ORDERED: FUROSEMIDE 40 MG/4 ML INJ (LASIX) ONE (23:14)
[2022-08-26] MEDS ORDERED: FUROSEMIDE 40 MG/4 ML INJ (LASIX) IVP ONE (23:15)
--- NOTE | 2022-08-27 00:25 | Tele-ICU Progress Note ---
Subjective Date Seen by a Provider: Aug 27, 2022 Subjective/Events-last exam Called by RN re worsening B crackles, severe hypoxemia. BNP 8934. Normal BUN/CR. PCXR, lasix 40 mg IV ordered. CXR reviewed and pt has new very extensive R infiltrate c/t 08/24/2022. Being treated for CAP. Will add Zosyn to cover HCAP. Results shared w bedside and e ICU RNs. May need reintubation. Sepsis Event Evaluation Height, Weight, BMI Height: '" Weight: lbs. oz. kg; 25.68 BMI Method: Focused Exam Lactate Level 08/24/22 17:52: Lactic Acid Level 4.37*H 08/24/22 19:40: Lactic Acid Level 3.19*H 08/24/22 22:10: Lactic Acid Level 1.93 Time of Focused Exam: 16:06 Exam Exam Patient acknowledged, consented, and participated in this virtual visit which was conducted using real time audio/video Vital Signs Date Time Temp Pulse Resp B/P (MAP) Pulse Ox O2 Delivery O2 Flow Rate FiO2 08/27/22 00:10 95 Vapotherm 40.00 100 08/27/22 00:01 92 Vapotherm 40.00 100.00 08/26/22 23:39 90 Vapotherm 30.00 100.00 08/26/22 23:19 36.8 Vapotherm 30.00 80.00 08/26/22 23:00 101 21 139/79 (99) 99 Vapotherm 30.00 181/75 (110) 100.00 08/26/22 22:40 93 Vapotherm 30.00 100 08/26/22 22:31 93 Vapotherm 30.00 100.00 08/26/22 22:15 88 High Flow N/C 10.00 08/26/22 22:00 90 High Flow N/C 8.00 08/26/22 22:00 112 19 151/74 (99) 97 High Flow N/C 8.00 168/76 (106) 08/26/22 21:52 93 Nasal Cannula 5.00 08/26/22 21:00 105 16 161/106 (124) 95 High Flow N/C 5.00 146/64 (91) 08/26/22 20:05 94 High Flow N/C 5.00 08/26/22 20:00 36.6 109 17 122/70 (87) 95 08/26/22 19:48 High Flow N/C 5.00 08/26/22 19:00 112 29 131/69 (89) 93 Nasal Cannula 5.00 08/26/22 19:00 36.6 08/26/22 19:00 114 08/26/22 19:00 112 29 131/69 (89) 93 Nasal Cannula 5.00 08/26/22 18:06 36.9 114 96 08/26/22 18:00 104 20 132/113 (119) 93 Nasal Cannula 5.00 08/26/22 17:20 Nasal Cannula 5.00 08/26/22 17:00 108 14 151/81 (104) 97 Nasal Cannula 5.00 08/26/22 16:30 112 138/82 08/26/22 16:00 96 Nasal Cannula 5.00 08/26/22 16:00 36.9 115 20 138/82 (100) 97 Nasal Cannula 5.00 08/26/22 16:00 36.9 114 18 133/73 (93) 96 08/26/22 15:00 113 29 129/77 (94) 96 Nasal Cannula 5.00 08/26/22 14:00 114 16 120/70 (87) 99 Nasal Cannula 5.00 08/26/22 13:55 105 139/63 08/26/22 13:00 115 15 97 Nasal Cannula 5.00 08/26/22 12:43 122 08/26/22 12:00 75 21 93 Nasal Cannula 5.00 08/26/22 12:00 94 Nasal Cannula 5.00 08/26/22 11:00 68 21 97 Mechanical Ventilator 30.00 08/26/22 10:42 115 12 95 30 08/26/22 10:00 78 14 100 Mechanical Ventilator 30.00 08/26/22 09:51 79 133/53 08/26/22 09:00 80 14 100 Mechanical Ventilator 30.00 08/26/22 08:55 83 114/48 08/26/22 08:55 83 114/48 08/26/22 08:00 81 14 100 Mechanical Ventilator 30.00 08/26/22 08:00 93 Mechanical Ventilator 30 08/26/22 08:00 30 08/26/22 08:00 36.7 08/26/22 07:06 77 14 100 30 08/26/22 07:00 80 13 100 Mechanical Ventilator 30.00 08/26/22 07:00 75 08/26/22 06:00 81 13 99 Mechanical Ventilator 30.00 08/26/22 05:00 90 13 98 Mechanical Ventilator 30.00 08/26/22 04:52 81 132/56 08/26/22 04:52 81 132/56 08/26/22 04:09 99 Mechanical Ventilator 30 08/26/22 04:08 36.8 Mechanical Ventilator 30.00 08/26/22 04:00 81 14 98 Mechanical Ventilator 30.00 08/26/22 04:00 30 08/26/22 03:58 81 132/56 08/26/22 03:00 81 16 99 Mechanical Ventilator 30.00 08/26/22 02:30 87 14 99 30 08/26/22 02:00 82 14 99 Mechanical Ventilator 30.00 08/26/22 01:00 86 14 98 Mechanical Ventilator 30.00 08/26/22 01:00 81 I & O 08/27/22 07:00 Intake Total 2497.7 ml Output Total 550 ml Balance 1947.7 ml Height & Weight Height: '" Weight: lbs. oz. kg; 25.68 BMI Method: General Appearance: Anxious, Chronically ill, Severe Distress (Increased work of breathing and difficulty answering questions due to respiratory distress and being on BiPAP) HEENT: PERRL/EOMI, Moist Mucous Membranes Neck: Full Range of Motion, Normal Inspection, Non Tender, Supple Respiratory: Chest Non Tender, Lungs Clear, No Accessory Muscle Use, No Respiratory Distress (Appeared more comfortable on the BiPAP and was breathing easier), Decreased Breath Sounds (Improved air movement from when he first arrived) Cardiovascular: Regular Rate, Rhythm, Normal Peripheral Pulses, Tachycardia (Sinus tachycardia with heart rate 100 bpm) Capillary Refill: Greater Than 3 Seconds Peripheral Pulses: 2+ Femoral (R), 2+ Femoral (L), 2+ Dorsalis Pedis (R), 2+ Left Dors-Pedis (L), 2+ Radial Pulses (R), 2+ Radial Pulses (L) Gastrointestinal: normal bowel sounds, soft Extremity: No Calf Tenderness, Pedal Edema (trace edmea ) Neurologic/Psychiatric: Alert; No Oriented x3 (Unable to assess orientation as he was having difficulty answering questions between his respiratory distress and being placed on BiPAP) Skin: Cool, Diaphoresis, Pallor Results Lab Laboratory Tests 08/25/22 04:00 08/26/22 04:15 Assessment/Plan Assessment/Plan Total time 20 minutes. Critical Care: Critically Ill Patient RIKY PARIS MD Aug 27, 2022 00:25
[2022-08-27] MEDS ORDERED: NS (IVPB) 100 ML ONE (00:50)
[2022-08-27] MEDS ORDERED: PIPERACILLIN/TAZO 4.5 GM VIAL (ZOSYN) IV ONE (00:50)
[2022-08-27] MEDS: VASOPRESSIN INJECTION 20 UNIT in NS (IVPB) 100 ML IV SCH ×3 (01:08→19:44)
[2022-08-27] MEDS: PIPERACILLIN SODIUM/TAZOBACTAM 4.5 GM in NS (IVPB) 100 ML IV SCH ×3 (01:08→17:13)
[2022-08-27] MEDS: RT-ALBUTEROL/IPRATROPIUM 3 ML (DUONEB) VIAL INH SCH ×4 (02:21→21:44)
[2022-08-27] MEDS: LABETALOL HCL 20 MG/4 ML VIAL IV PRN (02:54)
[2022-08-27 04:43] LABS: ABG BASE EXCESS 2.3 MMOL/L (-2.5-2.5); ABG OXYGEN SATURATION 96 % (94-100); ABG PCO2 42 MMHG (35-45); ABG PH 7.41 (7.37-7.43); ABG PO2 68 MMHG (79-93); ABG TCO2 27.9 MMOL/L (21.0-31.0); ALLENS TEST YES; BASOPHILS % (AUTO) 0 % (0-10); EOSINOPHILS % (AUTO) 0 % (0-10); MEAN CORPUSCULAR VOLUME 99 fL (80-99)
[2022-08-27 04:44] LABS: INSPIRED O2 50%; PATIENT TEMP 36.8; VENTILATOR NO
[2022-08-27 04:45] LABS: HEMATOCRIT 36 % (40-54); LYMPHOCYTES # (AUTO) 0.5 10^3/uL (1.0-4.0); LYMPHOCYTES % (AUTO) 4 % (12-44); MEAN CORPUSCULAR HEMOGLOBIN 33 pg (25-34); MEAN CORPUSCULAR HGB CONC 33 g/dL (32-36); MEAN PLATELET VOLUME 10.2 fL (9.0-12.2); MONOCYTES # (AUTO) 0.6 10^3/uL (0.0-1.0); MONOCYTES % (AUTO) 5 % (0-12); NEUTROPHILS # (AUTO) 10.8 10^3/uL (1.8-7.8); NEUTROPHILS % (AUTO) 90 % (42-75); PLATELET COUNT 102 10^3/uL (130-400)
[2022-08-27 05:02] LABS: BILIRUBIN,TOTAL 0.6 MG/DL (0.1-1.0); CALCIUM 7.7 MG/DL (8.5-10.1); CREATININE SERUM 0.66 MG/DL (0.60-1.30); MAGNESIUM 2.1 MG/DL (1.6-2.4); POTASSIUM 3.3 MMOL/L (3.6-5.0); TOTAL PROTEIN 5.5 GM/DL (6.4-8.2)
[2022-08-27] MEDS: POTASSIUM CL 10MEQ/50ML IVPB 50 ML IV SCH ×4 (05:04→06:55)
[2022-08-27] MEDS: MAGNESIUM 1 GM/100 ML IVPB 100 ML IV SCH (05:05)
[2022-08-27] MEDS: KCL 20 MEQ TAB (K-DUR) PO SCH (05:05)
[2022-08-27] MEDS: meTOprolol 5 MG/5 ML (LOPRESSOR) VIAL IV SCH ×3 (05:12→17:57)
[2022-08-27] MEDS: methylPREDNISolone 40 MG/ML (Solu-MEDROL) VIAL IV SCH ×3 (05:12→21:06)
[2022-08-27] MEDS: THIAMINE 100 MG (VITAMIN B-1) TAB PO SCH (05:13)
--- NOTE | 2022-08-27 08:21 | Diagnostic Imaging Report ---
Indication: Hypoxemia Portable chest 1125P.M. There is diffuse interstitial infiltrate in the right lung with some areas of alveolar consolidation. This is new compared to exam from 08/24/2022. ET tube has been removed. NG tube and central line remain in place. IMPRESSION: Worsening infiltrate right mid and lower lung. Dictated by: Dictated on workstation # [id number]
[2022-08-27] MEDS: NOREPINEPHRINE 8 MG/250 ML 250 ML IV SCH ×2 (08:31→19:44)
[2022-08-27] MEDS: FOLIC ACID 1 MG TAB PO SCH (08:39)
[2022-08-27] MEDS: PANTOPRAZOLE 40 MG (PROTONIX) VIAL IV SCH ×2 (08:39→21:06)
--- NOTE | 2022-08-27 09:52 | Tele-ICU Progress Note ---
Subjective Date Seen by a Provider: Aug 27, 2022 Time Seen by a Provider: 09:52 Subjective/Events-last exam (Tele-ICU Physician , Progress Note ) Service provided via interactive audio and video telecommunications E-CARE system to a patient admitted to ICU bed in [facility]. Patient is seen today due to persistent need of ICU care Available chart/ vitals / labs / Images reviewed Video assessment done using teleICU camera, rest of exam as per RN Discussed with RN Events overnight : Afebrile hemodynamically stable Respiratory - I/O = even Drips: NS 100 Pressors- no Consultants: Hospital course: (08/24) 61y/o M admitted with sepsis pneumonia vs COPD. Respiratory failure. Intubated on arrival to ICU. 08/25 - very agitated off sedation 08/26- OFF pressors ,AC 14, Vt 550, FiO2 30% +6 ( 08/26) EXTUBATED, few hours latter went into pulm edema -> diuresis 2l , on VT 30L 60% A/P Acute resp failure , hypoxic , hypercarbic ( AECOPD, CAP , ? CHF - in resp distress despite NIPPV - intubated on arrival to ICU -intubated 08/24 - 08/26) EXTUBATED, few hours latter went into pulm edema -> diuresis 2l , on VT 30L 60% - will recheck cxr , ECHO , cont abg CHF, suspected with acue hypoxia 08/27 - diuresis 2l - ECHO pending PNA suspected , CAP , RML - abx initiated , changed to zosyn 08/27 with worsenign RIGHT side 08/27 ( NEG flu , covid) CAD - s/p stenting in past -EF reported 55% 2021 thrombocytopenia - asummed delutional - monitor for now , was not on any heparins sine admisssion - stable , will start lovenox 08/27 Anemia - mimimal blood on NG - will cont PPI bid Nutrition - po H/o ETOHuse / ? abuse - as per family report " not recently" - starting on thiamine , folate S/p CVA - will re-assess with spech tx given R PNA Shock - off all pressors - RESOLVED Lines : R IJ 08/24 , (Central Line Necessity Reviewed) Collins: + OG: Nutrition: po Analgesia: Anxiety/ delirium VTE Prophylaxis: SCD , francis 08/27 Stress Ulcer Prophylaxis: PPI bid Plans in collaboration with bedside consultants and IM MDs. Discussed with RN to reach out if any questions or concerns A total of33 minutes of critical care time was devoted to this patient today, required to treat and/or prevent further deterioration of critical care condition ( as above ) . I am remotely monitoring this patient from another state. I am unable to do the bedside exam, and history/physical and pertinent information is taken from other notes in the computer and bedside staff. . Sepsis Event Evaluation Height, Weight, BMI Height: '" Weight: lbs. oz. kg; 24.10 BMI Method: Focused Exam Lactate Level 08/24/22 17:52: Lactic Acid Level 4.37*H 08/24/22 19:40: Lactic Acid Level 3.19*H 08/24/22 22:10: Lactic Acid Level 1.93 Time of Focused Exam: 16:06 Exam Exam Patient acknowledged, consented, and participated in this virtual visit which was conducted using real time audio/video Vital Signs Date Time Temp Pulse Resp B/P (MAP) Pulse Ox O2 Delivery O2 Flow Rate FiO2 08/27/22 08:10 95 Vapotherm 30.00 50 08/27/22 08:00 97 21 161/74 (103) 94 Vapotherm 30.00 70.00 08/27/22 07:15 92 Vapotherm 30.00 70 08/27/22 07:00 101 08/27/22 07:00 98 27 155/94 (114) 93 Vapotherm 30.00 70.00 08/27/22 06:56 Vapotherm 30.00 70.00 08/27/22 06:00 98 16 164/78 (106) 94 Vapotherm 30.00 183/73 (109) 60.00 08/27/22 05:49 Vapotherm 30.00 60.00 08/27/22 05:00 96 16 156/74 (101) 94 Vapotherm 30.00 183/71 (108) 50.00 08/27/22 04:00 97 22 158/73 (101) 94 Vapotherm 30.00 184/72 (109) 50.00 08/27/22 04:00 94 Vapotherm 30.00 50 08/27/22 03:00 96 18 152/71 (98) 95 Vapotherm 30.00 179/72 (107) 50.00 08/27/22 02:57 36.6 Vapotherm 30.00 50.00 08/27/22 02:32 Vapotherm 30.00 60.00 08/27/22 02:21 99 Vapotherm 30.00 90 08/27/22 02:00 98 17 156/77 (103) 99 Vapotherm 30.00 181/71 (107) 90.00 08/27/22 01:10 96 Vapotherm 30.00 90.00 08/27/22 01:00 96 08/27/22 01:00 98 20 155/75 (101) 99 Vapotherm 40.00 183/75 (111) 100.00 08/27/22 00:10 95 Vapotherm 40.00 100 08/27/22 00:01 92 Vapotherm 40.00 100.00 08/27/22 00:00 105 29 155/75 (101) 99 Vapotherm 30.00 180/77 (111) 100.00 08/26/22 23:39 90 Vapotherm 30.00 100.00 08/26/22 23:19 36.8 Vapotherm 30.00 80.00 08/26/22 23:00 101 21 139/79 (99) 99 Vapotherm 30.00 181/75 (110) 100.00 08/26/22 22:40 93 Vapotherm 30.00 100 08/26/22 22:31 93 Vapotherm 30.00 100.00 08/26/22 22:15 88 High Flow N/C 10.00 08/26/22 22:00 90 High Flow N/C 8.00 08/26/22 22:00 112 19 151/74 (99) 97 High Flow N/C 8.00 168/76 (106) 08/26/22 21:52 93 Nasal Cannula 5.00 08/26/22 21:00 105 16 161/106 (124) 95 High Flow N/C 5.00 146/64 (91) 08/26/22 20:05 94 High Flow N/C 5.00 08/26/22 20:00 36.6 109 17 122/70 (87) 95 08/26/22 19:48 High Flow N/C 5.00 08/26/22 19:00 112 29 131/69 (89) 93 Nasal Cannula 5.00 08/26/22 19:00 36.6 08/26/22 19:00 114 08/26/22 19:00 112 29 131/69 (89) 93 Nasal Cannula 5.00 08/26/22 18:06 36.9 114 96 08/26/22 18:00 104 20 132/113 (119) 93 Nasal Cannula 5.00 08/26/22 17:20 Nasal Cannula 5.00 08/26/22 17:00 108 14 151/81 (104) 97 Nasal Cannula 5.00 08/26/22 16:30 112 138/82 08/26/22 16:00 96 Nasal Cannula 5.00 08/26/22 16:00 36.9 115 20 138/82 (100) 97 Nasal Cannula 5.00 08/26/22 16:00 36.9 114 18 133/73 (93) 96 08/26/22 15:00 113 29 129/77 (94) 96 Nasal Cannula 5.00 08/26/22 14:00 114 16 120/70 (87) 99 Nasal Cannula 5.00 08/26/22 13:55 105 139/63 08/26/22 13:00 115 15 97 Nasal Cannula 5.00 08/26/22 12:43 122 08/26/22 12:00 75 21 93 Nasal Cannula 5.00 08/26/22 12:00 94 Nasal Cannula 5.00 08/26/22 11:00 68 21 97 Mechanical Ventilator 30.00 08/26/22 10:42 115 12 95 30 08/26/22 10:00 78 14 100 Mechanical Ventilator 30.00 I & O 08/27/22 07:00 Intake Total 3057.7 ml Output Total 2850 ml Balance 207.7 ml Height & Weight Height: '" Weight: lbs. oz. kg; 24.10 BMI Method: General Appearance: Anxious, Chronically ill, Severe Distress (Increased work of breathing and difficulty answering questions due to respiratory distress and being on BiPAP) HEENT: PERRL/EOMI, Moist Mucous Membranes Neck: Full Range of Motion, Normal Inspection, Non Tender, Supple Respiratory: Chest Non Tender, Lungs Clear, No Accessory Muscle Use, No Respiratory Distress (Appeared more comfortable on the BiPAP and was breathing easier), Decreased Breath Sounds (Improved air movement from when he first arrived) Cardiovascular: Regular Rate, Rhythm, Normal Peripheral Pulses, Tachycardia (Sinus tachycardia with heart rate 100 bpm) Capillary Refill: Greater Than 3 Seconds Peripheral Pulses: 2+ Femoral (R), 2+ Femoral (L), 2+ Dorsalis Pedis (R), 2+ Left Dors-Pedis (L), 2+ Radial Pulses (R), 2+ Radial Pulses (L) Gastrointestinal: normal bowel sounds, soft Extremity: No Calf Tenderness, Pedal Edema (trace edmea ) Neurologic/Psychiatric: Alert; No Oriented x3 (Unable to assess orientation as he was having difficulty answering questions between his respiratory distress and being placed on BiPAP) Skin: Cool, Diaphoresis, Pallor Results Lab Laboratory Tests 08/26/22 04:15 08/27/22 04:30 Assessment/Plan Assessment/Plan 1 ELIZABETH PETERSON MD Aug 27, 2022 09:52
--- NOTE | 2022-08-27 10:41 | Diagnostic Imaging Report ---
CHEST 1 VIEW, AP/PA ONLY Indication: Hypoxia Comparison: 08/26/2022 Findings: Stable right IJ catheter. Stable enteric tube. Bibasilar and right perihilar consolidations are unchanged. Layering pleural effusions are worsened. No pneumothorax. Stable cardiac silhouette. Impression: 1. Stable support devices. 2. Worsening of bilateral pleural effusions with unchanged pulmonary consolidations. Dictated by: Dictated on workstation # [id number]
[2022-08-27] MEDS: ENOXAPARIN 40 MG/0.4 ML (LOVENOX) SYR SC SCH (11:17)
--- NOTE | 2022-08-27 11:18 | Physical Therapy Evaluation ---
PT Evaluation-General Medical Diagnosis Admission Date Aug 24, 2022 at 17:06 Medical Diagnosis: acute resp. failure Onset Date: Aug 24, 2022 Therapy Diagnosis Therapy Diagnosis: impaired mobility Precautions Precautions/Isolations: Fall Prevention, Standard Precautions Referral Physician: Deana Reason for Referral: Evaluation/Treatment Medical History Pertinent Medical History: COPD, CVA Additional Medical History Past Medical History Surgeries: Coronary Stent, Vascular Surgery Pneumonia, COPD High Cholesterol, Hypertension Stroke Reviewed History: Yes Social History Current Living Status: Spouse Entry Into Home: Stairs With Railing PT Steps Into Home: 2 Prior Prior Level of Function SCALE: Activities may be completed with or without assistive devices. 8-Qcurhbqkpr-cythbam completes the activity by him/herself with no assistance from a helper. 5-Set-up or Clean-up Assistance-helper sets up or cleans up; patient completes activity. [place] assists only prior to or following the activity. 4-Supervision or Touching Assistance-helper provides verbal cues and/or touching/steadying and/or contact guard assistance as patient completes activity. Assistance may be provided throughout the activity or intermittently. 3-Partial/Moderate Assistance-helper does LESS THAN HALF the effort. [place] lifts, holds or supports trunk or limbs, but provides less than half the effort. 2-Substantial/Maximal Assistance-helper does MORE THAN HALF the effort. [place] lifts or holds trunk or limbs and provides more than half the effort. 2-Xmnageydk-mhskdb does ALL the effort. Patient does none of the effort to complete the activity. Or, the assistance of 2 or more helpers is required for the patient to complete the activity. If activity was not attempted, code reason: 7-Patient Refused. 9-Not Applicable-not attempted and the patient did not perform the activity before the current illness, exacerbation or injury. 10-Not Attempted due to Environmental Limitations-(lack of equipment, weather restraints, etc.). 88-Not Attempted due to Medical Conditions or Safety Concerns. Bed Mobility: 6 Transfers (B,C,W/C): 6 Gait: 6 Stairs: 6 Indoor Mobility (Ambulation): Independent Stairs: Independent Patient states he was ambulating on his own without assistive device. PT Evaluation-Current Subjective Patient in bed pre tx, agrees to PT, has no complaints of pain. Patient has flexion contractures in his right arm from a previous stroke. Pt/Family Goals to be independent at home Objective Patient Orientation: Person, Place, Situation Attachments: NG Tube, SCD's, Oxygen (vapotherm), Collins Catheter, IV ROM/Strength ROM Lower Extremities WNL Strength Lower Extremities LLE grossly 4/5, RLE grossly 4-/5 Sensory Hearing: Functional Sensation Right Lower Extremit: Intact Sensation Left Lower Extremity: Intact Transfers Roll Left to Right (QC): 4 Sit to Lying (QC): 3 Lying to Sitting/Side of Bed(Q: 4 Patient needed SBA for supine to sit, he was able to sit for about 7-8 min, O2 stayed at 90-92%, performed a couple of LE exercises. Needed min assist for sit to supine, was able to scoot himself up with cues for direction, O2 dropped to 87% after laying back down and took several minutes to get back up to 90% Balance Sitting Static: Good Sitting Dynamic: Good Treatment seated BLE exercise x20 (AP, LAQ) Assessment/Needs Patient in bed post tx with nurse call, phone, tray, all needs met. Patient has impaired mobility, strength, endurance, O2 was good with activity but dropped after laying back down. Needs some assist getting back into bed. Rehab Potential: Fair PT Skilled Nursing Goals Dough Machine Operator Goals PT Skilled Nursing Goals Time Frame: Sep 03, 2022 Roll Left & Right (QC): 6 Sit to Lying (QC): 6 Lying-Sitting on Side/Bed(QC): 6 Sit to Stand (QC): 4 Chair/Lcd-xj-Dsnkf Xfer(QC): 4 Walk 10 feet (QC): 4 PT Plan Problem List Problem List: Activity Tolerance, Functional Strength, Safety, Balance, Gait, Transfer, Bed Mobility, ROM Treatment/Plan Treatment Plan: Continue Plan of Care Treatment Plan: Bed Mobility, Education, Functional Activity Kisha, Functional Strength, Gait, Safety, Therapeutic Exercise, Transfers Treatment Duration: Sep 03, 2022 Frequency: 6 times per week Estimated Hrs Per Day: .25 hour per day Patient and/or Family Agrees t: Yes Safety Risks/Education Patient Education: Correct Positioning, Safety Issues Teaching Recipient: Patient Teaching Methods: Demonstration, Discussion Response to Teaching: Reinforcement Needed Discharge Recommendations Plan Patient will perform bed mobility and transfer training, balance and endurance training, functional strengthening, stair training, gait training, and education, to improve functional mobility and independence at home. Therapy Discharge Recommendati: Scheduled Assistance, Home & Family, Post Acute PT Time Time In: 1050 Time Out: 1107 DATE: Aug 27, 2022 Total Billed Treatment Time: 17 Total Billed Treatment 1 visit MICHI GA PT Aug 27, 2022 11:18
[2022-08-27] MEDS: LORazepam 1 MG (ATIVAN) TAB PO PRN (11:23)
--- NOTE | 2022-08-27 11:32 | Occupational Therapy Eval ---
OT Evaluation-General/PLF Medical Diagnosis Admission Date Aug 24, 2022 at 17:06 Medical Diagnosis: acute resp. failure Onset Date: Aug 24, 2022 Therapy Diagnosis Therapy Diagnosis: decreased ADL status Precautions Precautions/Isolations: Fall Prevention, Standard Precautions Referral Physician: Deana Bray Reason: Evaluation/Treatment Medical History Pertinent Medical History: COPD, CVA Additional Medical History CAD with stents, PVD, HTN, COPD, CHF, CVA (R hemiparesis), HLD Current History ED 08/24 with SOB, intubated. Extubated 08/26. Social History Current Living Status: Spouse Entry Into Home: Stairs With Railing Steps Into Home: 2 ADL-Prior Level of Function SCALE: Activities may be completed with or without assistive devices. 7-Gkkmgwofws-innhaaj completes the activity by him/herself with no assistance from a helper. 5-Set-up or Clean-up Assistance-helper sets up or cleans up; patient completes activity. [place] assists only prior to or following the activity. 4-Supervision or Touching Assistance-helper provides verbal cues and/or touching/steadying and/or contact guard assistance as patient completes act ivity. Assistance may be provided throughout the activity or intermittently. 3-Partial/Moderate Assistance-helper does LESS THAN HALF the effort. [place] lifts, holds or supports trunk or limbs, but provides less than half the effort. 2-Substantial/Maximal Assistance-helper does MORE THAN HALF the effort. [place] lifts or holds trunk or limbs and provides more than half the effort. 0-Ymnpknmbq-rudgyd does ALL the effort. Patient does none of the effort to complete the activity. Or, the assistance of 2 or more helpers is required for the patient to complete the activity. If activity was not attempted, code reason: 7-Patient Refused. 9-Not Applicable-not attempted and the patient did not perform the activity before the current illness, exacerbation or injury. 10-Not Attempted due to Environmental Limitations-(lack of equipment, weather restraints, etc.). 88-Not Attempted due to Medical Conditions or Safety Concerns. ADL PLOF Comments Pt reports requiring some assistance with ADLS due to RUE deficits from previous stroke. He was not using AE at PLOF. Pt reports assists with UE dressing and socks, Self Care: Needed Some Help Functional Cognition: Independent OT Current Status Subjective Pt working with PT, agreeable to OT evaluation. Mental Status/Objective Attachments: Collins Catheter, IV, Oxygen (Vapotherm) Current Hand Dominance: Right Upper Extremity ROM RUE decreased functional use. Flexion contractures at elbow. Pt unable to straighten fingers actively. Passively, OT is able to extend pt's fingers some, but not to full extension. Pt has some shoulder flexion, but unable to functionally use RUE. LUE WFL, Shoulder flexion to approx 140 degrees, WFL at elbow/wrist/hand. Upper Extremity Coordination decreased RUE, LUE WFL Upper Extremity Strength LUE grossly 3+/5 ADL-Treatment Eating (QC): 3 (Min A per RN report.) On/Off Footwear (QC): 1 Other Treatments Pt at EOB with PT (SBA per PT report for supine to sit). Pt able to sit a total of 7-8 mins, O2 saturation 90-92% at EOB. Pt participated in UE screen at EOB, decreased RUE function due to previous CVA, LUE WFL. Pt required min a sit to supine, and able to scoot himself up in bed with cues for direction. O2 saturation decreased to 87% after laying down, taking several minutes to return back to 90%. Pt provided information about PLOF and home set up. Post tx, pt in bed, call light in reach and all needs met. Education OT Patient Education: Correct positioning, Energy conservation, Modified ADL techniques, Progress toward Goal/Update tx plan, Purpose of tx/functional activities, Rehab process Teaching Recipient: Patient Teaching Methods: Discussion Response to Teaching: Verbalize Understanding OT Alf Goals Driller'S Assistant Goals Time Frame: Sep 10, 2022 Eating (QC): 5 Oral Hygiene (QC): 5 Toileting Hygiene (QC): 4 Shower/Bathe Self (QC): 3 Upper Body Dressing (QC): 3 Lower Body Dressing (QC): 3 Additional Goals: 1-Demonstrate ADL Tasks, 2-Verbalize Understanding, 3- ImproveStrength/Kisha 1=Demonstrate adherence to instructed precautions during ADL tasks. 2=Patient will verbalize/demonstrate understanding of assistive devices/modifications for ADL. 3=Patient will improve strength/tolerance for activity to enable patient to perform ADL's. OT Education/Plan Problem List/Assessment Assessment: Decreased Activ Tolerance, Decreased UE Strength, Impaired Bed Mobility, Impaired Coordination, Impaired Funct Balance, Impaired I ADL's, Impaired Self-Care Skills, Restricted Funct UE ROM Discharge Recommendations Plan/Recommendations: Continue POC Treatment Plan/Plan of Care Patient would benefit from OT for education, treatment and training to promote independence in ADL's, mobility, safety and/or upper extremity function for ADL's. Plan of Care: ADL Retraining, Functional Mobility, UE Funct Exercise/Act Treatment Duration: Sep 10, 2022 Frequency: 3 times per week (3-5 times per week) Estimated Hrs Per Day: .25 hour per day Rehab Potential: Fair Time Start Time: 11:00 Stop Time: 11:15 DATE: Aug 27, 2022 Total Time Billed (hr/min): 15 Billed Treatment Time 1, ARTURO MAX OT Aug 27, 2022 11:31
[2022-08-27] MEDS ORDERED: FUROSEMIDE 40 MG/4 ML INJ (LASIX) IVP NR (12:00)
[2022-08-27] MEDS ORDERED: KCL 20 MEQ TAB (K-DUR) PO NR (12:00)
--- NOTE | 2022-08-27 13:52 | ST Dysphagia Evaluation ---
Speech Evaluation-General Medical Diagnosis Acute Respiratory Failure Onset Date: Aug 24, 2022 Therapy Diagnosis Therapy Diagnosis: Mild Oral Dysphagia Precautions Precautions: Fall, Pressure Ulcer, Aspiration Precautions/Isolations: Aspiration, Fall Prevention, Standard Precautions, Pressure Ulcer Referral Referring Physician: Dr. Leblanc Reason for Referral: Evaluation/Treatment Medical History Pertinent Medical History: COPD, CVA Reviewed History: Yes Social History Current Living Status: Spouse Speech PLF/Current-Dysphagia Prior Level of Function The patient denied prior challenges or concerns with his oropharyngeal swallowing function. Upon additional questions by the clinician regarding his swallowing function following his previous stroke, the patient stated, "Oh yeah, I have been through this before at , all the swallowing stuff." The clinician requested additional information, however, the patient was unable to provide further elaboration. The patient reported he consumes a regular consistency diet with thin liquids at home. Subjective The patient was seated upright in his bed, awake and alert upon entrance to his room by the clinician. The patient greeted the clinician appropriately and was agreeable to participation in the clinical bedside swallowing evaluation. The patient is receiving Vapotherm at 40 lpm at 80% with SpO2% at 91%. Cognitive Status Patient Orientation: Person, Place, Time, Situation Oral Motor Skills Dentition: Edentalous Current Food Consistancy: Regular, Thin Liquids Ability to Follow Directions: Good Oral Expression Ability: No Impairment Other Contributing Factors: Nasogastric Tube Voice Voice Phonatory-Based Quality: Normal Voice Pitch: Normal Voice Loudness: Normal Face Facial Symmetry: Asymmetrical (Right Facial Droop) Oral-Facial Assessment Oral-Facial Dentition: Normal Labial Seal Description: Weak Smile: Droops Right Puff Cheeks: Reduced Strength (Right) Lingual Protrusion: Normal Lingual ROM: Normal Lingual Strength: Normal Volitional Dry Swallow: Yes Voluntary Cough: Yes Can Clear Throat Volitionally: Yes Dysphagia Evaluation Consistencies Presented: Regular, Thin Liquid, Pureed The patient demonstrated prolonged mastication/mashing of the solid consistency, requiring a thin liquid bolus for oral clearance. Laryngeal impairments were not present throughout the evaluation. Laryngeal elevation was present to palpation. The patient does not display overt s/s of suspected aspiration with P.O. trials of any kind. The patient's SpO2% remained stable throughout and following P.O. trials and the patient's vocal quality remained clear. Dietary Recommendations: SB6 Liquid Recommendations: Thin Recommendations: - SB6 with thin liquids, as tolerated. - Fully upright and alert for P.O. intake. - Small, single bites and sips, only. - Cease P.O. intake during periods of respiratory fatigue. - Monitor for s/s of suspected aspiration with P.O. intake. If demonstrated, contact speech pathology. - Speech pathology to continue to monitor the patient's tolerance of the current diet consistency throughout acute hospitalization, as appropriate. The patient remains at an elevated risk for aspiration due to his high oxygen needs (high flow nasal cannula at a rate of 40 lpm or high increases a patient's risk for aspiration per evidence based research) and prior medical history (COPD). If concerns arise regarding possible aspiration, a video swallow would be appropriate. ST to closely monitor the patient for improvement. The results and recommendations were shared with the patient and the patient's RN immediately following completion of the study. Dysphagia Evaluation Summary The patient demonstrated mild oral dysphagia secondary to prolonged mastication of dry solid consistencies. Speech Short Term Goals Short Term Goals Short Term Goals 1. The patient will display safe swallowing strategies with 80% accuracy, independently. Time Frame-STG: Five Days. Speech Vocal Artist Goals Retirement Goals 1. The patient will tolerate the least restrictive diet consistency without s/s of suspected aspiration. Time Frame: One Week. Speech-Plan Treatment Plan Speech Therapy Treatment Plan: Continue Plan of Care Treatment Duration: Sep 03, 2022 Frequency: 4 times per week Estimated Hrs Per Day: .25 hour per day Rehab Potential: Guarded Pt/Family Agrees to Plan: Yes Safety Risks/Education Teaching Recipient: Patient Teaching Methods: Discussion Response to Teaching: Verbalize Understanding, Reinforcement Needed Education Topics Provided: Results, Recommendations, Plan of Care, Safe Swallowing Precautions Time Speech Therapy Time In: 11:25 Speech Therapy Time Out: 11:52 DATE: Aug 27, 2022 Total Billed Time: 27 Billed Treatment Time 1, MALIA RODRIGUEZ [facility] Aug 27, 2022 13:52
--- NOTE | 2022-08-27 17:20 | Progress Note - Hospitalist ---
GABRIELLA AGUIRRE 08/27/22 1720: Subjective Subjective/Events-last exam 61 yo M with a history of COPD, CHF, HTN, CAD and previous stroke who presented to the ER on 08/24 for worsening SOB that began that day. He was found to be in acute hypoxic respiratory failure and placed on CPAP. He was transported to [facility] by EMS who noted a oxygen saturation of 82% on 100% CPAP as well as hypotension requiring. Due to continued repsiratory decline, he was intubated shortly after admission with vent settings at 500/14/6/30%. Pressors were continued to due persistent hypotension. CXR obtained this day demonstrated COPD and a patchy infiltrate and the right lung field; vancomycin, azithromycin, duonebs, and methylprednisone were started. He was extubated and started on vapotherm on 08/26. At this time, he is comfortable and denies SOB or chest pain. Focused Exam Lactate Level 08/24/22 17:52: Lactic Acid Level 4.37*H 08/24/22 19:40: Lactic Acid Level 3.19*H 08/24/22 22:10: Lactic Acid Level 1.93 Time of Focused Exam: 16:06 Objective Exam Vital Signs Vital Signs Date Time Temp Pulse Resp B/P (MAP) Pulse Ox O2 Delivery O2 Flow Rate FiO2 08/27/22 16:04 95 Vapotherm 35.00 60 08/27/22 16:00 96 22 150/107 (121) 08/27/22 15:55 36.8 Capillary Refill : Greater Than 3 Seconds Respiratory: Other (faint crackles) Cardiovascular: Regular Rate, Rhythm Gastrointestinal: Normal Bowel Sounds Neurologic/Psychiatric: Alert, Oriented x3 Results/Procedures Lab Laboratory Tests 08/27/22 04:30 Patient resulted labs reviewed. Assessment/Plan Assessment and Plan Assess & Plan/Chief Complaint Acute on chronic respiratory failure - likely secondary to pneumonia and/or COPD exacerbation - ABG 08/26 7.41/42/68 - stable on vapotherm since 08/26 (35.00) - extubated on 08/26 - intubated from 08/24-08/26 (500/14/6/30%) Pneumonia - CXR 08/27 - worsening of bilateral effusions with unchanged pulmonary consolidations - CXR 08/26 - worsening infiltrate of the right mid and lower lobe - No growth on blood and sputum cultures obtained 08/24-08/25 - Nasal cultures negative for MRSA - piperacillin tazobactam since 08/27 - Vancomycin since 08/24 - Azithromycin since 08/24 COPD - duonebs since 08/24 - methylprednisone since 08/24 Sepsis - above management Hypotension - resolved as of 08/26 - pressors from 08/24-08/26 Stroke with right hemiparesis (chronic) Hyperlipidemia (chronic) CAD (chronic) NYDIA WILL DO 08/28/22 0553: Subjective HPI/CC On Admission Date Seen by Provider: Aug 27, 2022 Time Seen by Provider: 11:00 Objective Exam General Appearance: No Apparent Distress, WD/WN, Chronically ill Respiratory: Decreased Breath Sounds, Other (faint crackles) Cardiovascular: Regular Rate, Rhythm Supervisory-Addendum Brief Verification & Attestation Participated in pt care: history, MDM, physical Personally performed: exam, history, MDM, supervision of care Care discussed with: Medical Student Procedures: n/a Results interpretation: Verified all documentation Verification and Attestation of Medical Student E/M Service A medical student performed and documented this service in my presence. I reviewed and verified all information documented by the medical student and made modifications to such information, when appropriate. I personally performed the physical exam and medical decision making. Nydia Will, Aug 28, 2022,05:53 GABRIELLA AGUIRRE Aug 27, 2022 17:20 NYDIA WILL DO Aug 28, 2022 05:53
[2022-08-27] MEDS: NS IV 1000 ML 1,000 ML IV SCH (17:57)
[2022-08-28] MEDS: PIPERACILLIN SODIUM/TAZOBACTAM 4.5 GM in NS (IVPB) 100 ML IV SCH ×3 (00:06→17:15)
[2022-08-28] MEDS: meTOprolol 5 MG/5 ML (LOPRESSOR) VIAL IV SCH ×4 (00:06→18:04)
[2022-08-28] MEDS: RT-ALBUTEROL/IPRATROPIUM 3 ML (DUONEB) VIAL INH SCH ×4 (02:35→21:07)
[2022-08-28 03:57] LABS: HEMATOCRIT 36 % (40-54); MEAN CORPUSCULAR HEMOGLOBIN 33 pg (25-34); MEAN CORPUSCULAR HGB CONC 34 g/dL (32-36); MEAN CORPUSCULAR VOLUME 98 fL (80-99)
[2022-08-28 03:59] LABS: BASOPHILS % (AUTO) 0 % (0-10); EOSINOPHILS % (AUTO) 0 % (0-10); LYMPHOCYTES # (AUTO) 0.5 10^3/uL (1.0-4.0); LYMPHOCYTES % (AUTO) 6 % (12-44); MEAN PLATELET VOLUME 10.6 fL (9.0-12.2); MONOCYTES # (AUTO) 0.5 10^3/uL (0.0-1.0); MONOCYTES % (AUTO) 6 % (0-12); NEUTROPHILS # (AUTO) 6.7 10^3/uL (1.8-7.8); NEUTROPHILS % (AUTO) 87 % (42-75); PLATELET COUNT 89 10^3/uL (130-400); POTASSIUM 3.5 MMOL/L (3.6-5.0); WHITE BLOOD COUNT 7.8 10^3/uL (4.3-11.0)
[2022-08-28 04:02] LABS: TOTAL PROTEIN 5.5 GM/DL (6.4-8.2)
[2022-08-28 04:04] LABS: BILIRUBIN,TOTAL 0.8 MG/DL (0.1-1.0)
[2022-08-28 04:05] LABS: CREATININE SERUM 0.68 MG/DL (0.60-1.30)
[2022-08-28] MEDS: POTASSIUM CL 10MEQ/50ML IVPB 50 ML IV SCH (04:11)
[2022-08-28] MEDS: KCL 20 MEQ TAB (K-DUR) PO SCH (04:11)
[2022-08-28] MEDS: MAGNESIUM 1 GM/100 ML IVPB 100 ML IV SCH (04:11)
[2022-08-28] MEDS: THIAMINE 100 MG (VITAMIN B-1) TAB PO SCH (05:55)
[2022-08-28] MEDS: methylPREDNISolone 40 MG/ML (Solu-MEDROL) VIAL IV SCH ×2 (05:55→21:50)
[2022-08-28] MEDS ORDERED: KCL 20 MEQ TAB (K-DUR) PO ONE (06:00)
--- NOTE | 2022-08-28 06:55 | Progress Note - Hospitalist ---
Subjective HPI/CC On Admission Date Seen by Provider: Aug 28, 2022 Time Seen by Provider: 11:00 Subjective/Events-last exam Improved status Vapotherm DC now on NC Very frail Needs to remain in ICU Lung status is overall very poor Review of Systems General: Fatigue Pulmonary: Dyspnea Focused Exam Time of Focused Exam: 16:06 Objective Exam Vital Signs Vital Signs Date Time Temp Pulse Resp B/P (MAP) Pulse Ox O2 Delivery O2 Flow Rate FiO2 08/28/22 13:00 92 23 158/81 (106) 93 High Flow N/C 4.00 08/28/22 12:00 36.7 08/28/22 02:35 30 Capillary Refill : Less Than 3 Seconds General Appearance: No Apparent Distress, WD/WN, Chronically ill Respiratory: No Accessory Muscle Use, No Respiratory Distress, Decreased Breath Sounds Cardiovascular: Regular Rate, Rhythm Neurologic/Psychiatric: Alert, Oriented x3 Results/Procedures Lab Laboratory Tests 08/28/22 03:38 Patient resulted labs reviewed. Assessment/Plan Assessment and Plan Assess & Plan/Chief Complaint Assess & Plan/Chief Complaint Acute on chronic respiratory failure - likely secondary to pneumonia and/or COPD exacerbation - ABG 08/26 7.41/42/68 - stable on vapotherm since 08/26 (35.00) - extubated on 08/26 - intubated from 08/24-08/26 (500/14/6/30%) Pneumonia - CXR 08/27 - worsening of bilateral effusions with unchanged pulmonary consolidations - CXR 08/26 - worsening infiltrate of the right mid and lower lobe - No growth on blood and sputum cultures obtained 08/24-08/25 - Nasal cultures negative for MRSA - piperacillin tazobactam since 08/27 - Vancomycin since 08/24 - Azithromycin since 08/24 COPD - duonebs since 08/24 - methylprednisone since 08/24 Sepsis - above management Hypotension - resolved as of 08/26 - pressors from 08/24-08/26 Stroke with right hemiparesis (chronic) Hyperlipidemia (chronic) CAD (chronic) Critical Care Critically Ill Patient ROSA ELENA WILL DO Aug 28, 2022 06:55
[2022-08-28] MEDS: ENOXAPARIN 40 MG/0.4 ML (LOVENOX) SYR SC SCH (08:14)
[2022-08-28] MEDS: FOLIC ACID 1 MG TAB PO SCH (08:14)
[2022-08-28] MEDS: PANTOPRAZOLE 40 MG (PROTONIX) VIAL IV SCH ×2 (08:14→21:45)
--- NOTE | 2022-08-28 09:15 | Physical Therapy Daily Note ---
PT Daily Note-Current Subjective States that he is doing okay. Pain Section J - Health Conditions 1. Rarely or not at all 2. Occasionally 3. Frequently 4. Almost constantly 8. Unable to answer Pain Effect on Sleep: 2 Pain Interference with Therapy: 2 Pain Interference w/Day-to-Day: 2 Transfers SCALE: Activities may be completed with or without assistive devices. 0-Ddqjrcycjf-muvjzyv completes the activity by him/herself with no assistance from a helper. 5-Set-up or Clean-up Assistance-helper sets up or cleans up; patient completes activity. [place] assists only prior to or following the activity. 4-Supervision or Touching Assistance-helper provides verbal cues and/or touching/steadying and/or contact guard assistance as patient completes activity. Assistance may be provided throughout the activity or intermittently. 3-Partial/Moderate Assistance-helper does LESS THAN HALF the effort. [place] lifts, holds or supports trunk or limbs, but provides less than half the effort. 2-Substantial/Maximal Assistance-helper does MORE THAN HALF the effort. [place] lifts or holds trunk or limbs and provides more than half the effort. 4-Gazqsuara-cptryj does ALL the effort. Patient does none of the effort to complete the activity. Or, the assistance of 2 or more helpers is required for the patient to complete the activity. If activity was not attempted, code reason: 7-Patient Refused. 9-Not Applicable-not attempted and the patient did not perform the activity before the current illness, exacerbation or injury. 10-Not Attempted due to Environmental Limitations-(lack of equipment, weather restraints, etc.). 88-Not Attempted due to Medical Conditions or Safety Concerns. Roll Left & Right (QC): 5 Sit to Lying (QC): 5 Lying to Sitting/Side of Bed(Q: 5 Exercises Seated Therapy Exercises: LE Protocol Seated Reps: 20 Assessment Current Status: Good Progress Patient's O2 dropped to 87 during sitting but he was able to improve with deep breathing. PT Residential Goals Chipper Feeder Goals PT Chipper Feeder Goals Time Frame: Sep 03, 2022 Roll Left & Right (QC): 6 Sit to Lying (QC): 6 Lying-Sitting on Side/Bed(QC): 6 Sit to Stand (QC): 4 Chair/Muc-zw-Hnljk Xfer(QC): 4 Walk 10 feet (QC): 4 PT Plan Treatment/Plan Treatment Plan: Continue Plan of Care Treatment Plan: Bed Mobility, Education, Functional Activity Kisha, Functional Strength, Gait, Safety, Therapeutic Exercise, Transfers Treatment Duration: Sep 03, 2022 Frequency: 6 times per week Estimated Hrs Per Day: .25 hour per day Patient and/or Family Agrees t: Yes Time Time In: 0900 Time Out: 09 DATE: Aug 28, 2022 Total Billed Treatment Time: 10 Total Billed Treatment 1, FA x 10' ALMA MONROY PT Aug 28, 2022 09:15
[2022-08-28] MEDS: VASOPRESSIN INJECTION 20 UNIT in NS (IVPB) 100 ML IV SCH ×2 (09:34→21:33)
--- NOTE | 2022-08-28 09:57 | Tele-ICU Progress Note ---
Subjective Date Seen by a Provider: Aug 28, 2022 Time Seen by a Provider: 09:56 Subjective/Events-last exam (Tele-ICU Physician , Progress Note ) Service provided via interactive audio and video telecommunications E-CARE system to a patient admitted to ICU bed in [facility]. Patient is seen today due to persistent need of ICU care Available chart/ vitals / labs / Images reviewed Video assessment done using teleICU camera, rest of exam as per RN Discussed with RN Events overnight : Afebrile hemodynamically stable Respiratory - 4l I/O = neg 5L Drips: NS 10 Pressors- no Consultants: Hospital course: (08/24) 61y/o M admitted with sepsis pneumonia vs COPD. Respiratory failure. Intubated on arrival to ICU. 08/25 - very agitated off sedation 08/26- OFF pressors ,AC 14, Vt 550, FiO2 30% +6 ( 08/26) EXTUBATED, few hours latter went into pulm edema -> diuresis 2l , on VT 30L 60% 08/27 - VT -> lasix -> 5L UO 1.21 - 4 L NC A/P Acute resp failure , hypoxic , hypercarbic ( AECOPD, CAP , ? CHF - in resp distress despite NIPPV - intubated on arrival to ICU -intubated 08/24 - 08/26) EXTUBATED, few hours latter went into pulm edema -> diuresis 2l , on VT 30L 60% - ECHO pending , but after 5 L uo patient is back to NC 4 L , -cont abg CHF, suspected with acue hypoxia 08/27 - diuresis 2l +5L --> imprived FiO2 - ECHO pending PNA suspected , CAP , RML - abx initiated , changed to zosyn 08/27 with worsenign RIGHT side 08/27 ( NEG flu , covid) AECOPD- decrease steroid dose CAD - s/p stenting in past -EF reported 55% 2021 thrombocytopenia - asummed delutional - monitor for now , was not on any heparins since admisssion - stable , will start lovenox 08/27 - PLT 87 today - will monitor Anemia - mimimal blood on NG - will cont PPI bid Nutrition - po , speach eval 08/27 done H/o ETOHuse / ? abuse - as per family report " not recently" - starting on thiamine , folate S/p CVA - will re-assess with spech tx given R PNA Shock - off all pressors - RESOLVED Lines : R IJ 08/24 , (Central Line Necessity Reviewed) Collins: + OG: Nutrition: po Analgesia: Anxiety/ delirium VTE Prophylaxis: SCD , francis 08/27 Stress Ulcer Prophylaxis: PPI bid Plans in collaboration with bedside consultants and IM MDs. Discussed with RN to reach out if any questions or concerns A total of33 minutes of critical care time was devoted to this patient today, required to treat and/or prevent further deterioration of critical care condition ( as above ) . I am remotely monitoring this patient from another state. I am unable to do the bedside exam, and history/physical and pertinent information is taken from other notes in the computer and bedside staff. . Sepsis Event Evaluation Height, Weight, BMI Height: '" Weight: lbs. oz. kg; 24.73 BMI Method: Focused Exam Time of Focused Exam: 16:06 Exam Exam Patient acknowledged, consented, and participated in this virtual visit which was conducted using real time audio/video Vital Signs Date Time Temp Pulse Resp B/P (MAP) Pulse Ox O2 Delivery O2 Flow Rate FiO2 08/28/22 09:00 105 28 154/78 (103) 94 High Flow N/C 4.00 08/28/22 08:00 98 26 165/79 (107) 93 High Flow N/C 4.00 08/28/22 08:00 94 High Flow N/C 4.00 08/28/22 07:00 90 20 167/78 (107) 90 High Flow N/C 4.00 08/28/22 07:00 92 08/28/22 06:00 93 20 163/80 (107) 97 High Flow N/C 4.00 08/28/22 05:00 89 19 168/79 (108) 98 High Flow N/C 4.00 08/28/22 04:00 92 18 170/82 (111) 97 High Flow N/C 4.00 08/28/22 03:30 36.7 98 18 96 High Flow N/C 4.00 08/28/22 03:30 96 High Flow N/C 4.00 08/28/22 03:00 89 16 158/78 (104) 97 High Flow N/C 4.00 08/28/22 02:38 High Flow N/C 4.00 08/28/22 02:35 94 15.00 30 08/28/22 02:00 98 18 144/72 (96) 93 Vapotherm 20.00 35.00 08/28/22 01:00 100 08/28/22 01:00 92 20 160/77 (104) 94 Vapotherm 20.00 35.00 08/28/22 00:00 93 16 158/77 (104) 95 Vapotherm 20.00 35.00 08/28/22 00:00 36.7 96 22 158/77 (104) 96 Vapotherm 15.00 30.00 08/28/22 00:00 96 Vapotherm 15.00 30 08/27/22 23:00 93 18 159/78 (105) 96 Vapotherm 20.00 35.00 08/27/22 22:21 Vapotherm 20.00 35.00 08/27/22 22:00 94 20 159/75 (103) 97 Vapotherm 40.00 25.00 08/27/22 21:44 97 Vapotherm 25.00 40 08/27/22 21:00 93 24 159/75 (103) 97 Vapotherm 40.00 25.00 08/27/22 20:00 98 24 156/77 (103) 95 Vapotherm 40.00 25.00 08/27/22 19:34 Vapotherm 40.00 25.00 08/27/22 19:30 96 Vapotherm 25.00 40 08/27/22 19:00 100 08/27/22 19:00 37.6 101 18 147/72 (97) 97 Vapotherm 45.00 Arterial Line 30.00 08/27/22 18:00 105 19 158/92 (114) 94 Vapotherm 40.00 80.00 08/27/22 17:00 101 21 167/84 (111) 94 Vapotherm 40.00 80.00 08/27/22 16:04 95 Vapotherm 35.00 60 08/27/22 16:00 96 22 150/107 (121) 96 Vapotherm 40.00 80.00 08/27/22 15:55 36.8 08/27/22 15:38 Vapotherm 35.00 60.00 08/27/22 15:00 94 24 158/77 (104) 96 Vapotherm 40.00 80.00 08/27/22 14:38 97 Vapotherm 30.00 70 08/27/22 14:00 102 22 160/114 (129) 96 Vapotherm 40.00 80.00 08/27/22 13:00 101 25 147/111 (123) 96 Vapotherm 40.00 80.00 08/27/22 12:59 105 08/27/22 12:00 103 13 160/80 (106) 96 Vapotherm 40.00 80.00 08/27/22 11:56 37.0 08/27/22 11:53 90 Vapotherm 40.00 80 08/27/22 11:27 Vapotherm 40.00 80.00 08/27/22 11:00 110 26 159/83 (108) 91 Vapotherm 30.00 70.00 08/27/22 10:00 104 25 170/83 (112) 91 Vapotherm 30.00 70.00 I & O 08/28/22 07:00 Intake Total 2180 ml Output Total 3755 ml Balance -1575 ml Height & Weight Height: '" Weight: lbs. oz. kg; 24.73 BMI Method: General Appearance: No Apparent Distress, WD/WN, Chronically ill HEENT: PERRL/EOMI, Moist Mucous Membranes Neck: Full Range of Motion, Normal Inspection, Non Tender, Supple Respiratory: Decreased Breath Sounds, Other (faint crackles) Cardiovascular: Regular Rate, Rhythm Capillary Refill: Less Than 3 Seconds Peripheral Pulses: 2+ Femoral (R), 2+ Femoral (L), 2+ Dorsalis Pedis (R), 2+ Left Dors-Pedis (L), 2+ Radial Pulses (R), 2+ Radial Pulses (L) Gastrointestinal: normal bowel sounds, soft Extremity: No Calf Tenderness, Pedal Edema (trace edmea ) Neurologic/Psychiatric: Alert, Oriented x3 Skin: Cool, Diaphoresis, Pallor Results Lab Laboratory Tests 08/27/22 04:30 08/28/22 03:38 Assessment/Plan Assessment/Plan 1 ELIZABETH PETERSON MD Aug 28, 2022 09:57
[2022-08-28] MEDS ORDERED: NICOTINE 21 MG (NICODERM) PATCH TD ONE (16:45)
[2022-08-28] MEDS: NOREPINEPHRINE 8 MG/250 ML 250 ML IV SCH (16:59)
[2022-08-28] MEDS: NS IV 1000 ML 1,000 ML IV SCH (18:02)
[2022-08-29] MEDS: meTOprolol 5 MG/5 ML (LOPRESSOR) VIAL IV SCH ×2 (00:58→06:15)
[2022-08-29] MEDS: PIPERACILLIN SODIUM/TAZOBACTAM 4.5 GM in NS (IVPB) 100 ML IV SCH ×3 (00:58→17:44)
[2022-08-29] MEDS: RT-ALBUTEROL/IPRATROPIUM 3 ML (DUONEB) VIAL INH SCH ×4 (02:39→21:59)
[2022-08-29 05:00] LABS: HEMOGLOBIN 12.3 g/dL (13.3-17.7)
[2022-08-29 05:02] LABS: BASOPHILS % (AUTO) 0 % (0-10); EOSINOPHILS % (AUTO) 0 % (0-10); HEMATOCRIT 36 % (40-54); LYMPHOCYTES # (AUTO) 0.6 10^3/uL (1.0-4.0); LYMPHOCYTES % (AUTO) 8 % (12-44); MEAN CORPUSCULAR HEMOGLOBIN 33 pg (25-34); MEAN CORPUSCULAR HGB CONC 34 g/dL (32-36); MEAN CORPUSCULAR VOLUME 96 fL (80-99); MEAN PLATELET VOLUME 10.4 fL (9.0-12.2); MONOCYTES # (AUTO) 0.5 10^3/uL (0.0-1.0); MONOCYTES % (AUTO) 7 % (0-12); NEUTROPHILS % (AUTO) 85 % (42-75); PLATELET COUNT 95 10^3/uL (130-400)
[2022-08-29 05:13] LABS: ALBUMIN 2.9 GM/DL (3.2-4.5); POTASSIUM 3.9 MMOL/L (3.6-5.0)
[2022-08-29 05:14] LABS: CALCIUM 7.9 MG/DL (8.5-10.1)
[2022-08-29 05:16] LABS: TOTAL PROTEIN 5.3 GM/DL (6.4-8.2)
[2022-08-29 05:17] LABS: BILIRUBIN,TOTAL 0.8 MG/DL (0.1-1.0)
[2022-08-29 05:19] LABS: CREATININE SERUM 0.62 MG/DL (0.60-1.30)
[2022-08-29 05:22] LABS: MAGNESIUM 1.9 MG/DL (1.6-2.4)
[2022-08-29] MEDS: MAGNESIUM 1 GM/100 ML IVPB 100 ML IV SCH (05:49)
[2022-08-29] MEDS: POTASSIUM CL 10MEQ/50ML IVPB 50 ML IV SCH (05:49)
[2022-08-29] MEDS: KCL 20 MEQ TAB (K-DUR) PO SCH (05:50)
[2022-08-29] MEDS: THIAMINE 100 MG (VITAMIN B-1) TAB PO SCH (06:15)
[2022-08-29] MEDS: NOREPINEPHRINE 8 MG/250 ML 250 ML IV SCH (07:00)
[2022-08-29] MEDS: VASOPRESSIN INJECTION 20 UNIT in NS (IVPB) 100 ML IV SCH (07:53)
--- NOTE | 2022-08-29 08:05 | Progress Note - Hospitalist ---
Subjective HPI/CC On Admission Date Seen by Provider: Aug 29, 2022 Time Seen by Provider: 11:00 Subjective/Events-last exam Patient doing a lot better Moving to fourth floor Oxygen monitor Very weak Reviewed meds Review of Systems General: Fatigue, Malaise Focused Exam Time of Focused Exam: 16:06 Objective Exam Vital Signs Vital Signs Date Time Temp Pulse Resp B/P (MAP) Pulse Ox O2 Delivery O2 Flow Rate FiO2 08/29/22 12:00 92 24 168/85 (112) 93 High Flow N/C 1.00 08/29/22 08:37 37.4 08/28/22 02:35 30 Capillary Refill : Less Than 3 Seconds General Appearance: No Apparent Distress, WD/WN, Chronically ill, Thin, Other (Frail) Respiratory: No Accessory Muscle Use, No Respiratory Distress, Decreased Breath Sounds Cardiovascular: Regular Rate, Rhythm Neurologic/Psychiatric: Alert, Oriented x3, Normal Mood/Affect, fleet maintenance foreman II-XII Norm as Tested, Motor Weakness (Generalized) Results/Procedures Lab Laboratory Tests 08/29/22 04:50 Patient resulted labs reviewed. Assessment/Plan Assessment and Plan Assess & Plan/Chief Complaint Assess & Plan/Chief Complaint Acute on chronic respiratory failure - likely secondary to pneumonia and/or COPD exacerbation - ABG 08/26 7.41/42/68 - stable on vapotherm since 08/26 (35.00) - extubated on 08/26 - intubated from 08/24-08/26 (500/14/6/30%) Pneumonia - CXR 08/27 - worsening of bilateral effusions with unchanged pulmonary consolidations - CXR 08/26 - worsening infiltrate of the right mid and lower lobe - No growth on blood and sputum cultures obtained 08/24-08/25 - Nasal cultures negative for MRSA - piperacillin tazobactam since 08/27 - Vancomycin since 08/24 - Azithromycin since 08/24 COPD - duonebs since 08/24 - methylprednisone since 08/24 Sepsis - above management Hypotension - resolved as of 08/26 - pressors from 08/24-08/26 Stroke with right hemiparesis (chronic) Hyperlipidemia (chronic) CAD (chronic) Plan: Transfer to fourth floor Supportive care Critical Care Critically Ill Patient ROSA ELENA WILL DO Aug 29, 2022 08:05
[2022-08-29] MEDS: PANTOPRAZOLE 40 MG (PROTONIX) VIAL IV SCH (08:42)
[2022-08-29] MEDS: NICOTINE 21 MG (NICODERM) PATCH TD SCH (08:43)
[2022-08-29] MEDS: FOLIC ACID 1 MG TAB PO SCH (08:43)
[2022-08-29] MEDS: PATCH REMOVAL TP SCH (08:43)
[2022-08-29] MEDS: methylPREDNISolone 40 MG/ML (Solu-MEDROL) VIAL IV SCH ×2 (08:43→19:44)
--- NOTE | 2022-08-29 09:25 | Tele-ICU Progress Note ---
Progress Note video rounds completed 61 y/o male admitted with COPD exacerbation/PNA Overall improving On nasal cannula oxygen remains on zosyn for PNA PE: comfortable sitting up in bed O2 sat: 95% IMP: COPD excaerbation with PNA PLAN: continue respiratory therapy with nebs and steroids and antibiotics Focused Exam Height, Weight, BMI Height: '" Weight: lbs. oz. kg; 24.07 BMI Method: Time of Focused Exam: 16:06 Labs Laboratory Tests 08/29/22 04:50 Labs Laboratory Tests 08/29/22 04:50 Results Results/Procedures Lab Laboratory Tests 08/28/22 03:38 08/29/22 04:50 Results Labs Labs Laboratory Tests 08/28/22 10:39: Glucometer 119H 08/28/22 16:55: Glucometer 149H 08/29/22 04:50: White Blood Count 7.0, Red Blood Count 3.78L, Hemoglobin 12.3L, Hematocrit 36L, Mean Corpuscular Volume 96, Mean Corpuscular Hemoglobin 33, Mean Corpuscular Hemoglobin Concent 34, Red Cell Distribution Width 12.3, Platelet Count 95L, Mean Platelet Volume 10.4, Immature Granulocyte % (Auto) 0, Neutrophils (%) (Auto) 85H, Lymphocytes (%) (Auto) 8L, Monocytes (%) (Auto) 7, Eosinophils (%) (Auto) 0, Basophils (%) (Auto) 0, Neutrophils # (Auto) 6.0, Lymphocytes # (Auto) 0.6L, Monocytes # (Auto) 0.5, Eosinophils # (Auto) 0.0, Basophils # (Auto) 0.0, Immature Granulocyte # (Auto) 0.0, Percent Immature Platelet Fraction 6.2, Sodium Level 136, Potassium Level 3.9, Chloride Level 103, Carbon Dioxide Level 24, Anion Gap 9, Blood Urea Nitrogen 12, Creatinine 0.62, Estimat Glomerular Filtration Rate 109, BUN/Creatinine Ratio 19, Glucose Level 126H, Calcium Level 7.9L, Corrected Calcium 8.8, Phosphorus Level 3.0, Magnesium Level 1.9, Total Bilirubin 0.8, Aspartate Amino Transf (AST/SGOT) 23, Alanine Aminotransferase (ALT/SGPT) 43, Alkaline Phosphatase 52, Total Protein 5.3L, Albumin 2.9L Microbiology 08/25/22 MRSA Screen - Final, Complete MRSA not isolated 08/24/22 Blood Culture - Preliminary, Resulted No growth MICKEY DURANT MD Aug 29, 2022 09:25
[2022-08-29] MEDS: ENOXAPARIN 40 MG/0.4 ML (LOVENOX) SYR SC SCH (09:57)
[2022-08-29] MEDS ORDERED: NALOXONE 0.4 MG/ML 1 ML (NARCAN) VIAL IV PRN (11:00)
[2022-08-29] MEDS ORDERED: CALCIUM CARBONATE 500 MG (TUMS) TAB.CHEW PO PRN (11:00)
[2022-08-29] MEDS ORDERED: diphenhydrAMINE 25 MG TAB (BENADRYL) PO PRN (11:00)
[2022-08-29] MEDS ORDERED: ACETAMINOPHEN 325 MG TABLET PO PRN (11:00)
[2022-08-29] MEDS ORDERED: LACTULOSE SYRUP 10GM/15ML (ENULOSE) 30ML UDC PO PRN (11:00)
[2022-08-29] MEDS ORDERED: polyethylene glycoL POWDER 17 GM (MIRALAX) PACK PO PRN (11:00)
[2022-08-29] MEDS ORDERED: ONDANSETRON 4 MG/2 ML (SDV) Z0FRAN IV PRN (11:00)
[2022-08-29] MEDS ORDERED: RT-ALBUTEROL/IPRATROPIUM 3 ML (DUONEB) VIAL IH PRN (11:00)
[2022-08-29] MEDS ORDERED: ANTACID SUSP 30 ML UDC (MYLANTA) PO PRN (11:00)
[2022-08-29] MEDS ORDERED: BISACODYL 10 MG SUPP (DULCOLAX) PR PRN (11:00)
[2022-08-29] MEDS ORDERED: ONDANSETRON 4 MG (ZOFRAN) ORAL DISSOLVE TAB PO PRN (11:00)
[2022-08-29] MEDS ORDERED: HYDROmorphone 2 MG/ML VIAL (DILAUDID) IV PRN (11:00)
[2022-08-29] MEDS ORDERED: MELATONIN 3 MG TABLET PO PRN (11:00)
[2022-08-29] MEDS ORDERED: amLODIPine 5 MG (NORVASC) TAB PO ONE (11:00)
[2022-08-29] MEDS ORDERED: diphenhydrAMINE 50 MG/ML INJ (BENADRYL) IVP PRN (11:00)
[2022-08-29] MEDS ORDERED: MILK OF MAGNESIA 400 MG/5 ML 30 ML UDC PO PRN (11:00)
[2022-08-29 14:30] VITALS: BP 165/77
[2022-08-29 15:52] VITALS: BP 155/78
[2022-08-29 18:00] VITALS: BP 166/75
[2022-08-29] MEDS: DOCUSATE SODIUM 100 MG (COLACE) CAP PO SCH (19:44)
[2022-08-29] MEDS: SENNOSIDES 8.6 MG (SENOKOT) TAB PO SCH (19:45)
[2022-08-29 20:12] VITALS: BP 166/75
[2022-08-29] MEDS: cloNIDine 0.1 MG (CATAPRES) TAB PO PRN (20:43)
[2022-08-29] MEDS ORDERED: PANTOPRAZOLE 40 MG (PROTONIX) TAB PO SCH (21:00)
[2022-08-29 23:06] VITALS: BP 163/78
[2022-08-30] VITALS (8 sets, daily range): BP systolic 124–171; BP diastolic 58–78
[2022-08-30] MEDS: PIPERACILLIN SODIUM/TAZOBACTAM 4.5 GM in NS (IVPB) 100 ML IV SCH ×4 (00:41→23:41)
[2022-08-30] MEDS: cloNIDine 0.1 MG (CATAPRES) TAB PO PRN (00:50)
[2022-08-30] MEDS: LORazepam 1 MG (ATIVAN) TAB PO PRN ×2 (01:13→20:18)
[2022-08-30] MEDS: RT-ALBUTEROL/IPRATROPIUM 3 ML (DUONEB) VIAL INH SCH ×2 (03:09→07:59)
[2022-08-30 04:36] LABS: BASOPHILS % (AUTO) 0 % (0-10); EOSINOPHILS % (AUTO) 0 % (0-10); PLATELET COUNT 110 10^3/uL (130-400)
[2022-08-30 04:38] LABS: HEMATOCRIT 36 % (40-54); HEMOGLOBIN 12.6 g/dL (13.3-17.7); LYMPHOCYTES # (AUTO) 0.6 10^3/uL (1.0-4.0); LYMPHOCYTES % (AUTO) 10 % (12-44); MEAN CORPUSCULAR HEMOGLOBIN 33 pg (25-34); MEAN CORPUSCULAR HGB CONC 35 g/dL (32-36); MEAN CORPUSCULAR VOLUME 95 fL (80-99); MEAN PLATELET VOLUME 10.5 fL (9.0-12.2); MONOCYTES # (AUTO) 0.6 10^3/uL (0.0-1.0); MONOCYTES % (AUTO) 10 % (0-12); NEUTROPHILS # (AUTO) 5.1 10^3/uL (1.8-7.8); NEUTROPHILS % (AUTO) 80 % (42-75); WHITE BLOOD COUNT 6.4 10^3/uL (4.3-11.0)
[2022-08-30 04:58] LABS: ALBUMIN 2.8 GM/DL (3.2-4.5); BILIRUBIN,TOTAL 0.9 MG/DL (0.1-1.0); CREATININE SERUM 0.57 MG/DL (0.60-1.30); MAGNESIUM 1.9 MG/DL (1.6-2.4); POTASSIUM 3.6 MMOL/L (3.6-5.0); TOTAL PROTEIN 5.2 GM/DL (6.4-8.2)
[2022-08-30] MEDS: THIAMINE 100 MG (VITAMIN B-1) TAB PO SCH (05:57)
--- NOTE | 2022-08-30 09:10 | Speech Therapy Daily Note ---
Speech Daily Progress Note Subjective Date Seen by Provider: Aug 30, 2022 Time Seen by Provider: 08:50 The patient was seated upright in bed, awake and alert, upon entrance to his room by the clinician. The patient greeted the clinician appropriately and was agreeable to participation in the dysphagia treatment session. The patient is currently on room air and denied shortness of breath at this time. Objective The patient consumed multiple straw drinks of coffee and multiple Cheetos (which were present at bedside). Per patient, "I have to let them dissolve first." No s/s of suspected aspiration were present with the item consumed by the patient. Safe swallowing precautions were reviewed with the patient prior to the close of the session. The patient's diet consistency was placed on the white board as "SB6 with thin liquids." The patient's white board previously read, "Regular with Pureed." The patient is currently receiving pureed items on his tray which is not consistent with the clinician's recommendations. The clinician will follow up with the kitchen/dietary for a solution. Continue plan of care. Assessment Assessment Current Status: Good Progress Treatment Plan Continue Plan of Care Speech Short Term Goals Short Term Goals Short Term Goals 1. The patient will display safe swallowing strategies with 80% accuracy, indep endently. Time Frame-STG: Five Days. Speech Senior Living Goals Consumer Banker Goals 1. The patient will tolerate the least restrictive diet consistency without s/s of suspected aspiration. Time Frame: One Week. Speech-Plan Treatment Plan Speech Therapy Treatment Plan: Continue Plan of Care Treatment Duration: Sep 03, 2022 Frequency: 4 times per week Estimated Hrs Per Day: .25 hour per day Rehab Potential: Guarded Safety Risks/Education Teaching Recipient: Patient Teaching Methods: Demonstration, Discussion Response to Teaching: Verbalize Understanding, Return Demonstration, Reinforcement Needed Education Topics Provided: Safe Swallowing Precautions Time Speech Therapy Time In: 08:50 Speech Therapy Time Out: 09:01 DATE: Aug 30, 2022 Total Billed Time: 11 Billed Treatment Time 1MALIA ELIZABETH ST Aug 30, 2022 09:10
[2022-08-30] MEDS: DOCUSATE SODIUM 100 MG (COLACE) CAP PO SCH ×2 (09:23→20:22)
[2022-08-30] MEDS: ENOXAPARIN 40 MG/0.4 ML (LOVENOX) SYR SC SCH (09:23)
[2022-08-30] MEDS: NICOTINE 21 MG (NICODERM) PATCH TD SCH (09:23)
[2022-08-30] MEDS: ASPIRIN E.C. 81 MG (ECOTRIN) TAB PO SCH (09:23)
[2022-08-30] MEDS: methylPREDNISolone 40 MG/ML (Solu-MEDROL) VIAL IV SCH ×2 (09:24→20:12)
[2022-08-30] MEDS: SERTRALINE 50 MG (ZOLOFT) TABLET PO SCH (09:24)
[2022-08-30] MEDS: CLOPIDOGREL 75 MG (PLAVIX) TABLET PO SCH (09:24)
[2022-08-30] MEDS: meTOproloL SUCCINATE 50 MG (TOPROL XL) TAB PO SCH (09:24)
[2022-08-30] MEDS: PANTOPRAZOLE 40 MG (PROTONIX) TAB PO SCH (09:24)
[2022-08-30] MEDS: amLODIPine 5 MG (NORVASC) TAB PO SCH (09:24)
[2022-08-30] MEDS: FOLIC ACID 1 MG TAB PO SCH (09:27)
[2022-08-30] MEDS: PATCH REMOVAL TP SCH (09:30)
[2022-08-30] MEDS: SENNOSIDES 8.6 MG (SENOKOT) TAB PO SCH ×2 (11:08→20:22)
[2022-08-30] MEDS ORDERED: RT-ALBUTEROL SULF 2.5 MG/3 ML PRE-MIX VIAL IH PRN (11:30)
[2022-08-30] MEDS ORDERED: RT-IPRATROPIUM (ATROVENT) 0.5MG/2.5ML AMP IH PRN (11:30)
--- NOTE | 2022-08-30 12:49 | Occupational Ther Daily Note ---
OT Current Status-Daily Note Subjective Pt alert, lying in bed. Nrsg reported that pt was assisted with bathing prior to OT session. Pt agrees to therapy. No c/o pain. Mental Status/Objective Patient Orientation: Person, Place, Time, Situation ADL-Treatment Pt agrees to complete oral care. After set up, pt completed oral care with sponge due to no dentures/teeth. Pt stated that he used to have a resting hand splint but was hard to place on R hand so he does not wear this anymore. Pt has decreased ROM of R elbow/wrist. R shldr has movement though is limited on shldr flexion. After therapy, pt lying in bed with call light/phone in reach. All needs met in room. Therapy Code Descriptions/Definitions Functional [place] Measure: 0=Not Assessed/NA 4=Minimal Assistance 1=Total Assistance 5=Supervision or Setup 2=Maximal Assistance 6=Modified [place] 3=Moderate Assistance 7=Complete IndependenceSCALE: Activities may be completed with or without assistive devices. 3-Rgyqwsnagg-jsjklwf completes the activity by him/herself with no assistance from a helper. 5-Set-up or Clean-up Assistance-helper sets up or cleans up; patient completes activity. [place] assists only prior to or following the activity. 4-Supervision or Touching Assistance-helper provides verbal cues and/or touching/steadying and/or contact guard assistance as patient completes activity. Assistance may be provided throughout the activity or intermittently. 3-Partial/Moderate Assistance-helper does LESS THAN HALF the effort. [place] lifts, holds or supports trunk or limbs, but provides less than half the effort. 2-Substantial/Maximal Assistance-helper does MORE THAN HALF the effort. [place] lifts or holds trunk or limbs and provides more than half the effort. 4-Ozpitkptz-sizdbd does ALL the effort. Patient does none of the effort to complete the activity. Or, the assistance of 2 or more helpers is required for the patient to complete the activity. If activity was not attempted, code reason: 7-Patient Refused. 9-Not Applicable-not attempted and the patient did not perform the activity before the current illness, exacerbation or injury. 10-Not Attempted due to Environmental Limitations-(lack of equipment, weather restraints, etc.). 88-Not Attempted due to Medical Conditions or Safety Concerns. Oral Hygiene (QC): 5 OT Penitentiary Goals Penitentiary Goals Time Frame: Sep 10, 2022 Eating (QC): 5 Oral Hygiene (QC): 5 Toileting Hygiene (QC): 4 Shower/Bathe Self (QC): 3 Upper Body Dressing (QC): 3 Lower Body Dressing (QC): 3 Additional Goals: 1-Demonstrate ADL Tasks, 2-Verbalize Understanding, 3- ImproveStrength/Kisha 1=Demonstrate adherence to instructed precautions during ADL tasks. 2=Patient will verbalize/demonstrate understanding of assistive devices/modifications for ADL. 3=Patient will improve strength/tolerance for activity to enable patient to perform ADL's. OT Education/Plan Problem List/Assessment Assessment: Decreased Activ Tolerance, Impaired Self-Care Skills, Restricted Funct UE ROM Discharge Recommendations Plan/Recommendations: Continue POC Treatment Plan/Plan of Care Patient would benefit from OT for education, treatment and training to promote independence in ADL's, mobility, safety and/or upper extremity function for ADL's. Plan of Care: ADL Retraining, Functional Mobility, UE Funct Exercise/Act Treatment Duration: Sep 10, 2022 Frequency: 3 times per week (3-5 times per week) Estimated Hrs Per Day: .25 hour per day Rehab Potential: Guarded Time Start Time: 10:30 Stop Time: 10:43 DATE: Aug 30, 2022 Total Time Billed (hr/min): 13 Billed Treatment Time 1 visit-ADL 1 (13 min) LUCAS REAVES Aug 30, 2022 12:49
--- NOTE | 2022-08-30 13:04 | Progress Note - Hospitalist ---
GABRIELLA AGUIRRE 08/30/22 1304: Subjective HPI/CC On Admission Date Seen by Provider: Aug 30, 2022 Subjective/Events-last exam 61 yo M with a history of COPD, CHF, HTN, CAD and previous stroke who presented to the ER on 08/24 for worsening SOB that began that day. He was found to be in acute hypoxic respiratory failure and placed on CPAP. He was transported to [facility] by EMS who noted a oxygen saturation of 82% on 100% CPAP as well as hypotension requiring. Due to continued repsiratory decline, he was intubated shortly after admission with vent settings at 500/14/6/30%. Pressors were continued to due persistent hypotension. CXR obtained this day demonstrated COPD and a patchy infiltrate and the right lung field; vancomycin, azithromycin, duonebs, and methylprednisone were started. At this time, he is stable on 3.00L of supplemental oxygen by nasal canula. He continues to deny chest pain, SOB or pain otherwise. Focused Exam Time of Focused Exam: 16:06 Objective Exam Vital Signs Vital Signs Date Time Temp Pulse Resp B/P (MAP) Pulse Ox O2 Delivery O2 Flow Rate FiO2 08/30/22 12:00 36.8 87 16 155/70 (98) 94 Nasal Cannula 1.00 08/28/22 02:35 30 Capillary Refill : Less Than 3 Seconds General Appearance: No Apparent Distress Respiratory: No Accessory Muscle Use, No Respiratory Distress, Other (mildly diminished breath sounds) Cardiovascular: Regular Rate, Rhythm Gastrointestinal: Normal Bowel Sounds Neurologic/Psychiatric: Alert, Oriented x3 Results/Procedures Lab Laboratory Tests 08/30/22 04:28 Patient resulted labs reviewed. Assessment/Plan Assessment and Plan Assess & Plan/Chief Complaint Acute on chronic respiratory failure - likely secondary to pneumonia and/or COPD exacerbation - nasal canula since 08/28 - vapotherm 08/26 - 08/27 - intubated from 08/24-08/26 (500/14/6/30%) Pneumonia - CXR 08/27 - worsening of bilateral effusions with unchanged pulmonary consolidations - CXR 08/26 - worsening infiltrate of the right mid and lower lobe - No growth on blood and sputum cultures obtained 08/24-08/25 - Nasal cultures negative for MRSA - piperacillin tazobactam since 08/27 - Vancomycin since 08/24 - Azithromycin since 08/24 COPD - duonebs since 08/24 - methylprednisone since 08/24 Sepsis - above management Hypertension (since 08/26) - amlodipine - metoprolol Hypotension (resolved) - pressors from 08/24-08/26 CHF (chronic) - Furosemide 40 mg on 08/26 Stroke with right hemiparesis (chronic) Hyperlipidemia (chronic) CAD (chronic) Plans: Remove catheter today. Patient may require fci care. NYDIA WILL DO 08/31/22 0505: Supervisory-Addendum Brief Verification & Attestation Participated in pt care: history, MDM, physical Personally performed: exam, history, MDM, supervision of care Care discussed with: Medical Student Procedures: n/a Results interpretation: Verified all documentation Verification and Attestation of Medical Student E/M Service A medical student performed and documented this service in my presence. I reviewed and verified all information documented by the medical student and made modifications to such information, when appropriate. I personally performed the physical exam and medical decision making. Nydia Will, Aug 31, 2022,05:04 GABRIELLA AGUIRRE Aug 30, 2022 13:04 NYDIA WILL DO Aug 31, 2022 05:05
--- NOTE | 2022-08-30 14:56 | Physical Therapy Daily Note ---
PT Daily Note-Current Subjective Pt found laying in bed /c family present upon entry. Agreed to PT. States that he is not having any pain. Reports Hx of stroke, multiple stints, and a heart attack. States that he does not ever want to live in a long-term. Pain Section J - Health Conditions 1. Rarely or not at all 2. Occasionally 3. Frequently 4. Almost constantly 8. Unable to answer Pain Effect on Sleep: 2 Pain Interference with Therapy: 2 Pain Interference w/Day-to-Day: 2 Mental Status Patient Orientation: Normal For Age Attachments: IV Transfers SCALE: Activities may be completed with or without assistive devices. 6-Cvxsnalwaq-dppwsgx completes the activity by him/herself with no assistance from a helper. 5-Set-up or Clean-up Assistance-helper sets up or cleans up; patient completes activity. [place] assists only prior to or following the activity. 4-Supervision or Touching Assistance-helper provides verbal cues and/or touching/steadying and/or contact guard assistance as patient completes activity. Assistance may be provided throughout the activity or intermittently. 3-Partial/Moderate Assistance-helper does LESS THAN HALF the effort. [place] lifts, holds or supports trunk or limbs, but provides less than half the effort. 2-Substantial/Maximal Assistance-helper does MORE THAN HALF the effort. [place] lifts or holds trunk or limbs and provides more than half the effort. 0-Siqvxzrwn-fobquf does ALL the effort. Patient does none of the effort to complete the activity. Or, the assistance of 2 or more helpers is required for the patient to complete the activity. If activity was not attempted, code reason: 7-Patient Refused. 9-Not Applicable-not attempted and the patient did not perform the activity before the current illness, exacerbation or injury. 10-Not Attempted due to Environmental Limitations-(lack of equipment, weather restraints, etc.). 88-Not Attempted due to Medical Conditions or Safety Concerns. Sit to Lying (QC): 5 Lying to Sitting/Side of Bed(Q: 5 Sit to Stand (QC): 5 Pt set-up assist /c all trfs. Gait Training Does the Patient Walk?: No and Walking Goal IS indicated Gait Assistive Device: FWW Wheelchair Training Does the Pt Use a Wheelchair?: No Exercises Supine Ex: Straight leg raise Supine Reps: 10 Seated Therapy Exercises: Ankle pumps, Sit to stand, Long arc quads, Hip flexion, Hip abd/add Seated Reps: 10 Pt displays good endurance /c exercise. Assessment Current Status: Good Progress Pt able to stand for 1min before requiring a RB. Demonstrated good endurance and strength /c exercise. Continue to progress pt as tolerated per POC to increase strength, endurance, and functional ability. PT Care Transitions Nurse Goals Care Transitions Nurse Goals PT Senior Care Goals Time Frame: Sep 03, 2022 Roll Left & Right (QC): 6 Sit to Lying (QC): 6 Lying-Sitting on Side/Bed(QC): 6 Sit to Stand (QC): 4 Chair/Mnf-un-Qkxvz Xfer(QC): 4 Walk 10 feet (QC): 4 PT Plan Treatment/Plan Treatment Plan: Continue Plan of Care Treatment Plan: Bed Mobility, Education, Functional Activity Kisha, Functional Strength, Gait, Safety, Therapeutic Exercise, Transfers Treatment Duration: Sep 03, 2022 Frequency: 6 times per week Estimated Hrs Per Day: .25 hour per day Patient and/or Family Agrees t: Yes Time Time In: 1139 Time Out: 1205 DATE: Aug 30, 2022 Total Billed Treatment Time: 26 Total Billed Treatment 1 visit FA 1x EX 1x TAMIKA ANDERSON OVERCOIL STEPPER Aug 30, 2022 14:56
[2022-08-30] MEDS: RT-ALBUTEROL SULF 2.5 MG/3 ML PRE-MIX VIAL INH SCH (21:29)
[2022-08-30] MEDS: RT-IPRATROPIUM (ATROVENT) 0.5MG/2.5ML AMP IH SCH (21:29)
[2022-08-31] VITALS (7 sets, daily range): BP systolic 96–175; BP diastolic 57–76
[2022-08-31] MEDS: cloNIDine 0.1 MG (CATAPRES) TAB PO PRN ×2 (04:09→08:25)
[2022-08-31 04:19] LABS: BASOPHILS % (AUTO) 0 % (0-10); EOSINOPHILS % (AUTO) 0 % (0-10); HEMATOCRIT 38 % (40-54); HEMOGLOBIN 13.3 g/dL (13.3-17.7); LYMPHOCYTES # (AUTO) 0.8 10^3/uL (1.0-4.0); LYMPHOCYTES % (AUTO) 9 % (12-44); MEAN CORPUSCULAR HEMOGLOBIN 33 pg (25-34); MEAN CORPUSCULAR HGB CONC 35 g/dL (32-36); MEAN CORPUSCULAR VOLUME 94 fL (80-99); MEAN PLATELET VOLUME 10.2 fL (9.0-12.2); MONOCYTES # (AUTO) 0.8 10^3/uL (0.0-1.0); MONOCYTES % (AUTO) 9 % (0-12); NEUTROPHILS # (AUTO) 7.1 10^3/uL (1.8-7.8); NEUTROPHILS % (AUTO) 82 % (42-75); PLATELET COUNT 143 10^3/uL (130-400); WHITE BLOOD COUNT 8.7 10^3/uL (4.3-11.0)
[2022-08-31 04:49] LABS: ALBUMIN 2.9 GM/DL (3.2-4.5); BILIRUBIN,TOTAL 0.7 MG/DL (0.1-1.0); CALCIUM 8.2 MG/DL (8.5-10.1); CREATININE SERUM 0.59 MG/DL (0.60-1.30); MAGNESIUM 1.9 MG/DL (1.6-2.4); POTASSIUM 3.6 MMOL/L (3.6-5.0); TOTAL PROTEIN 5.4 GM/DL (6.4-8.2)
[2022-08-31] MEDS: THIAMINE 100 MG (VITAMIN B-1) TAB PO SCH (05:29)
[2022-08-31] MEDS: PIPERACILLIN SODIUM/TAZOBACTAM 4.5 GM in NS (IVPB) 100 ML IV SCH ×2 (07:55→16:39)
[2022-08-31] MEDS: RT-ALBUTEROL SULF 2.5 MG/3 ML PRE-MIX VIAL INH SCH ×2 (08:04→19:08)
[2022-08-31] MEDS: RT-IPRATROPIUM (ATROVENT) 0.5MG/2.5ML AMP IH SCH ×2 (08:05→19:08)
--- NOTE | 2022-08-31 08:15 | Occupational Ther Daily Note ---
OT Current Status-Daily Note Subjective Up in bed watching tv. Mental Status/Objective Patient Orientation: Person, Place, Time, Situation Attachments: IV RT entered room during session and will return ADL-Treatment NO garments available, OT facilitated UE and LE garment assessment with slipper socks, SCDs, and hospital gown. OT set up wash clothes for face and UB sponge hygiene EOB. Patient reports spouse assists with bathing and UB dressing not initially reported by patient Therapy Code Descriptions/Definitions Functional [place] Measure: 0=Not Assessed/NA 4=Minimal Assistance 1=Total Assistance 5=Supervision or Setup 2=Maximal Assistance 6=Modified [place] 3=Moderate Assistance 7=Complete IndependenceSCALE: Activities may be completed with or without assistive devices. 2-Chhjtnjcjd-vtsonzv completes the activity by him/herself with no assistance from a helper. 5-Set-up or Clean-up Assistance-helper sets up or cleans up; patient completes activity. [place] assists only prior to or following the activity. 4-Supervision or Touching Assistance-helper provides verbal cues and/or touching/steadying and/or contact guard assistance as patient completes activity. Assistance may be provided throughout the activity or intermittently. 3-Partial/Moderate Assistance-helper does LESS THAN HALF the effort. [place] lifts, holds or supports trunk or limbs, but provides less than half the effort. 2-Substantial/Maximal Assistance-helper does MORE THAN HALF the effort. [place] lifts or holds trunk or limbs and provides more than half the effort. 0-Nnzfyanbk-cngszz does ALL the effort. Patient does none of the effort to complete the activity. Or, the assistance of 2 or more helpers is required for the patient to complete the activity. If activity was not attempted, code reason: 7-Patient Refused. 9-Not Applicable-not attempted and the patient did not perform the activity before the current illness, exacerbation or injury. 10-Not Attempted due to Environmental Limitations-(lack of equipment, weather restraints, etc.). 88-Not Attempted due to Medical Conditions or Safety Concerns. Eating (QC): 6 (L hand utensil use) Oral Hygiene (QC): 5 (Set up provided by OT) Bathing Location: R Arm, Chest Shower/Bathe Self (QC): 3 Upper Body Dressing (QC): 4 Lower Body Dressing (QC): 4 On/Off Footwear: 4 Toileting Hygiene (QC): 4 Toilet Transfer (QC): 4 (Required rocking to stand from low surface, patient reports he uses "Potty Chair" at home) Other Treatment PANCHO SONI. hand through shoulder Education OT Patient Education: Correct positioning, Energy conservation, Exercise program, Home exercise program, Modified ADL techniques, Progress toward Goal/Update tx plan, Purpose of tx/functional activities, Reviewed precautions, Rehab process, Safety issues, Transfer techniques Teaching Recipient: Patient Teaching Methods: Demonstration, Discussion Response to Teaching: Verbalize Understanding, Return Demonstration OT Lamp Developer Goals Correction Goals Time Frame: Sep 10, 2022 Eating (QC): 5 Oral Hygiene (QC): 5 Toileting Hygiene (QC): 4 Shower/Bathe Self (QC): 3 Upper Body Dressing (QC): 3 Lower Body Dressing (QC): 3 Additional Goals: 1-Demonstrate ADL Tasks, 2-Verbalize Understanding, 3-ImproveStrength/Kisha 1=Demonstrate adherence to instructed precautions during ADL tasks. 2=Patient will verbalize/demonstrate understanding of assistive devices/modifications for ADL. 3=Patient will improve strength/tolerance for activity to enable patient to perf orm ADL's. OT Education/Plan Problem List/Assessment Assessment: Decreased Activ Tolerance, Decreased UE Strength, Impaired Bed Mobility, Impaired Coordination, Impaired Funct Balance, Impaired I ADL's, Impaired Self-Care Skills, Restricted Funct UE ROM Discharge Recommendations Plan/Recommendations: Continue POC Therapy Discharge Recommendati: Post Acute OT Equpiment Recommendations-D/C: Other, See Comments (Right RHS, patient reports his current RHS is too difficult to apply. Instruction in HEP of hand ROM pr ovided) Treatment Plan/Plan of Care Patient would benefit from OT for education, treatment and training to promote independence in ADL's, mobility, safety and/or upper extremity function for ADL's. Plan of Care: ADL Retraining, Functional Mobility, UE Funct Exercise/Act Treatment Duration: Sep 10, 2022 Frequency: 3 times per week (3-5 times per week) Estimated Hrs Per Day: .25 hour per day Rehab Potential: Guarded Time Start Time: 07:50 Stop Time: 08:18 DATE: Aug 31, 2022 Total Time Billed (hr/min): 28 Billed Treatment Time 2 ADL 28m EZEKIEL LIM OT Aug 31, 2022 08:15
[2022-08-31] MEDS: SENNOSIDES 8.6 MG (SENOKOT) TAB PO SCH ×2 (08:23→20:05)
[2022-08-31] MEDS: NICOTINE 21 MG (NICODERM) PATCH TD SCH (08:23)
[2022-08-31] MEDS: methylPREDNISolone 40 MG/ML (Solu-MEDROL) VIAL IV SCH ×2 (08:23→20:04)
[2022-08-31] MEDS: SERTRALINE 50 MG (ZOLOFT) TABLET PO SCH (08:23)
[2022-08-31] MEDS: PANTOPRAZOLE 40 MG (PROTONIX) TAB PO SCH (08:23)
[2022-08-31] MEDS: FOLIC ACID 1 MG TAB PO SCH (08:23)
[2022-08-31] MEDS: DOCUSATE SODIUM 100 MG (COLACE) CAP PO SCH ×2 (08:23→20:05)
[2022-08-31] MEDS: PATCH REMOVAL TP SCH (08:23)
[2022-08-31] MEDS: amLODIPine 5 MG (NORVASC) TAB PO SCH (08:23)
[2022-08-31] MEDS: CLOPIDOGREL 75 MG (PLAVIX) TABLET PO SCH (08:23)
[2022-08-31] MEDS: meTOproloL SUCCINATE 50 MG (TOPROL XL) TAB PO SCH (08:23)
[2022-08-31] MEDS: ASPIRIN E.C. 81 MG (ECOTRIN) TAB PO SCH (08:23)
--- NOTE | 2022-08-31 10:10 | Physical Therapy Daily Note ---
PT Daily Note-Current Subjective Patient agrees to PT. Pain Section J - Health Conditions 1. Rarely or not at all 2. Occasionally 3. Frequently 4. Almost constantly 8. Unable to answer Pain Effect on Sleep: 2 Pain Interference with Therapy: 2 Pain Interference w/Day-to-Day: 2 Mental Status Patient Orientation: Person, Time, Situation Attachments: IV Transfers SCALE: Activities may be completed with or without assistive devices. 5-Pwbcxepyvl-inkmcdh completes the activity by him/herself with no assistance from a helper. 5-Set-up or Clean-up Assistance-helper sets up or cleans up; patient completes activity. [place] assists only prior to or following the activity. 4-Supervision or Touching Assistance-helper provides verbal cues and/or touching/steadying and/or contact guard assistance as patient completes activity. Assistance may be provided throughout the activity or intermittently. 3-Partial/Moderate Assistance-helper does LESS THAN HALF the effort. [place] lifts, holds or supports trunk or limbs, but provides less than half the effort. 2-Substantial/Maximal Assistance-helper does MORE THAN HALF the effort. [place] lifts or holds trunk or limbs and provides more than half the effort. 3-Wsyrmlvqj-zlyyob does ALL the effort. Patient does none of the effort to complete the activity. Or, the assistance of 2 or more helpers is required for the patient to complete the activity. If activity was not attempted, code reason: 7-Patient Refused. 9-Not Applicable-not attempted and the patient did not perform the activity before the current illness, exacerbation or injury. 10-Not Attempted due to Environmental Limitations-(lack of equipment, weather restraints, etc.). 88-Not Attempted due to Medical Conditions or Safety Concerns. Sit to Stand (QC): 4 Gait Training Distance: 50' Walk 10 feet (QC): 4 Walk 50 ft with 2 Turns(QC): 4 Gait Assistive Device: FWW able to utilize FWW with use of left hand/UE for stability Assessment Patient remains up in recliner with needs met. Per patient, he utilizes a w/c in home. Family not present to confirm. PT to increase activity as tolerated by patient. PT Assisted Goals [place] Goals PT [place] Goals Time Frame: Sep 03, 2022 Roll Left & Right (QC): 6 Sit to Lying (QC): 6 Lying-Sitting on Side/Bed(QC): 6 Sit to Stand (QC): 4 Chair/Bii-xu-Oztba Xfer(QC): 4 Walk 10 feet (QC): 4 PT Plan Treatment/Plan Treatment Plan: Continue Plan of Care Treatment Plan: Bed Mobility, Education, Functional Activity Kisha, Functional Strength, Gait, Safety, Therapeutic Exercise, Transfers Treatment Duration: Sep 03, 2022 Frequency: 6 times per week Estimated Hrs Per Day: .25 hour per day Patient and/or Family Agrees t: Yes Time Time In: 904 Time Out: 918 DATE: Aug 31, 2022 Total Billed Treatment Time: 14 Total Billed Treatment 1 visit GT 14 min IVAN CARBALLO PT Aug 31, 2022 10:10
[2022-08-31] MEDS: ENOXAPARIN 40 MG/0.4 ML (LOVENOX) SYR SC SCH (10:16)
--- NOTE | 2022-08-31 11:34 | Progress Note - Hospitalist ---
GABRIELLA AGUIRRE 08/31/22 1134: Subjective HPI/CC On Admission Date Seen by Provider: Aug 31, 2022 Subjective/Events-last exam Today: Stable on 1L of supplemental oxygen by nasal canula. He continues to appear stronger. He states PT yesterday was a tolerable level of exertion and without pain. He endorses a BM this morning. He denies chest pain, SOB or pain otherwise. History: 61 yo M with a history of COPD, CHF, HTN, CAD and previous stroke who presented to the ER on 08/24 for worsening SOB that began that day. He was found to be in acute hypoxic respiratory failure and placed on CPAP. He was transported to [facility] [address] by EMS who noted a oxygen saturation of 82% on 100% CPAP as well as hypotension requiring. Due to continued repsiratory decline, he was intubated shortly after admission with vent settings at 500/14/6/30%. Pressors were continued to due persistent hypotension. CXR obtained this day demonstrated COPD and a patchy infiltrate and the right lung field; vancomycin, azithromycin, duonebs, and methylprednisone were started. Focused Exam Time of Focused Exam: 16:06 Objective Exam Vital Signs Vital Signs Date Time Temp Pulse Resp B/P (MAP) Pulse Ox O2 Delivery O2 Flow Rate FiO2 08/31/22 09:01 97 Room Air 1.00 08/31/22 08:00 37.4 71 18 175/61 (99) 08/28/22 02:35 30 Capillary Refill : Less Than 3 Seconds General Appearance: No Apparent Distress Respiratory: Lungs Clear Cardiovascular: Regular Rate, Rhythm Gastrointestinal: Normal Bowel Sounds Extremity: Normal Inspection Neurologic/Psychiatric: Alert Results/Procedures Lab Laboratory Tests 08/31/22 04:10 Patient resulted labs reviewed. Assessment/Plan Assessment and Plan Assess & Plan/Chief Complaint Acute on chronic respiratory failure - likely secondary to pneumonia and/or COPD exacerbation - nasal canula since 08/28 - vapotherm 08/26 - 08/27 - intubated from 08/24-08/26 (500/14/6/30%) Pneumonia - CXR 08/27 - worsening of bilateral effusions with unchanged pulmonary consolidations - CXR 08/26 - worsening infiltrate of the right mid and lower lobe - Sputum cultures obtained 08/25 showed usual upper respiratory duran - Piperacillin tazobactam since 08/27 - Vancomycin 08/24 -08/26 - Azithromycin 08/24 - 08/26 COPD - duonebs since 08/24 - methylprednisone since 08/24 Sepsis - above management Hypertension (since 08/26) - amlodipine - metoprolol Hypotension (resolved) - pressors from 08/24-08/26 CHF (chronic) - Furosemide 40 mg on 08/26 Stroke with right hemiparesis (chronic) Hyperlipidemia (chronic) CAD (chronic) Plans: Discharge home tomorrow with [facility]. NYDIA WILL DO 09/01/22 0607: Assessment/Plan Assessment and Plan Assess & Plan/Chief Complaint [facility] tomorrow Supervisory-Addendum Brief Verification & Attestation Participated in pt care: history, MDM, physical Personally performed: exam, history, MDM, supervision of care Care discussed with: Medical Student Procedures: n/a Results interpretation: Verified all documentation Verification and Attestation of Medical Student E/M Service A medical student performed and documented this service in my presence. I reviewed and verified all information documented by the medical student and made modifications to such information, when appropriate. I personally performed the physical exam and medical decision making. Nydia Will, Sep 01, 2022,06:07 GABRIELLA AGUIRRE Aug 31, 2022 11:34 NYDIA WILL DO Sep 01, 2022 06:07
--- NOTE | 2022-08-31 12:05 | Speech Therapy Daily Note ---
Speech Daily Progress Note Subjective Date Seen by Provider: Aug 31, 2022 Time Seen by Provider: 10:45 The patient was seated upright, awake and alert, upon entrance to his room by the clinician. The patient greeted the clinician appropriately and was agreeable to participation in the dysphagia treatment session. Objective The patient denied concerns regarding his oropharyngeal swallowing function or the presence of s/s of suspected aspiration with P.O. intake. The patient is currently on room air and denied shortness of breath throughout the treatment session. The clinician discussed safe swallowing precautions and the patient consumed multiple drinks of coffee via straw. Overt s/s of suspected aspiration were not displayed with the thin liquid and the patient's vocal quality remained consistency clear. As solids have been attempted in the past with prolonged time and increased moisture necessary for bolus formation and posterior transfer, the patient is on the highest level of diet consistency recommended. Recommendations: - Continue plan of care. Assessment Assessment Current Status: Good Progress Treatment Plan Continue Plan of Care Speech Short Term Goals Short Term Goals Short Term Goals 1. The patient will display safe swallowing strategies with 80% accuracy, independently. Time Frame-STG: Five Days. Speech Skilled Nursing Goals Cushion Former Goals 1. The patient will tolerate the least restrictive diet consistency without s/s of suspected aspiration. Time Frame: One Week. Speech-Plan Treatment Plan Speech Therapy Treatment Plan: Continue Plan of Care Treatment Duration: Sep 03, 2022 Frequency: 4 times per week Estimated Hrs Per Day: .25 hour per day Rehab Potential: Guarded Safety Risks/Education Teaching Recipient: Patient Teaching Methods: Discussion Response to Teaching: Return Demonstration Education Topics Provided: Safe Swallowing Precautions Time Speech Therapy Time In: 10:45 Speech Therapy Time Out: 10:52 DATE: Aug 31, 2022 Total Billed Time: 12 Billed Treatment Time MALIA Briones ZACH FRANCISCO Aug 31, 2022 12:04
[2022-08-31] MEDS: LORazepam 1 MG (ATIVAN) TAB PO PRN (20:04)
[2022-09-01 03:31] VITALS: BP 176/81
[2022-09-01] MEDS: cloNIDine 0.1 MG (CATAPRES) TAB PO PRN ×2 (04:04→09:08)
[2022-09-01 04:17] LABS: BASOPHILS % (AUTO) 0 % (0-10); EOSINOPHILS % (AUTO) 0 % (0-10); HEMATOCRIT 38 % (40-54); HEMOGLOBIN 13.3 g/dL (13.3-17.7); LYMPHOCYTES % (AUTO) 10 % (12-44); MEAN CORPUSCULAR HEMOGLOBIN 33 pg (25-34); MEAN CORPUSCULAR HGB CONC 35 g/dL (32-36); MEAN CORPUSCULAR VOLUME 94 fL (80-99); MONOCYTES # (AUTO) 0.9 10^3/uL (0.0-1.0); MONOCYTES % (AUTO) 10 % (0-12); NEUTROPHILS # (AUTO) 7.8 10^3/uL (1.8-7.8); NEUTROPHILS % (AUTO) 80 % (42-75); PLATELET COUNT 157 10^3/uL (130-400); WHITE BLOOD COUNT 9.8 10^3/uL (4.3-11.0)
[2022-09-01 04:43] LABS: BILIRUBIN,TOTAL 0.7 MG/DL (0.1-1.0); CALCIUM 8.2 MG/DL (8.5-10.1); CREATININE SERUM 0.6 MG/DL (0.60-1.30); MAGNESIUM 1.9 MG/DL (1.6-2.4); POTASSIUM 3.7 MMOL/L (3.6-5.0); TOTAL PROTEIN 5.3 GM/DL (6.4-8.2)
[2022-09-01 05:03] VITALS: BP 112/82
[2022-09-01] MEDS: THIAMINE 100 MG (VITAMIN B-1) TAB PO SCH (05:24)
[2022-09-01 07:38] VITALS: BP 175/73
[2022-09-01 07:43] VITALS: BP 175/73
[2022-09-01] MEDS: PANTOPRAZOLE 40 MG (PROTONIX) TAB PO SCH (08:35)
[2022-09-01] MEDS: SERTRALINE 50 MG (ZOLOFT) TABLET PO SCH (08:35)
[2022-09-01] MEDS: SENNOSIDES 8.6 MG (SENOKOT) TAB PO SCH (08:35)
[2022-09-01] MEDS: DOCUSATE SODIUM 100 MG (COLACE) CAP PO SCH (08:35)
[2022-09-01] MEDS: FOLIC ACID 1 MG TAB PO SCH (08:35)
[2022-09-01] MEDS: CLOPIDOGREL 75 MG (PLAVIX) TABLET PO SCH (08:35)
[2022-09-01] MEDS: amLODIPine 5 MG (NORVASC) TAB PO SCH (08:35)
[2022-09-01] MEDS: ASPIRIN E.C. 81 MG (ECOTRIN) TAB PO SCH (08:35)
[2022-09-01] MEDS: meTOproloL SUCCINATE 50 MG (TOPROL XL) TAB PO SCH (08:35)
[2022-09-01] MEDS: NICOTINE 21 MG (NICODERM) PATCH TD SCH (08:36)
[2022-09-01] MEDS: methylPREDNISolone 40 MG/ML (Solu-MEDROL) VIAL IV SCH (08:36)
[2022-09-01] MEDS: RT-IPRATROPIUM (ATROVENT) 0.5MG/2.5ML AMP IH SCH (09:01)
[2022-09-01] MEDS: RT-ALBUTEROL SULF 2.5 MG/3 ML PRE-MIX VIAL INH SCH (09:02)
--- NOTE | 2022-09-01 09:06 | Occ Therapy Progress Note ---
Therapy Progress Note OT arrived for therapy session, patient w/ RT. OT will return when patient available EZEKIEL LIM OT Sep 01, 2022 09:06
[2022-09-01] MEDS: ENOXAPARIN 40 MG/0.4 ML (LOVENOX) SYR SC SCH (09:08)
[2022-09-01] MEDS: PATCH REMOVAL TP SCH (09:08)
[2022-09-01] MEDS ORDERED: AMLO-250 PO (09:43)
[2022-09-01] MEDS ORDERED: THIA100T80 PO (09:44)
[2022-09-01] MEDS ORDERED: FOLI1TAB33 PO (09:44)
[2022-09-01] MEDS ORDERED: OXC5T PO (09:44)
--- NOTE | 2022-09-01 09:46 | D/C HH Face to Face Order ---
D/C HH Face to Face Orders Reconcile Patient Problems Problems Reviewed?: Yes Instructions for Patient HH Patient Instructions/FollowUp: pcp 1 week Physician to follow Patient: [facility] Discharge Diet for Home: No Restrictions Patient Problems: Debility Patient Data-Allergies,Ht & Wt Patient Allergies: Coded Allergies: No Known Drug Allergies (Unverified , 01/04/22) Home Health Need/Face to Face Date of Face to Face: Sep 01, 2022 Clinical Findings: Generalized weakness and fatigue, Instability, Muscle weakness, Unsteady gait I have seen Pt rraz-kn-dryz: Yes Discharged To: Home Diagnosis/Conditions: Debility Patient is Homebound due to: [place] fall risk due to instabilty, Muscle weakness Homebound Status Due to the above stated illness, injury or surgical procedure (medical condition or diagnosis) and associated clinical findings, the patient is homebound because of his/her inability to leave home except with aid of a supportive device and/or person AND leaving the home requires a considerable and taxing effort or is medically contraindicated. Pt req the following assistanc: [facility] Home Health Nursing Orders Home Health Services Order: Nursing Services, Provider Relations Rep-Evaluate & Treat, Physical Therapy-Evaluate & Treat Home Health Infusion Therapy Line Start Date: Aug 25, 2022 Certify Stmt I certify that this patient is under my care and that I, a nurse practitioner or a physician; a assistant food service director working with me, had a face to face encounter that - meets the physician face to face encounter requirements with this patient as dated. ROSA ELENA WILL DO Sep 01, 2022 09:46
--- NOTE | 2022-09-01 09:47 | Discharge Summary ---
Discharge Summary Hospital Course Was the Problem List Reviewed?: Yes Problems/Dx: (1) Stroke with right hemiparesis Status: Chronic (2) Hyperlipidemia Status: Chronic (3) Hypertension Status: Chronic (4) Coronary artery disease Status: Chronic (5) Peripheral vascular disease Status: Chronic (6) Acute respiratory failure with hypoxia Status: Acute (7) Acute exacerbation of chronic obstructive pulmonary disease (COPD) Status: Acute (8) Hypomagnesemia Status: Acute Hospital Course Date of Admission: Aug 24, 2022 at 17:06 Admission Diagnosis : [facility] Date of Discharge: 09/01/22 Discharge Diagnosis: [ ] Hospital Course: Lengthy course after he was intubated and maintained in the ICU for acute on chronic resp failure. Aggressive care was initiated and overall he was able to recover enough to return home on . See bridge noted for details. Labs and Pending Lab Test: Laboratory Tests 08/31/22 10:59: Glucometer 150H 08/31/22 16:29: Glucometer 103 08/31/22 20:42: Glucometer 100 09/01/22 04:08: White Blood Count 9.8, Red Blood Count 4.05L, Hemoglobin 13.3, Hematocrit 38L, Mean Corpuscular Volume 94, Mean Corpuscular Hemoglobin 33, Mean Corpuscular Hemoglobin Concent 35, Red Cell Distribution Width 12.4, Platelet Count 157, Mean Platelet Volume 10.0, Immature Granulocyte % (Auto) 1, Neutrophils (%) (Auto) 80H, Lymphocytes (%) (Auto) 10L, Monocytes (%) (Auto) 10, Eosinophils (%) (Auto) 0, Basophils (%) (Auto) 0, Neutrophils # (Auto) 7.8, Lymphocytes # (Auto) 1.0, Monocytes # (Auto) 0.9, Eosinophils # (Auto) 0.0, Basophils # (Auto) 0.0, Immature Granulocyte # (Auto) 0.1, Sodium Level 135, Potassium Level 3.7, Chloride Level 104, Carbon Dioxide Level 22, Anion Gap 9, Blood Urea Nitrogen 11, Creatinine 0.60, Estimat Glomerular Filtration Rate 110, BUN/Creatinine Ratio 18, Glucose Level 110H, Calcium Level 8.2L, Corrected Calcium 9.0, Magnesium Level 1.9, Total Bilirubin 0.7, Aspartate Amino Transf (AST/SGOT) 27, Alanine Aminotransferase (ALT/SGPT) 44, Alkaline Phosphatase 56, Total Protein 5.3L, Albumin 3.0L Microbiology 08/25/22 MRSA Screen - Final, Complete MRSA not isolated 08/24/22 Blood Culture - Final, Complete No growth Home Meds Active Vitamin B-1 (Thiamine HCl) 100 Mg Tablet 100 Mg PO DAILY@0700 Folic Acid 1 Mg Tablet 1 Mg PO DAILY Oxyir Tablet (Oxycodone HCl) 5 Mg Tab 5 Mg PO Q4HR PRN Amlodipine Besylate 5 Mg Tablet 5 Mg PO DAILY Reported Aleve (Naproxen Sodium) 220 Mg Capsule 220-440 Mg PO 1200 Iprat-Albut 0.5-3(2.5) mg/3 ml (Ipratropium/Albuterol Sulfate) 0.5 Mg-3 Mg (2.5 Mg Base)/3 Ml Ampul.neb 3 Ml IH Q6H PRN Atorvastatin Calcium 20 Mg Tablet 20 Mg PO DAILY LAST FILLED 05-11-2022 #30/30 DAY SUPPLY Pantoprazole Sodium 40 Mg Tablet.dr 40 Mg PO DAILY Sertraline HCl 50 Mg Tablet 50 Mg PO DAILY Aspirin EC (Aspirin) 81 Mg Tablet.dr 81 Mg PO DAILY Clopidogrel (Clopidogrel Bisulfate) 75 Mg Tablet 75 Mg PO DAILY Metoprolol Succinate 50 Mg Tab.er.24h 50 Mg PO DAILY Assessment/Pt Instructions PCP 1 week Discharge Planning: <30 minutes discharge planning Discharge Instructions Discharge Diet: No Restrictions Discharge Physical Examination Vital Signs Vital Signs Date Time Temp Pulse Resp B/P (MAP) Pulse Ox O2 Delivery O2 Flow Rate FiO2 09/01/22 09:03 96 Room Air 09/01/22 07:43 36.0 70 18 175/73 (107) 1.00 1.00 08/28/22 02:35 30 General Appearance: No Apparent Distress, WD/WN, Chronically ill Respiratory: Normal Breath Sounds Allergies: Coded Allergies: No Known Drug Allergies (Unverified , 01/04/22) Discharge Summary Date of Admission Aug 24, 2022 at 17:06 Date of Discharge Discharge Date: Sep 01, 2022 Discharge Diagnosis DC HH tomorrow (1) Stroke with right hemiparesis Status: Chronic Assessment & Plan: -Resume home medications: ASA 81mg qd, atorvastatin 20mg qd -PT/OT services for rehabilitation (2) Hyperlipidemia Status: Chronic Assessment & Plan: -Resume home medication atorvastatin 20mg qd (3) Hypertension Status: Chronic Assessment & Plan: Monitor BP Consider resuming home medications amlodipine 5mg qd, lisinopril 20mg qd, metoprolol 50mg qd if BP >140/90 (4) Coronary artery disease Status: Chronic Assessment & Plan: Resume home medications: ASA 81mg qd, atorvastatin 20mg qd, and metoprolol 50mg if BP and HR will tolerate (5) Peripheral vascular disease Status: Chronic Assessment & Plan: -Stent place in R LE in the past month at [facility] per patient report. Continue home medications: Plavix 75mg qd (6) Acute respiratory failure with hypoxia Status: Acute Assessment & Plan: 08/25: Acute respiratory failure with hypoxia likely secondary to AECOPD. Patient is intubated and sedated. Appreciate plan per Critical Care. Spontaneous breathing trial this evening. Potential extubation on 08/26. -Antibiotic therapy: vancomycin 1250mg x3days with trough, Rocephin 1gm x5days, azithromycin 250mg x5days -Systemic steroids: solumedrol 40mg IV qd -Duoneb 3ml RTQ4H INH -PT/OT -Protonix 40mg IV qd for stress ulcer prophylaxis 08/26: -Continue medication management and appreciate plan per Critical Care -Ativan 1-2mg PO Q3H PRN for anxiety management to help decrease agitation -MRSA not isolated, consider discontinuing vancomycin (7) Acute exacerbation of chronic obstructive pulmonary disease (COPD) Status: Acute Assessment & Plan: 08/25: Acute respiratory failure with hypoxia likely secondary to AECOPD. Patient is intubated and sedated. Appreciate plan per Critical Care. Spontaneous breathing trial this evening. Potential extubation on 08/26. -Antibiotic therapy: vancomycin 1250mg x3days with trough, Rocephin 1gm x5days, azithromycin 250mg x5days -Systemic steroids: solumedrol 40mg IV qd -Duoneb 3ml RTQ4H INH -PT/OT (8) Hypomagnesemia Status: Acute Assessment & Plan: 08/25: Mg 1.3. Replace with Magnesium sulfate 2gm. Monitor with AM Mg. Continue to replace if Mg <1.7 ROSA ELENA WILL DO Sep 01, 2022 09:47
--- NOTE | 2022-09-01 10:07 | Physical Therapy Daily Note ---
PT Daily Note-Current Subjective Patient in bed pre tx, agrees to PT, has no complaints of pain. Pain Section J - Health Conditions 1. Rarely or not at all 2. Occasionally 3. Frequently 4. Almost constantly 8. Unable to answer Pain Effect on Sleep: 2 Pain Interference with Therapy: 2 Pain Interference w/Day-to-Day: 2 Appearance Patient in bed post tx with nurse call, phone, tray, all needs met. Mental Status Patient Orientation: Person, Place, Situation Transfers SCALE: Activities may be completed with or without assistive devices. 0-Tpnxrfmbje-qgfnaud completes the activity by him/herself with no assistance from a helper. 5-Set-up or Clean-up Assistance-helper sets up or cleans up; patient completes activity. [place] assists only prior to or following the activity. 4-Supervision or Touching Assistance-helper provides verbal cues and/or touching/steadying and/or contact guard assistance as patient completes activity. Assistance may be provided throughout the activity or intermittently. 3-Partial/Moderate Assistance-helper does LESS THAN HALF the effort. [place] lifts, holds or supports trunk or limbs, but provides less than half the effort. 2-Substantial/Maximal Assistance-helper does MORE THAN HALF the effort. [place] lifts or holds trunk or limbs and provides more than half the effort. 9-Ukromuaeb-dphphf does ALL the effort. Patient does none of the effort to complete the activity. Or, the assistance of 2 or more helpers is required for the patient to complete the activity. If activity was not attempted, code reason: 7-Patient Refused. 9-Not Applicable-not attempted and the patient did not perform the activity before the current illness, exacerbation or injury. 10-Not Attempted due to Environmental Limitations-(lack of equipment, weather restraints, etc.). 88-Not Attempted due to Medical Conditions or Safety Concerns. Roll Left & Right (QC): 6 Sit to Lying (QC): 6 Lying to Sitting/Side of Bed(Q: 6 Sit to Stand (QC): 4 Chair/Kck-wz-Twfic Xfer(QC): 4 Gait Training Distance: 80' Walk 10 feet (QC): 4 Walk 50 ft with 2 Turns(QC): 4 Gait Persons Needed: 1 Gait Assistive Device: FWW CGA, patient has some unsteadiness but no LOB, uses walker with one hand Exercises Supine Ex: Ankle pumps, Quad Set, Heel Slides Supine Reps: 20 Treatments bed mobility and transfers, ambulation, LE ROM Assessment Current Status: Fair Progress improving general mobility PT Usp Goals Usp Goals PT Still Runner Goals Time Frame: Sep 03, 2022 Roll Left & Right (QC): 6 Sit to Lying (QC): 6 Lying-Sitting on Side/Bed(QC): 6 Sit to Stand (QC): 4 Chair/Ubw-gb-Setlk Xfer(QC): 4 Walk 10 feet (QC): 4 PT Plan Problem List Problem List: Activity Tolerance, Functional Strength, Safety, Balance, Gait, Transfer, Bed Mobility, ROM Treatment/Plan Treatment Plan: Continue Plan of Care Treatment Plan: Bed Mobility, Education, Functional Activity Kisha, Functional Strength, Gait, Safety, Therapeutic Exercise, Transfers Treatment Duration: Sep 03, 2022 Frequency: 6 times per week Estimated Hrs Per Day: .25 hour per day Patient and/or Family Agrees t: Yes Safety Risks/Education Patient Education: Gait Training, Transfer Techniques, Correct Positioning, Safety Issues Teaching Recipient: Patient Teaching Methods: Demonstration, Discussion Response to Teaching: Reinforcement Needed Time Time In: 0940 Time Out: 0950 DATE: Sep 01, 2022 Total Billed Treatment Time: 10 Total Billed Treatment 1 visit FA MICHI MEDINA PT Sep 01, 2022 10:07
[2022-09-01 12:00] VITALS: BP 95/51
[2022-09-01 13:22] VITALS: BP 95/51
--- NOTE | 2022-09-01 17:43 | Progress Note ---
GABRIELLA AGUIRRE 09/01/22 4083: Progress Note Case Wray is a 61 yo M with a history of COPD, HFpEF, HTN, CAD and previous stroke who presented to the ER on 08/24 for worsening SOB that began that day. He was found to be in acute hypoxic respiratory failure and placed on CPAP. He was transported to [facility] by EMS who noted a oxygen saturation of 82% on 100% CPAP as well as hypotension requiring dobutamine. Due to continued respiratory decline, he was intubated shortly after admission with vent settings at 500/14/6/30%. Pressors were continued to unresolved hypotension. CXR obtained this day demonstrated COPD and a patchy infiltrate and the right lung field; antibiotics covering CAP, duonebs, and methylprednisone were started. On 08/26, Zosin was started to cover HCAP per worsening infiltrate on CXR. On 08/26, the patient was extubated by [facility] and transitioned to nasal canula 5L. Several hours later, oxygen saturation declined to 88% and bilateral crackles were observed on ascultation; the patient was started on vapotherm and after CXR showed bilateral effusions, Lasix was started. On 08/27 his hypotension resolved and vasopressors were discontinued. The patients respiratory status improved after diuresis of 5L in UO, and he was restarted on nasal canula on 07/28; thereafter, his oxygen was maintained on nasal canula and he denied all dyspnea. He appeared comfortable though weak, and PT was started on 07/28. He remained hemodynamically stable apart from fluctuating hypertension consistent with his baseline in from 08/28 onward. Due to marked improvement in strength observed on 08/31, he is to be discharged home on 09/01 with [facility] pending continued stability. NYDIA WILL DO 09/01/22 021: Supervisory-Addendum Brief Verification & Attestation Participated in pt care: history, MDM, physical Personally performed: exam, history, MDM, supervision of care Care discussed with: Medical Student Procedures: n/a Results interpretation: Verified all documentation Verification and Attestation of Medical Student E/M Service A medical student performed and documented this service in my presence. I reviewed and verified all information documented by the medical student and made modifications to such information, when appropriate. I personally performed the physical exam and medical decision making. Nydia Will Sep 01, 2022,21:02 GABRIELLA AGUIRRE Sep 01, 2022 17:43 NYDIA WILL DO Sep 01, 2022 21:02
== END 2022-09-01 13:15 | disposition home health service (06) | DRG 871 ==
LOC: EDUNIT# 14:37 → ER FS 14:38 → ICU 17:06 → 4TH 08-29 13:59
PROVIDERS: ADMIT Family Medicine; ATTEND Internal Medicine
PROC: 5A1945Z Respiratory Ventilation, 24-96 Consecutive Hours (ICD-10-PCS; principal; 2022-08-24)
PROC: 0BH17EZ Insertion of Endotracheal Airway into Trachea, Via Natural or Artificial Opening (ICD-10-PCS; 2022-08-24)
PROC: 5A09357 Assistance with Respiratory Ventilation, Less than 24 Consecutive Hours, Continuous Positive Airway Pressure (ICD-10-PCS; 2022-08-24)
PROC: 5A0945A Assistance with Respiratory Ventilation, 24-96 Consecutive Hours, High Flow/Velocity Cannula (ICD-10-PCS; 2022-08-26)
DX: A41.9 Sepsis, unspecified organism (principal); J18.9 Pneumonia, unspecified organism; R65.21 Severe sepsis with septic shock; J96.21 Acute and chronic respiratory failure with hypoxia; J96.22 Acute and chronic respiratory failure with hypercapnia; J44.0 Chronic obstructive pulmonary disease with (acute) lower respiratory infection; J44.1 Chronic obstructive pulmonary disease with (acute) exacerbation; E87.20 Acidosis, unspecified; I69.351 Hemiplegia and hemiparesis following cerebral infarction affecting right dominant side; Z20.822 Contact with and (suspected) exposure to COVID-19; I25.10 Atherosclerotic heart disease of native coronary artery without angina pectoris; I73.9 Peripheral vascular disease, unspecified; I11.0 Hypertensive heart disease with heart failure; I50.9 Heart failure, unspecified; D69.6 Thrombocytopenia, unspecified; D64.9 Anemia, unspecified; E83.42 Hypomagnesemia; I95.9 Hypotension, unspecified; F17.210 Nicotine dependence, cigarettes, uncomplicated; E78.00 Pure hypercholesterolemia, unspecified; Z95.5 Presence of coronary angioplasty implant and graft; Z95.820 Peripheral vascular angioplasty status with implants and grafts; Z79.82 Long term (current) use of aspirin; Z79.52 Long term (current) use of systemic steroids
CPT/HCPCS: 36415; 51702; 71045; 80053; 80320; 81000; 82805; 82947; 83605; 83735; 83880; 84100; 84145; 84478; 84484; 85007; 85025; 85027; 85610; 85730; 87040; 87070; 87081; 87205; 87449; 87636; 93005; 93041; 93306; 94002; 94003; 94640; 94760; 94799; 96361; 96365; 96367; 96368; 96375

== ENCOUNTER 2022-09-10 08:03 | Inpatient (IN) | payer MEDICARE ==
[~2022-09-10] VITALS: Ht 177.8 cm; Wt 69.6 kg
[~2022-09-10 08:03] MED LIST changes: +ASPI-1238 PO; +FOLI1TAB33 PO; +NAPR220C11 PO; +OXC5T PO; +SERT-413 PO
[2022-09-10] MEDS ORDERED: NS IV 1000 ML 1,000 ML IV SCH ×2 (08:15→09:00)
[2022-09-10] MEDS ORDERED: MIDAZOLAM 10 MG/2 ML (VERSED) VIAL IV PRN (08:15)
[2022-09-10] MEDS ORDERED: MIDAZOLAM 5 MG/5 ML (VERSED) VIAL ONE (08:17)
[2022-09-10 08:28] LABS: BASOPHILS # (AUTO) 0.1 10^3/uL (0.0-0.1); BASOPHILS % (AUTO) 0 % (0-10); EOSINOPHILS % (AUTO) 0 % (0-10); HEMATOCRIT 38 % (40-54); HEMOGLOBIN 12.6 g/dL (13.3-17.7); LYMPHOCYTES # (AUTO) 1.6 10^3/uL (1.0-4.0); LYMPHOCYTES % (AUTO) 10 % (12-44); MEAN CORPUSCULAR HEMOGLOBIN 33 pg (25-34); MEAN CORPUSCULAR HGB CONC 33 g/dL (32-36); MEAN CORPUSCULAR VOLUME 100 fL (80-99); MONOCYTES # (AUTO) 1.5 10^3/uL (0.0-1.0); MONOCYTES % (AUTO) 9 % (0-12); NEUTROPHILS # (AUTO) 12.6 10^3/uL (1.8-7.8); NEUTROPHILS % (AUTO) 79 % (42-75); PLATELET COUNT 193 10^3/uL (130-400)
[2022-09-10 08:29] LABS: BILIRUBIN,URINE NEGATIVE (NEGATIVE); CLARITY,URINE TURBID; COLOR,URINE YELLOW; GLUCOSE, URINE (UA) 1+ (NEGATIVE); KETONES,URINE NEGATIVE (NEGATIVE); LEUKOCYTE ESTERASE ,URINE NEGATIVE (NEGATIVE); NITRITE,URINE NEGATIVE (NEGATIVE); PH,URINE 6.5 (5-9); PROTEIN,URINE 2+ (NEGATIVE)
[2022-09-10 08:30] LABS: ABG PCO2 67 MMHG (35-45); ABG PO2 71 MMHG (79-93)
[2022-09-10 08:31] LABS: ABG BASE EXCESS -12.6 MMOL/L (-2.5-2.5); ABG OXYGEN SATURATION 84 % (94-100); ABG TCO2 20.6 MMOL/L (21.0-31.0); VENTILATOR YES
[2022-09-10 08:32] LABS: ABG PH 7.05 (7.37-7.43)
--- NOTE | 2022-09-10 08:42 | Diagnostic Imaging Report ---
INDICATION: Respiratory distress Portable chest 8:27 AM There is an ET tube projecting over the trachea. NG tube appears to enter the stomach. There are faint alveolar infiltrates in both lungs. There is interstitial prominence. There are no effusions or pneumothoraces. IMPRESSION: Improving aeration of the lungs compared to 08/27/2022. There continues to be some faint groundglass infiltrate and interstitial prominence in the lungs. Dictated by: Dictated on workstation # [id number]
[2022-09-10 08:44] LABS: BILIRUBIN,TOTAL 0.4 MG/DL (0.1-1.0); CALCIUM 8.1 MG/DL (8.5-10.1); CREATININE SERUM 0.81 MG/DL (0.60-1.30); POTASSIUM 3.6 MMOL/L (3.6-5.0); TOTAL PROTEIN 5.3 GM/DL (6.4-8.2)
--- NOTE | 2022-09-10 08:50 | ED Cardiac General ---
History of Present Illness General Chief Complaint: Unresponsive Stated Complaint: CODE BLUE Source: family Exam Limitations: no limitations History of Present Illness Date Seen by Provider: Sep 10, 2022 Time Seen by Provider: 08:05 Initial Comments Patient is a 61-year-old male with history of COPD with recent 8-day hospit alization at [place] [facility] for respiratory failure requiring ventilation who presents status post witnessed cardiac arrest. Patient was downstairs when he yelled for breath stating he was short of breath. The patient does not require oxygen at home and does not wear CPAP at night. The patient then attempted to stand and collapsed. He was unresponsive and upon family members arrival was apneic and pulseless. Chest compressions were started and on EMS arrival, the patient was apneic, pulseless and found to be in V. fib and was defibrillated once. The patient had approximately 10 minutes of chest compressions, received multiple doses of bicarb and epinephrine prior to return of his spontaneous circulation. An IO was placed and the patient was intubated without sedation. History is limited due to the patient's clinical condition. Timing/Duration: 1/2 hour Severity: severe Activities at Onset: other Prior CP/Workup: other Modifying Factors: improves with other Associated Systoms: Other Allergies and Home Medications Allergies Coded Allergies: No Known Drug Allergies (Unverified , 01/04/22) Patient Home Medication List Home Medication List Reviewed: Yes Amlodipine Besylate (Amlodipine Besylate) 5 Mg Tablet, 5 MG PO DAILY Prescribed by: ROSA ELENA WILL on 09/01/22 0943 Aspirin (Aspirin EC) 81 Mg Tablet.dr, 81 MG PO DAILY, (Reported) Entered as Reported by: RUBEN EARLY on 08/26/22 1257 Atorvastatin Calcium (Atorvastatin Calcium) 20 Mg Tablet, 20 MG PO DAILY, (Reported) Entered as Reported by: RUBEN EARLY on 08/26/22 1257 Clopidogrel Bisulfate (Clopidogrel) 75 Mg Tablet, 75 MG PO DAILY, (Reported) Entered as Reported by: RUBEN EARLY on 08/26/22 1257 Folic Acid (Folic Acid) 1 Mg Tablet, 1 MG PO DAILY Prescribed by: ROSA ELENA WILL on 09/01/22 0944 Ipratropium/Albuterol Sulfate (Iprat-Albut 0.5-3(2.5) mg/3 ml) 0.5 Mg-3 Mg (2.5 Mg Base)/3 Ml Ampul.neb, 3 ML IH Q6H PRN for SHORTNESS OF BREATH, (Reported) Entered as Reported by: RUBEN EARLY on 08/26/22 1257 Metoprolol Succinate (Metoprolol Succinate) 50 Mg Tab.er.24h, 50 MG PO DAILY, (Reported) Entered as Reported by: RUBEN EARLY on 08/26/22 1257 Oxycodone Hcl (Oxyir Tablet) 5 Mg Tab, 5 MG PO Q4HR PRN for PAIN-SEE DOSE INSTRUCTIONS Prescribed by: ROSA ELENA WILL on 09/01/22 0945 Pantoprazole Sodium (Pantoprazole Sodium) 40 Mg Tablet.dr, 40 MG PO DAILY, (Reported) Entered as Reported by: RUBEN EARLY on 08/26/22 1257 Sertraline HCl (Sertraline HCl) 50 Mg Tablet, 50 MG PO DAILY, (Reported) Entered as Reported by: RUBEN EARLY on 08/26/22 1257 Thiamine HCl (Vitamin B-1) 100 Mg Tablet, 100 MG PO DAILY@0700 Prescribed by: ROSA ELENA WILL on 09/01/22 0944 Review of Systems Review of Systems Constitutional: see HPI EENTM: See HPI Respiratory: See HPI Cardiovascular: See HPI Gastrointestinal: See HPI Genitourinary: See HPI Musculoskeletal: see HPI Psychiatric/Neurological: See HPI Endocrine: See HPI Hematologic/Lymphatic: See HPI All Other Systems Reviewed Negative Unless Noted: No Past Ktrwqrs-Jvbiip-Mlnngr Hx Patient Social History Tobacco Use?: Yes Tobacco type used: Cigarettes Smoking Status: Current Everyday Smoker Substance use?: Unable to obtain Alcohol Use?: Unable to obtain Pt feels they are or have been: Unable to obtain Immunizations Up To Date First/Initial COVID19 Vaccinat: 03/03/21 Second COVID19 Vaccination Chalo: 03/03/21 Third COVID19 Vaccination Date: 03/03/21 Past Medical History Surgery/Hospitalization HX: COPD, Stroke, CAD, Peripheral vascular disease with stents, Carotidstenosis with stenting, CHF, hypertension, hyperlipidemia, tobacco abuse Surgeries: Yes Coronary Stent, Vascular Surgery Pneumonia, COPD High Cholesterol, Hypertension Stroke Physical Exam Vital Signs Capillary Refill : Height, Weight, BMI Height: '" Weight: lbs. oz. kg; 20.59 BMI Method: General Appearance: No Apparent Distress, WD/WN, Other (Unresponsive, intubated without sedation, manual ventilation via oyo-sigba-qjvg.) HEENT: Other (Pupils sluggishly reactive, endotracheal tube in place 21 at the lip.) Neck: Non Tender, Supple Respiratory: Decreased Breath Sounds, Rhonci, Other (Tachypneic, overbreathing vent) Cardiovascular: Extra Beats, Tachycardia Gastrointestinal: Soft; No Distended Neurologic/Psychiatric: Other (Unresponsive) Focused Exam Sepsis Stage: Ruled Out Lactate Level 09/10/22 08:18: Lactic Acid Level 8.10*H Lactic Acid Level Laboratory Tests Test 09/10/22 08:18 Lactic Acid Level 8.10 MMOL/L (0.50-2.00) *H Procedures/Interventions Date of ETT Placement: Sep 10, 2022 Time of ETT Placement: 1813 Progress/Results/Core Measures Results/Orders Lab Results Laboratory Tests Test 09/10/22 08:18 09/10/22 08:20 Range/Units White Blood Count 16.0 H 4.3-11.0 10^3/uL Red Blood Count 3.80 L 4.30-5.52 10^6/uL Hemoglobin 12.6 L 13.3-17.7 g/dL Hematocrit 38 L 40-54 % Mean Corpuscular Volume 100 H 80-99 fL Mean Corpuscular Hemoglobin 33 25-34 pg Mean Corpuscular Hemoglobin Concent 33 32-36 g/dL Red Cell Distribution Width 12.6 10.0-14.5 % Platelet Count 193 130-400 10^3/uL Mean Platelet Volume 10.0 9.0-12.2 fL Immature Granulocyte % (Auto) 2 % Neutrophils (%) (Auto) 79 H 42-75 % Lymphocytes (%) (Auto) 10 L 12-44 % Monocytes (%) (Auto) 9 0-12 % Eosinophils (%) (Auto) 0 0-10 % Basophils (%) (Auto) 0 0-10 % Neutrophils # (Auto) 12.6 H 1.8-7.8 10^3/uL Lymphocytes # (Auto) 1.6 1.0-4.0 10^3/uL Monocytes # (Auto) 1.5 H 0.0-1.0 10^3/uL Eosinophils # (Auto) 0.0 0.0-0.3 10^3/uL Basophils # (Auto) 0.1 0.0-0.1 10^3/uL Immature Granulocyte # (Auto) 0.2 H 0.0-0.1 10^3/uL Blood Gas Puncture Site L RADIAL Blood Gas Patient Temperature NA Arterial Blood pH 7.05 *L 7.37-7.43 Arterial Blood Partial Pressure CO2 67 H 35-45 MMHG Arterial Blood Partial Pressure O2 71 L 79-93 MMHG Arterial Blood HCO3 19 L 23-27 MMOL/L Arterial Blood Total CO2 20.6 L 21.0-31.0 MMOL/L Arterial Blood Oxygen Saturation 84 L 94-100 % Arterial Blood Base Excess -12.6 L -2.5-2.5 MMOL/L Jm Test NA Blood Gas Ventilator Setting YES Blood Gas Inspired Oxygen NA Lactic Acid Level 8.10 *H 0.50-2.00 MMOL/L Troponin I 1.23 *H <0.30 NG/ML My Orders Orders - ALMA JIM DO Cbc With Automated Diff (09/10/22 08:11) Comprehensive Metabolic Panel (09/10/22 08:11) Troponin I Fs (09/10/22 08:11) Ekg Tracing (09/10/22 08:11) Chest 1 View Ap/Pa Only (09/10/22 08:11) Lactic Acid Analyzer (09/10/22 08:11) Arterial Blood Gas (09/10/22 08:11) Urinalysis (09/10/22 08:11) Collins Cath (09/10/22 08:11) Ns Iv 1000 Ml (Sodium Chloride 0.9%) (09/10/22 08:15) Probnp Fs (09/10/22 08:11) Magnesium (09/10/22 08:11) Midazolam Injection (Versed Injection) (09/10/22 08:15) Midazolam Injection (Versed Injection) (09/10/22 08:17) Manual Differential (09/10/22 08:18) Blood Culture (09/10/22 08:39) Ekg Tracing (09/10/22 08:43) Departure Communication (Admissions) Chest x-ray: Endotracheal tube in proper place., Pulmonary vascular congestion. EKG 1: A. fib EKG 2: Normal sinus rhythm, no acute ST segment elevation. Patient with witnessed cardiac/respiratory arrest, with spontaneous return of circulation after infield CPR. The Apparent cause of patient's respiratory arrest is unknown as this is the second episode within 1 month. Patient is susceptible to underlying arrhythmia with pulmonary edema secondary to his COPD, and has history of known stroke. Lungs are compliant with an easily ventilated on mechanical ventilator. Patient is requiring minimal sedation to prevent overbreathing the vent. Pupils are sluggishly reactive reactive. Empiric antibiotics given due to elevation of white blood cell count which is thought to be likely stress response. Troponin is elevated thought likely to be related to cardiac arrest. Initial EKG shows A. fib. Repeat EKG shows normal sinus rhythm with no evidence of ST segment elevation lactic acid is likely due to prolonged hypoxic state. Sepsis considered but felt unlikely due t clinical presentation presentation. Blood cultures, COVID and flu swabs were obtained. Empiric antibiotics will be given. The patient remains in critical condition with stable vital signs on ventilator. Dr. Kearney accepts to [facility] ICU Impression Primary Impression: Respiratory arrest Additional Impressions: Cardiac arrest Congestive heart disease COPD exacerbation Dependent on ventilator Disposition: ADMITTED INPATIENT Condition: Critical Admissions Decision to Admit/Date: Sep 10, 2022 Time/Decision to Admit Time: 08:30 Transfer Method of Transfer: EMS Departure-Patient Inst. Referrals: TYLOR ROSALES APRN (PCP) Primary Care Physician [facility] (Family) Primary Care Physician ALMA JIM DO Sep 10, 2022 08:50
[2022-09-10 08:58] LABS: AMORPHOUS SEDIMENT,UR FEW AMOR URATES /LPF; BACTERIA,URINE FEW /HPF; HYALINE CASTS, URINE >50 /LPF
[2022-09-10] MEDS ORDERED: cefTRIAXone 1 GM PRE-MIX 50 ML IV ONE (09:00)
[2022-09-10 09:16] LABS: BAND NEUTROPHILS 11 %; LYMPHOCYTES % (MANUAL) 9 %; MONOCYTES % (MANUAL) 7 %; MYELOCYTES % 2 %; NEUTROPHILS % (MANUAL) 71 %; PLATELET ESTIMATE NORMAL
[2022-09-10 10:00] VITALS: BP 141/64
[2022-09-10] MEDS ORDERED: PROPOFOL DRIP (ICU) 100 ML IV ONE (10:07)
[2022-09-10] MEDS ORDERED: LACTATED RINGERS 1,000 ML IV SCH (10:15)
[2022-09-10] MEDS ORDERED: inSUlin ASPART (NovoLOG) 1 UNIT/0.01 ML (CHARGE PER UNIT) SC PRN (10:15)
[2022-09-10] MEDS ORDERED: NS IV 500 ML 500 ML IV PRN ×2 (10:15)
--- NOTE | 2022-09-10 10:38 | Tele-ICU Consult ---
History of Present Illness History of Present Illness Date Seen by Provider: Sep 10, 2022 Time Seen by Provider: 10:37 Date of Admission History of Present Illness (Tele-ICU Physician , consultation as per request of PCP Service provided via interactive audio and video telecommunNOZA E-CARE system to a patient admitted to ICU bed in [facility]. Available chart/ vitals / labs / Images reviewed H&P is from ER notes Patient's information available about PMH, Shx, Fhx allergy reviewed inEMR. ROS as per chart and RN report Now in ICU, hemodynamically stable Video assessment done using teleICU camera, rest of exam as per RN Discussed with RN. VENT SETTINGS and ABG reviewed NOT CANDIDATE for SBTreviewed possible contraindications including Cardiovascular Stability /Sedation Score / FI02/PEEP / ABG / CXR/ secretions Sedation, discussed with RN, RASS on Consultants: Hospital course: RECENT 08/24/22 ICU stay with intubation for AECOP/PNA 2 days , extuv=bated --> puiln edema , VT 09/10/22 - status post witnessed cardiac arrest at home , Intubated A/P status post witnessed cardiac arrest at home - ASLC 10 min till ROSC - V. fib and was defibrillated once by paramedics - in afib in ER - repeat EKG -- ECHO 08/27/22 EF 65% , gr II dst dsf - as per cards Encephalopathy post arrest - received verced for transfer - not follow exams - will hold any sedation for now - re-eval if improving - CTH if no improvement Acute resp failure , - Intubated 09/10/22 with arrest - cxr checked - abg pending leukocytosis - probably reactive NEG flu , covid) -( recent PNA CAP , RML - cxr IMPROVED, almost resolved - abx initiated in ER empirically , sputum cx - follow AECOPD? - nebs -peak airway pressures are low , most likely does not need high dose of steroids - as per PCP based on exam CAD - s/p stenting in past -EF reported 65% 2022 Pulm HTN - ECHO RVSP 50 mmGg, received 2 L LR in ER - vitals stable -decrease IVF ( elev lactate is post arrest , does not need sepsis boluses ) Nutrition - TF to start tomorrow S/p CVA Lines : , (Central Line Necessity Reviewed) Collins: + OG: Nutrition: Analgesia: Anxiety/ delirium VTE Prophylaxis: francis Stress Ulcer Prophylaxis: ppi Plans in collaboration with bedside consultants and IM MDs. Discussed with RN to reach out if any questions or concerns A total of 33 minutes of critical care time was devoted to this patient today, required to treat and/or prevent further deterioration of critical care condition ( as above ) . I am remotely monitoring this patient from another state. I am unable to do the bedside exam, and history/physical and pertinent information is taken from other notes in the computer and bedside staff. . Allergies and Home Medications Allergies Coded Allergies: No Known Drug Allergies (Unverified , 01/04/22) Home Medications Amlodipine Besylate 5 Mg Tablet, 5 MG PO DAILY Prescribed by: ROSA ELENA WILL on 09/01/22 0943 Aspirin 81 Mg Tablet.dr, 81 MG PO DAILY, (Reported) Atorvastatin Calcium 20 Mg Tablet, 20 MG PO DAILY, (Reported) LAST FILLED 05-11-2022 # DAY SUPPLY Clopidogrel Bisulfate 75 Mg Tablet, 75 MG PO DAILY, (Reported) Folic Acid 1 Mg Tablet, 1 MG PO DAILY Prescribed by: ROSA ELENA WILL on 09/01/22 09 Ipratropium/Albuterol Sulfate 0.5 Mg-3 Mg (2.5 Mg Base)/3 Ml Ampul.neb, 3 ML IH Q6H PRN for SHORTNESS OF BREATH, (Reported) Metoprolol Succinate 50 Mg Tab.er.24h, 50 MG PO DAILY, (Reported) Oxycodone Hcl 5 Mg Tab, 5 MG PO Q4HR PRN for PAIN-SEE DOSE INSTRUCTIONS Prescribed by: ROSA ELENA WILL on 09/01/22 0945 Pantoprazole Sodium 40 Mg Tablet.dr, 40 MG PO DAILY, (Reported) Sertraline HCl 50 Mg Tablet, 50 MG PO DAILY, (Reported) Thiamine HCl 100 Mg Tablet, 100 MG PO DAILY@0700 Prescribed by: ROSA ELENA WILL on 09/01/22 09 Past Medical/Social/Family Hx Patient Social History Tobacco Use?: Yes Tobacco type used: Cigarettes Smoking Status: Current Everyday Smoker Substance use?: Unable to obtain Alcohol Use?: Unable to obtain Pt stated abuse/neglect: Unable to obtain Immunizations Up To Date First/Initial COVID19 Vaccinat: 03/03/21 Second COVID19 Vaccination Chalo: 03/03/21 Tetanus Booster (TDap): Unknown Hepatitis A: No Hepatitis B: No TB Skin Test: None Current Status Advance Directives: No Communicates: Verbally Primary Language: Lithuanian Preferred Spoken Language: Lithuanian Review of Systems Constitutional: see HPI Focused Exam Lactate Level 09/10/22 08:18: Lactic Acid Level 8.10*H Height, Weight, BMI Height: '" Weight: lbs. oz. kg; 20.00 BMI Method: Lactic Acid Level Laboratory Tests Test 09/10/22 08:18 Lactic Acid Level 8.10 MMOL/L (0.50-2.00) *H Exam Exam Patient acknowledged, consented, and participated in this virtual visit which was conducted using real time audio/video Vital Signs Date Time Temp Pulse Resp B/P (MAP) Pulse Ox O2 Delivery O2 Flow Rate FiO2 09/10/22 10:30 35.9 96 22 105/74 (84) 100 Mechanical Ventilator 88.00 09/10/22 09:15 87 19 165/64 100 Room Air 09/10/22 08:05 Mechanical Ventilator 40.00 09/10/22 08:05 35.1 123 22 89/51 (64) 96 Mechanical Ventilator Height & Weight Height: '" Weight: lbs. oz. kg; 20.00 BMI Method: General Appearance: No Apparent Distress, WD/WN, Other (Unresponsive, intubated without sedation, manual ventilation via cum-oqflv-vlyr.) HEENT: Other (Pupils sluggishly reactive, endotracheal tube in place 21 at the lip.) Neck: Non Tender, Supple Respiratory: Decreased Breath Sounds, Rhonci, Other (Tachypneic, overbreathing vent) Cardiovascular: Extra Beats, Tachycardia Capillary Refill: Less Than 3 Seconds Neurologic/Psychiatric: Other (Unresponsive) Results Lab Laboratory Tests 09/10/22 08:18 Assessment/Plan Assessment/Plan 1 ELIZABETH PETERSON MD Sep 10, 2022 10:38
[2022-09-10 10:46] LABS: ABG BASE EXCESS -4.8 MMOL/L (-2.5-2.5); ABG OXYGEN SATURATION 87 % (94-100); ABG PCO2 64 MMHG (35-45); ABG PO2 64 MMHG (79-93); ABG TCO2 24.9 MMOL/L (21.0-31.0)
--- NOTE | 2022-09-10 10:49 | Consultation-Cardiology ---
HPI-Cardiology Cardiology Consultation: Date of Consultation 09/10/22 Time Seen by a Provider: 10:35 Date of Admission 09-10-22 Attending Physician Irene Brown Aprn Admitting Physician Admitting Physician: Karlie Kearney MD Attending Physician: Karlie Kearney MD Consulting Physician Angie Noriega MD Primary Manager Core: Dr. Catherine HPI: Chief Complaint: Post Code Mr. Rai is a 61 yr old male admitted to ICU 8 from the ED respiratory failure, post code on the ventilator. He is unable to provide any information. There is no family present at this time. Information regarding event is as per chart review: Patient was downstairs when he yelled for breath stating he was short of breath. The patient then attempted to stand and collapsed. He was unresponsive and upon family members arrival was apneic and pulseless. Chest compressions were started and on EMS arrival, the patient was apneic, pulseless and found to be in V. fib and was defibrillated once. The patient had approximately 10 minutes of chest compressions, received multiple doses of bicarb and epinephrine prior to return of his spontaneous circulation. Review of Systems-Cardiology Review of Systems Other comments Unable to obtain d/t sedation and intubation All Other Systems Reviewed Negative Unless Noted: No VLZ-Kitapg-Qtairm Hx Patient Social History Smoking Status: Current Everyday Smoker Have you traveled recently?: No Alcohol Use?: Unable to obtain Pt feels they are or have been: Unable to obtain Tobacco type used: Cigarettes Past Medical History PMH As described under Assessment. Family Medical History Family Medical History: The patient does not know of any family history of premature coronary artery disease in first-degree relatives. (This is per chart review) Allergies and Home Medications Allergies Coded Allergies: No Known Drug Allergies (Unverified , 01/04/22) Patient Home Medication List Amlodipine Besylate (Amlodipine Besylate) 5 Mg Tablet, 5 MG PO DAILY Prescribed by: ROSA ELENA WILL on 09/01/22 0943 Last Action: Reviewed Aspirin (Aspirin EC) 81 Mg Tablet.dr, 81 MG PO DAILY, (Reported) Entered as Reported by: RUBEN EARLY on 08/26/22 1257 Last Action: Reviewed Atorvastatin Calcium (Atorvastatin Calcium) 20 Mg Tablet, 20 MG PO DAILY, (Reported) Entered as Reported by: RUBEN EARLY on 08/26/22 1257 Last Action: Reviewed Clopidogrel Bisulfate (Clopidogrel) 75 Mg Tablet, 75 MG PO DAILY, (Reported) Entered as Reported by: RUBEN EARLY on 08/26/22 1257 Last Action: Reviewed Folic Acid (Folic Acid) 1 Mg Tablet, 1 MG PO DAILY Prescribed by: ROSA ELENA WILL on 09/01/22 0944 Last Action: Reviewed Ipratropium/Albuterol Sulfate (Iprat-Albut 0.5-3(2.5) mg/3 ml) 0.5 Mg-3 Mg (2.5 Mg Base)/3 Ml Ampul.neb, 3 ML IH Q6H PRN for SHORTNESS OF BREATH, (Reported) Entered as Reported by: RUBEN EARLY on 08/26/22 1257 Last Action: Reviewed Metoprolol Succinate (Metoprolol Succinate) 50 Mg Tab.er.24h, 50 MG PO DAILY, (Reported) Entered as Reported by: RUBEN EARLY on 08/26/22 1257 Last Action: Reviewed Oxycodone Hcl (Oxyir Tablet) 5 Mg Tab, 5 MG PO Q4HR PRN for PAIN-SEE DOSE INSTRUCTIONS Prescribed by: ROSA ELENA WILL on 09/01/22 0945 Last Action: Reviewed Pantoprazole Sodium (Pantoprazole Sodium) 40 Mg Tablet.dr, 40 MG PO DAILY, (Reported) Entered as Reported by: RUBEN EARLY on 08/26/22 1257 Last Action: Reviewed Sertraline HCl (Sertraline HCl) 50 Mg Tablet, 50 MG PO DAILY, (Reported) Entered as Reported by: RUBEN EARLY on 08/26/22 1257 Last Action: Reviewed Thiamine HCl (Vitamin B-1) 100 Mg Tablet, 100 MG PO DAILY@0700 Prescribed by: ROSA ELENA WILL on 09/01/22 0944 Last Action: Reviewed Physical Exam-Cardiology Physical Exam Vital Signs/I&O 09/13/22 09/13/22 09/13/22 09/13/22 21:04 21:30 21:37 22:00 Pulse 105 105 96 Resp 18 18 18 B/P (MAP) 175/84 (128) 177/85 (128) 170/84 (120) Pulse Ox 94 95 95 O2 Delivery Mechanical Ventilator Mechanical Ventilator Mechanical Ventilator O2 Flow Rate 25.00 25.00 25.00 FiO2 25 09/13/22 09/13/22 09/13/22 09/13/22 22:30 22:36 22:54 23:00 Temp 36.8 Pulse 92 90 90 Resp 18 16 18 B/P (MAP) 168/83 (126) 167/84 (126) Pulse Ox 94 93 94 O2 Delivery Mechanical Ventilator Mechanical Ventilator O2 Flow Rate 25.00 25.00 FiO2 25 09/13/22 09/13/22 09/14/22 09/14/22 23:12 23:59 00:00 01:00 Temp 36.9 Pulse 92 90 Resp 18 18 B/P (MAP) 167/83 (111) 167/81 (128) Pulse Ox 95 93 93 O2 Delivery Mechanical Ventilator Mechanical Ventilator O2 Flow Rate 25.00 25.00 FiO2 25 09/14/22 09/14/22 09/14/22 09/14/22 01:00 01:37 02:00 02:30 Pulse 90 90 92 Resp 18 17 B/P (MAP) 169/77 (118) Pulse Ox 92 93 O2 Delivery Mechanical Ventilator O2 Flow Rate 25.00 FiO2 25 25 09/14/22 09/14/22 09/14/22 09/14/22 03:00 03:53 04:00 04:03 Temp 37.3 Pulse 94 98 Resp 18 18 B/P (MAP) 161/84 (123) 162/79 (119) Pulse Ox 91 91 95 O2 Delivery Mechanical Ventilator Mechanical Ventilator O2 Flow Rate 25.00 25.00 FiO2 25 09/14/22 09/14/22 09/14/22 09/14/22 05:00 05:25 06:00 06:00 Pulse 93 93 93 Resp 18 24 18 B/P (MAP) 161/83 (126) 168/77 (107) 168/77 (107) Pulse Ox 93 93 93 O2 Delivery Mechanical Ventilator Mechanical Ventilator Mechanical Ventilator O2 Flow Rate 25.00 25.00 25.00 FiO2 25 09/14/22 09/14/22 09/14/22 09/14/22 06:40 07:00 07:30 08:00 Temp 36.7 Pulse 93 93 99 Resp 16 15 B/P (MAP) 167/81 (109) Pulse Ox 93 93 O2 Delivery Mechanical Ventilator O2 Flow Rate 25.00 FiO2 25 09/13/22 23:59 Intake Total 1150 ml Output Total 525 ml Balance 625 ml Capillary Refill : Less Than 3 Seconds Constitutional: other (Intubated and sedated) HEENT: PERRL Neck: No carotid bruit; carotid pulses are 2 + bilaterally Respiratory: No accessory muscle use, No respiratory distress; other (coarse breath sounds throughout; currently on ventilator) Cardiovascular: regular rate-rhythm; No JVD; S1 and S2, systolic murmur Gastrointestinal: audible bowel sounds (NG tube in place) Extremities: no lower extremity edema bilateral Neurologic/Psychiatric: other (unable to participate in neuro exam d/t sedation) Skin: No rash on exposed areas, No ulcerations on exposed areas Data Review Labs Laboratory Tests 09/13/22 10:43: B-Type Natriuretic Peptide 366.8H 09/13/22 12:02: Glucometer 136H 09/13/22 18:06: Glucometer 139H 09/13/22 23:30: Glucometer 132H 09/14/22 03:25: White Blood Count 8.3, Red Blood Count 3.34L, Hemoglobin 10.8L, Hematocrit 32L, Mean Corpuscular Volume 96, Mean Corpuscular Hemoglobin 32, Mean Corpuscular Hemoglobin Concent 34, Red Cell Distribution Width 12.9, Platelet Count 117L, Mean Platelet Volume 10.4, Immature Granulocyte % (Auto) 1, Neutrophils (%) (Auto) 91H, Lymphocytes (%) (Auto) 5L, Monocytes (%) (Auto) 3, Eosinophils (%) (Auto) 0, Basophils (%) (Auto) 0, Neutrophils # (Auto) 7.6, Lymphocytes # (Auto) 0.4L, Monocytes # (Auto) 0.3, Eosinophils # (Auto) 0.0, Basophils # (Auto) 0.0, Immature Granulocyte # (Auto) 0.0, Percent Immature Platelet Fraction 3.8, Blood Gas Puncture Site L RAD, Blood Gas Patient Temperature 37.3, Arterial Blood pH 7.49H, Arterial Blood Partial Pressure CO2 38, Arterial Blood Partial Pressure O2 46L, Arterial Blood HCO3 29H, Arterial Blood Total CO2 29.7, Arterial Blood Oxygen Saturation 80L, Arterial Blood Base Excess 5.1H, Jm Test YES-POS, Blood Gas Ventilator Setting YES, Blood Gas Inspired Oxygen 25%, Sodium Level 142, Potassium Level 3.4L, Chloride Level 107, Carbon Dioxide Level 25, Anion Gap 10, Blood Urea Nitrogen 20H, Creatinine 0.65, Estimat Glomerular Filtration Rate 107, BUN/Creatinine Ratio 31, Glucose Level 126H, Calcium Level 8.2L, Corrected Calcium 8.9, Phosphorus Level 3.1, Magnesium Level 2.2, Total Bilirubin 0.6, Aspartate Amino Transf (AST/SGOT) 35H, Alanine Aminotransferase (ALT/SGPT) 25, Alkaline Phosphatase 51, Total Protein 5.5L, Albumin 3.1L Microbiology 09/10/22 MRSA Screen - Final, Complete MRSA not isolated 09/10/22 Urine Culture - Final, Complete NO GROWTH 09/10/22 Blood Culture - Preliminary, Resulted No growth Radiology NAME: ANGELA RAI MED REC#: [id number] PT STATUS: REG ER : 1960 PHYSICIAN: ALMA JIM DO ADMIT DATE: 09/10/22/ER FS Signed Date of Exam:09/10/22 CHEST 1 VIEW AP/PA ONLY INDICATION: Respiratory distress Portable chest 8:27 AM There is an ET tube projecting over the trachea. NG tube appears to enter the stomach. There are faint alveolar infiltrates in both lungs. There is interstitial prominence. There are no effusions or pneumothoraces. IMPRESSION: Improving aeration of the lungs compared to 08/27/2022. There continues to be some faint groundglass infiltrate and interstitial prominence in the lungs. Dictated by: Dictated on workstation # [id number] Dict: 09/10/22 0837 Trans: 09/10/22 0955 KARMA [id number] Interpreted by: ERIKA AGUSTIN MD Electronically signed by: ERIKA AGUSTIN MD 09/10/22 0955 ECG Impression ECG Comment SR with BBB A/P-Cardiology Assessment/Admission Diagnosis Post code on 09-10-21 - witnessed collapse per family - CPR started - EMS reports presenting rhythm as v-fib (no strips available) - defibrillated x1 per EMS restoring SR NSTEMI Aute respiratory failure requiring ventilation - likely multi-factorial - Acute on chronic exacerbation of COPD; acute on chronic diastolic CHF Sepsis - UTI - management per medical services Coronary artery disease - Cardiac catheterization was done on January 11, [address] Catherine, calcified coronary system with severe stenosis in the mid LAD, status post stenting using [id number] point stent 3 x 23 mm expanded to 3.1 mm with excellent results, - Continue on dual antiplatelet therapy Aute on Chronic diastolic CHF - Echocardigoram of 08-27-22 showed LVEF 60-65%. Grade 2 diastolic dysfunction. Mod MR. Mild to mod aortic stenosis with mod AoR. PASP 45-50 mmHg H/O Left thigh pain, has been complaining of left leg pain - BLE arterial duplex done 01/12/[address] Catherine showing bilateral hemodynamic significant stenoses on the left at the level of the common femoral and on the right at the level of the popliteal artery. Hypertension Hyperlipidemia History of CVA with right hemiparesis Tobaccoism - still an active smoker - cessation advised Discussion and Recomendations Post code - witnessed collapse at home - EMS reports v-fib at time of presentation which he was defibrillated x 1 - NSTEMI - start DAPT (recent coronary intervention in January [address] Catherine) - Add BB as BP will allow Sepsis - likely secondary to UTI - management per medical services Acute resp failure - likely multi-factorial d/t acute on chronic exacerbation of COPD, acute on chronic diastolic CHF Acute on chronic diastolic CHF - treat with diuretics as tolerated/indicated Monitor lab closely Replace electrolytes as indicated Further recs will be based on his hospital course We would like to thank medical services for this consult SANG HUFFMAN Sep 10, 2022 10:49
--- NOTE | 2022-09-10 10:54 | Physical Therapy Progress Note ---
Therapy Progress Note Patient currently intubated and sedated. PT will monitor patient's status and initiate treatment when patient is medically stable and able to actively participate with skilled therapy. IVAN CARBALLO PT Sep 10, 2022 10:54
[2022-09-10 10:55] LABS: ABG PH 7.17 (7.37-7.43); ALLENS TEST YES-POS; INSPIRED O2 20; PATIENT TEMP 36.1; VENTILATOR YES
[2022-09-10] MEDS: CEFEPIME INJECTION 1,000 MG in NS (IVPB) 50 ML IV SCH ×3 (11:03→23:40)
[2022-09-10] MEDS: methylPREDNISolone 125 MG (Solu-MEDROL) VIAL IVP SCH ×3 (11:03→23:40)
[2022-09-10] MEDS: ENOXAPARIN 40 MG/0.4 ML (LOVENOX) SYR SC SCH (11:03)
[2022-09-10] MEDS ORDERED: CLOPIDOGREL 75 MG (PLAVIX) TABLET PO NR (11:30)
[2022-09-10] MEDS ORDERED: ASPIRIN 81 MG CHEW (CHILDREN'S ASA) PO NR (11:30)
[2022-09-10] MEDS ORDERED: FUROSEMIDE 40 MG/4 ML INJ (LASIX) IVP NR (11:30)
[2022-09-10] MEDS: meTOprolol 5 MG/5 ML (LOPRESSOR) VIAL IV SCH ×3 (11:38→23:40)
--- NOTE | 2022-09-10 13:06 | History & Physical ---
HPI History of Present Illness: Information obtained from ER physician and family at bedside. His states that as of yesterday he was walking around "showing off" his mobility after having recent peripheral vascular stenting in his right leg which had been numb. This morning, he called her name loudly, and then simply said "oxygen", and she was going to get a breathing treatment, but he rapidly appeared as if he would pass out and then lost consciousness, she called his daughter who lives very close and arrived quickly and called EMS. EMS performed CPR and delivered defibrillation for v tach, he was pulseless for at least 10 minutes, but they did recover a pulse ultimately. In the ER he reportedly appeared to be in a fib for some time, but then sinus again and had no ST elevation. His family reports he has a history of COPD, coronary artery disease (had stenting done in January 2022), peripheral artery disease (stenting done in August 2022 in [place]), hypertension and hyperlipidemia. He had a stroke about 7-8 years ago and has residual right sided weakness. He quit smoking since his last admission a couple of weeks ago and is using nicotine patches, last one placed last night. He does have a history of heavy alcohol use up to 15 beers per day, until after his last hospitalization and since then he has had only a couple of beers per day. He does not use supplemental oxygen at home, his daughter notes they tested him at clinic and he did not qualify. He does not use CPAP. He was recently admitted with respiratory failure requiring intubation a couple of weeks ago, but had recovered very well. Source: family Exam Limitations: clinical condition Date seen by provider: Sep 10, 2022 Time Seen by Provider: 12:30 Attending Physician Irene Brown Aprn PCP Admitting Physician: Mickey Andres MD Attending Physician: Mickey Andres MD Consult Date of Admission Sep 10, 2022 at 10:02 Home Medications Home Medications Reviewed patient Home Medication Reconciliation performed by pharmacy medication reconciliations facility maintenance technician and/or nursing. Patients Allergies have been reviewed. Allergies Coded Allergies: No Known Drug Allergies (Unverified , 01/04/22) FQY-Tmzjqj-Dlmwkl Hx Patient Social History Smoking Status: Current Everyday Smoker Alcohol Use?: Unable to obtain Tobacco type used: Cigarettes Have you traveled recently?: No Immunizations Up To Date Influenza Vaccine Up-to-Date: No; Not Current First/Initial COVID19 Vaccinat: 03/03/21 Second COVID19 Vaccination [place]: 03/03/21 Third COVID19 Vaccination Date: 03/03/21 Past Medical History PMHx: COPD HTN CAD HLD SurgHx: Back surgery Left arm fracture repair Cardiac stenting Peripheral artery stenting Family Medical History Significant Family History: Other Conditions/Hx (unable to obtain) Review of Systems ([facility]) Constitutional: other (unable to obtain) Reviewed Test Results Reviewed Test Results Lab Laboratory Tests Test 09/10/22 08:18 09/10/22 08:20 09/10/22 08:43 09/10/22 10:39 Range/Units White Blood Count 16.0 H 4.3-11.0 10^3/uL Red Blood Count 3.80 L 4.30-5.52 10^6/uL Hemoglobin 12.6 L 13.3-17.7 g/dL Hematocrit 38 L 40-54 % Mean Corpuscular Volume 100 H 80-99 fL Mean Corpuscular Hemoglobin 33 25-34 pg Mean Corpuscular Hemoglobin Concent 33 32-36 g/dL Red Cell Distribution Width 12.6 10.0-14.5 % Platelet Count 193 130-400 10^3/uL Mean Platelet Volume 10.0 9.0-12.2 fL Immature Granulocyte % (Auto) 2 % Neutrophils (%) (Auto) 79 H 42-75 % Lymphocytes (%) (Auto) 10 L 12-44 % Monocytes (%) (Auto) 9 0-12 % Eosinophils (%) (Auto) 0 0-10 % Basophils (%) (Auto) 0 0-10 % Neutrophils # (Auto) 12.6 H 1.8-7.8 10^3/uL Lymphocytes # (Auto) 1.6 1.0-4.0 10^3/uL Monocytes # (Auto) 1.5 H 0.0-1.0 10^3/uL Eosinophils # (Auto) 0.0 0.0-0.3 10^3/uL Basophils # (Auto) 0.1 0.0-0.1 10^3/uL Immature Granulocyte # (Auto) 0.2 H 0.0-0.1 10^3/uL Neutrophils % (Manual) 71 % Lymphocytes % (Manual) 9 % Monocytes % (Manual) 7 % Myelocytes % 2 % Band Neutrophils 11 % Platelet Estimate NORMAL Macrocytosis SLIGHT Blood Gas Puncture Site L RADIAL LEFT RAD Blood Gas Patient Temperature NA 36.1 Arterial Blood pH 7.05 *L 7.17 *L 7.37-7.43 Arterial Blood Partial Pressure CO2 67 H 64 H 35-45 MMHG Arterial Blood Partial Pressure O2 71 L 64 L 79-93 MMHG Arterial Blood HCO3 19 L 23 23-27 MMOL/L Arterial Blood Total CO2 20.6 L 24.9 21.0-31.0 MMOL/L Arterial Blood Oxygen Saturation 84 L 87 L 94-100 % Arterial Blood Base Excess -12.6 L -4.8 L -2.5-2.5 MMOL/L Jm Test NA YES-POS Blood Gas Ventilator Setting YES YES Blood Gas Inspired Oxygen NA 20 Sodium Level 140 135-145 MMOL/L Potassium Level 3.6 3.6-5.0 MMOL/L Chloride Level 102 98-107 MMOL/L Carbon Dioxide Level 21 21-32 MMOL/L Anion Gap 17 H 5-14 MMOL/L Blood Urea Nitrogen 5 L 7-18 MG/DL Creatinine 0.81 0.60-1.30 MG/DL Estimat Glomerular Filtration Rate 100 BUN/Creatinine Ratio 6 Glucose Level 213 H 70-105 MG/DL Lactic Acid Level 8.10 *H 0.50-2.00 MMOL/L Calcium Level 8.1 L 8.5-10.1 MG/DL Corrected Calcium 8.9 8.5-10.1 MG/DL Magnesium Level 2.0 1.6-2.4 MG/DL Total Bilirubin 0.4 0.1-1.0 MG/DL Aspartate Amino Transf (AST/SGOT) 23 5-34 U/L Alanine Aminotransferase (ALT/SGPT) 16 0-55 U/L Alkaline Phosphatase 79 40-136 U/L Troponin I 1.23 *H <0.30 NG/ML Pro-B-Type Natriuretic Peptide 5515.0 H <125.0 PG/ML Total Protein 5.3 L 6.4-8.2 GM/DL Albumin 3.0 L 3.2-4.5 GM/DL Urine Color YELLOW Urine Clarity TURBID Urine pH 6.5 5-9 Urine Specific [place] >=1.030 1.016-1.022 Urine Protein 2+ H NEGATIVE Urine Glucose (UA) 1+ H NEGATIVE Urine Ketones NEGATIVE NEGATIVE Urine Nitrite NEGATIVE NEGATIVE Urine Bilirubin NEGATIVE NEGATIVE Urine Urobilinogen 0.2 < = 1.0 MG/DL Urine Leukocyte Esterase NEGATIVE NEGATIVE Urine RBC (Auto) 1+ H NEGATIVE Urine RBC 2-5 H /HPF Urine WBC 10-25 H /HPF Urine Squamous Epithelial Cells NONE /HPF Urine Crystals PRESENT H /LPF Urine Amorphous Sediment FEW EMY URATES H /LPF Urine Bacteria FEW H /HPF Urine Casts PRESENT /LPF Urine Hyaline Casts >50 H /LPF Urine Granular Casts 10-25 H /LPF Urine Mucus MODERATE H /LPF Urine Culture Indicated YES Influenza Type A (RT-PCR) Not Detected Not Detecte Influenza Type B (RT-PCR) Not Detected Not Detecte SARS-CoV-2 RNA (RT-PCR) Not Detected Not Detecte Test 09/10/22 10:54 09/10/22 13:05 Range/Units Lactic Acid Level 6.78 *H 0.50-2.00 MMOL/L Troponin I 4.482 *H <0.028 NG/ML Radiology NAME: ANGELA RAI MED REC#: [id number] PT STATUS: REG ER : 1960 PHYSICIAN: ALMA JIM DO ADMIT DATE: 09/10/22/ER FS Signed Date of Exam:09/10/22 CHEST 1 VIEW AP/PA ONLY INDICATION: Respiratory distress Portable chest 8:27 AM There is an ET tube projecting over the trachea. NG tube appears to enter the stomach. There are faint alveolar infiltrates in both lungs. There is interstitial prominence. There are no effusions or pneumothoraces. IMPRESSION: Improving aeration of the lungs compared to 08/27/2022. There continues to be some faint groundglass infiltrate and interstitial prominence in the lungs. Dictated by: Dictated on workstation # [id number] Dict: 09/10/22 0837 Trans: 09/10/22 0955 KARMA [id number] Interpreted by: ERIKA AGUSTIN MD Electronically signed by: ERIKA AGUSTIN MD 09/10/22 0955 Physical Exam-([facility]) Physical Exam Vital Signs VS - Last 72 Hours, by Label 09/10/22 09/10/22 09/10/22 09/10/22 08:05 08:05 09:15 10:30 Temp 35.1 35.9 Pulse 123 87 96 Resp 22 19 22 B/P (MAP) 89/51 (64) 165/64 105/74 (84) Pulse Ox 96 100 100 O2 Delivery Mechanical Ventilator Mechanical Ventilator Room Air Mechanical Ventilator O2 Flow Rate 40.00 88.00 09/10/22 09/10/22 09/10/22 09/10/22 10:49 11:00 12:00 12:57 Temp 33.0 Pulse 96 96 87 Resp 24 B/P (MAP) 137/111 (123) Pulse Ox 100 O2 Delivery Mechanical Ventilator O2 Flow Rate 88.00 Capillary Refill : Less Than 3 Seconds General Appearance: other (intubated, somnolent (not on sedation at time of exam)) Respiratory: normal breath sounds, accessory muscle use Cardiovascular: tachycardia Peripheral Pulses: 2+ Radial Pulses (R), 2+ Radial Pulses (L) Gastrointestinal: normal bowel sounds, soft Extremities: no pedal edema Neurologic/Psychiatric: other (is not on sedation at time of exam- does not respond to voice, does withdraw hand from pain, having shuddering possible seizure like movements occasionally of entire left side that start at face and go down to foot) Skin: cool Assessment/Plan Assessment/Plan Admission Status: Inpatient Order (span 2 midnights) Reason for Inpatient Admission: Cardiac arrest (1) Respiratory arrest Status: Acute Assessment & Plan: Unclear based on history whether respiratory or cardiac prec ipitator, regardless, is currently intubated, and repeat ABG shows slightly improved pH and hypercapnia. Appreciate [facility] ICU ventilator management. (2) Cardiac arrest Status: Acute Assessment & Plan: s/p resuscitation in the field by EMS. Is breathing spontaneously and withdraws from pain, no other clear responsiveness at this time. Yessy ICU physician following, appreciate recommendations. (3) Respiratory acidosis Status: Acute (4) Lactic acid acidosis Status: Acute Assessment & Plan: Uncertain if this represents septic shock, suspect it is related to tissue hypoxia from arrest rather than infection. Trended down on recheck. Started on cefepime for possible underlying infection given elevated WBC and severity of presentation, but no clear source of infection yet noted. Received IV bolus in ER. History of CHF and CXR with some findings of edema, fluid balance may be challenging. (5) Troponin level elevated Status: Acute (6) Mixed hyperlipidemia Status: Chronic (7) Primary hypertension Status: Chronic (8) History of cerebrovascular accident Status: Chronic Assessment & Plan: With right sided weakness at baseline (9) Coronary artery disease Status: Chronic Qualifiers: (10) Peripheral vascular disease Status: Chronic (11) Heavy alcohol use Status: Chronic Assessment & Plan: Consider contribution of alcohol withdrawal, particularly as time progresses, however, per family has been drinking significantly less for at least a couple of weeks. Monitor closely. (12) COPD (chronic obstructive pulmonary disease) Status: Chronic Assessment & Plan: IV solumedrol for possible COPD exacerbation contribution to respiratory failure. (13) DVT prophylaxis Status: Acute Assessment & Plan: Enoxaparin (14) Goals of care, counseling/discussion Status: Acute Assessment & Plan: Family at bedside note they do not believe he would want to be maintained on ventilator for a long time if neurologic recovery is unlikely. Discussed gravity of current situation and as of yet undetermined neurologic status. Discussed if he had recurrent cardiac/respiratory arrest, outcome would be likely further deteriorated, and they express understanding. At this time remains full code while further evaluation progresses. MICKEY ANDRES MD Sep 10, 2022 13:06
--- NOTE | 2022-09-10 13:24 | Occ Therapy Progress Note ---
Therapy Progress Note Patient currently intubated and sedated. OT will monitor patient's status and initiate treatment when patient is medically stable and able to actively participate with skilled therapy. EZEKIEL LIM OT Sep 10, 2022 13:24
[2022-09-10] MEDS ORDERED: LORazepam INJ 2 MG/ML (ATIVAN) VIAL IVP ONE (13:30)
[2022-09-10] MEDS ORDERED: LORazepam INJ 2 MG/ML (ATIVAN) VIAL ONE ×2 (13:34→16:30)
[2022-09-10] MEDS: PANTOPRAZOLE 40 MG (PROTONIX) VIAL IV SCH (13:46)
[2022-09-10 14:15] LABS: HEMATOCRIT 41 % (40-54); HEMOGLOBIN 13.6 g/dL (13.3-17.7); MEAN CORPUSCULAR HEMOGLOBIN 33 pg (25-34); MEAN CORPUSCULAR HGB CONC 34 g/dL (32-36); MEAN CORPUSCULAR VOLUME 98 fL (80-99); MEAN PLATELET VOLUME 9.8 fL (9.0-12.2); PLATELET COUNT 178 10^3/uL (130-400); WHITE BLOOD COUNT 16.4 10^3/uL (4.3-11.0)
--- NOTE | 2022-09-10 14:32 | Diagnostic Imaging Report ---
PROCEDURE: CT head without contrast. TECHNIQUE: Multiple contiguous axial images were obtained through the brain without the use of intravenous contrast. Auto Exposure Controls were utilized during the CT exam to meet ALARA standards for radiation dose reduction. INDICATION: Post code and seizure-like activity. COMPARISON: Correlation is made with prior CT from 01/08/2022. FINDINGS: Encephalomalacia in the left middle cerebral artery territory is again noted consistent with prior stroke. There is an old infarct in the region of the left caudate. No sulcal effacement is identified. There is no midline shift. No acute intra-axial or extra-axial hemorrhage is detected. Cisterns are patent. Visualized paranasal sinuses are clear. IMPRESSION: Stable chronic changes since exam from January 2022. No acute intracranial process is detected. Dictated by: Dictated on workstation # [id number]
[2022-09-10 14:45] LABS: POTASSIUM 3.6 MMOL/L (3.6-5.0)
[2022-09-10 14:47] LABS: CALCIUM 8.2 MG/DL (8.5-10.1)
[2022-09-10 14:51] LABS: CREATININE SERUM 0.78 MG/DL (0.60-1.30)
[2022-09-10 14:53] LABS: MAGNESIUM 1.6 MG/DL (1.6-2.4)
[2022-09-10] MEDS: PROPOFOL DRIP (ICU) 100 ML IV SCH (15:00)
[2022-09-10] MEDS: LACTATED RINGERS 1,000 ML IV SCH (15:17)
--- NOTE | 2022-09-10 16:12 | Consultation-Cardiology ---
HPI-Cardiology Cardiology Consultation: Date of Consultation 09/10/22 Time Seen by a Provider: 13:20 Date of Admission Attending Physician Irene Brown Aprn Admitting Physician Admitting Physician: Karlie Kearney MD Attending Physician: Nydia Will DO Consulting Physician CHERYL MUÑOZ MD, MA, FACP, FACC, [facility] [place], CCDS Physician requesting consult: Dr Kearney HPI: Chief Complaint: Reason for Card consult: Cardio-resp arrest Mr. Wray is a 61 yr old male admitted to ICU 8 from the ED respiratory failure, post code on the ventilator. He is unable to provide any information. Information regarding event is as per chart review and as per our conversation with Dr Kearney who had requested this consult Patient was downstairs when he yelled for breath stating he was short of breath. The patient then attempted to stand and collapsed. He was unresponsive and upon family members arrival was apneic and pulseless. Chest compressions were started and on EMS arrival, the patient was apneic, pulseless and found to be in V. fib and was defibrillated once. The patient had approximately 10 minutes of chest compressions, received multiple doses of bicarb and epinephrine prior to return of his spontaneous circulation. Review of Systems-Cardiology Review of Systems Constitutional: other (pt intubated, on mech vent, with intermittent seizure activity) All Other Systems Reviewed Negative Unless Noted: No JQS-Fwfhzp-Nptvcy Hx Patient Social History Smoking Status: Current Everyday Smoker Have you traveled recently?: No Alcohol Use?: Unable to obtain Pt feels they are or have been: Unable to obtain Tobacco type used: Cigarettes Past Medical History PMH As described under Assessment. Family Medical History Family Medical History: The patient does not know of any family history of premature coronary artery disease in first-degree relatives. (This is per chart review) Allergies and Home Medications Allergies Coded Allergies: No Known Drug Allergies (Unverified , 01/04/22) Patient Home Medication List Home Medication List Reviewed: Yes Amlodipine Besylate (Amlodipine Besylate) 5 Mg Tablet, 5 MG PO DAILY Prescribed by: NYDIA WILL on 09/01/22 0943 Last Action: Reviewed Aspirin (Aspirin EC) 81 Mg Tablet., 81 MG PO DAILY, (Reported) Entered as Reported by: RUBEN EARLY on 08/26/22 1257 Last Action: Reviewed Atorvastatin Calcium (Atorvastatin Calcium) 20 Mg Tablet, 20 MG PO DAILY, (Reported) Entered as Reported by: RUBEN EARLY on 08/26/22 1257 Last Action: Reviewed Clopidogrel Bisulfate (Clopidogrel) 75 Mg Tablet, 75 MG PO DAILY, (Reported) Entered as Reported by: RUBEN EARLY on 08/26/22 1257 Last Action: Reviewed Folic Acid (Folic Acid) 1 Mg Tablet, 1 MG PO DAILY Prescribed by: NYDIA WILL on 09/01/22 0944 Last Action: Reviewed Ipratropium/Albuterol Sulfate (Iprat-Albut 0.5-3(2.5) mg/3 ml) 0.5 Mg-3 Mg (2.5 Mg Base)/3 Ml Ampul.neb, 3 ML IH Q6H PRN for SHORTNESS OF BREATH, (Reported) Entered as Reported by: RUBEN EARLY on 08/26/22 1257 Last Action: Reviewed Metoprolol Succinate (Metoprolol Succinate) 50 Mg Tab.er.24h, 50 MG PO DAILY, (Reported) Entered as Reported by: RUBEN EARLY on 08/26/22 1257 Last Action: Reviewed Oxycodone Hcl (Oxyir Tablet) 5 Mg Tab, 5 MG PO Q4HR PRN for PAIN-SEE DOSE INSTRUCTIONS Prescribed by: NYDIA WILL on 09/01/22 0945 Last Action: Reviewed Pantoprazole Sodium (Pantoprazole Sodium) 40 Mg Tablet.dr, 40 MG PO DAILY, (Reported) Entered as Reported by: RUBEN EARLY on 08/26/22 1257 Last Action: Reviewed Sertraline HCl (Sertraline HCl) 50 Mg Tablet, 50 MG PO DAILY, (Reported) Entered as Reported by: RUBEN EARLY on 08/26/22 1257 Last Action: Reviewed Thiamine HCl (Vitamin B-1) 100 Mg Tablet, 100 MG PO DAILY@0700 Prescribed by: NYDIA WILL on 09/01/22 0944 Last Action: Reviewed Physical Exam-Cardiology Physical Exam Vital Signs/I&O 09/10/22 09/10/22 09/10/22 09/10/22 08:05 08:05 09:15 10:25 Temp 35.1 Pulse 123 87 Resp 22 19 B/P (MAP) 89/51 (64) 165/64 Pulse Ox 96 100 96 O2 Delivery Mechanical Ventilator Mechanical Ventilator Room Air Mechanical Ventilator O2 Flow Rate 40.00 FiO2 100 09/10/22 09/10/22 09/10/22 09/10/22 10:30 10:49 11:00 12:00 Temp 35.9 33.0 Pulse 96 96 96 Resp 22 24 B/P (MAP) 105/74 (84) 137/111 (123) Pulse Ox 100 100 O2 Delivery Mechanical Ventilator Mechanical Ventilator O2 Flow Rate 88.00 88.00 09/10/22 09/10/22 09/10/22 09/10/22 12:00 12:15 12:57 13:00 Pulse 85 87 110 Resp 28 25 B/P (MAP) 109/45 (90) 123/82 (92) Pulse Ox 100 100 100 O2 Delivery Mechanical Ventilator Mechanical Ventilator Mechanical Ventilator O2 Flow Rate 88.00 88.00 09/10/22 09/10/22 09/10/22 09/10/22 14:00 14:46 15:00 15:00 Pulse 90 96 96 Resp 25 25 B/P (MAP) 120/108 (112) 108/94 108/94 (99) Pulse Ox 100 100 O2 Delivery Mechanical Ventilator Mechanical Ventilator Mechanical Ventilator O2 Flow Rate 88.00 60.00 60.00 Capillary Refill : Less Than 3 Seconds Constitutional: other (Intubated and sedated) HEENT: PERRL Neck: No carotid bruit; carotid pulses are 2 + bilaterally Respiratory: No accessory muscle use, No respiratory distress; other (coarse breath sounds throughout; currently on ventilator) Cardiovascular: regular rate-rhythm; No JVD; S1 and S2, systolic murmur Gastrointestinal: audible bowel sounds (NG tube in place) Extremities: no lower extremity edema bilateral Neurologic/Psychiatric: other (unable to participate in neuro exam d/t sed ation) Skin: No rash on exposed areas, No ulcerations on exposed areas Data Review Labs Laboratory Tests 09/10/22 08:18: White Blood Count 16.0H, Red Blood Count 3.80L, Hemoglobin 12.6L, Hematocrit 38L , Mean Corpuscular Volume 100H, Mean Corpuscular Hemoglobin 33, Mean Corpuscular Hemoglobin Concent 33, Red Cell Distribution Width 12.6, Platelet Count 193, Arielle n Platelet Volume 10.0, Immature Granulocyte % (Auto) 2, Neutrophils (%) (Auto) 79H, Lymphocytes (%) (Auto) 10L, Monocytes (%) (Auto) 9, Eosinophils (%) (Auto) 0, Basophils (%) (Auto) 0, Neutrophils # (Auto) 12.6H, Lymphocytes # (Auto) 1.6, Monocytes # (Auto) 1.5H, Eosinophils # (Auto) 0.0, Basophils # (Auto) 0.1, Immature Granulocyte # (Auto) 0.2H, Neutrophils % (Manual) 71, Lymphocytes % (Manual) 9, Monocytes % (Manual) 7, Myelocytes % 2, Band Neutrophils 11, Platelet Estimate NORMAL, Macrocytosis SLIGHT, Blood Gas Puncture Site L RADIAL, Blood Gas Patient Temperature NA, Arterial Blood pH 7.05*L, Arterial Blood Partial Pressure CO2 67H, Arterial Blood Partial Pressure O2 71L, Arterial Blood HCO3 19L, Arterial Blood Total CO2 20.6L, Arterial Blood Oxygen Saturation 84L, Arterial Blood Base Excess -12.6L, Jm Test NA, Blood Gas Ventilator Setting YES, Blood Gas Inspired Oxygen NA, Sodium Level 140, Potassium Level 3.6, Chloride Level 102, Carbon Dioxide Level 21, Anion Gap 17H, Blood Urea Nitrogen 5L, Creatinine 0.81, Estimat Glomerular Filtration Rate 100, BUN/Creatinine Ratio 6, Glucose Level 213H, Lactic Acid Level 8.10*H, Calcium Level 8.1L, Corrected Calcium 8.9, Magnesium Level 2.0, Total Bilirubin 0.4, Aspartate Amino Transf (AST/SGOT) 23, Alanine Aminotransferase (ALT/SGPT) 16, Alkaline Phosphatase 79, Troponin I 1.23*H, Pro-B-Type Natriuretic Peptide 5515.0H, Total Protein 5.3L, Albumin 3.0L 09/10/22 08:20: Urine Color YELLOW, Urine Clarity TURBID, Urine pH 6.5, Urine Specific [place] >=1.030, Urine Protein 2+H, Urine Glucose (UA) 1+H, Urine Ketones NEGATIVE, Urine Nitrite NEGATIVE, Urine Bilirubin NEGATIVE, Urine Urobilinogen 0.2, Urine Leukocyte Esterase NEGATIVE, Urine RBC (Auto) 1+H, Urine RBC 2-5H, Urine WBC 10- 25H, Urine Squamous Epithelial Cells NONE, Urine Crystals PRESENTH, Urine Amorphous Sediment FEW EMY URATESH, Urine Bacteria FEWH, Urine Casts PRESENT, Urine Hyaline Casts >50H, Urine Granular Casts 10-25H, Urine Mucus MODERATEH, Urine Culture Indicated YES 09/10/22 08:43: Influenza Type A (RT-PCR) Not Detected, Influenza Type B (RT-PCR) Not Detected, SARS-CoV-2 RNA (RT-PCR) Not Detected 09/10/22 10:39: Blood Gas Puncture Site LEFT RAD, Blood Gas Patient Temperature 36.1, Arterial Blood pH 7.17*L, Arterial Blood Partial Pressure CO2 64H, Arterial Blood Partial Pressure O2 64L, Arterial Blood HCO3 23, Arterial Blood Total CO2 24.9, Arterial Blood Oxygen Saturation 87L, Arterial Blood Base Excess -4.8L, Jm Test YES- POS, Blood Gas Ventilator Setting YES, Blood Gas Inspired Oxygen 20 09/10/22 10:54: Lactic Acid Level 6.78*H, Troponin I 4.482*H 09/10/22 14:07: White Blood Count 16.4H, Red Blood Count 4.16L, Hemoglobin 13.6, Hematocrit 41, Mean Corpuscular Volume 98, Mean Corpuscular Hemoglobin 33, Mean Corpuscular Hemoglobin Concent 34, Red Cell Distribution Width 12.5, Platelet Count 178, Mean Platelet Volume 9.8, Sodium Level 140, Potassium Level 3.6, Chloride Level 102, Carbon Dioxide Level 22, Anion Gap 16H, Blood Urea Nitrogen 7, Creatinine 0.78, Estimat Glomerular Filtration Rate 101, BUN/Creatinine Ratio 9, Glucose Level 154H, Calcium Level 8.2L, Magnesium Level 1.6, Triglycerides Level 85 A/P-Cardiology Assessment/Admission Diagnosis Cardioresp arrest on 09-10-21 - witnessed collapse per family - CPR started - EMS reports presenting rhythm as v-fib (no strips available) - defibrillated x1 per EMS restoring SR (no documentation available) Post arrest ECG without any ST elevation - elevated troponin: NSTEMI vs type 2 GA due to transient anoxia Aute respiratory failure requiring ventilation - likely multi-factorial - Acute on chronic exacerbation of COPD; acute on chronic diastolic CHF Sepsis - UTI - management per medical services Coronary artery disease - Cardiac catheterization was done on January 11, [address] Catherine, calcified coronary system with significant stenosis in the mid LAD, status post stenting using kathya point stent 3 x 23 mm expanded to 3.1 mm with excellent results, - Continue on dual antiplatelet therapy Aute on Chronic diastolic CHF - Echocardigoram of 08-27-22 showed LVEF 60-65%. Grade 2 diastolic dysfunction. Mod MR. Mild to mod aortic stenosis with mod AoR. PASP 45-50 mmHg - Echo on 09-10-22 (post-code): LVEF 55-60%, mild to mod , mild AI H/O Left thigh pain, has been complaining of left leg pain - BLE arterial duplex done 01/12/[address] Catherine showing bilateral hemodynamic significant stenoses on the left at the level of the common femoral and on the right at the level of the popliteal artery. Hypertension Hyperlipidemia History of CVA with right hemiparesis Tobaccoism - still an active smoker despite multiple advice to quit Discussion and Recomendations Post code - witnessed collapse at home - EMS reports v-fib at time of presentation which he was defibrillated x 1 - NSTEMI vs type 2 GA. No evidence of STEMI - start DAPT (recent coronary intervention in January [address] Catehrine) - Add BB as BP will allow Sepsis - likely secondary to UTI - management per medical services Acute resp failure - likely multi-factorial d/t acute on chronic exacerbation of COPD, acute on chronic diastolic CHF Acute on chronic diastolic CHF - treat with diuretics as tolerated/indicated Monitor lab closely Replace electrolytes as indicated Further recs will be based on his hospital course We would like to thank Medical services for this consult CHERYL MUÑOZ MD FACP FAC CCDS Sep 10, 2022 16:12
[2022-09-10] MEDS ORDERED: PHENYTOIN INJECTION 1,000 MG in NS (IVPB) 50 ML, 0.2 MICRON FILTER 1 EACH INJ ONE ×3 (16:30)
[2022-09-10] MEDS: LORazepam INJ 2 MG/ML (ATIVAN) VIAL IVP PRN (16:32)
[2022-09-10 16:38] LABS: ABG BASE EXCESS -0.7 MMOL/L (-2.5-2.5); ABG OXYGEN SATURATION 58 % (94-100); ABG PCO2 46 MMHG (35-45); ABG TCO2 25.9 MMOL/L (21.0-31.0)
[2022-09-10 16:44] VITALS: BP 89/65
[2022-09-10 16:44] LABS: ABG PH 7.34 (7.37-7.43); ABG PO2 33 MMHG (79-93); ALLENS TEST YES-POS; INSPIRED O2 60%; PATIENT TEMP 36.4; VENTILATOR YES
--- NOTE | 2022-09-10 16:51 | Diagnostic Imaging Report ---
INDICATION: Hypoxemia. EXAMINATION: Portable chest at 04:46 p.m. FINDINGS: There are emphysematous changes in the lungs. There is some increased density at the left lung base that may be some developing infiltrate. This was not apparent on the image from earlier in the morning. IMPRESSION: COPD. Questionable developing infiltrate at the left lung base. Dictated by: Dictated on workstation # [id number]
[2022-09-10] MEDS ORDERED: RT-ALBUTEROL SULF 2.5 MG/3 ML PRE-MIX VIAL INH PRN (17:00)
--- NOTE | 2022-09-10 17:04 | Tele-ICU Progress Note ---
Progress Note Multiple visits via camera patient with musculat contractions - myoclonus vs seizures CTH ordered - reviewed - no bleeding Tx with ativan prn , Keppra IV , Dilantin , propofol gtt and ativan gtt discussed with and daughter discussed with Dr Sandoval blood work ordered , reviewed Plans in collaboration with bedside consultants and IM MDs. Discussed with RN to reach out if any questions or concerns A total of 45 minutes of critical care time was devoted to this patient today, required to treat and/or prevent further deterioration of critical care condition ( as above ) . Focused Exam Lactate Level 09/10/22 08:18: Lactic Acid Level 8.10*H 09/10/22 10:54: Lactic Acid Level 6.78*H 09/10/22 14:07: Height, Weight, BMI Height: '" Weight: lbs. oz. kg; 22.04 BMI Method: Lactic Acid Level Laboratory Tests Test 09/10/22 14:07 ELIZABETH PETERSON MD Sep 10, 2022 17:04
[2022-09-10] MEDS: LORazepam/NS DRIP 100 ML IV SCH (17:09)
[2022-09-10] MEDS: NOREPINEPHRINE 8 MG/250 ML 250 ML IV SCH (17:38)
--- NOTE | 2022-09-10 18:02 | Consultation - Surgery ---
History of Present Illness History of Present Illness Patient Consulted On(asim/time) 09/10/22 17:58 Time Seen by Provider: 17:31 History of Present Illness Surgery asked to consult regarding Hypotension and Venous insufficiency. HPI per ED: Patient is a 61-year-old male with history of COPD with recent 8- day hospitalization at [facility] for respiratory failure requiring ventilation who presents status post witnessed cardiac arrest. Patient was downstairs when he yelled for breath stating he was short of breath. The patient does not require oxygen at home and does not wear CPAP at night. The patient then attempted to stand and collapsed. He was unresponsive and upon family members arrival was apneic and pulseless. Chest compressions were started and on EMS arrival, the patient was apneic, pulseless and found to be in V. fib and was defibrillated once. The patient had approximately 10 minutes of chest compressions, received multiple doses of bicarb and epinephrine prior to return of his spontaneous circulation. An IO was placed and the patient was intubated without sedation. History is limited due to the patient's clinical condition. When I saw pt he was intubated and sedated, no family at bedside. All info obtained from chart. I did talk to nurse who stated they could not keep his BP and started him on Levo, needs central access. Allergies and Home Medications Allergies Coded Allergies: No Known Drug Allergies (Unverified , 01/04/22) Patient Home Medication List Home Medication List Reviewed: Yes Amlodipine Besylate (Amlodipine Besylate) 5 Mg Tablet, 5 MG PO DAILY Prescribed by: ROSA ELENA WILL on 09/01/22 0943 Last Action: Reviewed Aspirin (Aspirin EC) 81 Mg Tablet.dr, 81 MG PO DAILY, (Reported) Entered as Reported by: RUBEN EARLY on 08/26/22 1257 Last Action: Reviewed Atorvastatin Calcium (Atorvastatin Calcium) 20 Mg Tablet, 20 MG PO DAILY, (Reported) Entered as Reported by: RUBEN EARLY on 08/26/22 1257 Last Action: Reviewed Clopidogrel Bisulfate (Clopidogrel) 75 Mg Tablet, 75 MG PO DAILY, (Reported) Entered as Reported by: RUBEN EARLY on 08/26/22 1257 Last Action: Reviewed Folic Acid (Folic Acid) 1 Mg Tablet, 1 MG PO DAILY Prescribed by: ROSA ELENA WILL on 09/01/22 0944 Last Action: Reviewed Ipratropium/Albuterol Sulfate (Iprat-Albut 0.5-3(2.5) mg/3 ml) 0.5 Mg-3 Mg (2.5 Mg Base)/3 Ml Ampul.neb, 3 ML IH Q6H PRN for SHORTNESS OF BREATH, (Reported) Entered as Reported by: RUBEN EARLY on 08/26/22 1257 Last Action: Reviewed Metoprolol Succinate (Metoprolol Succinate) 50 Mg Tab.er.24h, 50 MG PO DAILY, (Reported) Entered as Reported by: RUBEN EARLY on 08/26/22 1257 Last Action: Reviewed Oxycodone Hcl (Oxyir Tablet) 5 Mg Tab, 5 MG PO Q4HR PRN for PAIN-SEE DOSE INSTRUCTIONS Prescribed by: ROSA ELENA WILL on 09/01/22 0945 Last Action: Reviewed Pantoprazole Sodium (Pantoprazole Sodium) 40 Mg Tablet.dr, 40 MG PO DAILY, (Reported) Entered as Reported by: RUBEN EARLY on 08/26/22 1257 Last Action: Reviewed Sertraline HCl (Sertraline HCl) 50 Mg Tablet, 50 MG PO DAILY, (Reported) Entered as Reported by: RUBEN EARLY on 08/26/22 1257 Last Action: Reviewed Thiamine HCl (Vitamin B-1) 100 Mg Tablet, 100 MG PO DAILY@0700 Prescribed by: ROSA ELENA WILL on 09/01/22 0944 Last Action: Reviewed Past Flitsgo-Yavrdj-Yjvtzl Hx Patient Social History Smoking Status: Current Everyday Smoker Alcohol Use?: Unable to obtain Have you traveled recently?: No Surgeries History of Surgeries: Yes Surgeries: Coronary Stent, Vascular Surgery Respiratory Respiratory Disorders: Pneumonia, COPD Cardiovascular Cardiac Disorders: High Cholesterol, Hypertension Neurological Neurological Disorders: Stroke Family Medical History Significant Family History: Other Conditions/Hx (unable to obtain) Review of Systems-General ROS-Unable to Obtain: pt sedated and intubated Physical Exam-General Problems Physical Exam Vital Signs Vital Signs - First Documented 09/10/22 09/10/22 08:05 10:00 Temp 35.1 Pulse 123 Resp 22 B/P (MAP) 89/51 (64) Pulse Ox 96 O2 Delivery Mechanical Ventilator O2 Flow Rate 40.00 FiO2 88 Capillary Refill : Less Than 3 Seconds General Appearance: other (sedated and inbutated) Respiratory: lungs clear, no respiratory distress, no accessory muscle use Cardiovascular: no gallop, tachycardia Gastrointestinal: soft, no organomegaly Extremities: no pedal edema Neurologic/Psychiatric: other (intubated and sedated) Lymphatic: no adenopathy (neck or axilla) Data Review Labs Laboratory Tests 09/10/22 08:18: White Blood Count 16.0H, Red Blood Count 3.80L, Hemoglobin 12.6L, Hematocrit 38L , Mean Corpuscular Volume 100H, Mean Corpuscular Hemoglobin 33, Mean Corpuscular Hemoglobin Concent 33, Red Cell Distribution Width 12.6, Platelet Count 193, Mean Platelet Volume 10.0, Immature Granulocyte % (Auto) 2, Neutrophils (%) (Auto) 79H, Lymphocytes (%) (Auto) 10L, Monocytes (%) (Auto) 9, Eosinophils (%) (Auto) 0, Basophils (%) (Auto) 0, Neutrophils # (Auto) 12.6H, Lymphocytes # (Auto) 1.6, Monocytes # (Auto) 1.5H, Eosinophils # (Auto) 0.0, Basophils # (Auto) 0.1, Immature Granulocyte # (Auto) 0.2H, Neutrophils % (Manual) 71, Lymphocytes % (Manual) 9, Monocytes % (Manual) 7, Myelocytes % 2, Band Neutrophils 11, Platelet Estimate NORMAL, Macrocytosis SLIGHT, Blood Gas Puncture Site L RADIAL, Blood Gas Patient Temperature NA, Arterial Blood pH 7.05*L, Arterial Blood Partial Pressure CO2 67H, Arterial Blood Partial Pressure O2 71L, Arterial Blood HCO3 19L, Arterial Blood Total CO2 20.6L, Arterial Blood Oxygen Saturation 84L, Arterial Blood Base Excess -12.6L, Jm Test NA, Blood Gas Ventilator Setting YES, Blood Gas Inspired Oxygen NA, Sodium Level 140, Potassium Level 3.6, Chloride Level 102, Carbon Dioxide Level 21, Anion Gap 17H, Blood Urea Nitrogen 5L, Creatinine 0.81, Estimat Glomerular Filtration Rate 100, BUN/Creatinine Ratio 6, Glucose Level 213H, Lactic Acid Level 8.10*H, Calcium Level 8.1L, Corrected Calcium 8.9, Magnesium Level 2.0, Total Bilirubin 0.4, Aspartate Amino Transf (AST/SGOT) 23, Alanine Aminotransferase (ALT/SGPT) 16, A lkaline Phosphatase 79, Troponin I 1.23*H, Pro-B-Type Natriuretic Peptide 5515.0H, Total Protein 5.3L, Albumin 3.0L 09/10/22 08:20: Urine Color YELLOW, Urine Clarity TURBID, Urine pH 6.5, Urine Specific [place] >=1.030, Urine Protein 2+H, Urine Glucose (UA) 1+H, Urine Ketones NEGATIVE, Urine Nitrite NEGATIVE, Urine Bilirubin NEGATIVE, Urine Urobilinogen 0.2, Urine Leukocyte Esterase NEGATIVE, Urine RBC (Auto) 1+H, Urine RBC 2-5H, Urine WBC 10- 25H, Urine Squamous Epithelial Cells NONE, Urine Crystals PRESENTH, Urine Amorphous Sediment FEW MEY URATESH, Urine Bacteria FEWH, Urine Casts PRESENT, Urine Hyaline Casts >50H, Urine Granular Casts 10-25H, Urine Mucus MODERATEH, Urine Culture Indicated YES 09/10/22 08:43: Influenza Type A (RT-PCR) Not Detected, Influenza Type B (RT-PCR) Not Detected, SARS-CoV-2 RNA (RT-PCR) Not Detected 09/10/22 10:39: Blood Gas Puncture Site LEFT RAD, Blood Gas Patient Temperature 36.1, Arterial Blood pH 7.17*L, Arterial Blood Partial Pressure CO2 64H, Arterial Blood Partial Pressure O2 64L, Arterial Blood HCO3 23, Arterial Blood Total CO2 24.9, Arterial Blood Oxygen Saturation 87L, Arterial Blood Base Excess -4.8L, Jm Test YES- POS, Blood Gas Ventilator Setting YES, Blood Gas Inspired Oxygen 20 09/10/22 10:54: Lactic Acid Level 6.78*H, Troponin I 4.482*H 09/10/22 14:07: White Blood Count 16.4H, Red Blood Count 4.16L, Hemoglobin 13.6, Hematocrit 41, Mean Corpuscular Volume 98, Mean Corpuscular Hemoglobin 33, Mean Corpuscular Hemoglobin Concent 34, Red Cell Distribution Width 12.5, Platelet Count 178, Mean Platelet Volume 9.8, Sodium Level 140, Potassium Level 3.6, Chloride Level 102, Carbon Dioxide Level 22, Anion Gap 16H, Blood Urea Nitrogen 7, Creatinine 0.78, Estimat Glomerular Filtration Rate 101, BUN/Creatinine Ratio 9, Glucose Level 154H, Calcium Level 8.2L, Magnesium Level 1.6, Triglycerides Level 85 09/10/22 16:09: Glucometer 165H 09/10/22 16:30: Blood Gas Puncture Site LEFT RAD, Blood Gas Patient Temperature 36.4, Arterial Blood pH 7.34*L, Arterial Blood Partial Pressure CO2 46H, Arterial Blood Partial Pressure O2 33*L, Arterial Blood HCO3 24, Arterial Blood Total CO2 25.9, Arterial Blood Oxygen Saturation 58L, Arterial Blood Base Excess -0.7, Jm Test YES-POS, Blood Gas Ventilator Setting YES, Blood Gas Inspired Oxygen 60% Assessment/Plan Assessment/Plan Assessment/Plan Hypotension Venous Insufficiency S/P Cardiac and Respiratory arrest Plan to place central line for pressor support. Consent obtained from Daughter. NATHANIEL WATSON Rosario DO Sep 10, 2022 18:02
--- NOTE | 2022-09-10 18:05 | Progress Note-Post Operative ---
Post-Operative Progess Note Surgeon (s)/French Drawer (s) Surgeon NATHANIEL WATSON DO French Drawer: none Pre-Operative Diagnosis Hypotension, Venous Insufficiency, S/P Cardiac and Respiratory arrest Post-Operative Diagnosis Hypotension Venous Insufficiency S/P Cardiac and Respiratory arrest Procedure & Operative Findings Date of Procedure 09/10/22 Procedure Performed/Findings Central line placement with US guidance The patient was in their bed in the ICU, was prepped and draped in the sterile fashion. A surgical pause was performed. Ultrasound was used to locate the internal jugular vein. Using an 18 gauge finder needle and watching with the US; the left internal jugular vein was accessed. Dark nonpulsatile blood was withdrawn. The wire was inserted. US assured proper placement. The needle was removed. A [#11] blade scalpel was used to make a stab incision along the guidewire. Dilator sheath was then advanced over the wire using Seldinger technique and the dilator was removed. The Gro[place] catheter was inserted over the guide wire using the Seldinger technique. The [place] wire was removed. The catheter was then accessed in all three ports without difficulty. Good flash of blood was seen and it was then flushed with saline. The catheter was sutured in place with 3-0 silk. The areas were then washed and dried. Sterile dressing was placed over incision. The patient tolerated the procedure well without complication. Anesthesia Type Pt sedated on vent Estimated Blood Loss Estimated blood loss (mL): scant Specimens/Packing Specimens Removed none NATHANIEL WATSON DO Sep 10, 2022 18:05
[2022-09-10 19:03] VITALS: BP 117/57
[2022-09-10] MEDS: RT-ALBUTEROL SULF 2.5 MG/3 ML PRE-MIX VIAL INH SCH ×2 (19:03→21:50)
--- NOTE | 2022-09-10 21:28 | Diagnostic Imaging Report ---
HISTORY: Endotracheal tube position. COMPARISON: 09/10/2022. TECHNIQUE: Frontal view of the chest. FINDINGS: The gilda is difficult to visualize, but the endotracheal tube is estimated to be about 6.3 cm above the gilda. An enteric tube crosses the [id number]. The left central line tip projects over the low SVC. There is a small left pleural effusion. There are mild airspace opacities in the left lung base. No pneumothorax is seen. Lung volumes are mildly large. The cardiac silhouette is stable in size. IMPRESSION: 1. The gilda is difficult to visualize on this exam, but the endotracheal tube is estimated to be about 6.3 cm above the gilda. 2. Small left pleural effusion. Left basilar airspace opacity may represent atelectasis or infiltrate. Dictated by: Dictated on workstation # [id number]
[2022-09-10 21:51] VITALS: BP 145/79
[2022-09-11] MEDS: LORazepam/NS DRIP 100 ML IV SCH ×3 (00:02→18:35)
[2022-09-11] MEDS: inSUlin ASPART (NovoLOG) 1 UNIT/0.01 ML (CHARGE PER UNIT) SQ SCH ×5 (01:05→23:30)
[2022-09-11] MEDS: PROPOFOL DRIP (ICU) 100 ML IV SCH ×2 (01:50→15:04)
[2022-09-11] MEDS: RT-ALBUTEROL SULF 2.5 MG/3 ML PRE-MIX VIAL INH SCH ×6 (02:31→21:58)
[2022-09-11 03:39] LABS: BASOPHILS % (AUTO) 0 % (0-10); EOSINOPHILS % (AUTO) 0 % (0-10); HEMATOCRIT 36 % (40-54); HEMOGLOBIN 12.2 g/dL (13.3-17.7); LYMPHOCYTES # (AUTO) 0.9 10^3/uL (1.0-4.0); LYMPHOCYTES % (AUTO) 4 % (12-44); MEAN CORPUSCULAR HEMOGLOBIN 33 pg (25-34); MEAN CORPUSCULAR HGB CONC 34 g/dL (32-36); MEAN CORPUSCULAR VOLUME 97 fL (80-99); MEAN PLATELET VOLUME 10.3 fL (9.0-12.2); MONOCYTES # (AUTO) 0.8 10^3/uL (0.0-1.0); MONOCYTES % (AUTO) 4 % (0-12); NEUTROPHILS # (AUTO) 19.1 10^3/uL (1.8-7.8); NEUTROPHILS % (AUTO) 91 % (42-75); PLATELET COUNT 196 10^3/uL (130-400)
[2022-09-11 03:53] LABS: BILIRUBIN,TOTAL 0.5 MG/DL (0.1-1.0); CREATININE SERUM 1.18 MG/DL (0.60-1.30); MAGNESIUM 1.3 MG/DL (1.6-2.4); PHOSPHORUS 3.7 MG/DL (2.3-4.7); TOTAL PROTEIN 6.2 GM/DL (6.4-8.2)
[2022-09-11 03:57] LABS: ABG BASE EXCESS -1.8 MMOL/L (-2.5-2.5); ABG OXYGEN SATURATION 97 % (94-100); ABG PCO2 32 MMHG (35-45); ABG PH 7.44 (7.37-7.43); ABG PO2 78 MMHG (79-93); ABG TCO2 22.6 MMOL/L (21.0-31.0)
[2022-09-11 04:00] LABS: ALLENS TEST YES-POS; INSPIRED O2 30%; VENTILATOR YES
[2022-09-11 04:01] LABS: PATIENT TEMP 37.4
[2022-09-11] MEDS: POTASSIUM CL 10MEQ/50ML IVPB 50 ML IV SCH (04:06)
[2022-09-11] MEDS: MAGNESIUM 1 GM/100 ML IVPB 100 ML IV SCH ×4 (04:06→06:44)
[2022-09-11] MEDS: KCL 20 MEQ TAB (K-DUR) PO SCH (04:06)
[2022-09-11] MEDS: meTOprolol 5 MG/5 ML (LOPRESSOR) VIAL IV SCH ×2 (05:12→11:16)
[2022-09-11] MEDS: CEFEPIME INJECTION 1,000 MG in NS (IVPB) 50 ML IV SCH ×4 (05:12→23:32)
[2022-09-11] MEDS: methylPREDNISolone 125 MG (Solu-MEDROL) VIAL IVP SCH ×4 (05:12→23:32)
[2022-09-11] MEDS ORDERED: KCL 20 MEQ TAB (K-DUR) PO SCH (06:00)
[2022-09-11] MEDS ORDERED: MAGNESIUM 1 GM/100 ML IVPB 100 ML IV SCH (06:00)
[2022-09-11] MEDS ORDERED: POTASSIUM CL 10MEQ/50ML IVPB 50 ML IV SCH (06:00)
--- NOTE | 2022-09-11 06:34 | Progress Note - Hospitalist ---
Subjective HPI/CC On Admission Date Seen by Provider: Sep 11, 2022 Time Seen by Provider: 11:00 Subjective/Events-last exam Patient remains on the ventilator Anoxic brain injury suspected Patient had severe COPD and was extubated last time which was surprising Talk to daughter about DNR she will talk to her mother Review of Systems General: Fatigue, Malaise Focused Exam Lactate Level 09/10/22 08:18: Lactic Acid Level 8.10*H 09/10/22 10:54: Lactic Acid Level 6.78*H Objective Exam Vital Signs Vital Signs Date Time Temp Pulse Resp B/P (MAP) Pulse Ox O2 Delivery O2 Flow Rate FiO2 09/11/22 12:00 91 23 118/67 (89) 98 Mechanical Ventilator 30.00 09/11/22 12:00 36.9 09/11/22 11:57 30 Capillary Refill : Less Than 3 Seconds General Appearance: No Apparent Distress, WD/WN, Chronically ill, Other (Intubated and sedated) Respiratory: Lungs Clear, Normal Breath Sounds Results/Procedures Lab Laboratory Tests 09/10/22 14:07 09/11/22 03:20 Patient resulted labs reviewed. Assessment/Plan Assessment and Plan Assess & Plan/Chief Complaint Assessment: Cardiac arrest Respiratory arrest Severe COPD Smoker Alcohol use Severe decline in status Plan: Suspected anoxic brain injury Needs DNR ROSA ELENA WILL DO Sep 11, 2022 06:34
[2022-09-11 07:20] VITALS: BP 117/69
--- NOTE | 2022-09-11 07:51 | Physical Therapy Progress Note ---
Therapy Progress Note Patient currently intubated and sedated. PT will monitor patient's status and initiate treatment when patient is medically stable and able to actively participate with skilled therapy. WILSON NUNEZ PT Sep 11, 2022 07:51
[2022-09-11] MEDS: LACTATED RINGERS 1,000 ML IV SCH (08:23)
[2022-09-11] MEDS: CLOPIDOGREL 75 MG (PLAVIX) TABLET PO SCH (08:24)
[2022-09-11] MEDS: ASPIRIN 81 MG CHEW (CHILDREN'S ASA) PO SCH (08:24)
[2022-09-11] MEDS: FUROSEMIDE 40 MG/4 ML INJ (LASIX) IVP SCH (08:24)
[2022-09-11] MEDS: PANTOPRAZOLE 40 MG (PROTONIX) VIAL IV SCH (08:24)
[2022-09-11] MEDS ORDERED: PANTOPRAZOLE 40 MG (PROTONIX) VIAL IV SCH (09:00)
--- NOTE | 2022-09-11 09:20 | Tele-ICU Progress Note ---
Subjective Date Seen by a Provider: Sep 11, 2022 Subjective/Events-last exam This virtual visit was conducted using real time audio/video. Thank you for asking us to see this patient for respiratory insufficiency due to vfib arrest 09/10. Also possible sepsis and myoclonus versus seizure activity. No response last night when Propofol held. PE: VSS. O2 sat 100% on AC20/550/30%/+5 HEENT: No obvious masses, adenopathy or JVD. Chest: coarse on auscultation. CV: RRR S1 S2 No murmur or added sounds. Abd: Non-tender. Bowel sounds Y. : Unremarkable. Collins Y. RUNNER ON/psychiatric: Grossly intact. No obvious focal findings. Extremities: No edema. Capillary refill < 3 seconds. Skin: unremarkable. Results: Elevated WCC 21, BG 213, Trop 4482, BNP 5515. Decreased Hb 12.2. AB.44/32/78 on 30%. CXR: Hyperinflated, small L eff., mild congestion.. Available chart/ vitals / labs / images reviewed. Video assessment done using teleICU camera, rest of exam as per RN. A/P: Respiratory insufficiency: Continue present management with vent., albut., ativan, medrol, prop. Daily sedation vacation to assess neuro status. Critical Care: critically ill patient. Cont. abx, PPI, Keppra, levo., lasix, plavix, ASA, SSI, lovenox. Discussed with RNs Carolin/Etelvina. Asked RN to reach out to eICU if any questions or concerns later. Time spent with patient/coordination of care with other health professionals (mins): 20 Sepsis Event Evaluation Height, Weight, BMI Height: '" Weight: lbs. oz. kg; 23.40 BMI Method: Focused Exam Lactate Level 09/10/22 08:18: Lactic Acid Level 8.10*H 09/10/22 10:54: Lactic Acid Level 6.78*H Exam Exam Patient acknowledged, consented, and participated in this virtual visit which was conducted using real time audio/video Vital Signs Date Time Temp Pulse Resp B/P (MAP) Pulse Ox O2 Delivery O2 Flow Rate FiO2 09/11/22 08:00 37.1 09/11/22 08:00 89 12 109/63 (78) 97 Mechanical Ventilator 30.00 09/11/22 07:20 85 20 99 30 09/11/22 07:00 86 09/11/22 07:00 86 20 115/73 (89) 100 Mechanical Ventilator 30.00 09/11/22 06:00 85 20 117/69 (85) 99 Mechanical Ventilator 30.00 09/11/22 05:53 121/75 09/11/22 05:53 90 121/75 09/11/22 05:04 30 09/11/22 05:00 90 21 123/74 (90) 99 Mechanical Ventilator 30.00 09/11/22 04:38 90 131/77 09/11/22 04:00 100 Mechanical Ventilator 30 09/11/22 04:00 89 120/72 09/11/22 04:00 89 16 120/72 (88) 100 Mechanical Ventilator 30.00 09/11/22 03:21 37.4 87 20 117/66 (83) 100 Mechanical Ventilator 30.00 09/11/22 03:00 86 20 109/67 (81) 99 Mechanical Ventilator 30.00 09/11/22 02:38 30 09/11/22 02:38 Mechanical Ventilator 30.00 09/11/22 02:36 30 09/11/22 02:29 84 20 100 40 09/11/22 02:00 87 20 115/75 (88) 100 Mechanical Ventilator 40.00 09/11/22 01:51 40 09/11/22 01:50 86 107/68 09/11/22 01:00 84 09/11/22 01:00 84 21 106/62 (77) 100 Mechanical Ventilator 40.00 09/11/22 00:02 84 101/61 09/11/22 00:00 84 21 104/63 (77) 100 Mechanical Ventilator 40.00 09/10/22 23:20 100 Mechanical Ventilator 40 09/10/22 23:15 37.6 91 20 113/71 (85) 100 Mechanical Ventilator 40.00 09/10/22 23:00 89 20 126/75 (92) 100 Mechanical Ventilator 50.00 09/10/22 22:00 92 35 106/74 (85) 100 Mechanical Ventilator 50.00 09/10/22 22:00 110/71 09/10/22 22:00 95 110/71 09/10/22 21:51 96 23 100 50 09/10/22 21:47 95 145/79 09/10/22 21:39 50 09/10/22 21:37 93 87/61 09/10/22 21:00 97 27 109/71 (84) 100 Mechanical Ventilator 50.00 09/10/22 20:51 50 09/10/22 20:34 96 154/91 09/10/22 20:04 96 133/76 09/10/22 20:00 96 18 133/76 (95) 99 Mechanical Ventilator 50.00 09/10/22 20:00 100 Mechanical Ventilator 50 09/10/22 20:00 37.8 09/10/22 19:10 Mechanical Ventilator 50.00 09/10/22 19:03 81 34 100 60 09/10/22 19:00 81 09/10/22 19:00 80 31 117/57 (77) 100 Mechanical Ventilator 50.00 09/10/22 19:00 Mechanical Ventilator 60.00 09/10/22 19:00 60 09/10/22 19:00 Mechanical Ventilator 50.00 09/10/22 19:00 81 117/57 09/10/22 18:31 97/59 (72) 09/10/22 18:00 71 33 84/51 (60) 100 Mechanical Ventilator 60.00 09/10/22 17:38 73 54/33 09/10/22 17:09 90 98/73 09/10/22 17:00 90 37 98/73 (81) 100 Mechanical Ventilator 60.00 09/10/22 16:44 87 29 100 60 09/10/22 16:10 100 Mechanical Ventilator 60 09/10/22 16:00 89 96/70 (79) 100 Mechanical Ventilator 60.00 09/10/22 16:00 36.3 Non Rebreather 09/10/22 15:00 96 25 108/94 (99) 100 Mechanical Ventilator 60.00 09/10/22 15:00 96 108/94 09/10/22 14:46 Mechanical Ventilator 60.00 09/10/22 14:00 90 25 120/108 (112) 100 Mechanical Ventilator 88.00 09/10/22 13:00 110 25 123/82 (92) 100 Mechanical Ventilator 88.00 09/10/22 12:57 87 09/10/22 12:15 100 Mechanical Ventilator 09/10/22 12:00 85 28 109/45 (90) 100 Mechanical Ventilator 88.00 09/10/22 12:00 33.0 09/10/22 11:00 96 24 137/111 (123) 100 Mechanical Ventilator 88.00 09/10/22 10:49 96 09/10/22 10:30 35.9 96 22 105/74 (84) 100 Mechanical Ventilator 88.00 09/10/22 10:25 96 Mechanical Ventilator 100 09/10/22 10:00 94 30 100 88 09/10/22 09:15 87 19 165/64 100 Room Air I & O 09/11/22 07:00 Intake Total 890 ml Output Total 3095 ml Balance -2205 ml Height & Weight Height: '" Weight: lbs. oz. kg; 23.40 BMI Method: General Appearance: No Apparent Distress, WD/WN, Other (Unresponsive, intubated without sedation, manual ventilation via [id number].) HEENT: Other (Pupils sluggishly reactive, endotracheal tube in place 21 at the lip.) Neck: Non Tender, Supple Respiratory: Decreased Breath Sounds, Rhonci, Other (Tachypneic, overbreathing vent) Cardiovascular: Extra Beats, Tachycardia Capillary Refill: Less Than 3 Seconds Peripheral Pulses: 2+ Radial Pulses (R), 2+ Radial Pulses (L) Gastrointestinal: soft, no organomegaly Neurologic/Psychiatric: Other (Unresponsive) Results Lab Laboratory Tests 09/10/22 08:18 09/10/22 14:07 09/11/22 03:20 Assessment/Plan Assessment/Plan See free text. Critical Care: Ventilator Management RIKY PARIS MD Sep 11, 2022 09:20
[2022-09-11] MEDS: ENOXAPARIN 40 MG/0.4 ML (LOVENOX) SYR SC SCH (10:10)
[2022-09-11 10:35] VITALS: BP 105/65
[2022-09-11] MEDS: NOREPINEPHRINE 8 MG/250 ML 250 ML IV SCH (11:28)
[2022-09-11 15:21] VITALS: BP 99/61
--- NOTE | 2022-09-11 16:14 | Cardiology Progress Note ---
Subjective Date Seen by Provider: Sep 11, 2022 Time Seen by Provider: 14:00 Subjective/Events-last exam Pt remains intubated and sedated. ON keppra for non-purposeful movements twitching- concern for myoclonic jerking (anoxic brain injury) vs seizures. Did not wake up after sedation holiday Focused Exam Lactate Level 09/10/22 08:18: Lactic Acid Level 8.10*H 09/10/22 10:54: Lactic Acid Level 6.78*H Objective-Cardiology Exam Last Set of Vital Signs Vital Signs 09/11/22 09/11/22 09/11/22 09/11/22 09/11/22 15:00 15:21 15:36 15:40 16:00 Temp 37.8 Pulse 88 Resp 20 B/P (MAP) 97/63 Pulse Ox 100 O2 Delivery Mechanical Ventilator O2 Flow Rate 30.00 FiO2 30 I&O Intake and Output 09/11/22 00:00 Intake Total 340 ml Output Total 2685 ml Balance -2345 ml Intake Oral 0 ml IV Total 310 ml Other 30 ml Output Urine Total 2535 ml Gastric Drainage Total 150 ml Daily Weight Change No General: Other (intubated sedated) Lungs: Clear to Auscultation, Normal Air Movement Heart: Regular Rate, Normal S1, Normal S2, No Murmurs Extremities: No Clubbing, No Cyanosis Skin: No Rashes, No Significant Lesion Results Lab Laboratory Tests 09/11/22 03:20 A/P-Cardiology Assessment/Plan Assessment and Plan: ## Cardioresp arrest on 09-10-21 s/p DCCVx 1 by EMS; unknown time down - pt now without purposeful movement; concern for myoclonic jerking vs seizures - we will cont to follow along but not indication for cardiac catheterization particularly in light of poor neurological recovery - for now, cont asa, plavix and metop (transition to metop po- based on COMMIT study results) ## Post arrest ECG without any ST elevation - elevated troponin: NSTEMI vs type 2 [place] likely due to transient anoxia ## Aute respiratory failure requiring ventilation - likely multi-factoria - no vent over breathing with sedation holiday - cont to monitor ## Coronary artery disease s/p PCI to mLAD in January 11, [address] Catherine, calcified coronary system with significant stenosis in the mid LAD, status post stenting using kathya point stent 3 x 23 mm expanded to 3.1 mm - Continue on dual antiplatelet therapy ## Aute on Chronic diastolic CHF - Echocardigoram of 08-27-22 showed LVEF 60-65%. Grade 2 diastolic dysfunction. Mod MR. Mild to mod aortic stenosis with mod AoR. PASP 45-50 mmHg - Echo on 09-10-22 (post-code): LVEF 55-60%, mild to mod , mild AI; no regional wall motion abnormalities were noted ## PVD: U/S demonstrating hemodynamic significant stenoses on the left at the level of the common femoral and on the right at the level of the popliteal artery. ## Hypertension ## Hyperlipidemia ## History of CVA with right hemiparesis ## Tobaccoism - still an active smoker despite multiple advice to quit CHARLETTE RIVAS MD Sep 11, 2022 16:14
[2022-09-11 18:16] VITALS: BP 126/69
[2022-09-11] MEDS: meTOprolol TARTRATE 25 MG (LOPRESSOR) TABLET PO SCH (20:50)
[2022-09-11 21:59] VITALS: BP 121/68
[2022-09-12] VITALS (7 sets, daily range): BP systolic 125–164; BP diastolic 66–76
[2022-09-12] MEDS: PROPOFOL DRIP (ICU) 100 ML IV SCH ×2 (02:00→13:37)
[2022-09-12] MEDS: LACTATED RINGERS 1,000 ML IV SCH ×2 (02:00→23:15)
[2022-09-12] MEDS: RT-ALBUTEROL SULF 2.5 MG/3 ML PRE-MIX VIAL INH SCH ×6 (02:47→22:37)
[2022-09-12 03:05] LABS: BASOPHILS % (AUTO) 0 % (0-10); EOSINOPHILS % (AUTO) 0 % (0-10); HEMATOCRIT 32 % (40-54); HEMOGLOBIN 11.1 g/dL (13.3-17.7); LYMPHOCYTES # (AUTO) 0.7 10^3/uL (1.0-4.0); LYMPHOCYTES % (AUTO) 6 % (12-44); MEAN CORPUSCULAR HEMOGLOBIN 33 pg (25-34); MEAN CORPUSCULAR HGB CONC 35 g/dL (32-36); MEAN CORPUSCULAR VOLUME 95 fL (80-99); MEAN PLATELET VOLUME 10.4 fL (9.0-12.2); MONOCYTES # (AUTO) 0.8 10^3/uL (0.0-1.0); MONOCYTES % (AUTO) 6 % (0-12); NEUTROPHILS # (AUTO) 10.9 10^3/uL (1.8-7.8); NEUTROPHILS % (AUTO) 87 % (42-75); PLATELET COUNT 129 10^3/uL (130-400); WHITE BLOOD COUNT 12.4 10^3/uL (4.3-11.0)
[2022-09-12 03:13] LABS: ALBUMIN 2.9 GM/DL (3.2-4.5); POTASSIUM 3.6 MMOL/L (3.6-5.0)
[2022-09-12 03:15] LABS: CALCIUM 7.8 MG/DL (8.5-10.1)
[2022-09-12 03:16] LABS: TOTAL PROTEIN 5.5 GM/DL (6.4-8.2)
[2022-09-12 03:18] LABS: BILIRUBIN,TOTAL 0.5 MG/DL (0.1-1.0)
[2022-09-12 03:19] LABS: CREATININE SERUM 0.84 MG/DL (0.60-1.30); PHOSPHORUS 2.7 MG/DL (2.3-4.7)
[2022-09-12 03:22] LABS: MAGNESIUM 2.1 MG/DL (1.6-2.4)
[2022-09-12] MEDS: KCL 20 MEQ TAB (K-DUR) PO SCH (03:28)
[2022-09-12] MEDS: POTASSIUM CL 10MEQ/50ML IVPB 50 ML IV SCH ×2 (03:28→03:37)
[2022-09-12] MEDS: MAGNESIUM 1 GM/100 ML IVPB 100 ML IV SCH (03:28)
[2022-09-12 05:16] LABS: ABG OXYGEN SATURATION 98 % (94-100); ABG PCO2 32 MMHG (35-45); ABG PH 7.52 (7.37-7.43); ABG PO2 80 MMHG (79-93); ABG TCO2 26.9 MMOL/L (21.0-31.0)
[2022-09-12 05:18] LABS: ALLENS TEST YES-POS; INSPIRED O2 30%; PATIENT TEMP 36.8; VENTILATOR YES
[2022-09-12] MEDS: inSUlin ASPART (NovoLOG) 1 UNIT/0.01 ML (CHARGE PER UNIT) SQ SCH ×4 (05:30→23:35)
[2022-09-12] MEDS: CEFEPIME INJECTION 1,000 MG in NS (IVPB) 50 ML IV SCH ×4 (05:35→23:38)
[2022-09-12] MEDS: methylPREDNISolone 125 MG (Solu-MEDROL) VIAL IVP SCH ×4 (05:35→23:35)
[2022-09-12] MEDS: NOREPINEPHRINE 8 MG/250 ML 250 ML IV SCH (07:16)
--- NOTE | 2022-09-12 07:39 | Progress Note - Hospitalist ---
Subjective HPI/CC On Admission Date Seen by Provider: Sep 12, 2022 Time Seen by Provider: 11:00 Subjective/Events-last exam Patient doing the same DNR order put in after daughter updated nurse on their decision Reviewed labs and meds Focused Exam Lactate Level 09/10/22 08:18: Lactic Acid Level 8.10*H 09/10/22 10:54: Lactic Acid Level 6.78*H Objective Exam Vital Signs Vital Signs Date Time Temp Pulse Resp B/P (MAP) Pulse Ox O2 Delivery O2 Flow Rate FiO2 09/12/22 12:00 92 15 151/75 (108) 96 Mechanical Ventilator 25.00 09/12/22 12:00 36.7 09/12/22 09:37 30 Capillary Refill : Less Than 3 Seconds General Appearance: No Apparent Distress, WD/WN, Chronically ill, Other (Sedated and intubated) Respiratory: Lungs Clear, Normal Breath Sounds Results/Procedures Lab Laboratory Tests 09/12/22 02:57 Patient resulted labs reviewed. Assessment/Plan Assessment and Plan Assess & Plan/Chief Complaint Assessment: Cardiac arrest Respiratory arrest Severe COPD Smoker Alcohol use Severe decline in status Plan: Suspected anoxic brain injury Family agrees with DNR Critical Care Ventilator Management ROSA ELENA WILL DO Sep 12, 2022 07:39
--- NOTE | 2022-09-12 08:50 | Tele-ICU Progress Note ---
Subjective Date Seen by a Provider: Sep 12, 2022 Subjective/Events-last exam This virtual visit was conducted using real time audio/video. Thank you for asking us to see this patient for respiratory insufficiency due to vfib arrest 09/10. Also possible sepsis and myoclonus versus seizure activity. No response today so far as Propofol held. PE: VSS. O2 sat 97% on AC20/550/30%/+5 HEENT: No obvious masses, adenopathy or JVD. Chest: coarse on auscultation. CV: RRR S1 S2 No murmur or added sounds. Abd: Non-tender. Bowel sounds Y. : Unremarkable. Collins Y. TIP OUT WORKER/psychiatric: Grossly intact. No obvious focal findings. Extremities: No edema. Capillary refill < 3 seconds. Skin: unremarkable. Results: Elevated WCC 12.4, improved, BG 162, Trop 4482, BNP 5515. Decreased Hb 11.1. AB.52/32/80 on 30%. CXR: Hyperinflated, small L eff., mild congestion.. Available chart/ vitals / labs / images reviewed. Video assessment done using teleICU camera, rest of exam as per RN. A/P: Respiratory insufficiency: Continue present management with vent., albut., ativan, medrol, prop. Daily sedation vacation to assess neuro status. Critical Care: critically ill patient. Cont. abx, PPI, Keppra, levo., lasix, plavix, ASA, SSI, lovenox, metop., statin. Possible support withdrawal in next 24-48 hours. Discussed with RN Elle. Asked RN to reach out to eICU if any questions or concerns later. Time spent with patient/coordination of care with other health professionals (mins): 22 Sepsis Event Evaluation Height, Weight, BMI Height: '" Weight: lbs. oz. kg; 23.50 BMI Method: Focused Exam Lactate Level 09/10/22 08:18: Lactic Acid Level 8.10*H 09/10/22 10:54: Lactic Acid Level 6.78*H Exam Exam Patient acknowledged, consented, and participated in this virtual visit which was conducted using real time audio/video Vital Signs Date Time Temp Pulse Resp B/P (MAP) Pulse Ox O2 Delivery O2 Flow Rate FiO2 09/12/22 08:00 91 20 123/64 (89) 95 Mechanical Ventilator 25.00 09/12/22 07:52 36.7 09/12/22 07:00 89 16 125/66 (84) 97 Mechanical Ventilator 25.00 09/12/22 07:00 88 09/12/22 06:00 89 20 119/66 (83) 97 Mechanical Ventilator 30.00 09/12/22 05:00 30 09/12/22 05:00 92 20 129/64 (85) 97 Mechanical Ventilator 30.00 09/12/22 04:00 92 20 137/73 (94) 98 Mechanical Ventilator 30.00 09/12/22 03:39 36.0 09/12/22 03:30 99 Mechanical Ventilator 30 09/12/22 03:00 88 20 137/73 (94) 99 Mechanical Ventilator 30.00 09/12/22 02:47 86 20 98 30 09/12/22 02:00 30 09/12/22 02:00 85 131/66 09/12/22 02:00 86 16 115/65 (82) 98 Mechanical Ventilator 30.00 09/12/22 01:00 86 22 118/66 (83) 97 Mechanical Ventilator 30.00 09/12/22 01:00 86 09/12/22 00:00 88 20 114/66 (82) 97 Mechanical Ventilator 30.00 09/11/22 23:35 97 Mechanical Ventilator 30 09/11/22 23:30 36.7 Mechanical Ventilator 30.00 09/11/22 23:28 89 131/66 09/11/22 23:00 91 20 126/71 (89) 97 Mechanical Ventilator 30.00 09/11/22 22:35 89 131/66 09/11/22 22:00 90 21 123/68 (86) 99 Mechanical Ventilator 30.00 09/11/22 21:59 90 20 99 30 09/11/22 21:24 30 09/11/22 21:00 91 20 116/64 (81) 99 Mechanical Ventilator 30.00 09/11/22 20:00 86 20 131/69 (89) 98 Mechanical Ventilator 30.00 09/11/22 20:00 98 Mechanical Ventilator 30 09/11/22 19:58 86 143/73 09/11/22 19:43 36.4 09/11/22 19:00 86 16 138/75 (96) 99 Mechanical Ventilator 30.00 09/11/22 19:00 90 09/11/22 18:16 84 20 99 30 09/11/22 18:00 84 31 128/67 (90) 99 Mechanical Ventilator 30.00 09/11/22 17:12 30 09/11/22 17:00 86 20 111/68 (83) 98 Mechanical Ventilator 30.00 09/11/22 16:00 37.8 09/11/22 16:00 87 20 108/66 (81) 99 Mechanical Ventilator 30.00 09/11/22 15:40 88 97/63 09/11/22 15:36 100 Mechanical Ventilator 30 09/11/22 15:21 87 20 100 30 09/11/22 15:04 88 97/63 09/11/22 15:00 87 20 97/63 (76) 98 Mechanical Ventilator 30.00 09/11/22 14:00 89 20 86/58 (67) 99 Mechanical Ventilator 30.00 09/11/22 13:18 30 09/11/22 13:00 92 9 117/68 (86) 98 Mechanical Ventilator 30.00 09/11/22 13:00 91 09/11/22 12:00 91 23 118/67 (89) 98 Mechanical Ventilator 30.00 09/11/22 12:00 36.9 09/11/22 11:57 100 Mechanical Ventilator 30 09/11/22 11:00 94 21 110/67 (82) 98 Mechanical Ventilator 30.00 09/11/22 10:35 92 20 98 30 09/11/22 10:08 92 09/11/22 10:00 92 20 111/65 (86) 98 Mechanical Ventilator 30.00 09/11/22 09:36 30 09/11/22 09:00 90 20 100/63 (77) 99 Mechanical Ventilator 30.00 I & O 09/12/22 06:59 Intake Total 1480 ml Output Total 1745 ml Balance -265 ml Height & Weight Height: '" Weight: lbs. oz. kg; 23.50 BMI Method: General Appearance: No Apparent Distress, WD/WN, Chronically ill, Other (Intubated and sedated) HEENT: Other (Pupils sluggishly reactive, endotracheal tube in place 21 at the lip.) Neck: Non Tender, Supple Respiratory: Lungs Clear, Normal Breath Sounds Cardiovascular: Extra Beats, Tachycardia Capillary Refill: Less Than 3 Seconds Peripheral Pulses: 2+ Radial Pulses (R), 2+ Radial Pulses (L) Gastrointestinal: soft, no organomegaly Neurologic/Psychiatric: Other (Unresponsive) Results Lab Laboratory Tests 09/10/22 14:07 09/11/22 03:20 09/12/22 02:57 Assessment/Plan Assessment/Plan See free text. Critical Care: Ventilator Management RIKY PARIS MD Sep 12, 2022 08:50
[2022-09-12] MEDS: ASPIRIN 81 MG CHEW (CHILDREN'S ASA) PO SCH (09:20)
[2022-09-12] MEDS: PANTOPRAZOLE 40 MG (PROTONIX) VIAL IV SCH (09:20)
[2022-09-12] MEDS: meTOprolol TARTRATE 25 MG (LOPRESSOR) TABLET PO SCH ×2 (09:20→21:29)
[2022-09-12] MEDS: CLOPIDOGREL 75 MG (PLAVIX) TABLET PO SCH (09:20)
[2022-09-12] MEDS: FUROSEMIDE 40 MG/4 ML INJ (LASIX) IVP SCH (09:22)
[2022-09-12] MEDS: ENOXAPARIN 40 MG/0.4 ML (LOVENOX) SYR SC SCH (09:22)
[2022-09-12] MEDS: LORazepam/NS DRIP 100 ML IV SCH ×2 (09:46→19:46)
--- NOTE | 2022-09-12 10:37 | Cardiology Progress Note ---
Subjective Date Seen by Provider: Sep 12, 2022 Time Seen by Provider: 09:45 Subjective/Events-last exam No acute issues overnight. Sedation discontinued at 0230 this AM. Now at 1030AM, no signs of neurologic activity noted. Focused Exam Lactate Level 09/10/22 08:18: Lactic Acid Level 8.10*H 09/10/22 10:54: Lactic Acid Level 6.78*H Objective-Cardiology Exam Last Set of Vital Signs Vital Signs 09/12/22 09/12/22 09/12/22 07:52 09:37 10:00 Temp 36.7 Pulse 89 Resp 20 B/P (MAP) 141/70 (96) Pulse Ox 96 O2 Delivery Mechanical Ventilator O2 Flow Rate 25.00 FiO2 30 I&O Intake and Output 09/12/22 00:00 Intake Total 820 ml Output Total 1810 ml Balance -990 ml Intake Oral 0 ml IV Total 700 ml Other 120 ml Output Urine Total 1460 ml Gastric Drainage Total 350 ml General: Other (intubated sedated) Lungs: Clear to Auscultation, Normal Air Movement Heart: Regular Rate, Normal S1, Normal S2, No Murmurs Extremities: No Clubbing, No Cyanosis Skin: No Rashes, No Significant Lesion Results Lab Laboratory Tests 09/12/22 02:57 A/P-Cardiology Assessment/Plan Assessment and Plan: ## Cardioresp arrest on 09-10-21 s/p DCCVx 1 by EMS; unknown time down - pt now without purposeful movement; concern for myoclonic jerking vs seizures - we will cont to follow along but no indication for cardiac catheterization particularly in light of poor neurological recovery - for now, cont asa, plavix and metop ## Post arrest ECG without any ST elevation - elevated troponin: NSTEMI vs type 2 [place] likely due to transient anoxia ## Aute respiratory failure requiring ventilation - likely multi-factoria - no vent over breathing with sedation holiday; concern for poor neurologic status - cont to monitor ## Coronary artery disease s/p PCI to mLAD in January 11, [address] Catherine, calcified coronary system with significant stenosis in the mid LAD, status post stenting using kathya point stent 3 x 23 mm expanded to 3.1 mm - Continue on dual antiplatelet therapy ## Aute on Chronic diastolic CHF - Echocardigoram of 08-27-22 showed LVEF 60-65%. Grade 2 diastolic dysfunction. Mod MR. Mild to mod aortic stenosis with mod AoR. PASP 45-50 mmHg - Echo on 09-10-22 (post-code): LVEF 55-60%, mild to mod , mild AI; no regional wall motion abnormalities were noted ## Dispo: - family discussion necessary to define goals of care (GOC) at this point- poor neurologic recovery given no signs of neurologic activity despite sedation holiday for 8 hours. - hold on any cardiac intervention at this time. - will consider signing off once GOC defined CHARLETTE RIVAS MD Sep 12, 2022 10:37
[2022-09-13] MEDS: PROPOFOL DRIP (ICU) 100 ML IV SCH ×2 (01:06→13:46)
[2022-09-13 02:23] VITALS: BP 137/70
[2022-09-13] MEDS: RT-ALBUTEROL SULF 2.5 MG/3 ML PRE-MIX VIAL INH SCH ×6 (02:23→22:53)
[2022-09-13] MEDS: NOREPINEPHRINE 8 MG/250 ML 250 ML IV SCH ×2 (02:31→21:24)
[2022-09-13] MEDS: LORazepam/NS DRIP 100 ML IV SCH ×2 (03:39→14:33)
[2022-09-13 05:07] LABS: BASOPHILS % (AUTO) 0 % (0-10); EOSINOPHILS % (AUTO) 0 % (0-10); HEMATOCRIT 31 % (40-54); MEAN CORPUSCULAR VOLUME 95 fL (80-99)
[2022-09-13 05:09] LABS: HEMOGLOBIN 10.5 g/dL (13.3-17.7); LYMPHOCYTES # (AUTO) 0.5 10^3/uL (1.0-4.0); LYMPHOCYTES % (AUTO) 4 % (12-44); MEAN CORPUSCULAR HEMOGLOBIN 33 pg (25-34); MEAN CORPUSCULAR HGB CONC 34 g/dL (32-36); MEAN PLATELET VOLUME 10.3 fL (9.0-12.2); MONOCYTES # (AUTO) 0.5 10^3/uL (0.0-1.0); MONOCYTES % (AUTO) 4 % (0-12); NEUTROPHILS % (AUTO) 91 % (42-75); PLATELET COUNT 123 10^3/uL (130-400)
[2022-09-13] MEDS: inSUlin ASPART (NovoLOG) 1 UNIT/0.01 ML (CHARGE PER UNIT) SQ SCH ×4 (05:15→23:31)
[2022-09-13 05:41] LABS: ALBUMIN 2.9 GM/DL (3.2-4.5); BILIRUBIN,TOTAL 0.5 MG/DL (0.1-1.0); CALCIUM 8.1 MG/DL (8.5-10.1); CREATININE SERUM 0.69 MG/DL (0.60-1.30); MAGNESIUM 2.1 MG/DL (1.6-2.4); PHOSPHORUS 3.3 MG/DL (2.3-4.7); POTASSIUM 3.2 MMOL/L (3.6-5.0); TOTAL PROTEIN 5.4 GM/DL (6.4-8.2)
[2022-09-13] MEDS: CEFEPIME INJECTION 1,000 MG in NS (IVPB) 50 ML IV SCH ×4 (05:51→23:26)
[2022-09-13] MEDS: methylPREDNISolone 125 MG (Solu-MEDROL) VIAL IVP SCH ×4 (05:51→23:25)
[2022-09-13] MEDS: POTASSIUM CL 10MEQ/50ML IVPB 50 ML IV SCH ×3 (06:39→08:04)
[2022-09-13] MEDS: MAGNESIUM 1 GM/100 ML IVPB 100 ML IV SCH (06:39)
--- NOTE | 2022-09-13 06:42 | Occ Therapy Progress Note ---
Therapy Progress Note D/c from OT services at this time. LUCAS REAVES Sep 13, 2022 06:42
[2022-09-13] MEDS: KCL 20 MEQ TAB (K-DUR) PO SCH (06:46)
[2022-09-13 06:53] VITALS: BP 143/77
--- NOTE | 2022-09-13 07:21 | Physical Therapy Progress Note ---
Therapy Progress Note PT to dismiss patient from services at this time due to declined in status. PT will require new orders when patient is deemed medically stable and able to actively participate with skilled therapy. IVAN CARBALLO PT Sep 13, 2022 07:21
[2022-09-13] MEDS ORDERED: KCL 20 MEQ TAB (K-DUR) PO SCH (08:00)
[2022-09-13] MEDS: ASPIRIN 81 MG CHEW (CHILDREN'S ASA) PO SCH (08:05)
[2022-09-13] MEDS: PANTOPRAZOLE 40 MG (PROTONIX) VIAL IV SCH (08:05)
[2022-09-13] MEDS: meTOprolol TARTRATE 25 MG (LOPRESSOR) TABLET PO SCH (08:05)
[2022-09-13] MEDS: CLOPIDOGREL 75 MG (PLAVIX) TABLET PO SCH (08:05)
[2022-09-13] MEDS: FUROSEMIDE 40 MG/4 ML INJ (LASIX) IVP SCH (08:05)
[2022-09-13] MEDS: ENOXAPARIN 40 MG/0.4 ML (LOVENOX) SYR SC SCH (09:30)
[2022-09-13 10:48] VITALS: BP 157/85
--- NOTE | 2022-09-13 11:11 | Progress Note - Hospitalist ---
LE STERLING 09/13/22 1111: Subjective HPI/CC On Admission Date Seen by Provider: Sep 13, 2022 Time Seen by Provider: 08:25 Cardiac Arrest / Respiratory Arrest Subjective/Events-last exam Case Wray is a 61 yo M who was intubated in ED on 09/10 and subsequently transferred to ICU on mechanical ventilation. Central line was placed by Dr. Torre on 09/10. No family is present in the room this morning. He is a DNR status per family. PT/OT have been dismissed. Per RN, the patient has no gag reflex, pupils are sluggish, and he does not respond to painful stimuli. Daughter called this morning asking if/when he might regain neurological function. Review of Systems Unable to obtain ROS. Patient is intubated and on ventilator. Objective Exam Vital Signs Vital Signs Date Time Temp Pulse Resp B/P (MAP) Pulse Ox O2 Delivery O2 Flow Rate FiO2 09/13/22 10:48 93 18 94 25 09/13/22 10:00 157/85 (109) Mechanical Ventilator 25.00 09/13/22 08:00 37.0 Capillary Refill : Less Than 3 Seconds General Appearance: No Apparent Distress, WD/WN, Chronically ill, Other (Sedated and Intubated) Respiratory: Lungs Clear, Normal Breath Sounds Results/Procedures Lab Laboratory Tests 09/13/22 05:00 Patient resulted labs reviewed. Ventilator Settings on 09/13/22 Tidal Volume: 550 Rate: 14 PEEP: 5.0 FiO2: 25% ABG on 09/12/22 pH: 7.52 pCO2: 32 pO2: 80 Assessment/Plan Assessment and Plan Assess & Plan/Chief Complaint Assessment: Presumed Anoxic Brain Injury likely unrecoverable Cardiac arrest Respiratory arrest Severe COPD Smoker Alcohol use Severe decline in status Plan: Confer with EICU physician for two physician statement of futility Family agrees with DNR Critical Care: Ventilator Management NYDIA WILL DO 09/14/22 0456: Supervisory-Addendum Brief Verification & Attestation Participated in pt care: history, MDM, physical Personally performed: exam, history, MDM, supervision of care Care discussed with: Medical Student Procedures: n/a Results interpretation: Verified all documentation Verification and Attestation of Medical Student E/M Service A medical student performed and documented this service in my presence. I reviewed and verified all information documented by the medical student and made modifications to such information, when appropriate. I personally performed the physical exam and medical decision making. Nydia Will, Sep 14, 2022,04:56 LE STERLING Sep 13, 2022 11:11 NYDIA WILL DO Sep 14, 2022 04:56
--- NOTE | 2022-09-13 11:31 | Cardiology Progress Note ---
Subjective Date Seen by Provider: Sep 13, 2022 Time Seen by Provider: 08:00 Subjective/Events-last exam No acute events overnight. Pt now DNR. No purposeful movement. No gag reflex, no withdrawal to pain Objective-Cardiology Exam Last Set of Vital Signs Vital Signs 09/13/22 09/13/22 09/13/22 08:00 10:00 10:48 Temp 37.0 Pulse 93 Resp 18 B/P (MAP) 157/85 (109) Pulse Ox 94 O2 Delivery Mechanical Ventilator O2 Flow Rate 25.00 FiO2 25 I&O Intake and Output 09/13/22 00:00 Intake Total 2450 ml Output Total 1600 ml Balance 850 ml Intake Oral 0 ml IV Total 2260 ml Other 190 ml Output Urine Total 1400 ml Gastric Drainage Total 200 ml General: Other (intubated sedated) Lungs: Clear to Auscultation, Normal Air Movement Heart: Regular Rate, Normal S1, Normal S2, No Murmurs Extremities: No Clubbing, No Cyanosis Skin: No Rashes, No Significant Lesion Results Lab Laboratory Tests 09/13/22 05:00 A/P-Cardiology Assessment/Plan Assessment and Plan: ## Cardioresp arrest on 09-10-21 s/p DCCVx 1 by EMS; unknown time down- TTE with EF 55-60% and no Regional WMA. - pt now without purposeful movement; concern for myoclonic jerking vs seizures - we will cont to follow along but no indication for cardiac catheterization particularly in light of poor neurological recovery - for now, cont asa, plavix and metop ## Post arrest ECG without any ST elevation - elevated troponin: NSTEMI vs type 2 [place] likely due to transient anoxia ## Aute respiratory failure requiring ventilation - likely multi-factoria - no vent over breathing with sedation holiday; concern for poor neurologic status - cont to monitor ## Coronary artery disease s/p PCI to mLAD in January 11, [address] Catherine, calcified coronary system with significant stenosis in the mid LAD, status post stenting using kathya point stent 3 x 23 mm expanded to 3.1 mm - Continue on dual antiplatelet therapy ## HTn: BPs ranging from 110-150s systolic and HR up to 100s at times. - increase metop to 25 bid ## Anemia: Hgb from 13.6 to 10.5; cont to monitor ## Aute on Chronic diastolic CHF - Echocardigoram of 08-27-22 showed LVEF 60-65%. Grade 2 diastolic dysfunction. Mod MR. Mild to mod aortic stenosis with mod AoR. PASP 45-50 mmHg - Echo on 09-10-22 (post-code): LVEF 55-60%, mild to mod , mild AI; no regional wall motion abnormalities were noted ## Dispo: - family discussion necessary to define goals of care (GOC) at this point- poor neurologic recovery given no signs of neurologic activity despite. Pt has been off of sedation for > 24 hours without any positive signs of neurologic светлана very. - hold on any cardiac intervention at this time. - will consider signing off once GOC defined CHARLETTE RIVAS MD Sep 13, 2022 11:31
--- NOTE | 2022-09-13 12:30 | Tele-ICU Progress Note ---
Subjective Date Seen by a Provider: Sep 13, 2022 Time Seen by a Provider: 12:27 Subjective/Events-last exam PT WITH WITNESSED CARDIAC ARREST AT HOME WITH ROSC AFTER CPR. CURRENTLY INTUBATED, ON VENT. NO SEDATION. PER RN NO GAG OR COUGH REFLEX. HAS MINIMAL CORNEAL REFLEX. UNRESPONSIVE. NO CLINICAL SEIZURES BUT ON KEPPRA. DNR, NO PRESSORS. Review of Systems ROS PER RN Sepsis Event Evaluation Height, Weight, BMI Height: '" Weight: lbs. oz. kg; 23.50 BMI Method: Exam Exam Patient acknowledged, consented, and participated in this virtual visit which was conducted using real time audio/video Vital Signs Date Time Temp Pulse Resp B/P (MAP) Pulse Ox O2 Delivery O2 Flow Rate FiO2 09/13/22 12:00 36.8 09/13/22 11:00 93 16 164/82 (109) 95 Mechanical Ventilator 25.00 09/13/22 10:48 93 18 94 25 09/13/22 10:00 98 27 157/85 (109) 94 Mechanical Ventilator 25.00 09/13/22 09:38 25 09/13/22 09:00 98 26 134/74 (94) 92 Mechanical Ventilator 25.00 09/13/22 08:00 95 26 154/80 (104) 93 Mechanical Ventilator 25.00 09/13/22 08:00 37.0 09/13/22 07:45 94 Mechanical Ventilator 25 09/13/22 07:01 92 09/13/22 07:00 89 22 146/79 (101) 98 Mechanical Ventilator 25.00 09/13/22 06:53 91 24 95 25 09/13/22 06:00 97 20 150/83 (112) 96 09/13/22 05:48 25 09/13/22 05:00 96 19 138/76 (100) 95 09/13/22 04:00 93 Mechanical Ventilator 25 09/13/22 04:00 37.3 100 19 140/73 (95) 93 Mechanical Ventilator 25.00 09/13/22 03:00 100 18 117/68 (95) 91 Mechanical Ventilator 25.00 09/13/22 03:00 100 20 117/68 (95) 92 Mechanical Ventilator 09/13/22 02:23 99 19 92 25 09/13/22 02:00 98 18 137/70 (103) 93 Mechanical Ventilator 09/13/22 02:00 25 09/13/22 01:00 102 09/13/22 01:00 101 18 146/74 (108) 93 09/13/22 00:00 37.4 101 19 133/71 (104) 95 Mechanical Ventilator 25.00 09/13/22 00:00 97 Mechanical Ventilator 25 09/12/22 23:59 25 09/12/22 23:00 101 18 129/73 (93) 92 09/12/22 22:37 101 17 95 25 09/12/22 22:00 112 18 137/70 (98) 95 09/12/22 21:37 38.2 96 95 25 09/12/22 21:30 117 140/70 (94) 95 09/12/22 21:00 120 20 133/72 (96) 95 09/12/22 20:30 125/66 (82) 09/12/22 20:01 120 155/79 (111) 93 09/12/22 20:00 25 09/12/22 20:00 121 19 92 09/12/22 19:45 114 19 152/74 (112) 91 Mechanical Ventilator 25.00 09/12/22 19:44 38.2 09/12/22 19:40 97 Mechanical Ventilator 25 09/12/22 19:30 112 158/79 (107) 92 09/12/22 19:15 109 163/82 (109) 93 09/12/22 19:00 89 21 156/75 (108) 96 09/12/22 19:00 93 09/12/22 18:54 96 14 95 25 09/12/22 18:00 96 14 162/76 (110) 95 Mechanical Ventilator 25.00 09/12/22 17:37 25 09/12/22 17:00 93 14 158/74 (95) 96 Mechanical Ventilator 25.00 09/12/22 16:00 92 14 150/74 (99) 95 Mechanical Ventilator 25.00 09/12/22 16:00 97 Mechanical Ventilator 30 09/12/22 15:18 37.4 09/12/22 15:00 92 14 151/73 (104) 96 Mechanical Ventilator 25.00 09/12/22 14:45 93 14 97 25 09/12/22 14:00 92 15 152/75 (93) 96 Mechanical Ventilator 25.00 09/12/22 13:37 30 09/12/22 13:00 93 23 149/77 (105) 96 Mechanical Ventilator 25.00 09/12/22 12:51 92 I & O0 09/13/22 06:59 Intake Total 1340 ml Output Total 1510 ml Balance -170 ml Height & Weight Height: '" Weight: lbs. oz. kg; 23.50 BMI Method: General Appearance: No Apparent Distress, WD/WN, Chronically ill, Other (Sedated and Intubated) HEENT: Other (Pupils sluggishly reactive, endotracheal tube in place 21 at the lip.) Neck: Non Tender, Supple Respiratory: Lungs Clear, Normal Breath Sounds Cardiovascular: Extra Beats, Tachycardia Capillary Refill: Less Than 3 Seconds Peripheral Pulses: 2+ Radial Pulses (R), 2+ Radial Pulses (L) Gastrointestinal: soft, no organomegaly Neurologic/Psychiatric: Other (Unresponsive) Other comments PE PER RN Results Lab Laboratory Tests 09/12/22 02:57 09/13/22 05:00 Assessment/Plan Assessment/Plan 1. S/P CARDIAC ARREST. INITIAL RHYTHM NOT KNOWN. 2. AC. HYPOXIC RESPIRATORY FAILURE 2TO ABOVE. 3. SVERE HYPOXIC/ANOXIC BRAIN INJURY. 4. RECENT HX OF PNEUMONIA. PLAN. 1. CONTINUE CURRENT VENT SETTINGS. 2. DNR, DNI, NO PRESSORS. 3.AWAIT FOR FAMILY TO MAKE DECISIONS REGARDING GOALS OF CARE SUCH COMFORT CARE. 4.WILL TALK TO FAMILY WHEN ARRIVES. REVIEWED WITH RN PROGNOSIS GRAVE. Critical Care: Ventilator Management Time spent with patient (mins): 30 BELEN CABRALES MD Sep 13, 2022 12:30
[2022-09-13 14:22] VITALS: BP 151/78
[2022-09-13] MEDS ORDERED: HYPOCHLOROUS ACID/NaCl (VASHE) 250 ML IR SCH (15:00)
--- NOTE | 2022-09-13 15:02 | Wound Care Assessment ---
Wound Care Assessment Date Seen by Provider: Sep 13, 2022 Time Seen by Provider: 14:55 Chief Complaint Sacral ulcer HPI This 61 year old gentleman was found down following cardiac/respiratory arrest. He was recently admitted to the hospital with pneumonia (and was intubated) but subsequently was extubated and returned home. He does have underlying COPD, h/o CHF with preserved EF, CAD and h/o CVA. His labs reveal PEM, anemia and elevated troponin suspicious for NSTEMI vs. anoxic injury. He has been tried off sedation without improvement in neurologic status. He does have a stage 2 pressure/moisture related injury to his sacrum. I suspect this initiated with his last hospitalization. Plan for barrier ointment, bordered foam and off loading measures for protection. Past Medical History: Admits Heart Disease, Admits Myocardial Infarction s/p cardiorespiratory arrest, COPD, CAD, CVA, CHF, PEM, anemia, anoxic brain injury Smoking Status: Current Everyday Smoker Review of Systems Other systems Unable to obtain ROS due to intubation and neurologic status. Exam Vital Signs Date Time Temp Pulse Resp B/P (MAP) Pulse Ox O2 Delivery O2 Flow Rate FiO2 09/13/22 14:22 89 16 93 25 09/13/22 14:00 154/76 (102) Mechanical Ventilator 25.00 09/13/22 12:00 36.8 Capillary Refill : Less Than 3 Seconds General Appearance: WD/WN, no apparent distress, other (intubated) Neurologic/Psychiatric: other (intubated and unresponsive) Skin Problem Location: other (sacrum) Skin Character: erythema Wound assessment: The epithelialization is none. There is no tunneling or undermining. Drainage is large and serous. The ulcer is partial thickness. 3.5x3.5x0.1cm to open area and 7x7cm to area with non-blanching erythema Results Laboratory Tests 09/12/22 17:53: Glucometer 121H 09/12/22 23:33: Glucometer 140H 09/13/22 05:00: White Blood Count 11.0, Red Blood Count 3.23L, Hemoglobin 10.5L, Hematocrit 31L, Mean Corpuscular Volume 95, Mean Corpuscular Hemoglobin 33, Mean Corpuscular Hemoglobin Concent 34, Red Cell Distribution Width 13.0, Platelet Count 123L, Mean Platelet Volume 10.3, Immature Granulocyte % (Auto) 1, Neutrophils (%) (Auto) 91H, Lymphocytes (%) (Auto) 4L, Monocytes (%) (Auto) 4, Eosinophils (%) (Auto) 0, Basophils (%) (Auto) 0, Neutrophils # (Auto) 10.0H, Lymphocytes # (Auto) 0.5L, Monocytes # (Auto) 0.5, Eosinophils # (Auto) 0.0, Basophils # (Auto) 0.0, Immature Granulocyte # (Auto) 0.1, Percent Immature Platelet F raction 3.9, Sodium Level 142, Potassium Level 3.2L, Chloride Level 106, Carbon Dioxide Level 25, Anion Gap 11, Blood Urea Nitrogen 17, Creatinine 0.69, Estimat Glomerular Filtration Rate 105, BUN/Creatinine Ratio 25, Glucose Level 153H, Calcium Level 8.1L, Corrected Calcium 9.0, Phosphorus Level 3.3, Magnesium Level 2.1, Total Bilirubin 0.5, Aspartate Amino Transf (AST/SGOT) 42H, Alanine Aminotransferase (ALT/SGPT) 23, Alkaline Phosphatase 52, Total Protein 5.4L, Albumin 2.9L 09/13/22 05:05: Glucometer 152H 09/13/22 10:43: B-Type Natriuretic Peptide 366.8H 09/13/22 12:02: Glucometer 136H Microbiology 09/10/22 MRSA Screen - Final, Complete MRSA not isolated 09/10/22 Urine Culture - Final, Complete NO GROWTH 09/10/22 Blood Culture - Preliminary, Resulted No growth Assessment/Plan/Dx Assessment: 1. Stage 2 pressure ulcer sacrum 2. Irritant dermatitis from incontinence 3. PEM 4. Immobility 5. COPD 6. Suspected anoxic brain injury Plan: 1. Cleanse area daily and apply barrier ointment with bordered foam dressing 2. Change daily and prn 3. Defer decisions on palliation/comfort measures to primary team. Will support as indicated during his stay at our facility 4. Off loading measures JACQUELINE REYES MD Sep 13, 2022 15:02
[2022-09-13 18:44] VITALS: BP 167/81
[2022-09-13] MEDS ORDERED: meTOprolol TARTRATE 25 MG (LOPRESSOR) TABLET PO SCH (21:00)
[2022-09-13] MEDS: LACTATED RINGERS 1,000 ML IV SCH (21:03)
[2022-09-13 22:54] VITALS: BP 168/83
[2022-09-14] MEDS: LORazepam/NS DRIP 100 ML IV SCH ×3 (00:33→19:56)
[2022-09-14] MEDS: PROPOFOL DRIP (ICU) 100 ML IV SCH ×3 (00:39→23:54)
[2022-09-14 02:30] VITALS: BP 169/77
[2022-09-14] MEDS: RT-ALBUTEROL SULF 2.5 MG/3 ML PRE-MIX VIAL INH SCH ×6 (02:30→22:19)
[2022-09-14 03:55] LABS: EOSINOPHILS % (AUTO) 0 % (0-10)
[2022-09-14 03:56] LABS: BASOPHILS % (AUTO) 0 % (0-10); HEMATOCRIT 32 % (40-54); HEMOGLOBIN 10.8 g/dL (13.3-17.7); LYMPHOCYTES # (AUTO) 0.4 10^3/uL (1.0-4.0); LYMPHOCYTES % (AUTO) 5 % (12-44); MEAN CORPUSCULAR HEMOGLOBIN 32 pg (25-34); MEAN CORPUSCULAR HGB CONC 34 g/dL (32-36); MEAN CORPUSCULAR VOLUME 96 fL (80-99); MEAN PLATELET VOLUME 10.4 fL (9.0-12.2); MONOCYTES # (AUTO) 0.3 10^3/uL (0.0-1.0); MONOCYTES % (AUTO) 3 % (0-12); NEUTROPHILS # (AUTO) 7.6 10^3/uL (1.8-7.8); NEUTROPHILS % (AUTO) 91 % (42-75); PLATELET COUNT 117 10^3/uL (130-400); WHITE BLOOD COUNT 8.3 10^3/uL (4.3-11.0)
[2022-09-14 04:02] LABS: ALBUMIN 3.1 GM/DL (3.2-4.5); POTASSIUM 3.4 MMOL/L (3.6-5.0)
[2022-09-14 04:03] LABS: CALCIUM 8.2 MG/DL (8.5-10.1)
[2022-09-14 04:05] LABS: ABG BASE EXCESS 5.1 MMOL/L (-2.5-2.5); ABG OXYGEN SATURATION 80 % (94-100); ABG PCO2 38 MMHG (35-45); ABG PH 7.49 (7.37-7.43); ABG PO2 46 MMHG (79-93); ABG TCO2 29.7 MMOL/L (21.0-31.0); TOTAL PROTEIN 5.5 GM/DL (6.4-8.2)
[2022-09-14 04:06] LABS: ALLENS TEST YES-POS; INSPIRED O2 25%; PATIENT TEMP 37.3; VENTILATOR YES
[2022-09-14 04:07] LABS: BILIRUBIN,TOTAL 0.6 MG/DL (0.1-1.0)
[2022-09-14 04:08] LABS: CREATININE SERUM 0.65 MG/DL (0.60-1.30); PHOSPHORUS 3.1 MG/DL (2.3-4.7)
[2022-09-14 04:11] LABS: MAGNESIUM 2.2 MG/DL (1.6-2.4)
[2022-09-14] MEDS: KCL 20 MEQ TAB (K-DUR) PO SCH (04:29)
[2022-09-14] MEDS: MAGNESIUM 1 GM/100 ML IVPB 100 ML IV SCH (04:29)
[2022-09-14] MEDS: inSUlin ASPART (NovoLOG) 1 UNIT/0.01 ML (CHARGE PER UNIT) SQ SCH ×4 (04:30→23:54)
[2022-09-14] MEDS: POTASSIUM CL 10MEQ/50ML IVPB 50 ML IV SCH ×2 (04:37→05:38)
[2022-09-14] MEDS: methylPREDNISolone 125 MG (Solu-MEDROL) VIAL IVP SCH ×4 (05:38→23:44)
[2022-09-14] MEDS: CEFEPIME INJECTION 1,000 MG in NS (IVPB) 50 ML IV SCH ×4 (05:38→23:44)
[2022-09-14 06:40] VITALS: BP 159/84
--- NOTE | 2022-09-14 08:26 | Cardiology Progress Note ---
Subjective Date Seen by Provider: Sep 14, 2022 Time Seen by Provider: 07:16 Subjective/Events-last exam No acute issue sovernight. BPs increased to 160s/70s. Still no real purposeful movements off sedation. Continues to be DNR-DNI. Objective-Cardiology Exam Last Set of Vital Signs Vital Signs 09/14/22 09/14/22 09/14/22 09/14/22 03:53 06:40 07:00 07:30 Temp 37.3 Pulse 99 Resp 15 B/P (MAP) 167/81 (109) Pulse Ox 93 O2 Delivery Mechanical Ventilator O2 Flow Rate 25.00 FiO2 25 I&O Intake and Output 09/14/22 00:00 Intake Total 1560 ml Output Total 1780 ml Balance -220 ml Intake Oral 0 ml IV Total 1460 ml Other 100 ml Output Urine Total 1730 ml Gastric Drainage Total 50 ml General: Other (intubated sedated) Lungs: Clear to Auscultation, Normal Air Movement Heart: Regular Rate, Normal S1, Normal S2, No Murmurs Abdomen: Other (hypoactive Bowel sounds) Extremities: No Clubbing, No Cyanosis Skin: No Rashes, No Significant Lesion Results Lab Laboratory Tests 09/14/22 03:25 A/P-Cardiology Assessment/Plan Assessment and Plan: ## Cardioresp arrest on 09-10-21 s/p DCCVx 1 by EMS; unknown time down- TTE with EF 55-60% and no Regional WMA. - pt now without purposeful movement; concern for myoclonic jerking vs seizures - we will cont to follow along but no indication for cardiac catheterization particularly in light of poor neurological recovery - cont asa, plavix and metop ## Post arrest ECG without any ST elevation - elevated troponin: NSTEMI vs type 2 [place] likely due to transient anoxia ## Aute respiratory failure requiring ventilation - likely multi-factorial - no vent over breathing with sedation holiday; no purposeful movements; concern for poor neurologic status - cont to monitor ## Coronary artery disease s/p PCI to mLAD in January 11, [address] Catherine, calcified coronary system with significant stenosis in the mid LAD, status post stenting using kathya point stent 3 x 23 mm expanded to 3.1 mm - Continue on dual antiplatelet therapy ## HTN: BPs ranging up to 160s/70s from 110-150s systolic; HR in the 90s down from 100s - increase metop to 50 bid ## Anemia: Hgb high of 13.6 on admission; - stable in the 10s. - cont to monitor ## Aute on Chronic diastolic CHF - Echocardigoram of 08-27-22 showed LVEF 60-65%. Grade 2 diastolic dysfunction. Mod MR. Mild to mod aortic stenosis with mod AoR. PASP 45-50 mmHg - Echo on 09-10-22 (post-code): LVEF 55-60%, mild to mod , mild AI; no regional wall motion abnormalities were noted - hold lasix for now. ## Dispo: - family discussion necessary to define goals of care (GOC) at this point- poor neurologic recovery given no signs of neurologic activity despite. Pt has been off of sedation for > 24 hours without any positive signs of neurologic светлана very. - hold on any cardiac intervention at this time. - will consider signing off once GOC defined CHARLETTE RIVAS MD Sep 14, 2022 08:26
[2022-09-14] MEDS: PANTOPRAZOLE 40 MG (PROTONIX) VIAL IV SCH (09:32)
[2022-09-14] MEDS: ASPIRIN 81 MG CHEW (CHILDREN'S ASA) PO SCH (09:32)
[2022-09-14] MEDS: meTOprolol TARTRATE 50 MG (LOPRESSOR) TAB PO SCH ×2 (09:32→20:00)
[2022-09-14] MEDS: CLOPIDOGREL 75 MG (PLAVIX) TABLET PO SCH (09:32)
[2022-09-14] MEDS: ENOXAPARIN 40 MG/0.4 ML (LOVENOX) SYR SC SCH (09:48)
[2022-09-14 10:18] VITALS: BP 180/83
--- NOTE | 2022-09-14 10:42 | Tele-ICU Progress Note ---
Subjective Date Seen by a Provider: Sep 14, 2022 Time Seen by a Provider: 10:41 Subjective/Events-last exam (Tele-ICU Physician , Progress Note ) Service provided via interactive audio and video telecommunications E-CARE system to a patient admitted to ICU bed in [facility]. Patient is seen today due to persistent need of ICU care Available chart/ vitals / labs / Images reviewed Video assessment done using teleICU camera, rest of exam as per RN Discussed with RN Events overnight : Afebrile hemodynamically stable Respiratory - 25% I/O =even Drips: Pressors- no VENT SETTINGS and ABG reviewed NOT CANDIDATE for SBTreviewed possible contraindications including Cardiovascular Stability /Sedation Score / FI02/PEEP / ABG / CXR/ secretions Sedation, discussed with RN, OFF SEDATION >36 h Consultants: shirlene Hospital course: RECENT 08/24/22 ICU stay with intubation for AECOP/PNA 2 days , extuv=bated --> puiln edema , VT 09/10/22 - status post witnessed cardiac arrest at home , Intubated , possible SZ - started keppra 09/14 - AC 14 550 25% + 5 A/P status post witnessed cardiac arrest at home - ASLC 10 min till ROSC - V. fib and was defibrillated once by paramedics - in afib in ER -- ECHO 08/27/22 EF 65% , gr II dst dsf - as per cards-asa, plavix and metop Encephalopathy post arrest - off seation 36 H , not follow commands , moves legs , - cont to hold any sedation - CTH 2- no bleed Possible sx vs myoclonus 09/10 - Keppra bid 09/10 Acute resp failure , - Intubated 09/10/22 with arrest - cxr checked - abg pending leukocytosis - probably reactive NEG flu , covid) -( recent PNA CAP , RML - cxr IMPROVED, almost resolved - abx initiated in ER empirically , sputum cx - follow AECOPD? - nebs decrease steroids dose CAD - s/p stenting in past -EF reported 65% 2022 Pulm HTN - ECHO RVSP 50 mmGg, -decrease IVF ( elev lactate is post arrest , does not need sepsis boluses ) Nutrition - TF to start S/p CVA Lines : L IJ 2/3 , (Central Line Necessity Reviewed) Collins: + OG: Nutrition: to start Analgesia: Anxiety/ delirium VTE Prophylaxis: francis Stress Ulcer Prophylaxis: ppi Plans in collaboration with bedside consultants and IM MDs. Discussed with RN to reach out if any questions or concerns A total of 33 minutes of critical care time was devoted to this patient today, required to treat and/or prevent further deterioration of critical care condition ( as above ) . Sepsis Event Evaluation Height, Weight, BMI Height: '" Weight: lbs. oz. kg; 24.73 BMI Method: Exam Exam Patient acknowledged, consented, and participated in this virtual visit which was conducted using real time audio/video Vital Signs Date Time Temp Pulse Resp B/P (MAP) Pulse Ox O2 Delivery O2 Flow Rate FiO2 09/14/22 10:18 89 18 93 25 09/14/22 10:00 97 12 180/83 (115) 95 Mechanical Ventilator 25.00 09/14/22 09:00 90 14 184/85 (118) 96 Mechanical Ventilator 25.00 09/14/22 08:00 89 14 175/89 (117) 95 Mechanical Ventilator 25.00 09/14/22 08:00 36.7 09/14/22 07:30 99 09/14/22 07:00 93 15 167/81 (109) 93 Mechanical Ventilator 25.00 09/14/22 06:40 93 16 93 25 09/14/22 06:00 93 18 168/77 (107) 93 Mechanical Ventilator 25.00 09/14/22 06:00 93 24 168/77 (107) 93 Mechanical Ventilator 25.00 09/14/22 05:25 25 09/14/22 05:00 93 18 161/83 (126) 93 Mechanical Ventilator 25.00 09/14/22 04:03 95 25 09/14/22 04:00 98 18 162/79 (119) 91 Mechanical Ventilator 25.00 09/14/22 03:53 37.3 09/14/22 03:00 94 18 161/84 (123) 91 Mechanical Ventilator 25.00 09/14/22 02:30 92 17 93 25 09/14/22 02:00 90 18 169/77 (118) 92 Mechanical Ventilator 25.00 09/14/22 01:37 25 09/14/22 01:00 90 09/14/22 01:00 90 18 167/81 (128) 93 Mechanical Ventilator 25.00 09/14/22 00:00 92 18 167/83 (111) 93 Mechanical Ventilator 25.00 09/13/22 23:59 95 25 09/13/22 23:12 36.9 09/13/22 23:00 90 18 167/84 (126) 94 Mechanical Ventilator 25.00 09/13/22 22:54 90 16 93 25 09/13/22 22:36 36.8 09/13/22 22:30 92 18 168/83 (126) 94 Mechanical Ventilator 25.00 09/13/22 22:00 96 18 170/84 (120) 95 Mechanical Ventilator 25.00 09/13/22 21:37 25 09/13/22 21:30 105 18 177/85 (128) 95 Mechanical Ventilator 25.00 09/13/22 21:04 105 18 175/84 (128) 94 Mechanical Ventilator 25.00 09/13/22 21:00 105 18 181/86 (126) 94 Mechanical Ventilator 25.00 09/13/22 20:30 106 18 165/98 (131) 93 Mechanical Ventilator 25.00 09/13/22 20:21 37.0 09/13/22 20:00 116 18 159/83 (118) 91 09/13/22 19:40 96 25 09/13/22 19:30 110 17 158/86 (114) 90 Mechanical Ventilator 25.00 09/13/22 19:00 112 09/13/22 19:00 112 21 182/90 (124) 91 09/13/22 18:44 93 16 94 25 09/13/22 18:00 94 17 163/81 (108) 93 Mechanical Ventilator 25.00 09/13/22 17:37 25 09/13/22 17:00 91 16 168/80 (109) 95 Mechanical Ventilator 25.00 09/13/22 16:57 37.5 09/13/22 16:23 96 Mechanical Ventilator 25 09/13/22 16:00 89 16 160/80 (106) 94 Mechanical Ventilator 25.00 09/13/22 15:00 90 16 158/81 (106) 94 Mechanical Ventilator 25.00 09/13/22 14:22 89 16 93 25 09/13/22 14:00 92 27 154/76 (102) 94 Mechanical Ventilator 25.00 09/13/22 13:37 25 09/13/22 13:00 98 16 157/87 (110) 94 Mechanical Ventilator 25.00 09/13/22 12:23 98 09/13/22 12:15 96 Mechanical Ventilator 25 09/13/22 12:00 100 34 151/84 (106) 94 Mechanical Ventilator 25.00 09/13/22 12:00 36.8 09/13/22 11:00 93 16 164/82 (109) 95 Mechanical Ventilator 25.00 09/13/22 10:48 93 18 94 25 I & O 09/14/22 07:00 Intake Total 1560 ml Output Total 1800 ml Balance -240 ml Height & Weight Height: '" Weight: lbs. oz. kg; 24.73 BMI Method: General Appearance: No Apparent Distress, WD/WN, Chronically ill, Other (Sedated and Intubated) HEENT: Other (Pupils sluggishly reactive, endotracheal tube in place 21 at the lip.) Neck: Non Tender, Supple Respiratory: Lungs Clear, Normal Breath Sounds Cardiovascular: Extra Beats, Tachycardia Capillary Refill: Less Than 3 Seconds Peripheral Pulses: 2+ Radial Pulses (R), 2+ Radial Pulses (L) Gastrointestinal: soft, no organomegaly Neurologic/Psychiatric: Other (Unresponsive) Results Lab Laboratory Tests 09/13/22 05:00 09/14/22 03:25 Assessment/Plan Assessment/Plan 1 ELIZABETH PETERSON MD Sep 14, 2022 10:42
[2022-09-14 14:17] VITALS: BP 172/86
--- NOTE | 2022-09-14 14:22 | Progress Note - Hospitalist ---
FRANK SILVA 09/14/22 1422: Subjective HPI/CC On Admission Date Seen by Provider: Sep 14, 2022 Time Seen by Provider: 08:15 Cardiac Arrest / Respiratory Arrest Subjective/Events-last exam Upon follow-up for cardiac arrest, respiratory arrest, and presumed anoxic brain injury, patient is laying supine with ventilator support. Review of Systems ROS unable to obtain. Patient is on ventilator support. Objective Exam Vital Signs Vital Signs Date Time Temp Pulse Resp B/P (MAP) Pulse Ox O2 Delivery O2 Flow Rate FiO2 09/14/22 14:00 85 24 172/86 (114) 95 Mechanical Ventilator 25.00 09/14/22 12:15 25 09/14/22 08:00 36.7 Capillary Refill : Less Than 3 Seconds General Appearance: Other (On ventilator support) HEENT: No PERRL/EOMI Respiratory: Other (bilateral and equal chest rise and fall) Cardiovascular: Regular Rate, Rhythm Gastrointestinal: Soft Skin: Normal Color, Warm/Dry Results/Procedures Lab Laboratory Tests 09/14/22 03:25 Patient resulted labs reviewed. Assessment/Plan Assessment and Plan Assess & Plan/Chief Complaint Presumed Anoxic Brain Injury, likely unrecoverable Severe decline in status Cardiac arrest Respiratory arrest Confer with EICU physician for two physician statement of futility Has been off sedation for > 24 hours, no purposeful movements or signs of neurological recovery Family is considering neurology consult at [place] (vs comfort care) Family agrees with DNR Fluid/nutritional needs EICU requested to start enteral feeds Severe COPD Smoker Alcohol use NYDIA WILL DO 09/15/22 0514: Supervisory-Addendum Brief Verification & Attestation Participated in pt care: history, MDM, physical Personally performed: exam, history, MDM, supervision of care Care discussed with: Medical Student Procedures: n/a Results interpretation: Verified all documentation Verification and Attestation of Medical Student E/M Service A medical student performed and documented this service in my presence. I reviewed and verified all information documented by the medical student and made modifications to such information, when appropriate. I personally performed the physical exam and medical decision making. Nydia Will, Sep 15, 2022,05:14 FRANK SILVA Sep 14, 2022 14:22 NYDIA WILL DO Sep 15, 2022 05:14
[2022-09-14] MEDS: LACTATED RINGERS 1,000 ML IV SCH ×2 (16:53→21:59)
[2022-09-14] MEDS: NOREPINEPHRINE 8 MG/250 ML 250 ML IV SCH (16:53)
[2022-09-14] MEDS ORDERED: APAP 325 MG/10.15 ML LIQ (TYLENOL) UDC PO PRN (17:00)
[2022-09-14] MEDS: hydrALAZINE (APESOLINE) 20 MG/ML VIAL IV PRN ×2 (18:23→19:57)
[2022-09-14 18:59] VITALS: BP 162/87
[2022-09-14 22:20] VITALS: BP 129/90
[2022-09-15 01:59] VITALS: BP 172/87
[2022-09-15] MEDS: RT-ALBUTEROL SULF 2.5 MG/3 ML PRE-MIX VIAL INH SCH ×3 (01:59→11:40)
[2022-09-15] MEDS: hydrALAZINE (APESOLINE) 20 MG/ML VIAL IV PRN (04:03)
[2022-09-15 05:22] LABS: BASOPHILS % (AUTO) 0 % (0-10); EOSINOPHILS % (AUTO) 0 % (0-10); HEMATOCRIT 36 % (40-54); HEMOGLOBIN 11.7 g/dL (13.3-17.7); LYMPHOCYTES # (AUTO) 0.5 10^3/uL (1.0-4.0); LYMPHOCYTES % (AUTO) 6 % (12-44); MEAN CORPUSCULAR HEMOGLOBIN 32 pg (25-34); MEAN CORPUSCULAR HGB CONC 33 g/dL (32-36); MEAN CORPUSCULAR VOLUME 96 fL (80-99); MEAN PLATELET VOLUME 10.6 fL (9.0-12.2); MONOCYTES # (AUTO) 0.6 10^3/uL (0.0-1.0); MONOCYTES % (AUTO) 7 % (0-12); NEUTROPHILS # (AUTO) 8.5 10^3/uL (1.8-7.8); NEUTROPHILS % (AUTO) 87 % (42-75); PLATELET COUNT 142 10^3/uL (130-400); WHITE BLOOD COUNT 9.7 10^3/uL (4.3-11.0)
[2022-09-15] MEDS: CEFEPIME INJECTION 1,000 MG in NS (IVPB) 50 ML IV SCH (05:24)
[2022-09-15] MEDS: methylPREDNISolone 125 MG (Solu-MEDROL) VIAL IVP SCH ×2 (05:24→12:00)
[2022-09-15 05:58] LABS: ALBUMIN 3.1 GM/DL (3.2-4.5); BILIRUBIN,TOTAL 0.6 MG/DL (0.1-1.0); CALCIUM 8.1 MG/DL (8.5-10.1); CREATININE SERUM 0.57 MG/DL (0.60-1.30); MAGNESIUM 2.1 MG/DL (1.6-2.4); PHOSPHORUS 2.4 MG/DL (2.3-4.7); POTASSIUM 3.3 MMOL/L (3.6-5.0); TOTAL PROTEIN 5.6 GM/DL (6.4-8.2)
[2022-09-15] MEDS: inSUlin ASPART (NovoLOG) 1 UNIT/0.01 ML (CHARGE PER UNIT) SQ SCH ×2 (06:03→12:00)
[2022-09-15] MEDS: MAGNESIUM 1 GM/100 ML IVPB 100 ML IV SCH (06:07)
[2022-09-15] MEDS: KCL 20 MEQ TAB (K-DUR) PO SCH (06:07)
[2022-09-15] MEDS: POTASSIUM CL 10MEQ/50ML IVPB 50 ML IV SCH ×2 (06:16→07:23)
[2022-09-15 07:05] VITALS: BP 143/76
[2022-09-15] MEDS: LORazepam/NS DRIP 100 ML IV SCH (07:23)
--- NOTE | 2022-09-15 08:06 | Tele-ICU Progress Note ---
Subjective Date Seen by a Provider: Sep 15, 2022 Time Seen by a Provider: 08:01 Subjective/Events-last exam (Tele-ICU Physician , Progress Note ) Service provided via interactive audio and video telecommunications E-CARE system to a patient admitted to ICU bed in [facility]. Patient is seen today due to persistent need of ICU care Available chart/ vitals / labs / Images reviewed Video assessment done using teleICU camera, rest of exam as per RN Discussed with RN Events overnight : 61 yo M on vent since 09/10. on vent now DNR, AC 18, Vt 550, FiO2 25%, Has AECOPD, had witnessed CP arrest at home.took 10 min until ROSC, on ASA Plavix beta tommy not following commands post arrest, Daughter is leaning towards comfort care. On IV Cefepime, Medrol, Kepra for Sz-not having Sz now, off IV Ativan, no sedation for 48 hours CXR 09/10 ET ok, opacities LLL Sepsis Event Evaluation Height, Weight, BMI Height: '" Weight: lbs. oz. kg; 24.73 BMI Method: Exam Exam Patient acknowledged, consented, and participated in this virtual visit which was conducted using real time audio/video Vital Signs Date Time Temp Pulse Resp B/P (MAP) Pulse Ox O2 Delivery O2 Flow Rate FiO2 09/15/22 07:05 97 18 93 25 09/15/22 07:00 97 19 143/76 (105) 94 09/15/22 06:00 98 19 141/75 (109) 95 09/15/22 05:00 95 20 122/71 (93) 94 Mechanical Ventilator 25.00 09/15/22 04:00 37.7 92 17 159/83 (108) 95 09/15/22 03:58 94 25 09/15/22 03:57 25 09/15/22 03:00 89 16 134/74 (102) 93 09/15/22 02:00 85 16 133/70 (99) 94 09/15/22 01:59 85 18 92 25 09/15/22 01:00 90 17 172/87 (129) 95 09/15/22 01:00 90 09/15/22 00:00 25 09/15/22 00:00 36.3 86 17 142/79 (109) 95 Mechanical Ventilator 09/14/22 23:54 94 25 09/14/22 23:00 92 16 140/74 (107) 95 Mechanical Ventilator 25.00 09/14/22 22:20 99 18 94 25 09/14/22 22:00 89 19 124/69 (90) 95 09/14/22 21:00 95 19 141/72 (100) 95 09/14/22 20:00 36.9 09/14/22 20:00 25 09/14/22 20:00 112 21 155/82 (106) 94 09/14/22 19:30 94 25 09/14/22 19:30 115 178/93 (131) 91 09/14/22 19:00 103 09/14/22 19:00 105 22 168/87 (125) 93 Mechanical Ventilator 25.00 09/14/22 18:59 104 20 94 25 09/14/22 18:00 101 23 193/89 (123) 96 Mechanical Ventilator 25.00 09/14/22 17:37 25 09/14/22 17:00 95 18 183/80 (114) 96 Mechanical Ventilator 25.00 09/14/22 16:30 94 25 09/14/22 16:00 90 26 179/81 (113) 96 Mechanical Ventilator 25.00 09/14/22 15:49 37.4 09/14/22 15:00 86 23 168/73 (104) 94 Mechanical Ventilator 25.00 09/14/22 14:17 87 14 95 25 09/14/22 14:00 85 24 172/86 (114) 95 Mechanical Ventilator 25.00 09/14/22 13:37 25 09/14/22 13:01 85 09/14/22 13:00 84 21 166/83 (110) 94 Mechanical Ventilator 25.00 09/14/22 12:15 94 25 09/14/22 12:00 86 17 171/89 (116) 97 Mechanical Ventilator 25.00 09/14/22 12:00 36.6 09/14/22 11:00 87 22 164/83 (110) 94 Mechanical Ventilator 25.00 09/14/22 10:18 89 18 93 25 09/14/22 10:00 97 12 180/83 (115) 95 Mechanical Ventilator 25.00 09/14/22 09:37 25 09/14/22 09:00 90 14 184/85 (118) 96 Mechanical Ventilator 25.00 I & O 09/15/22 07:00 Intake Total 2009 ml Output Total 1505 ml Balance 504 ml Height & Weight Height: '" Weight: lbs. oz. kg; 24.73 BMI Method: General Appearance: Other (On ventilator support) HEENT: No PERRL/EOMI Neck: Non Tender, Supple Respiratory: Decreased Breath Sounds, Other (bilateral and equal chest rise and fall) Cardiovascular: Regular Rate, Rhythm Capillary Refill: Less Than 3 Seconds Peripheral Pulses: 2+ Radial Pulses (R), 2+ Radial Pulses (L) Gastrointestinal: normal bowel sounds, non tender, soft, no organomegaly Extremity: No Pedal Edema Neurologic/Psychiatric: Other (Unresponsive) Skin: Normal Color, Warm/Dry Results Lab Laboratory Tests 09/14/22 03:25 09/15/22 04:55 Assessment/Plan Assessment/Plan s/p CP arrest with cerebral anoxia, on vent, family to decide on GOC-daughter leaning towards comfort care continue on vent off pressors, Off IV propofol, last TG 97 on 09/12 Critical Care: Ventilator Management Time spent with patient (mins): 25 MICKEY ULRICH MD Sep 15, 2022 08:06
--- NOTE | 2022-09-15 09:28 | Progress Note - Cardiology ---
Cardiology SOAP Progress Note Subjective: Unresponsive Objective: I&O/Vital Signs 09/14/22 09/14/22 09/14/22 09/14/22 22:00 22:20 23:00 23:54 Pulse 89 99 92 Resp 19 18 16 B/P (MAP) 124/69 (90) 140/74 (107) Pulse Ox 95 94 95 94 O2 Delivery Mechanical Ventilator O2 Flow Rate 25.00 FiO2 25 25 09/15/22 09/15/22 09/15/22 09/15/22 00:00 00:00 01:00 01:00 Temp 36.3 Pulse 86 90 90 Resp 17 17 B/P (MAP) 142/79 (109) 172/87 (129) Pulse Ox 95 95 O2 Delivery Mechanical Ventilator FiO2 25 09/15/22 09/15/22 09/15/22 09/15/22 01:59 02:00 03:00 03:57 Pulse 85 85 89 Resp 18 16 16 B/P (MAP) 133/70 (99) 134/74 (102) Pulse Ox 92 94 93 FiO2 25 25 09/15/22 09/15/22 09/15/22 09/15/22 03:58 04:00 05:00 06:00 Temp 37.7 Pulse 92 95 98 Resp 17 20 19 B/P (MAP) 159/83 (108) 122/71 (93) 141/75 (109) Pulse Ox 94 95 94 95 O2 Delivery Mechanical Ventilator O2 Flow Rate 25.00 FiO2 25 09/15/22 09/15/22 09/15/22 09/15/22 07:00 07:00 07:00 07:05 Pulse 98 97 98 97 Resp 19 19 18 B/P (MAP) 143/76 (105) 143/76 (98) Pulse Ox 94 94 93 O2 Delivery Mechanical Ventilator O2 Flow Rate 25.00 FiO2 25 09/15/22 09/15/22 09/15/22 08:00 08:00 09:00 Temp 37.5 Pulse 98 98 Resp 35 17 B/P (MAP) 136/81 (99) 143/71 (95) Pulse Ox 93 96 O2 Delivery Mechanical Ventilator Mechanical Ventilator O2 Flow Rate 25.00 25.00 09/15/22 00:00 Intake Total 1355 ml Output Total 875 ml Balance 480 ml Constitutional: other (Unresponsive, on mech vent) Respiratory: No accessory muscle use, No respiratory distress; other (coarse breath sounds throughout; currently on ventilator) Cardiovascular: regular rate-rhythm; No JVD; S1 and S2, systolic murmur Gastrointestional: audible bowel sounds (NG tube in place) Extremities: no lower extremity edema bilateral Neurologic/Psychiatric: other (unresponsivie) Skin: No rash on exposed areas, No ulcerations on exposed areas Results/Procedures: Labs Laboratory Tests 09/14/22 11:51: Glucometer 128H 09/14/22 18:09: Glucometer 120H 09/14/22 23:52: Glucometer 109 09/15/22 04:55: White Blood Count 9.7, Red Blood Count 3.69L, Hemoglobin 11.7L, Hematocrit 36L, Mean Corpuscular Volume 96, Mean Corpuscular Hemoglobin 32, Mean Corpuscular Hemoglobin Concent 33, Red Cell Distribution Width 12.8, Platelet Count 142, Mean Platelet Volume 10.6, Immature Granulocyte % (Auto) 1, Neutrophils (%) (Auto) 87H, Lymphocytes (%) (Auto) 6L, Monocytes (%) (Auto) 7, Eosinophils (%) (Auto) 0, Basophils (%) (Auto) 0, Neutrophils # (Auto) 8.5H, Lymphocytes # (Auto) 0.5L, Monocytes # (Auto) 0.6, Eosinophils # (Auto) 0.0, Basophils # (Auto) 0.0, Immature Granulocyte # (Auto) 0.1, Sodium Level 143, Potassium Level 3.3L, Chloride Level 110H, Carbon Dioxide Level 21, Anion Gap 12, Blood Urea Nitrogen 22H, Creatinine 0.57L, Estimat Glomerular Filtration Rate 112, BUN/Creatinine Ratio 39, Glucose Level 119H, Calcium Level 8.1L, Corrected Calcium 8.8, Phosphorus Level 2.4, Magnesium Level 2.1, Total Bilirubin 0.6, Aspartate Amino Transf (AST/SGOT) 48H, Alanine Aminotransferase (ALT/SGPT) 28, Alkaline Phosphatase 59, Total Protein 5.6L, Albumin 3.1L 09/15/22 05:20: Glucometer 119H Microbiology 09/10/22 MRSA Screen - Final, Complete MRSA not isolated 09/10/22 Urine Culture - Final, Complete NO GROWTH 09/10/22 Blood Culture - Preliminary, Resulted No growth Laboratory Tests 09/14/22 03:25 09/15/22 04:55 A/P: Assessment: No signs of neurologic recovery after cardioresp arres Cardioresp arrest on 09-10-21 - witnessed collapse per family - CPR started - EMS reports presenting rhythm as v-fib (no strips available) - defibrillated x1 per EMS restoring SR (no documentation available) Post arrest ECG without any ST elevation - elevated troponin: NSTEMI vs type 2 NJ due to transient anoxia Aute respiratory failure requiring ventilation - likely multi-factorial - Acute on chronic exacerbation of COPD; acute on chronic diastolic CHF Sepsis - UTI - management per medical services Coronary artery disease - Cardiac catheterization was done on January 11, [address] Catherine, calcified coronary system with significant stenosis in the mid LAD, status post stenting using kathya point stent 3 x 23 mm expanded to 3.1 mm with excellent results, - Continue on dual antiplatelet therapy Aute on Chronic diastolic CHF - Echocardigoram of 08-27-22 showed LVEF 60-65%. Grade 2 diastolic dysfunction. Mod MR. Mild to mod aortic stenosis with mod AoR. PASP 45-50 mmHg - Echo on 09-10-22 (post-code): LVEF 55-60%, mild to mod , mild AI H/O Left thigh pain, has been complaining of left leg pain - BLE arterial duplex done 01/12/[address] Catherine showing bilateral hemodynamic significant stenoses on the left at the level of the common femoral and on the right at the level of the popliteal artery. Hypertension Hyperlipidemia History of CVA with right hemiparesis Tobaccoism - still an active smoker despite multiple advice to quit Plan: * Given no signs of neurologic recovery, prognosis is poor * Hosp service is consulting with family regarding disposition * Meanwhile, continue current cardiac regimen * Replenish electrolytes and monitor labs Post code - witnessed collapse at home - EMS reports v-fib at time of presentation which he was defibrillated x 1 - NSTEMI vs type 2 NJ. No evidence of STEMI - start DAPT (recent coronary intervention in January [address] Catherine) - Add BB as BP will allow Sepsis - likely secondary to UTI - management per medical services Acute resp failure - likely multi-factorial d/t acute on chronic exacerbation of COPD, acute on chronic diastolic CHF Acute on chronic diastolic CHF - treat with diuretics as tolerated/indicated Monitor lab closely Replace electrolytes as indicated Further recs will be based on his hospital course We would like to thank Medical services for this consult Clinical Quality Measures Type of Care: Type of Care: Comfort Measures CHERYL MUÑOZ MD FACP FAC CCDS Sep 15, 2022 09:28
[2022-09-15] MEDS ORDERED: RT-ALBUTEROL/IPRATROPIUM 3 ML (DUONEB) VIAL INH PRN (09:30)
[2022-09-15] MEDS ORDERED: LORazepam ORAL CONCENTRATE 2 MG/ML 30 ML (ATIVAN) PO PRN (09:30)
[2022-09-15] MEDS ORDERED: BISACODYL 10 MG SUPP (DULCOLAX) PR PRN (09:30)
[2022-09-15] MEDS ORDERED: ONDANSETRON 4 MG/2 ML (SDV) Z0FRAN IVP PRN (09:30)
[2022-09-15] MEDS ORDERED: PROMETHAZINE INJ 25 MG/ML (PHENERGAN) AMP IVP PRN (09:30)
[2022-09-15] MEDS ORDERED: ACETAMINOPHEN 650 MG SUPP (TYLENOL) PR PRN (09:30)
[2022-09-15] MEDS ORDERED: LORazepam 1 MG (ATIVAN) TAB SL PRN (09:30)
[2022-09-15] MEDS ORDERED: SALIVA SUBSTITUTE 60 ML SPRAY(MOUTHKOTE) MM PRN (09:30)
[2022-09-15] MEDS ORDERED: GLYCOPYRROLATE 0.2 MG/ML (ROBINUL) 2 ML VIAL IV PRN (09:30)
[2022-09-15] MEDS ORDERED: ARTIFICAL TEARS 0.4 ML UNIT DOSE (REFRESH PLUS) OU PRN (09:30)
[2022-09-15] MEDS: PANTOPRAZOLE 40 MG (PROTONIX) VIAL IV SCH (09:43)
[2022-09-15] MEDS: ASPIRIN 81 MG CHEW (CHILDREN'S ASA) PO SCH (09:43)
[2022-09-15] MEDS: meTOprolol TARTRATE 50 MG (LOPRESSOR) TAB PO SCH (09:43)
[2022-09-15] MEDS: CLOPIDOGREL 75 MG (PLAVIX) TABLET PO SCH (09:43)
[2022-09-15] MEDS: morphine INJ 10 MG/ML 1ML (SYR OR VIAL) IVP PRN ×8 (10:57→22:54)
[2022-09-15] MEDS: LORazepam INJ 2 MG/ML (ATIVAN) VIAL IVP PRN ×3 (11:05→20:38)
[2022-09-15] MEDS: ENOXAPARIN 40 MG/0.4 ML (LOVENOX) SYR SC SCH (11:40)
[2022-09-15] MEDS: NOREPINEPHRINE 8 MG/250 ML 250 ML IV SCH (11:58)
[2022-09-15] MEDS: PROPOFOL DRIP (ICU) 100 ML IV SCH (13:34)
--- NOTE | 2022-09-15 14:06 | Progress Note - Hospitalist ---
SHERMANJacqueFRANK MARQUEZ 09/15/22 1406: Subjective HPI/CC On Admission Date Seen by Provider: Sep 15, 2022 Time Seen by Provider: 08:20 Cardiac Arrest / Respiratory Arrest Subjective/Events-last exam Upon follow-up for cardiac arrest, respiratory arrest, and presumed anoxic brain injury, patient is laying supine with ventilator support. Hospital course: Patient is a 61-year-old male with history of COPD with recent 8-day hospitalization at [facility] for respiratory failure requiring ventilation who presents status post witnessed cardiac arrest. 09/10/22 Per ED: Patient is a 61-year-old male with history of COPD with recent 8-day hospitalization at [facility] for respiratory failure requiring ventilation who presents status post witnessed cardiac arrest. Patient was downstairs when he yelled for breath stating he was short of breath. The patient does not require oxygen at home and does not wear CPAP at night. The patient then attempted to stand and collapsed. He was unresponsive and upon family members arrival was apneic and pulseless. Chest compressions were started and on EMS arrival, the patient was apneic, pulseless and found to be in V. fib and was defibrillated once. The patient had approximately 10 minutes of chest compressions, received multiple doses of bicarb and epinephrine prior to return of his spontaneous circulation. An IO was placed and the patient was intubated without sedation. History is limited due to the patient's clinical condition. -Chest x-ray: Endotracheal tube in proper place., Pulmonary vascular congestion. -EKG 1: A. fib -EKG 2: Normal sinus rhythm, no acute ST segment elevation. Patient with witnessed cardiac/respiratory arrest, with spontaneous return of circulation after infield CPR. The Apparent cause of patient's respiratory arrest is unknown as this is the second episode within 1 month. Patient is susceptible to underlying arrhythmia with pulmonary edema secondary to his COPD, and has history of known stroke. Lungs are compliant with an easily ventilated on mechanical ventilator. Patient is requiring minimal sedation to prevent overbreathing the vent. Pupils are sluggishly reactive reactive. Empiric antibiotics given due to elevation of white blood cell count which is thought to be likely stress response. Troponin is elevated thought likely to be related to cardiac arrest. Initial EKG shows A. fib. Repeat EKG shows normal sinus rhythm with no evidence of ST segment elevation lactic acid is likely due to prolonged hypoxic state. Sepsis considered but felt unlikely due to clinical presentation presentation. Blood cultures, COVID and flu swabs were obtained. Empiric antibiotics will be given. The patient remains in critical condition with stable vital signs on ventilator. Dr. Kearney accepts to [facility] ICU. Per Dr. Kearney, [facility] (09/10/22): His family reports he has a history of COPD, coronary artery disease (had stenting done in January 2022), peripheral artery disease (stenting done in August 2022 in [place]), hypertension and hyperlipidemia. He had a stroke about 7-8 years ago and has residual right sided weakness. He quit smoking since his last admission a couple of weeks ago and is using nicotine patches, last one placed last night. He does have a history of heavy alcohol use up to 15 beers per day, until after his last hospitalization and since then he has had only a couple of beers per day. He does not use supplemental oxygen at home, his daughter notes they tested him at clinic and he did not qualify. He does not use CPAP. He was recently admitted with respiratory failure requiring intubation a couple of weeks ago, but had recovered very well. Consults: E-ICU -Head CT: No acute intra-cranial process is detected. -Began sedation holiday that evening, no purposeful movement and myoclonic jerks Cardiology -Echo (post-code): LVEF 55-60%, mild to mod , mild AI; no regional wall motion abnormalities were noted PT/OT : -No intervention, patient on ventilator support General Surgery -Central line placement for pressor support 09/11/22: Uneventful, on ventilator support 09/12/22: Family decided on DNR status 09/13/22: PT/OT dismissed from case due to likely unrecoverable neurologic function EKG: AFib with aberrant conduction EKG: Sinus Rhythm EKG: Sinus rhythm 09/14/22: Family briefly considered and discussed the possibility of a neurological consult at [place] as opposed to comfort care measures. EKG: Afib with aberrant conduction 09/15/22: Family agreed on comfort care measures. Family is at bedside. Patient was extubated per family request at 11:05 Review of Systems ROS unable to obtain. Patient is on ventilator support. Objective Exam Vital Signs Vital Signs Date Time Temp Pulse Resp B/P (MAP) Pulse Ox O2 Delivery O2 Flow Rate FiO2 2/8/23 11:05 Room Air 09/15/22 11:00 111 16 172/80 (110) 95 25.00 09/15/22 08:00 37.5 09/15/22 08:00 25 Capillary Refill : Less Than 3 Seconds General Appearance: No Apparent Distress, Chronically ill HEENT: No PERRL/EOMI Neck: Normal Inspection Respiratory: Other (bilateral chest rise and fall) Cardiovascular: Regular Rate, Rhythm Gastrointestinal: Soft Neurologic/Psychiatric: Other (On mechanical ventilator) Skin: Normal Color, Warm/Dry Results/Procedures Lab Laboratory Tests 09/15/22 04:55 Patient resulted labs reviewed. Assessment/Plan Assessment and Plan Assess & Plan/Chief Complaint Presumed Anoxic Brain Injury, likely unrecoverable Severe decline in status Cardiac arrest Respiratory arrest Confer with EICU physician for two physician statement of futility Has been off sedation for > 48 hours, no purposeful movements or signs of neurological recovery Family has decided on comfort care measures Family at bedside this AM @ 0930 Family agrees with DNR Terminal extubation at 11:05 per family request Fluid/nutritional needs EICU requested to start enteral feeds Severe COPD Smoker Alcohol use NYDIA WILL DO 09/16/22 0516: Supervisory-Addendum Brief Verification & Attestation Participated in pt care: history, MDM, physical Personally performed: exam, history, MDM, supervision of care Care discussed with: Medical Student Procedures: n/a Results interpretation: Verified all documentation Verification and Attestation of Medical Student E/M Service A medical student performed and documented this service in my presence. I reviewed and verified all information documented by the medical student and made modifications to such information, when appropriate. I personally performed the physical exam and medical decision making. Nydia Will, Sep 16, 2022,05:16 FRANK SILVA Sep 15, 2022 14:06 NYDIA WILL DO Sep 16, 2022 05:16
[2022-09-16] MEDS: LORazepam INJ 2 MG/ML (ATIVAN) VIAL IVP PRN ×2 (07:53→09:21)
[2022-09-16] MEDS: morphine INJ 4 MG/ML 1 ML (VIAL/SYRINGE) IVP PRN ×2 (07:53→09:21)
--- NOTE | 2022-09-16 10:54 | Discharge Summary ---
Discharge Summary Hospital Course Was the Problem List Reviewed?: Yes Problems/Dx: (1) Cardiac arrest Status: Acute (2) Respiratory arrest Status: Acute Hospital Course Date of Admission: Sep 10, 2022 at 10:02 Admission Diagnosis : [facility] Date of Dis[facility]: 09/16/22 Discharge Diagnosis: [ ] Hospital Course: Lengthy course after he was admitted following cardiac and respiratory arrest. ROSC was obtained. Patient remained on ventilator and due to severe COPD at baseline his prognosis remained grim. Family was updated on the presumed anoxic brain injury and they requested neuro consult with transfer but due to poor prognosis assessed by and other facilities the transfer was denied. Family agreed to DNR and then terminal extubation and then he the next day. Labs and Pending Lab Test: Microbiology 09/10/22 MRSA Screen - Final, Complete MRSA not isolated 09/10/22 Urine Culture - Final, Complete NO GROWTH 09/10/22 Blood Culture - Final, Complete No growth Home Meds Active Vitamin B-1 (Thiamine HCl) 100 Mg Tablet 100 Mg PO DAILY@0700 Folic Acid 1 Mg Tablet 1 Mg PO DAILY Oxyir Tablet (Oxycodone HCl) 5 Mg Tab 5 Mg PO Q4HR PRN Amlodipine Besylate 5 Mg Tablet 5 Mg PO DAILY Reported Iprat-Albut 0.5-3(2.5) mg/3 ml (Ipratropium/Albuterol Sulfate) 0.5 Mg-3 Mg (2.5 Mg Base)/3 Ml Ampul.neb 3 Ml IH Q6H PRN Atorvastatin Calcium 20 Mg Tablet 20 Mg PO DAILY LAST FILLED 05-11-2022 #30/30 DAY SUPPLY Pantoprazole Sodium 40 Mg Tablet. 40 Mg PO DAILY Sertraline HCl 50 Mg Tablet 50 Mg PO DAILY Aspirin EC (Aspirin) 81 Mg Tablet. 81 Mg PO DAILY Clopidogrel (Clopidogrel Bisulfate) 75 Mg Tablet 75 Mg PO DAILY Metoprolol Succinate 50 Mg Tab.er.24h 50 Mg PO DAILY Assessment/Pt Instructions Discharge Planning: <30 minutes discharge planning Discharge Physical Examination Vital Signs Vital Signs Date Time Temp Pulse Resp B/P (MAP) Pulse Ox O2 Delivery O2 Flow Rate FiO2 09/15/22 19:06 Room Air 09/15/22 11:00 111 16 172/80 (110) 95 25.00 09/15/22 08:00 37.5 09/15/22 08:00 25 Allergies: Coded Allergies: No Known Drug Allergies (Unverified , 01/04/22) Discharge Summary Date of Admission Sep 10, 2022 at 10:02 Date of Discharge Comfort Measures/ End of Life Care: Comfort Measures Discharge Diagnosis ROSA ELENA WILL DO Sep 16, 2022 10:54
== END 2022-09-16 13:55 | disposition expired | DRG 207 ==
LOC: ER FS 08:03 → ICU 10:02 → 4TH 09-15 14:30
PROVIDERS: ADMIT Family Medicine; ATTEND Internal Medicine
PROC: 02HV33Z Insertion of Infusion Device into Superior Vena Cava, Percutaneous Approach (ICD-10-PCS; principal; 2022-09-10)
PROC: 5A1955Z Respiratory Ventilation, Greater than 96 Consecutive Hours (ICD-10-PCS; 2022-09-10)
PROC: 0BH17EZ Insertion of Endotracheal Airway into Trachea, Via Natural or Artificial Opening (ICD-10-PCS; 2022-09-10)
PROC: 5A12012 Performance of Cardiac Output, Single, Manual (ICD-10-PCS; 2022-09-10)
DX: J96.01 Acute respiratory failure with hypoxia (principal); I50.33 Acute on chronic diastolic (congestive) heart failure; J18.9 Pneumonia, unspecified organism; I21.A1 Myocardial infarction type 2; G93.1 Anoxic brain damage, not elsewhere classified; J44.1 Chronic obstructive pulmonary disease with (acute) exacerbation; J44.0 Chronic obstructive pulmonary disease with (acute) lower respiratory infection; N39.0 Urinary tract infection, site not specified; I69.351 Hemiplegia and hemiparesis following cerebral infarction affecting right dominant side; E87.21 Acute metabolic acidosis; J96.02 Acute respiratory failure with hypercapnia; Z66 Do not resuscitate; Z51.5 Encounter for palliative care; I11.0 Hypertensive heart disease with heart failure; D64.9 Anemia, unspecified; I25.10 Atherosclerotic heart disease of native coronary artery without angina pectoris; Z95.5 Presence of coronary angioplasty implant and graft; F17.210 Nicotine dependence, cigarettes, uncomplicated; Z79.82 Long term (current) use of aspirin; Z79.899 Other long term (current) drug therapy; I95.9 Hypotension, unspecified; I87.2 Venous insufficiency (chronic) (peripheral); F10.10 Alcohol abuse, uncomplicated; I49.01 Ventricular fibrillation; I73.9 Peripheral vascular disease, unspecified; Z20.822 Contact with and (suspected) exposure to COVID-19; E78.2 Mixed hyperlipidemia; I27.20 Pulmonary hypertension, unspecified
CPT/HCPCS: 36415; 36600; 36680; 51702; 70450; 71045; 80048; 80053; 81000; 82805; 82947; 83605; 83735; 83880; 84100; 84478; 84484; 85007; 85025; 85027; 87040; 87070; 87081; 87088; 87205; 87636; 93005; 93308; 94002; 94003; 94640; 94799; 99291